=== PATIENT | female | born 1950 | race Caucasian/White ===

== ENCOUNTER → 2019-08-15 09:31 | Outpatient (BNVA) | payer MEDICARE, MEDICAID, SELFPAY | PROVIDERS: Family Provider Nurse Practitioner Family; PCP Nurse Practitioner Family; Visit Provider Nurse Practitioner Family | DX: R07.89 Other chest pain (principal); R93.89 Abnormal findings on diagnostic imaging of other specified body structures; R01.1 Cardiac murmur, unspecified; E11.9 Type 2 diabetes mellitus without complications | CPT/HCPCS: 36415; 83036 ==

== ENCOUNTER 2019-08-16 13:17 | Outpatient (CLI) | payer MEDICARE, MEDICAID, SELFPAY ==
--- NOTE | 2019-08-16 13:45 | CT_ITS ---
WS: [id number] CT CHEST TECHNIQUE: Noncontrast CT of the chest with coronal and sagittal reformatted images. CLINICAL INFORMATION: dyspnea COMPARISON: None. DLP: 1055.[address] scans at [facility] use at least one of these dose optimization techniques: automat ed exposure control; mA and/or kV adjustment per patient size (includes targeted exams where dose is matched to clinical indication); or iterative reconstruction. FINDINGS: Right mastectomy. No acute pulmonary infiltrates. Mild chronic emphysematous changes. No consolidatio n or pleural fluid. Pleural thickening left lower lobe with subsegmental atelectasis left lower lobe. 6 mm noncalcified fibrotic appearing nodule right middle lobe may represent fibrosis but Recommend 6- 12 month follow-up chest CT. No mediastinal or hilar lymphadenopathy. Mild aortic calcification. Enlarged lymph node in the right axilla measuring 11x11 mm with slightly increased attenuation. Additional adjacent slightly enlarged axillary lymph nodes. Recommend further evaluation with ultrasound. No left axillary lymphadenopathy. Unremarkable thyroid. Tiny pericardial effusion or pericardial thickening. Adrenal glands are normal. Normal GE junction. Fatty atrophy of the pancreas. Mild thoracic kyphosis. Thoracic curve convex rig ht. CT/CT chest wo con [id number] IMPRESSION: 1. Enlarged right axillary lymph node measuring 11 x 11 mm. Recommend further evaluation with ultrasound. Prior right mastectomy. 2. 6 mm noncalcified fibrotic appearing nodule right middle lobe may represent fibrosis but Recommend 6-12 month follow-up chest CT. 3. Subsegmental atelectasis left lung base with fibrosis and pleural thickenin g. 4. No mediastinal or hilar lymphadenopathy. 5. Small pericardial effusion or pericardial thickening.
== END 2019-08-16 13:18 | disposition home or self-care (01) ==
LOC: RADWPI 13:23
PROVIDERS: Family Provider Nurse Practitioner Family; PCP Nurse Practitioner Family; Visit Provider Nurse Practitioner Family
DX: R06.00 Dyspnea, unspecified (principal); R59.9 Enlarged lymph nodes, unspecified; R91.1 Solitary pulmonary nodule; J98.11 Atelectasis; J84.10 Pulmonary fibrosis, unspecified; I31.3 Pericardial effusion (noninflammatory)
CPT/HCPCS: 71250

== ENCOUNTER 2019-09-13 13:28 | Outpatient (CLI) | payer MEDICARE, MEDICAID, SELFPAY ==
--- NOTE | 2019-09-14 07:19 | ONC CON_ITS ---
Dr. Lemon New Patient Note Patient: Roxana Hamilton Unit #: [id number]: 1950 Dicatated By: Dangelo Lemon M.D.Date of Visit: September 13, 2019 Onc MED New Patient/Consult Referring Physician: Celsa Rasheed MD Chief Complaint: Breast cancer. 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 She now has biopsy-proven involvement with grade 1 invasive ductal carcinoma in the right lateral chest wall, again ER/AR positive and HER-2/aylin negative. She had presented in February 2009 with a lump in the retroareolar area of her right breast. Mammogram and ultrasound were suspicious. The initial biopsy showed an intermediate grade invasive ductal carcinoma measuring 2.2 cm in greatest dimension. There was an extensive component of ductal carcinoma in situ. The tumor was ER positive at 98% and AR positive at 98%. It was negative for overexpression of HER-2/aylin by IHC and by FISH (amplification ratio 1.13). She underwent right total mastectomy with axillary lymph node sampling in March 2009. There was no residual tumor in the mastectomy specimen. There was involvement in 4 of 5 axillary lymph nodes, the largest measuring 2 cm. She was given adjuvant chemotherapy with 3 cycles of FEC followed by 3 cycles of Taxotere, which she completed in August 2009. She opted not to take prophylactic chest wall radiation. She was given adjuvant hormonal therapy with Femara following completion of chemotherapy. She stopped it in August 2013 due to side effects, primarily musculoskeletal pain. Thus far during followup there has been no evidence of recurrence of the breast cancer. As of her follow-up visit on 10/07/2016 there has been no evidence of recurrence of the breast cancer. In July 2019 she was seen for a follow-up visit by Heather Salas. At that time she has been having pain in the mid to upper back on the right side. The pain had started back in the fall and had continued to gradually worsen. She was evaluated with noncontrast chest CT on 08/16/2019. The most significant finding was an enlarged lymph node in the right axilla measuring 11 x 11 mm with additional adjacent slightly enlarged axillary lymph nodes. Other findings included some pleural thickening in the left lower lobe with subsegmental atelectasis. A 6 mm noncalcified fibrotic appearing nodule in the right middle lobe was felt to most likely represent fibrosis, but follow-up chest CT was recommended. There was no mediastinal or hilar lymphadenopathy noted and there was no left axillary lymphadenopathy. There was evidence for tiny pericardial effusion or pericardial thickening. She was seen by Dr. Rasheed and ultrasound directed biopsy of the right axillary lymph node on 09/01/2019 showed grade 1/3 invasive ductal carcinoma. There was focal ductal carcinoma in situ, intermediate nuclear grade. Numerous microcalcifications were present. There was no definitive lymph node tissue identified in that specimen. The breast prognostic profile showed ER positive at 99% and AR positive at 30%. It was negative for overexpression of HER-2/aylin, 1+ by IHC and amplification ratio by FISH of 1.1 with 2.1 HER-2 copies/cell. Her other medical illnesses include hypertension and type 2 dabetes. She has a history of cardiac tachyarrhythmia. She is a nonsmoker, but she had significant second hand smoke exposure. She has been feeling pretty good generally, though she complains that she is tired by the end of the day. Her ECOG score is 1. She has good appetite and her weight is been stable. She has not had fever. She has been having really bad night sweating. She indicates that her blood sugars have been running high with her fasting sugars pretty consistently at 200 or more. She continues to have significant pain in the mid to upper back on the right side. She has constant soreness with it, but at times the pain gets more severe. She has been getting no benefit with Tylenol. She was getting some with ibuprofen, but she stopped taking it because it apparently was affecting her oxygen saturation. She has some shortness of breath. She has just occasional cough. She sometimes has pain in the left side of her chest, and her heart rate sometimes is high. She currently is being evaluated with a cardiac exercise specialist. She has been having diarrhea since she restarted metformin. She has no other GI complaints. She says she has a little bladder control problem. She also has been having pain in her right hip area. She does not complain of headache. She has some difficulty with balance. She has no focal neurologic symptoms. Past Medical History: Her medical history includes breast cancer, type II diabetes, and hypertension. She has a history of cardiac tachyarrhythmia. Past Surgical History: Her surgical/procedural history includes appendectomy, tonsillectomy, colonoscopy in 2010, right mastectomy with axillary lymph node sampling in 2008, and Caesarean section in 1992. 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 She is a non-smoker. She does not drink alcohol. Family History: Father of lymphoma at age 72. Mother age 64 with complications of diabetes. One brother had diabetes and another brother had heart disease. Two paternal uncles and 2 aunts also had cancer, 2 of which were lung cancers. She was not sure about the others. Review Of Symptoms: Constitutional - She says she feels tired by the end of the day. She is doing light work. Her appetite is good and her weight is stable. She has not had fever. She does report having night sweating really bad. Her ECOG score is 1, ENMT - She has some allergy related sinus symptoms. No mouth sores. No sore throat or difficulty swallowing, Hematologic/Lymphatic - No abnormal bruising or bleeding, Respiratory - She has shortness of breath with activity. She has just occasional cough. No pleuritic pain or hemoptysis, Cardiovascular - She has had some pain on the left side of the chest. Her heart rate is sometimes high, Gastrointestinal - No nausea or vomiting. No heartburn or acid reflux. She has had some diarrhea since restarting metformin. No blood in the stool or black stools, Genitourinary (F) - No dysuria or hematuria. She has a little bladder control problem, Musculoskeletal - She has been having pain in her mid to upper back on the right side. She has pain in her right hip, Integumentary - She has no skin rash or other skin problems, Neurologic - No headache or dizziness. She does tend to lose her balance. No numbness/paresthesias or other focal neurologic symptoms, Psychiatric - She sometimes gets nervous. She otherwise has no anxiety and no depression. She does not sleep very well. She is up at least 3 or 4 times at night. Vital Signs: Performed on September 13, 2019 14:33: 5, 41.84 (HIGH), 2.15 sq.m, 64.50 in, 95 % (LOW), 89 /min, 24 /min, 135/69 mm(hg), 97.3 F (LOW), and 247.6 lbs (LOW). Physical Examination: Constitutional - She looks pretty good generally, Eyes - Sclerae nonicteric. Conjunctivae clear, ENMT - No lesions noted in the oral cavity, Neck - No mass or thyromegaly, Hematologic/Lymphatic - No cervical or clavicular adenopathy, Respiratory - Lungs sound clear with slightly diminished air movement on the right, Cardiovascular - Heart is regular. There is a III/ systolic murmur, gallop, or rub noted, Breasts - There are no lesions noted in the right chest wall. There is some redundant fatty tissue in the lateral chest wall/axilla. There is some tenderness in the axillary area. I am not able to palpate any adenopathy or mass. The left breast shows no mass and there is adenopathy noted in the left axilla, Abdomen - Moderately distended. Liver and spleen are not enlarged. There is no abdominal mass or ascites noted and there is no inguinal adenopathy, Back/Spine - There is focal tenderness in the area overlying the inferolateral right scapula, Extremities - Mild edema. Posterior tibial pulses are palpable bilaterally, Integumentary - No rashes. No suspicious skin lesions noted, Neurologic - No focal neurologic deficits noted. Impression: 1. Patient with invasive ductal cancer of the right breast, stage IIIA, ER/AR positive and Her-2neu negative, treated with total mastectomy/axillary lymph node sampling in March 2009 followed by adjuvant chemotherapy with FEC/Taxotere. She declined chest wall radiation. 2. She was then given adjuvant hormonal therapy with Femara, stopped after approximately 4 years of treatment due to musculoskeletal pain. She has since then been followed on observation/expectant management. 3. She now has biopsy-proven grade 1 invasive ductal carcinoma involving a right lateral chest wall nodule. Tumor is ER/AR positive and HER-2/aylin negative. It appeared to be consistent with a lymph node by CT scan, but there was no pathologic evidence for lymph node tissue in the biopsy specimen. As such, it is uncertain whether this is a chest wall recurrence or new primary malignancy arising in the residual right breast pedicle. Her other medical illnesses include: 4. Hypertension. 5. Type II diabetes. 6. She has a history of cardiac tachyarrhythmia. Plan: The pathology results and clinic complications were reviewed with the patient. She needs to have staging with PET/CT. If the tumor is localized to the chest wall, I think it would be reasonable to perform a more complete resection and follow that up with radiation and adjuvant hormonal therapy. If there is evidence of other metastatic disease, she can then proceed directly to systemic therapy. The main issue right now is that her diabetes is going to have to be controlled better for the PET/CT to be feasible. As such, I will not have her start Lantus at 20 units daily. She will monitor blood sugars twice daily and report them to us. The Lantus dose was will be adjusted accordingly, and the PET/CT will be scheduled as soon as her fasting sugars are 160 or less. Signed By: Dangelo Lemon M.D. <<Signature on File>>
== END 2019-09-13 13:29 | disposition home or self-care (01) ==
LOC: ONCMED 13:33
PROVIDERS: PCP Nurse Practitioner Family; Visit Provider Internal Medicine Medical Oncology
DX: C79.89 Secondary malignant neoplasm of other specified sites (principal); C77.3 Secondary and unspecified malignant neoplasm of axilla and upper limb lymph nodes; Z85.3 Personal history of malignant neoplasm of breast; Z17.0 Estrogen receptor positive status [ER+]; Z90.11 Acquired absence of right breast and nipple; E11.65 Type 2 diabetes mellitus with hyperglycemia; I10 Essential (primary) hypertension; Z79.4 Long term (current) use of insulin; Z86.79 Personal history of other diseases of the circulatory system; Z77.22 Contact with and (suspected) exposure to environmental tobacco smoke (acute) (chronic)
CPT/HCPCS: 99215

== ENCOUNTER 2019-09-27 09:19 | Outpatient (CLI) | payer MEDICARE, MEDICAID, SELFPAY ==
--- NOTE | 2019-09-27 09:30 | USCV_ITS ---
AlfonsoRoxana Age: 68 Gender: F : 1950 Exam Date: 09/27/2019 09:35 Ordering Phys: Angelo Boss MD ([email or web address]) Technologist: Tiffanie Wang Exam Location: [facility] [place] Indication: SOB CHF BP: 130 / 70 HR: 75 Rhythm: Sinus Technical Quality: Adequate MEASUREMENTS (Male / Female) Normal Values 2D ECHO LV Diastolic Diameter PLAX 5.1 cm 4.2 - 5.9 / 3.9 - 5.3 cm LV Systolic Diameter PLAX 3.7 cm LV Chamber Size 4.6 cm IVS Diastolic Thickness 1.3 cm 0.6 - 1.0 / 0.6 - 0.9 cm IVS Systolic Thickness 2.6 cm LVPW Diastolic Thickness 1.0 cm 0.6 - 1.0 / 0.6 - 0.9 cm LVPW Systolic Thickness 1.7 cm RV Chamber Size 3.0 cm LVOT Diameter 2.0 cm LV Ejection Fraction 2D Teich 54.7 % LV Ejection Fraction MOD 2C 59.5 % LV Ejection Fraction 2C AL 61.9 % LA Diameter 4.9 cm LA Width 4.5 cm LA Height 4.3 cm RA Width 3.4 cm RA Height 3.3 cm Aorta at Sinotubular Diameter 2.9 cm M-MODE LV Diastolic Diameter MM 4.3 cm 4.2 - 5.9 / 3.9 - 5.3 cm LV Systolic Diameter MM 3.4 cm LV Ejection Fraction MM Teich 43.9 % IVS Diastolic Thickness MM 1.2 cm 0.6 - 1.0 / 0.6 - 0.9 cm IVS Systolic Thickness MM 1.5 cm LVPW Diastolic Thickness MM 1.1 cm 0.6 - 1.0 / 0.6 - 0.9 cm LVPW Systolic Thickness MM 1.4 cm RV Diastolic Diameter MM 1.2 cm Aortic Annulus Diameter 3.1 cm LA Ao Ratio MM 1.6 MV E Point Septal Separation 0.6 cm DOPPLER AV Peak Velocity 302.0 cm/s LVOT Peak Velocity 113.0 cm/s AV Area Cont Eq vti 1.3 cm squared AV Area Cont Eq pk 1.2 cm squared MV Area PHT 3.6 cm squared Mitral E to A Ratio 1.2 MV E' Velocity 11.0 cm/s Mitral E to MV E' Ratio 13.7 Mitral E to LV E' Lateral Ratio 13.2 Mitral E to LV E' Septal Ratio 14.4 TR Peak Velocity 287.2 cm/s TR Peak Gradient 33.0 mmHg TR Mean Velocity 224.9 cm/s TR Mean Gradient 21.6 mmHg TR Velocity Time Integral 100.3 cm TV Peak E Velocity 69.0 cm/s Right Atrial Pressure 3.0 mmHg Pulmonary Artery Systolic Pressu 36.0 mmHg PV Peak Velocity 96.0 cm/s RV Acceleration Time 0.1 s RV Ejection Time 0.4 s RV AcT/ET 0.3 FINDINGS Left Ventricle Normal left ventricular cavity size. Normal left ventricular systolic function. Normal left ventricular cavity size. No regional wall motion abnormalities. Left ventricular ejection fraction is estimated at 55 %.Grade II/IV diastolic dysfunction, moderately elevated filling pressures. Right Ventricle The right ventricle is normal in size and function. Normal right ventricular systolic function. Right Atrium The right atrium is normal in size. Left Atrium The left atrium is normal in size. Mitral Valve Severely thickened mitral valve. Severe mitral annular calcification. No mitral valve stenosis. Aortic Valve Severe aortic valve calcification. Moderate aortic valve stenosis, mean gradient 18.3 mmHg, MARLENI 1.3 cm squared. Trace aortic valve regurgitation. Tricuspid Valve Mild tricuspid valve regurgitation. Pulmonic Valve Structurally normal pulmonic valve without significant stenosis. There is no pulmonic regurgitation. Pericardium Normal pericardium without effusion. Aorta Normal ascending aorta dimension. CONCLUSIONS 1-Normal left ventricular cavity size. Normal left ventricular systolic function. Normal left ventricular cavity size. No regional wall motion abnormalities. Left ventricular ejection fraction is estimated at 55 %.Grade II/IV diastolic dysfunction, moderately elevated filling pressures. 2-The right ventricle is normal in size and function. Normal right ventricular systolic function. 3-Severely thickened mitral valve. Severe mitral annular calcification. No mitral valve stenosis. 4-Severe aortic valve calcification. Moderate aortic valve stenosis, mean gradient 18.3 mmHg, MARLENI 1.3 cm squared. Trace aortic valve regurgitation. 5-Mild tricuspid valve regurgitation. 6-There is no pericardial effusion. 7-Right atrial pressure is around 5 mm of mercury. 8-when compared to the prior echocardiogram dated 10/22/2012 there appeared to be moderate stenosis with aortic valve area of 1.3 cm2, now. Angelo Boss MD (Electronically Signed) Final Date: 28 September 2019 17:56 S
== END 2019-09-27 09:20 | disposition home or self-care (01) ==
LOC: RAD 09:25
PROVIDERS: PCP Nurse Practitioner Family; Visit Provider Internal Medicine Cardiovascular Disease
DX: R06.02 Shortness of breath (principal); I50.9 Heart failure, unspecified; I08.3 Combined rheumatic disorders of mitral, aortic and tricuspid valves
CPT/HCPCS: 93306

== ENCOUNTER 2019-11-28 10:53 | Outpatient (CLI) | payer MEDICARE, MEDICAID, SELFPAY ==
--- NOTE | 2019-11-29 06:56 | ONC FU_ITS ---
Dr. Lemon Patient Follow-Up Note Patient: Roxana Hamilton Unit #: [id number]: 1950 Dicatated By: Dangelo Lemon M.D.Date of Visit:Nov 28, 2019 Onc Med Follow-up/Prog Note Chief Complaint: Breast cancer. 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 She now has biopsy-proven involvement with grade 1 invasive ductal carcinoma in the right lateral chest wall, again ER/AL positive and HER-2/aylin negative. She had presented in February 2009 with a lump in the retroareolar area of her right breast. Mammogram and ultrasound were suspicious. The initial biopsy showed an intermediate grade invasive ductal carcinoma measuring 2.2 cm in greatest dimension. There was an extensive component of ductal carcinoma in situ. The tumor was ER positive at 98% and AL positive at 98%. It was negative for overexpression of HER-2/aylin by IHC and by FISH (amplification ratio 1.13). She underwent right total mastectomy with axillary lymph node sampling in March 2009. There was no residual tumor in the mastectomy specimen. There was involvement in 4 of 5 axillary lymph nodes, the largest measuring 2 cm. She was given adjuvant chemotherapy with 3 cycles of FEC followed by 3 cycles of Taxotere, which she completed in August 2009. She opted not to take prophylactic chest wall radiation. She was given adjuvant hormonal therapy with Femara following completion of chemotherapy. She stopped it in August 2013 due to side effects, primarily musculoskeletal pain. Thus far during followup there has been no evidence of recurrence of the breast cancer. As of her follow-up visit on 10/07/2016 there has been no evidence of recurrence of the breast cancer. In July 2019 she was seen for a follow-up visit by Heather Salas. At that time she has been having pain in the mid to upper back on the right side. The pain had started back in the fall and had continued to gradually worsen. She was evaluated with noncontrast chest CT on 08/16/2019. The most significant finding was an enlarged lymph node in the right axilla measuring 11 x 11 mm with additional adjacent slightly enlarged axillary lymph nodes. Other findings included some pleural thickening in the left lower lobe with subsegmental atelectasis. A 6 mm noncalcified fibrotic appearing nodule in the right middle lobe was felt to most likely represent fibrosis, but follow-up chest CT was recommended. There was no mediastinal or hilar lymphadenopathy noted and there was no left axillary lymphadenopathy. There was evidence for tiny pericardial effusion or pericardial thickening. She was seen by Dr. Rasheed and ultrasound directed biopsy of the right axillary lymph node on 09/01/2019 showed grade 1/3 invasive ductal carcinoma. There was focal ductal carcinoma in situ, intermediate nuclear grade. Numerous microcalcifications were present. There was no definitive lymph node tissue identified in that specimen. The breast prognostic profile showed ER positive at 99% and AL positive at 30%. It was negative for overexpression of HER-2/aylin, 1+ by IHC and amplification ratio by FISH of 1.1 with 2.1 HER-2 copies/cell. I had seen her for a follow-up visit on 09/13/2019. Further evaluation with staging PET/CT on 09/24/2019 showed a 1.5 cm inferior right axillary lymph node without significant FDG activity. There was no evidence of any other metastatic disease. A left supraclavicular lymph node appeared prominent, but not pathologic. With those findings, I had recommended that she proceed with further surgical resection, and on 10/13/2019 she underwent ultrasound-guided right axillary lymph node dissection. 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 Her other medical illnesses include hypertension and type 2 dabetes. She has a history of cardiac tachyarrhythmia. She is a nonsmoker, but she had significant second hand smoke exposure. She is seen for a follow-up visit. She says she has been feeling good generally, though she does tire easily. She is doing light work. ECOG score is 1. She has good appetite. She has not had fever. She occasionally has sweating at night. She says her breathing is pretty good, though she does have some shortness of breath. She also has some cough, attributable to allergies. She recently was treated with adenosine for another episode of SVT. She has not had chest pain. She has no GI complaints. She has bladder control issues, which has been an ongoing problem for her. Recently she has had pain across her shoulders. She also has a bad right hip, and she sometimes has pain in her left hip. She does not complain of headache. She tends to lose balance pretty easily. She has no focal neurologic symptoms. Medications: Calcium 500 mg - Take 3 Tablet Oral daily, Cardizem 1 (360 mg) Tablet Oral daily, GlipiZIDE 1 Tablet (of 10 mg) Oral b.i.d., Lantus 20 Units Subcutaneous, Lisinopril 5 mg - Take 1 Tablet Oral daily, Magnesium 1 Tablet Oral daily, metFORMIN HCl 1 Tablet (of 1000 mg) Oral b.i.d., MetFORMIN HCl 1 (500 mg) Tablet Oral b.i.d., Metoprolol Succinate ER 1 Tablet (of 25 mg) Tablet SR 24 HR Oral daily, Potassium 1 Tablet (of 99 mg) Oral daily, Tylenol Extra Strength 500 mg - Take 2 Tablet Oral daily PRN Allergies: Avelox and Levaquin. Review of Systems: Constitutional - She is feeling okay. Her energy is fair. She does tire easily. Her appetite is good and weight is stable. No fevers. She has occasional hot flashes with swesating. ECOG score is 1, ENMT - No sinus congestion/drainage. No mouth sores. No sore throat or difficulty swallowing, Hematologic/Lymphatic - No abnormal bruising or bleeding, Respiratory - She gets short of breath with activity. No cough. No pleuritic pain or hemoptysis, Cardiovascular - No angina pain. She recently had an episode of SVT, and required Adenosine, Gastrointestinal - No nausea or vomiting. No heartburn or acid reflux. No diarrhea or constipation. No blood in the stool or black stools, Genitourinary (F) - No dysuria or hematuria. She has urinary frequency both day and night. She has urgency with occasional incontinence, Musculoskeletal - She has right hip pain, this is chronic. She occasional has pain into her left hip. She recently started having pain across her upper back and shoulders, Integumentary - No skin rash, Neurologic - No headache. She tends to lose her balance. No numbness or tingling. No other focal neurologic symptoms, Psychiatric - No anxiety or depression. No insomnia. Vital Signs: Performed on Nov 28, 2019 11:21 Height - 64.50 in Weight - 246.2 lbs (LOW) BSA - 2.15 sq.m BMI - 41.61 (HIGH) Temperature - 98.7 F Pulse - 70 /min Respiration - 22 /min BP - 102/59 mm(hg) O2 Sat - 95 % (LOW) Pain - 0 Physical Examination: Constitutional - She looks pretty good generally, Eyes - Sclerae nonicteric. Conjunctivae clear, ENMT - No lesions noted in the oral cavity, Hematologic/Lymphatic - No cervical or clavicular adenopathy, Respiratory - Lungs sound clear, Cardiovascular - Heart is regular. There is a III/ systolic murmur. There is no gallop or rub noted, Breasts - There are no lesions noted in the right chest wall. The right axillary incision appears well-healed. There is no axillary adenopathy noted, Abdomen - Moderately distended. Liver and spleen are not enlarged. There is no abdominal mass or ascites noted and there is no inguinal adenopathy, Extremities - No edema, Neurologic - No focal neurologic deficits noted. Impression: 1. Patient with invasive ductal cancer of the right breast, stage IIIA, ER/AL positive and Her-2neu negative, treated with total mastectomy/axillary lymph node sampling in March 2009 followed by adjuvant chemotherapy with FEC/Taxotere. She declined chest wall radiation. 2. She was then given adjuvant hormonal therapy with Femara, stopped after approximately 4 years of treatment due to musculoskeletal pain. She was then followed on observation/expectant management. 3. In August 2019 she had biopsy-proven grade 1 invasive ductal carcinoma involving a right lateral chest wall nodule. The tuumor was ER/AL positive and HER-2/aylin negative. It appeared to be consistent with a lymph node by CT scan, but there was no pathologic evidence for lymph node tissue in the biopsy specimen. 4. She had negative staging PET/CT on 09/24/2019, and on 10/13/2019 she underwent ultrasound-guided right axillary lymph node dissection. Pathology showed involvement in 2/3 superior right axillary lymph nodes and in 1/1 inferior right axillary lymph node. Her other medical illnesses include: 5. Hypertension. 6. Type II diabetes. 7. She has a history of cardiac tachyarrhythmia. Plan: She has had complete surgical resection of known disease, though she will be at significant risk for further recurrence of the breast cancer. As such, I will recommend that she restart adjuvant hormonal therapy, preferably with exemestane, though it will be subject to verification of insurance coverage. Ideally she also should undergo postop radiation to the chest wall/axilla. As before, she is very reluctant to take radiation, so at least for now her adjuvant therapy will be limited to the hormonal treatment. She will need to have a repeat DEXA scan to assess her bone health, not will be scheduled at [facility]. I will tentatively plan a follow-up visit in 3 months. Signed By: Dangelo Leomn M.D. <<Signature on File>>
== END 2019-11-28 10:54 | disposition home or self-care (01) ==
LOC: ONCMED 10:53
PROVIDERS: PCP Nurse Practitioner Family; Visit Provider Internal Medicine Medical Oncology
DX: C50.111 Malignant neoplasm of central portion of right female breast (principal); Z17.0 Estrogen receptor positive status [ER+]; C77.3 Secondary and unspecified malignant neoplasm of axilla and upper limb lymph nodes; I10 Essential (primary) hypertension; E11.9 Type 2 diabetes mellitus without complications; R00.0 Tachycardia, unspecified; Z92.21 Personal history of antineoplastic chemotherapy; Z79.818 Long term (current) use of other agents affecting estrogen receptors and estrogen levels
CPT/HCPCS: 99214

== ENCOUNTER → 2019-12-19 14:00 | Outpatient (BNVA) | payer MEDICARE, MEDICAID, SELFPAY | PROVIDERS: PCP Nurse Practitioner Family; Visit Provider Nurse Practitioner Family | DX: E11.3319 Type 2 diabetes mellitus with moderate nonproliferative diabetic retinopathy with macular edema, unspecified eye; E11.65 Type 2 diabetes mellitus with hyperglycemia; L03.90 Cellulitis, unspecified; Z79.899 Other long term (current) drug therapy | CPT/HCPCS: 80053; 82043; 83036; 87070; 87077; 87186 ==

== ENCOUNTER 2020-03-06 11:07 | Outpatient (CLI) | payer MEDICARE, MEDICAID, SELFPAY ==
--- NOTE | 2020-03-09 07:07 | ONC FU_ITS ---
Dr. Lemon Patient Follow-Up Note Patient: Roxana Hamilton Unit #: [id number]: 1950 Dicatated By: Dangelo Lemon M.D.Date of Visit:Mar 06, 2020 Onc Med Follow-up/Prog Note Chief Complaint: Breast cancer. 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 She now has biopsy-proven involvement with grade 1 invasive ductal carcinoma in the right lateral chest wall, again ER/FL positive and HER-2/aylin negative. She had presented in February 2009 with a lump in the retroareolar area of her right breast. Mammogram and ultrasound were suspicious. The initial biopsy showed an intermediate grade invasive ductal carcinoma measuring 2.2 cm in greatest dimension. There was an extensive component of ductal carcinoma in situ. The tumor was ER positive at 98% and FL positive at 98%. It was negative for overexpression of HER-2/aylin by IHC and by FISH (amplification ratio 1.13). She underwent right total mastectomy with axillary lymph node sampling in March 2009. There was no residual tumor in the mastectomy specimen. There was involvement in 4 of 5 axillary lymph nodes, the largest measuring 2 cm. She was given adjuvant chemotherapy with 3 cycles of FEC followed by 3 cycles of Taxotere, which she completed in August 2009. She opted not to take prophylactic chest wall radiation. She was given adjuvant hormonal therapy with Femara following completion of chemotherapy. She stopped it in August 2013 due to side effects, primarily musculoskeletal pain. Thus far during followup there has been no evidence of recurrence of the breast cancer. As of her follow-up visit on 10/07/2016 there has been no evidence of recurrence of the breast cancer. In July 2019 she was seen for a follow-up visit by Heather Salas. At that time she has been having pain in the mid to upper back on the right side. The pain had started back in the fall and had continued to gradually worsen. She was evaluated with noncontrast chest CT on 08/16/2019. The most significant finding was an enlarged lymph node in the right axilla measuring 11 x 11 mm with additional adjacent slightly enlarged axillary lymph nodes. Other findings included some pleural thickening in the left lower lobe with subsegmental atelectasis. A 6 mm noncalcified fibrotic appearing nodule in the right middle lobe was felt to most likely represent fibrosis, but follow-up chest CT was recommended. There was no mediastinal or hilar lymphadenopathy noted and there was no left axillary lymphadenopathy. There was evidence for tiny pericardial effusion or pericardial thickening. She was seen by Dr. Rasheed and ultrasound directed biopsy of the right axillary lymph node on 09/01/2019 showed grade 1/3 invasive ductal carcinoma. There was focal ductal carcinoma in situ, intermediate nuclear grade. Numerous microcalcifications were present. There was no definitive lymph node tissue identified in that specimen. The breast prognostic profile showed ER positive at 99% and FL positive at 30%. It was negative for overexpression of HER-2/aylin, 1+ by IHC and amplification ratio by FISH of 1.1 with 2.1 HER-2 copies/cell. I had seen her for a follow-up visit on 09/13/2019. Further evaluation with staging PET/CT on 09/24/2019 showed a 1.5 cm inferior right axillary lymph node without significant FDG activity. There was no evidence of any other metastatic disease. A left supraclavicular lymph node appeared prominent, but not pathologic. With those findings, I had recommended that she proceed with further surgical resection, and on 10/13/2019 she underwent ultrasound-guided right axillary lymph node dissection. 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 Following her visit on 11/28/2019 she began adjuvant hormonal therapy with exemestane 25 mg daily. Her baseline DEXA scan showed normal bone density with T score 1.4 in the lumbar spine, 1.2 in the left femoral neck, and 1.5 in the left total hip. Her other medical illnesses include hypertension and type 2 dabetes. She has a history of cardiac tachyarrhythmia. She is a nonsmoker, but she had significant second hand smoke exposure. She is seen for a follow-up visit. She has been feeling pretty good generally, though she says her energy is generally low. She is usually pretty tired by 1 PM. Her ECOG score is 1. She has good appetite. She has not had fever, but she does complain that she sweats at night really bad. She gets short of breath with activity. She has just occasional cough. She does not complain of chest pain. She has no GI complaints other than occasional diarrhea, attributable to her medication. She says her bladder is very weak. She has urinary frequency with urgency and incontinence. She complains that her hips hurt a lot and she also has pain across her shoulders, but that does not seem to be getting any worse. She does not complain of headache or dizziness. She has some numbness in her fingers, and she sometimes has difficulty holding onto objects. Medications: Calcium 500 mg - Take 3 Tablet Oral daily, Cardizem 1 (360 mg) Tablet Oral daily, GlipiZIDE 1 Tablet (of 10 mg) Oral b.i.d., Lantus 20 Units Subcutaneous, Lisinopril 5 mg - Take 1 Tablet Oral daily, Magnesium 1 Tablet Oral daily, metFORMIN HCl 1 Tablet (of 1000 mg) Oral b.i.d., MetFORMIN HCl 1 (500 mg) Tablet Oral b.i.d., Metoprolol Succinate ER 1 Tablet (of 25 mg) Tablet SR 24 HR Oral daily, Potassium 1 Tablet (of 99 mg) Oral daily, Tylenol Extra Strength 500 mg - Take 2 Tablet Oral daily PRN Allergies: Avelox and Levaquin. Review of Systems: Constitutional - She has been feeling good generally. Her energy is pretty good, but she does get tired easily. Her appetite is good and her weight is down a few lbs. No fevers. She has chronic persistent night sweats. ECOG score is 1, ENMT - She has some sinus congestion/drainage. No mouth sores. No sore throat or difficulty swallowing, Hematologic/Lymphatic - No abnormal bruising or bleeding, Respiratory - She get short of breath with exertion. She has an occasional cough. No pleuritic pain or hemoptysis, Cardiovascular - No angina pain. No palpitations, Gastrointestinal - No nausea or vomiting. No heartburn or acid reflux. She has loose stools from her Metformin. No constipation. No blood in the stool or black stools, Genitourinary (F) - No dysuria or hematuria. She has urinary frequency with urgency. She has occasional incontinence, Musculoskeletal - She has pain in both hips, worse on the right, Integumentary - No skin complications,, Neurologic - No headache or dizziness. She has numbness in her fingers if she is holding something too long. No other focal neurologic symptoms, Psychiatric - No anxiety or depression. No insomnia. Vital Signs: Performed on Mar 06, 2020 11:05 Height - 64.50 in Weight - 242 lbs (LOW) BSA - 2.13 sq.m BMI - 40.90 (HIGH) Temperature - 97.5 F (LOW) Pulse - 81 /min Respiration - 18 /min BP - 122/62 mm(hg) O2 Sat - 95 % (LOW) Pain - 5 Physical Examination: Constitutional - She looks pretty good generally, Eyes - Sclerae nonicteric. Conjunctivae clear, ENMT - No lesions noted in the oral cavity, Hematologic/Lymphatic - No cervical, clavicular, or axillary adenopathy, Respiratory - Lungs sound clear, Cardiovascular - Heart is regular. There is a III/ systolic murmur. There is no gallop or rub noted, Abdomen - Moderately distended. Liver and spleen are not enlarged. There is no abdominal mass or ascites noted and there is no inguinal adenopathy, Extremities - No edema, Neurologic - No focal neurologic deficits noted. Impression: 1. Patient with invasive ductal cancer of the right breast, stage IIIA, ER/FL positive and Her-2neu negative, treated with total mastectomy/axillary lymph node sampling in March 2009 followed by adjuvant chemotherapy with FEC/Taxotere. She declined chest wall radiation. 2. She was then given adjuvant hormonal therapy with Femara, stopped after approximately 4 years of treatment due to musculoskeletal pain. She was then followed on observation/expectant management. 3. In August 2019 she had biopsy-proven grade 1 invasive ductal carcinoma involving a right lateral chest wall nodule. The tuumor was ER/FL positive and HER-2/aylin negative. It appeared to be consistent with a lymph node by CT scan, but there was no pathologic evidence for lymph node tissue in the biopsy specimen. 4. She had negative staging PET/CT on 09/24/2019, and on 10/13/2019 she underwent ultrasound-guided right axillary lymph node dissection. Pathology showed involvement in 2/3 superior right axillary lymph nodes and in 1/1 inferior right axillary lymph node. Her other medical illnesses include: 5. Hypertension. 6. Type II diabetes. 7. She has a history of cardiac tachyarrhythmia. With her disease having been completely resected, she was recommended to have adjuvant hormonal therapy. Postoperative radiation to the chest wall/axilla also was recommended, but she declined. She began adjuvant hormonal therapy with exemestane 25 mg daily in November 2019. Thus far she has tolerated it with no significant adverse effects. Plan: She will continue adjuvant hormonal therapy with exemestane 25 mg daily. She will be scheduled for follow-up visit in 3 months. Signed By: Dangelo Lemon M.D. <<Signature on File>>
== END 2020-03-06 11:08 | disposition home or self-care (01) ==
LOC: ONCMED 11:08
PROVIDERS: PCP Nurse Practitioner Family; Visit Provider Internal Medicine Medical Oncology
DX: C50.111 Malignant neoplasm of central portion of right female breast (principal); C77.3 Secondary and unspecified malignant neoplasm of axilla and upper limb lymph nodes; Z17.0 Estrogen receptor positive status [ER+]; I10 Essential (primary) hypertension; E11.9 Type 2 diabetes mellitus without complications; I49.8 Other specified cardiac arrhythmias; Z79.811 Long term (current) use of aromatase inhibitors
CPT/HCPCS: 99214

== ENCOUNTER 2020-06-06 12:29 | Emergency (ER) | payer MEDICARE, MEDICAID, SELFPAY ==
--- NOTE | 2020-06-06 12:37 | ECG_ITS ---
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 Measurements Intervals [place] Rate: 91 P: 32 [place]: 178 QRS: -19 QRSD: 100 T: 43 QT: 367 QTc: 453 Interpretive Statements SINUS RHYTHM No previous ECG available for comparison Electronically Signed On 06-07-2020 16:54:58 [employer] by Quinn Goncalves M.D. [id number]
[2020-06-06 12:44] VITALS: BP 151/86; PULSE 93; RESP 18; TEMP 37; O2SAT 94; BMI 41.1
--- NOTE | 2020-06-06 12:49 | XR_ITS ---
WS: [id number] PORTABLE CHEST HISTORY: SVT COMPARISON: 01/17/2013 Lungs are clear and well expanded. No pleural effusion or pneumothorax. Cardiac size: Mild enlargement of the cardiac silhouette is partially obscuring the LEFT lower lung f ield. No interval change since the prior study. Mediastinum/Aorta: Normal mediastinum. No osseous abnormality seen. Prior RIGHT axillary node biopsy. XR/XR chest 1V portable [id number] IMPRESSION: Mild cardiomegaly. Stable chest since 01/17/2013.
--- NOTE | 2020-06-06 12:49 | W.ED.ARRPALP ---
Documented by User: Delmi DreaPHYLLIS William 06/06/20 15:50 HPI - Arrhythmia/Palpitations General: Chief Complaint: Arrhythmia/Palpitations Stated Complaint: HEART RACING Time Seen by Provider: 06/06/20 12:36 Source: patient and EMS Mode of arrival: EMS Limitations: no limitations History of Present Illness: HPI narrative: Pleasant 69-year-old female patient presents to the emergency department via EMS. She experienced an episode of fast heart rate this morning after cleaning house. She reports when she went to rest, sit down to watch TV after cleaning, she experienced heart palpitations, heart racing and chest pressure, like I wanted to belch . EMS was called, they noted heart rate of 145 on initial exam. EMS reports during transport, she converted to sinus rhythm, states ECG appeared as tachycardia and not atrial fibrillation. Upon exam, she reports chest pain has resolved. She no longer experiences chest pressure, states palpitations have resolved, and feels normal. Feels like you gave me that feel good juice and now I am ready to go home . She reports out of her metoprolol for 3 to 4 days and forgot to put medication in her medical box when refilled. States took metoprolol this morning. She is currently in sinus rhythm with heart rate 91. She denies fever, shortness of breath or difficulty breathing upon exam. MD complaint: rapid heart beat, heart racing and palpitations Onset (ago): hour(s) (1) Duration: now resolved Severity: similar to previous episodes Context: occurred during exertion Arrhythmia history: SVT Associated symptoms: Reports no associated symptoms; Deny anxiety, diaphoresis, muscle cramps, nausea or vomiting Treatments prior to arrival: beta-brian and calcium channel brian Review of Systems General: Reports: 10 or more systems reviewed and unremarkable except in HPI and below Const: Denies: fever(s), chills or diaphoresis Eyes: Denies: blurry vision or eye redness ENMT: Denies: throat pain, dental pain or disequilibrium Card: Reports: chest pain and palpitations; Denies: irregular heart rhythm, edema, swelling of feet/ankles, lightheadedness, dyspnea on exertion or leg pain with exertion Resp: Denies: dyspnea, productive cough, non-productive cough or wheezing GI: Denies: abdominal pain, nausea or vomiting : Denies: difficulty voiding or dysuria Musc: Denies: back pain, joint pain, joint swelling, muscle cramps or muscle weakness Skin/Breast: Denies: rash or pruritus Neuro: Denies: headache(s), weakness in extremities or behavioral changes Psych: Denies: anxiety, depression or change in appetite Jed/Lymph: Denies: easy bruising PFSH ED PFSH: Medical History (Updated 06/06/20 @ 15:40 by PHYLLIS Patel) Breast cancer, right breast Pneumonia SVT (supraventricular tachycardia) Type 2 diabetes mellitus without complication Type 2 DM mod nonproliferative retinopathy, macular edema, uncontrol Surgical History History of appendectomy History of mastectomy Hx of section Hx of tonsillectomy Social History Smoking and tobacco status: never smoked Second hand smoke exposure: Yes Alcohol intake: never Female Reproductive History: Para: 6 Date of menopause: 05/01/93 Physical Exam Const: COMMON NORMALS: no acute distress, patient oriented x3, healthy appearing and alert GENERAL APPEARANCE: cooperative, comfortable and well hydrated HENMT: COMMON NORMALS: normocephalic, Normal external nose present and moist oral mucous membranes HEAD & SCALP: normocephalic NOSE: Normal external nose present Eye: COMMON NORMALS: Equal, round and reactive pupils present and EOMs intact bilaterally GENERAL EYE: appearance normal, both eyes and all related structures PUPIL: Yes Equal, round and reactive pupils present Neck/C-Spine: COMMON NORMALS: full ROM, no lymphadenopathy and no meningeal signs GENERAL: Yes normal visual inspection and Yes trachea midline CERVICAL SPINE: Yes cervical ROM normal Lymph: LYMPHATIC: no lymphadenopathy noted Chest: COMMONS NORMALS: normal inspection of the chest and normal palpation of entire chest wall Resp: COMMON NORMALS: normal respiratory effort, No retractions, No use of accessory muscles and clear to auscultation bilaterally EFFORT & INSPECTION: Yes able to speak in complete sentences, No abnormal respiratory pattern, No pursed lip breathing, No labored and No audible wheezes AUSCULTATION: clear to auscultation bilaterally Cardio: COMMON NORMALS: regular rate, regular rhythm, S1 normal heart sound present, S2 normal heart sound present and Peripheral pulses 2+ throughout RATE: regular rate RHYTHM: regular rhythm HEART SOUNDS: S1 normal heart sound present and S2 normal heart sound present PERIPHERAL PULSES: Peripheral pulses 2+ throughout GI: COMMON NORMALS: Normal to inspection, nondistended, normoactive bowel sounds present, Soft to palpation and non-tender INSPECTION: Yes normal to inspection, No abdominal wall ecchymosis, No abdominal distension, Yes central obesity and No visible herniation PALPATION: Yes Soft to palpation and No Firmness to palpation present (GI) : COMMON NORMALS: Yes no CVA tenderness BLADDER/KIDNEY EXAM: Yes no CVA tenderness Back/Pelvis: COMMON NORMALS: no CVA tenderness and thoracic and lumbar spine normal to inspection Extremity: COMMON NORMALS: normal to inspection and capillary refill normal Neuro: COMMON NORMALS: patient oriented x3 and no focal motor deficits SENSORIUM/ORIENTATION: Yes alert MENINGEAL SIGNS: Yes no meningeal signs SPEECH: speech normal GAIT: Yes Normal gait present MOTOR EXAM: 5/5 motor strength present throughout Psych: COMMON NORMALS: mental status grossly normal, Normal thought process present and cooperative ACTIVITY/MOTOR BEHAVIOR: Yes appropriate eye contact THOUGHT PROCESS: Normal thought process present Skin: COMMON NORMALS: no rashes or lesions noted, no wounds, turgor normal, no petechiae and no mottling GENERAL SKIN EXAM: no rashes or lesions noted, elasticity normal and turgor normal Course Vital Signs: Vital signs: Vital Signs Temperature 97.9 F 06/06/20 15:51 Pulse Rate 84 06/06/20 15:51 Respiratory Rate 18 06/06/20 15:51 Blood Pressure 152/68 06/06/20 15:51 Pulse Oximetry 95 06/06/20 15:51 MDM - Arrhythmia/Palpitations MDM Narrative: Medical decision making narrative: Pleasant 69-year-old female patient presents to the emergency department with onset of SVT. She has experienced similar symptoms in the past with addition of 100 mg of metoprolol twice daily prescribed by Dr. Boss, her previous episode of SVT was in September 2019 prior to the addition of metoprolol. She states since addition to the medication, she has not exhibited heart palpitations or episodes of SVT. She did miss 3 to 4 days of metoprolol prior to onset of today's SVT episode. During her stay here in the ED, she remained sinus rhythm to the monitor, heart rate 70s to 80s, sinus rhythm. No SVT identified. She did not complain of chest pain or have shortness of breath. Magnesium was measured to be low, 1.6, magnesium replacement prescribed. White count slightly elevated 13.1 thousand, urinalysis with bacteria and white blood cells, Macrodantin prescribed with recommended follow-up in 7 to 10 days for repeat urinalysis with her primary care. Serial troponin completed with delta difference of 4. She is requesting to go home, does not wish to stay. She is recommending assistance with follow-up with Dr. Boss since she missed her follow-up appointment due to lymph node resection on the right secondary to breast cancer. technology services manager will assist with scheduling appointment as referral has been placed. Lab Data: Labs: Lab Results 06/06/20 06/06/20 06/06/20 Range/Units 12:36 12:55 12:55 WBC 13.1 H (4.0-10.0) 10^3/ uL RBC 4.79 (4.1-5.3) 10^6/u L Hgb 13.6 (11.5-15.3) g/dL Hct 40.4 (37.0-47.0) % MCV 84.3 (81-99) fL MCH 28.4 (28.0-34.0) pg MCHC 33.7 (30.0-36.0) g/dL RDW 12.9 (12.1-15.1) % Plt Count 311 (130-400) 10^3/c mm MPV 9.4 (7.4-10.4) fL Neut % (Auto) 75.5 % Lymph % (Auto) 16.5 % [place] % (Auto) 5.4 % Eos % (Auto) 1.5 % Baso % (Auto) 0.5 % Neut # (Auto) 9.86 H (1.8-7.7) 10^3/u L Lymph # (Auto) 2.2 (0.8-4.8) 10^3/u L [place] # (Auto) 0.7 (0.2-0.9) 10^3/u L Eos # (Auto) 0.2 (0.0-0.8) 10^3/u L Baso # (Auto) 0.1 (0.0-0.1) 10^3/u L Nucleated RBC % (a uto) 0 % Nucleated RBCs # 0.0 /100WBC Sodium 138 (136-145) mmol/L Potassium 3.9 (3.5-5.1) mmol/L Chloride 100 (98-107) mmol/L Carbon Dioxide 27 (22-29) mmol/L Anion Gap 14.9 (5-19) BUN 12 (8-23) mg/dL Creatinine 0.5 (0.5-0.9) mg/dL GFR Calculation 123.1 (90-130) mL/min Glucose 197 H (65-115) mg/dL Calculated Osmolal ity 291 (285-295) mOsm/k g Calcium 9.2 (8.5-10.5) mg/dL Magnesium 1.6 L (1.7-2.3) mg/dL Total Bilirubin 0.2 (0.15-1.2) mg/dL AST 25 (0-32) U/L ALT 34 H (0-33) U/L Alkaline Phosphata se 89 (35-105) IU/L Troponin T Baselin e (0-10) ng/L Troponin T 120 Min [place] (0-10) ng/L Delta Troponin T (0-10) ABS# Total Protein 7.3 (6.6-8.7) g/dL Albumin 4.1 (3.5-5.2) g/dL Globulin 3.2 (1.3-4.6) g/dL Urine Color Yellow (Yellow) Urine Appearance Clear (CLEAR) Urine pH 7 (5-7) Ur Specific Gravit y 1.005 (1.005-1.030) Urine Protein 1+ H (Negative) Urine Glucose (UA) 1+ (Normal) Urine Ketones Negative (Negative) Urine Blood Neg (Negative) Urine Nitrate Negative (Negative) Urine Bilirubin Neg (Negative) Urine Urobilinogen Norm (Negative) mg/dL Ur Leukocyte Carey ase Negative (Negative) Urine RBC None (0-2) /hpf Urine WBC 0-4 H (0-5) /hpf Ur Squamous Epith Cells 0-4 H (0-5) /hpf Amorphous Sediment Not Reportable Urine Bacteria Trace (NONE) /hpf 06/06/20 06/06/20 Range/Units 12:55 14:30 WBC (4.0-10.0) 10^3/ uL RBC (4.1-5.3) 10^6/u L Hgb (11.5-15.3) g/dL Hct (37.0-47.0) % MCV (81-99) fL MCH (28.0-34.0) pg MCHC (30.0-36.0) g/dL RDW (12.1-15.1) % Plt Count (130-400) 10^3/c mm MPV (7.4-10.4) fL Neut % (Auto) % Lymph % (Auto) % [place] % (Auto) % Eos % (Auto) % Baso % (Auto) % Neut # (Auto) (1.8-7.7) 10^3/u L Lymph # (Auto) (0.8-4.8) 10^3/u L [place] # (Auto) (0.2-0.9) 10^3/u L Eos # (Auto) (0.0-0.8) 10^3/u L Baso # (Auto) (0.0-0.1) 10^3/u L Nucleated RBC % (a uto) % Nucleated RBCs # /100WBC Sodium (136-145) mmol/L Potassium (3.5-5.1) mmol/L Chloride (98-107) mmol/L Carbon Dioxide (22-29) mmol/L Anion Gap (5-19) BUN (8-23) mg/dL Creatinine (0.5-0.9) mg/dL GFR Calculation (90-130) mL/min Glucose (65-115) mg/dL Calculated Osmolal ity (285-295) mOsm/k g Calcium (8.5-10.5) mg/dL Magnesium (1.7-2.3) mg/dL Total Bilirubin (0.15-1.2) mg/dL AST (0-32) U/L ALT (0-33) U/L Alkaline Phosphata se (35-105) IU/L Troponin T Baselin e 26 H (0-10) ng/L Troponin T 120 Min [place] 30.32 H (0-10) ng/L Delta Troponin T 4.32 (0-10) ABS# Total Protein (6.6-8.7) g/dL Albumin (3.5-5.2) g/dL Globulin (1.3-4.6) g/dL Urine Color (Yellow) Urine Appearance (CLEAR) Urine pH (5-7) Ur Specific Gravit y (1.005-1.030) Urine Protein (Negative) Urine Glucose (UA) (Normal) Urine Ketones (Negative) Urine Blood (Negative) Urine Nitrate (Negative) Urine Bilirubin (Negative) Urine Urobilinogen (Negative) mg/dL Ur Leukocyte Carey ase (Negative) Urine RBC (0-2) /hpf Urine WBC (0-5) /hpf Ur Squamous Epith Cells (0-5) /hpf Amorphous Sediment Urine Bacteria (NONE) /hpf Imaging Data^: CXR: Radiologist's impression: [address] [address] XRay Report Signed Patient: Roxana Hamilton #: [id number] : 3Acct#:[id number] Age/Sex: 69 / FADM Date: 06/06/20 [facility] Attending Dr: Ordering Provider/Ordering MD: Delmi Andrews Date of Service: 06/06/20 Procedure(s): XR chest 1V portable [id number] Accession Number(s): [id number] Report Number: [id number] WS: [id number] PORTABLE CHEST HISTORY: SVT COMPARISON: 01/17/2013 Lungs are clear and well expanded. No pleural effusion or pneumothorax. Cardiac size: Mild enlargement of the cardiac silhouette is partially obscuring the LEFT lower lung field. No interval change since the prior study. Mediastinum/Aorta: Normal mediastinum. No osseous abnormality seen. Prior RIGHT axillary node biopsy. XR/XR chest 1V portable [id number] IMPRESSION: Mild cardiomegaly. Stable chest since 01/17/2013. Dictated By:Lucero Taylor DO Signed By:Lucero Taylor DOSigned Date/Time:06/06/20 1319 DD/ 1318 EKG Data^: EKG 1: EKG interpretation date: 06/06/20 EKG interpretation time: 12:40 Prior EKG tracings: available for review Other EKG comments: Chest X-Ray 06/06/20 12:49 IMPRESSION: Mild cardiomegaly. Stable chest since 01/17/2013. Ventricular rate 91; sinus rhythm, normal ECG Discharge Plan Discharge Patient Disposition: Home Clinical Impression: SVT (supraventricular tachycardia), Low magnesium level, Acute UTI Condition: Stable Prescriptions: New Macrobid 100 mg capsule 100 mg PO BID 5 Days Qty: 10 RF: 0 magnesium oxide 400 mg magnesium tablet 400 mg PO BID Qty: 60 RF: 0 No Action diltiazem HCl 360 mg capsule,extended release 24hr 360 mg PO DAILY@07 RF: 0 lisinopril 5 mg tablet 5 mg PO DAILY@07 RF: 0 glipizide 10 mg tablet 10 mg PO BID RF: 0 exemestane 25 mg tablet 25 mg PO DAILY@07 RF: 0 metformin 500 mg tablet See Rx Instructions .ROUTE .COMPLEX Qty: 30 RF: 0 insulin glargine [Lantus U-100 Insulin] 100 unit/mL solution See Rx Instructions .ROUTE .COMPLEX Qty: 10 RF: 0 metformin 1,000 mg tablet See Rx Instructions .ROUTE .COMPLEX Qty: 60 RF: 0 aspirin 325 mg Tablet 650 mg PO BEDTIME@2099 RF: 0 potassium 99 mg Tablet 99 mg PO DAILY@2099 RF: 0 [id number] 333-133-5 mg Tablet 1 tab PO DAILY@2099 RF: 0 Tylenol 325 mg Capsule 650 mg PO BEDTIME@2099 RF: 0 metoprolol succinate 50 mg tablet extended release 24 hr 50 mg PO DAILY@ RF: 0 Discharge Orders: Discharge ED (Routine); Ordered 06/06/20 Ordered By: Delmi Andrews Referrals: Heather Salas FNP [Primary Care Provider] - Discharge Diet: Cardiac Discharge Activity: Limit activity as instructed Patient Instructions: Supraventricular Tachycardia (ED), Urinary Tract Infection in Women (ED), Hypomagnesemia (ED), Opioid Safety Activity Restrictions/Additional Instructions: Return to the emergency department if you develop worsening symptoms such as sustained heart palpitations or other concerning symptoms Continue current medications, take medications as prescribed and avoid missed doses Take antibiotic, Macrobid until all gone as prescribed Follow-up with your primary care for repeat urinalysis in 7 to 10 days technology services manager will be contacting you with a follow-up appointment with your showroom consultant, Dr. Boss Coding Level of Care Code ED Pipe Bender for Chg Fwd Exam Comprehensive Documented by User: Bita Valdez MD 06/06/20 18:40 HPI - Arrhythmia/Palpitations General: Chief Complaint: Arrhythmia/Palpitations Stated Complaint: HEART RACING Time Seen by Provider: 06/06/20 12:36 PFSH ED PFSH: Medical History (Updated 06/06/20 @ 15:40 by PHYLLIS Patel) Breast cancer, right breast Pneumonia SVT (supraventricular tachycardia) Type 2 diabetes mellitus without complication Type 2 DM mod nonproliferative retinopathy, macular edema, uncontrol Surgical History History of appendectomy History of mastectomy Hx of section Hx of tonsillectomy Social History Smoking and tobacco status: never smoked Second hand smoke exposure: Yes Alcohol intake: never Course Reevaluation(s): Reevaluation #1: I saw this patient with LEATHA Awad. The patient reports a racing heart and has a history of SVT. She is on diltiazem and metoprolol and has been out of her metoprolol for 3 or 4 days. She took one this morning and her HR is now back to normal. She denies chest pain or SOB. She felt better at the time of initial evaluation and feels like she is ok to go home. Work up was unremarkable other than a low magnesium. Most likely her rapid heart rate was a result of not having her metoprolol and now that she has it refilled and will be taking it regularly she should be ok. Also will give magnesium supplement. Outpatient follow up. Vital Signs: Vital signs: Vital Signs Temperature 97.9 F 06/06/20 15:51 Pulse Rate 84 06/06/20 15:51 Respiratory Rate 18 06/06/20 15:51 Blood Pressure 152/68 06/06/20 15:51 Pulse Oximetry 95 06/06/20 15:51 MDM - Arrhythmia/Palpitations Lab Data: Labs: Lab Results 06/06/20 06/06/20 06/06/20 Range/Units 12:36 12:55 12:55 WBC 13.1 H (4.0-10.0) 10^3/ uL RBC 4.79 (4.1-5.3) 10^6/u L Hgb 13.6 (11.5-15.3) g/dL Hct 40.4 (37.0-47.0) % MCV 84.3 (81-99) fL MCH 28.4 (28.0-34.0) pg MCHC 33.7 (30.0-36.0) g/dL RDW 12.9 (12.1-15.1) % Plt Count 311 (130-400) 10^3/c mm MPV 9.4 (7.4-10.4) fL Neut % (Auto) 75.5 % Lymph % (Auto) 16.5 % [place] % (Auto) 5.4 % Eos % (Auto) 1.5 % Baso % (Auto) 0.5 % Neut # (Auto) 9.86 H (1.8-7.7) 10^3/u L Lymph # (Auto) 2.2 (0.8-4.8) 10^3/u L [place] # (Auto) 0.7 (0.2-0.9) 10^3/u L Eos # (Auto) 0.2 (0.0-0.8) 10^3/u L Baso # (Auto) 0.1 (0.0-0.1) 10^3/u L Nucleated RBC % (a uto) 0 % Nucleated RBCs # 0.0 /100WBC Sodium 138 (136-145) mmol/L Potassium 3.9 (3.5-5.1) mmol/L Chloride 100 (98-107) mmol/L Carbon Dioxide 27 (22-29) mmol/L Anion Gap 14.9 (5-19) BUN 12 (8-23) mg/dL Creatinine 0.5 (0.5-0.9) mg/dL GFR Calculation 123.1 (90-130) mL/min Glucose 197 H (65-115) mg/dL Calculated Osmolal ity 291 (285-295) mOsm/k g Calcium 9.2 (8.5-10.5) mg/dL Magnesium 1.6 L (1.7-2.3) mg/dL Total Bilirubin 0.2 (0.15-1.2) mg/dL AST 25 (0-32) U/L ALT 34 H (0-33) U/L Alkaline Phosphata se 89 (35-105) IU/L Troponin T Baselin e (0-10) ng/L Troponin T 120 Min [place] (0-10) ng/L Delta Troponin T (0-10) ABS# Total Protein 7.3 (6.6-8.7) g/dL Albumin 4.1 (3.5-5.2) g/dL Globulin 3.2 (1.3-4.6) g/dL Urine Color Yellow (Yellow) Urine Appearance Clear (CLEAR) Urine pH 7 (5-7) Ur Specific Gravit y 1.005 (1.005-1.030) Urine Protein 1+ H (Negative) Urine Glucose (UA) 1+ (Normal) Urine Ketones Negative (Negative) Urine Blood Neg (Negative) Urine Nitrate Negative (Negative) Urine Bilirubin Neg (Negative) Urine Urobilinogen Norm (Negative) mg/dL Ur Leukocyte Carey ase Negative (Negative) Urine RBC None (0-2) /hpf Urine WBC 0-4 H (0-5) /hpf Ur Squamous Epith Cells 0-4 H (0-5) /hpf Amorphous Sediment Not Reportable Urine Bacteria Trace (NONE) /hpf 06/06/20 06/06/20 Range/Units 12:55 14:30 WBC (4.0-10.0) 10^3/ uL RBC (4.1-5.3) 10^6/u L Hgb (11.5-15.3) g/dL Hct (37.0-47.0) % MCV (81-99) fL MCH (28.0-34.0) pg MCHC (30.0-36.0) g/dL RDW (12.1-15.1) % Plt Count (130-400) 10^3/c mm MPV (7.4-10.4) fL Neut % (Auto) % Lymph % (Auto) % [place] % (Auto) % Eos % (Auto) % Baso % (Auto) % Neut # (Auto) (1.8-7.7) 10^3/u L Lymph # (Auto) (0.8-4.8) 10^3/u L [place] # (Auto) (0.2-0.9) 10^3/u L Eos # (Auto) (0.0-0.8) 10^3/u L Baso # (Auto) (0.0-0.1) 10^3/u L Nucleated RBC % (a uto) % Nucleated RBCs # /100WBC Sodium (136-145) mmol/L Potassium (3.5-5.1) mmol/L Chloride (98-107) mmol/L Carbon Dioxide (22-29) mmol/L Anion Gap (5-19) BUN (8-23) mg/dL Creatinine (0.5-0.9) mg/dL GFR Calculation (90-130) mL/min Glucose (65-115) mg/dL Calculated Osmolal ity (285-295) mOsm/k g Calcium (8.5-10.5) mg/dL Magnesium (1.7-2.3) mg/dL Total Bilirubin (0.15-1.2) mg/dL AST (0-32) U/L ALT (0-33) U/L Alkaline Phosphata se (35-105) IU/L Troponin T Baselin e 26 H (0-10) ng/L Troponin T 120 Min [place] 30.32 H (0-10) ng/L Delta Troponin T 4.32 (0-10) ABS# Total Protein (6.6-8.7) g/dL Albumin (3.5-5.2) g/dL Globulin (1.3-4.6) g/dL Urine Color (Yellow) Urine Appearance (CLEAR) Urine pH (5-7) Ur Specific Gravit y (1.005-1.030) Urine Protein (Negative) Urine Glucose (UA) (Normal) Urine Ketones (Negative) Urine Blood (Negative) Urine Nitrate (Negative) Urine Bilirubin (Negative) Urine Urobilinogen (Negative) mg/dL Ur Leukocyte Carey ase (Negative) Urine RBC (0-2) /hpf Urine WBC (0-5) /hpf Ur Squamous Epith Cells (0-5) /hpf Amorphous Sediment Urine Bacteria (NONE) /hpf EKG Data^: EKG 1: Other EKG comments: Chest X-Ray 06/06/20 12:49 IMPRESSION: Mild cardiomegaly. Stable chest since 01/17/2013. Discharge Plan Discharge Patient Disposition: Home Clinical Impression: SVT (supraventricular tachycardia), Low magnesium level, Acute UTI Condition: Stable Prescriptions: New Macrobid 100 mg capsule 100 mg PO BID 5 Days Qty: 10 RF: 0 magnesium oxide 400 mg magnesium tablet 400 mg PO BID Qty: 60 RF: 0 No Action diltiazem HCl 360 mg capsule,extended release 24hr 360 mg PO DAILY@07 RF: 0 lisinopril 5 mg tablet 5 mg PO DAILY@07 RF: 0 glipizide 10 mg tablet 10 mg PO BID RF: 0 exemestane 25 mg tablet 25 mg PO DAILY@07 RF: 0 metformin 500 mg tablet See Rx Instructions .ROUTE .COMPLEX Qty: 30 RF: 0 insulin glargine [Lantus U-100 Insulin] 100 unit/mL solution See Rx Instructions .ROUTE .COMPLEX Qty: 10 RF: 0 metformin 1,000 mg tablet See Rx Instructions .ROUTE .COMPLEX Qty: 60 RF: 0 aspirin 325 mg Tablet 650 mg PO BEDTIME@2099 RF: 0 potassium 99 mg Tablet 99 mg PO DAILY@2099 RF: 0 fxcpxve-qerqpgerv-qzqw 333-133-5 mg Tablet 1 tab PO DAILY@2099 RF: 0 Tylenol 325 mg Capsule 650 mg PO BEDTIME@2099 RF: 0 metoprolol succinate 50 mg tablet extended release 24 hr 50 mg PO DAILY@ RF: 0 Discharge Orders: Discharge ED (Routine); Ordered 06/06/20 Ordered By: Delmi Andrews Referrals: Heather Salas FNP [Primary Care Provider] - Discharge Diet: Cardiac Discharge Activity: Limit activity as instructed Patient Instructions: Supraventricular Tachycardia (ED), Urinary Tract Infection in Women (ED), Hypomagnesemia (ED), Opioid Safety Activity Restrictions/Additional Instructions: Return to the emergency department if you develop worsening symptoms such as sustained heart palpitations or other concerning symptoms Continue current medications, take medications as prescribed and avoid missed doses Take antibiotic, Macrobid until all gone as prescribed Follow-up with your primary care for repeat urinalysis in 7 to 10 days technology services manager will be contacting you with a follow-up appointment with your showroom consultant, Dr. Boss Coding Level of Care Code ED Pipe Bender for g Fwd Exam Comprehensive
[2020-06-06 12:51] VITALS: BP 131/83; PULSE 87; RESP 18; O2SAT 94
[2020-06-06 13:03] LABS: Basophils # 0.1 10^3/uL (0.0-0.1); Basophils % 0.5 %; Eosinophils # 0.2 10^3/uL (0.0-0.8); Eosinophils % 1.5 %; Hematocrit 40.4 % (37.0-47.0); Hemoglobin 13.6 g/dL (11.5-15.3); Lymphocytes # 2.2 10^3/uL (0.8-4.8); Lymphocytes % 16.5 %; Mean Corpuscular HGB Conc 33.7 g/dL (30.0-36.0); Mean Corpuscular Hemoglobin 28.4 pg (28.0-34.0); Mean Corpuscular Volume 84.3 fL (81-99); Mean Platelet Volume 9.4 fL (7.4-10.4); Monocytes # 0.7 10^3/uL (0.2-0.9); Monocytes % 5.4 %; Neutrophils # 9.86 10^3/uL (1.8-7.7); Neutrophils % 75.5 %; Nucleated Red Blood Cells % 0 %; Platelet Count 311 10^3/cmm (130-400); Red Blood Count 4.79 10^6/uL (4.1-5.3); Red Cell Distribution Width 12.9 % (12.1-15.1); White Blood Count 13.1 10^3/uL (4.0-10.0)
[2020-06-06 13:28] LABS: Alanine Aminotransferase 34 U/L (0-33); Albumin Level 4.1 g/dL (3.5-5.2); Alkaline Phosphatase 89 IU/L (35-105); Anion Gap 14.9 (5-19); Aspartate Amino Transferase 25 U/L (0-32); Blood Urea Nitrogen 12 mg/dL (8-23); Calcium 9.2 mg/dL (8.5-10.5); Carbon Dioxide 27 mmol/L (22-29); Chloride 100 mmol/L (98-107); Globulin 3.2 g/dL (1.3-4.6); Glomerular Filtration Rate 123.1 mL/min (90-130); Glucose 197 mg/dL (65-115); Magnesium 1.6 mg/dL (1.7-2.3); Osmolality Calculated 291 mOsm/kg (285-295); Potassium 3.9 mmol/L (3.5-5.1); Sodium 138 mmol/L (136-145); Total Bilirubin 0.2 mg/dL (0.15-1.2); Total Protein 7.3 g/dL (6.6-8.7); Troponin(5th) Baseline 26 ng/L (0-10)
[2020-06-06] MEDS: magnesium oxide 400 mg tablet PO (13:41)
[2020-06-06 14:09] LABS: Add Urine Microscopic? YES; Bilirubin Urine Neg (Negative); Blood Urine Neg (Negative); Glucose Urine UA 1+ (Normal); Ketones Urine Negative (Negative); Leukocyte Esterase Urine Negative (Negative); Nitrate Urine Negative (Negative); Protein Urine 1+ (Negative); Specific Gravity, Urine 1.005 (1.005-1.030); Urine Appearance Clear (CLEAR); Urine Color Yellow (Yellow); Urobilinogen Urine Norm (Negative); pH Urine 7 (5-7)
[2020-06-06 14:12] LABS: Add Urine Culture? No; Bacteria Urine TRACE /hpf; Squamous Epithelial Cell Urine 0-4 /hpf (0-5); WBC Urine 0-4 /hpf (0-5)
--- NOTE | 2020-06-06 14:37 | ECG_ITS ---
[facility] Test Date: 2020-06-06 Pat Name: Roxana Hamilton Department: Room: Gender: Female Manager Contract: : [id number] Requested By: Bita Anne Order Number: [id number] Tod MD: Quinn Goncalves M.D. Measurements Intervals [place] Rate: 75 P: 39 MA: 161 QRS: -21 QRSD: 105 T: 40 QT: 404 QTc: 454 Interpretive Statements SINUS RHYTHM BORDERLINE LEFT AXIS DEVIATION [QRS AXIS < -20] Compared to ECG 06/06/2020 12:38:04 No significant changes Electronically Signed On 06-07-2020 16:46:13 PERFUSIONIST by Quinn Goncalves M.D. [id number]
[2020-06-06 15:00] VITALS: BP 152/68; PULSE 76; RESP 17; O2SAT 96
[2020-06-06 15:06] LABS: Troponin 5 2HR 30.32 ng/L (0-10); Troponin 5 2HR Delta 4.32 ABS# (0-10)
[2020-06-06] MEDS: nitrofurantoin SR (BID) 100 mg Capsule PO (15:49)
[2020-06-06 15:51] VITALS: BP 152/68; PULSE 84; RESP 18; TEMP 36.6; O2SAT 95
--- NOTE | 2020-06-11 10:55 | DCPLANNER ---
assistant production manager had message to schedule a follow up appointment for patient with heart care. assistant production manager called heart care, spoke with Tamy, gave clinic patients information. A follow up appointment was scheduled for patient for Thursday, June 18, 2020 at 1:45 with SENIOR C WEB DEVELOPER, Mimi Daly. assistant production manager called and spoke with patient, gave patient the appointment information.
--- NOTE | 2020-07-05 15:12 | DCPLANNER ---
Patient had a follow up appointment scheduled with heart care - appointment was cancelled.
== END 2020-06-06 15:54 | disposition home or self-care (01) ==
PROVIDERS: Emergency Medicine; Emergency Provider Nurse Practitioner Family; PCP Nurse Practitioner Family
DX: I47.1 Supraventricular tachycardia (principal); E61.2 Magnesium deficiency; N39.0 Urinary tract infection, site not specified; Z79.82 Long term (current) use of aspirin; Z79.84 Long term (current) use of oral hypoglycemic drugs; Z85.3 Personal history of malignant neoplasm of breast; E11.9 Type 2 diabetes mellitus without complications; Z77.22 Contact with and (suspected) exposure to environmental tobacco smoke (acute) (chronic)
CPT/HCPCS: 36415; 71045; 80053; 81001; 83735; 84484; 85025; 93005; 99284

== ENCOUNTER → 2020-07-26 09:15 | Outpatient (BNVA) | payer MEDICARE, MEDICAID, SELFPAY | PROVIDERS: PCP Nurse Practitioner Family; Visit Provider Nurse Practitioner Family | DX: E11.9 Type 2 diabetes mellitus without complications (principal); E78.5 Hyperlipidemia, unspecified; I10 Essential (primary) hypertension; M25.562 Pain in left knee; M79.605 Pain in left leg | CPT/HCPCS: 80053; 80061; 82043; 83036; 84443 ==

== ENCOUNTER 2020-07-31 13:05 | Outpatient (CLI) | payer MEDICARE, MEDICAID, SELFPAY ==
--- NOTE | 2020-07-31 17:00 | ONC FU_ITS ---
Dr. Lemon Patient Follow-Up Note Patient: Roxana Hamilton Unit #: [id number]: 1950 Dicatated By: Dangelo Lemon M.D.Date of Visit:Jul 31, 2020 Onc Med Follow-up/Prog Note Chief Complaint: Breast cancer. 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 She now has biopsy-proven involvement with grade 1 invasive ductal carcinoma in the right lateral chest wall, again ER/HI positive and HER-2/aylin negative. She had presented in February 2009 with a lump in the retroareolar area of her right breast. Mammogram and ultrasound were suspicious. The initial biopsy showed an intermediate grade invasive ductal carcinoma measuring 2.2 cm in greatest dimension. There was an extensive component of ductal carcinoma in situ. The tumor was ER positive at 98% and HI positive at 98%. It was negative for overexpression of HER-2/aylin by IHC and by FISH (amplification ratio 1.13). She underwent right total mastectomy with axillary lymph node sampling in March 2009. There was no residual tumor in the mastectomy specimen. There was involvement in 4 of 5 axillary lymph nodes, the largest measuring 2 cm. She was given adjuvant chemotherapy with 3 cycles of FEC followed by 3 cycles of Taxotere, which she completed in August 2009. She opted not to take prophylactic chest wall radiation. She was given adjuvant hormonal therapy with Femara following completion of chemotherapy. She stopped it in August 2013 due to side effects, primarily musculoskeletal pain. Thus far during followup there has been no evidence of recurrence of the breast cancer. As of her follow-up visit on 10/07/2016 there has been no evidence of recurrence of the breast cancer. In July 2019 she was seen for a follow-up visit by Heather Salas. At that time she has been having pain in the mid to upper back on the right side. The pain had started back in the fall and had continued to gradually worsen. She was evaluated with noncontrast chest CT on 08/16/2019. The most significant finding was an enlarged lymph node in the right axilla measuring 11 x 11 mm with additional adjacent slightly enlarged axillary lymph nodes. Other findings included some pleural thickening in the left lower lobe with subsegmental atelectasis. A 6 mm noncalcified fibrotic appearing nodule in the right middle lobe was felt to most likely represent fibrosis, but follow-up chest CT was recommended. There was no mediastinal or hilar lymphadenopathy noted and there was no left axillary lymphadenopathy. There was evidence for tiny pericardial effusion or pericardial thickening. She was seen by Dr. Rasheed and ultrasound directed biopsy of the right axillary lymph node on 09/01/2019 showed grade 1/3 invasive ductal carcinoma. There was focal ductal carcinoma in situ, intermediate nuclear grade. Numerous microcalcifications were present. There was no definitive lymph node tissue identified in that specimen. The breast prognostic profile showed ER positive at 99% and HI positive at 30%. It was negative for overexpression of HER-2/aylin, 1+ by IHC and amplification ratio by FISH of 1.1 with 2.1 HER-2 copies/cell. I had seen her for a follow-up visit on 09/13/2019. Further evaluation with staging PET/CT on 09/24/2019 showed a 1.5 cm inferior right axillary lymph node without significant FDG activity. There was no evidence of any other metastatic disease. A left supraclavicular lymph node appeared prominent, but not pathologic. With those findings, I had recommended that she proceed with further surgical resection, and on 10/13/2019 she underwent ultrasound-guided right axillary lymph node dissection. 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 Following her visit on 11/28/2019 she began adjuvant hormonal therapy with exemestane 25 mg daily. Her baseline DEXA scan showed normal bone density with T score 1.4 in the lumbar spine, 1.2 in the left femoral neck, and 1.5 in the left total hip. Her other medical illnesses include hypertension and type 2 dabetes. She has a history of cardiac tachyarrhythmia. She is a nonsmoker, but she had significant second hand smoke exposure. She is seen for a follow-up visit. She has been feeling pretty good generally. She does complain that she feels cold and tired, but she is still doing light work at home. ECOG score is 1. Her appetite is good. She has not had fever. She does show her to having night sweating really bad, but that is chronic. She has some shortness of breath, but she says her breathing is not too bad. She does not complain of cough and she has not been having chest pain. She has no GI complaints. She does have urinary frequency and urgency and she has some associated incontinence. She has joint pain, especially in her hips. It has been going on for years, but it is getting a little worse. She has occasional sinus headaches. She occasionally loses balance. She has some numbness/tingling in her hands. She has no other focal neurologic symptoms. Medications: Calcium 500 mg - Take 3 Tablet Oral daily, Cardizem 1 (360 mg) Tablet Oral daily, GlipiZIDE 1 Tablet (of 10 mg) Oral b.i.d., Lantus 20 Units Subcutaneous, Lisinopril 5 mg - Take 1 Tablet Oral daily, Magnesium 1 Tablet Oral daily, metFORMIN HCl 1 Tablet (of 1000 mg) Oral b.i.d., MetFORMIN HCl 1 (500 mg) Tablet Oral daily, Metoprolol Succinate ER 1 Tablet (of 25 mg) Tablet SR 24 HR Oral daily, Potassium 1 Tablet (of 99 mg) Oral daily, Tylenol Extra Strength 500 mg - Take 2 Tablet Oral daily PRN Allergies: Avelox and Levaquin. Vital Signs: Performed on Jul 31, 2020 12:27 Height - 64.50 in Weight - 252 lbs (HIGH) BSA - 2.17 sq.m BMI - 42.59 (HIGH) Temperature - 97.5 F (LOW) Pulse - 75 /min Respiration - 18 /min BP - 120/60 mm(hg) O2 Sat - 96 % Pain - 8 Physical Examination: Constitutional - She looks pretty good generally, Eyes - Sclerae nonicteric. Conjunctivae clear, ENMT - No lesions noted in the oral cavity, Hematologic/Lymphatic - No cervical or clavicular adenopathy, Respiratory - Lungs sound clear, Cardiovascular - Heart is regular. There is a III/ systolic murmur. There is no gallop or rub noted, Breasts - There are no lesions noted in the right chest wall. There is no axillary adenopathy noted, Abdomen - Moderately distended. Liver and spleen are not enlarged. There is no abdominal mass or ascites noted and there is no inguinal adenopathy, Extremities - No edema, Neurologic - No focal neurologic deficits noted. Lab/Imaging: Comprehensive metabolic profile from 07/26/2020 showed normal renal function with BUN 18 and creatinine 0.5 mg/dL. Bilirubin and liver enzymes were normal. Her TSH was normal at 0.50 ???IU/mL. Problem List: 1. Recurrent invasive ductal cancer of the right breast, ER/HI positive and Her-2/aylin negative. 2. Hypertension. 3. Type II diabetes. 4. She has a history of cardiac tachyarrhythmia. Problems Addressed with this Encounter and Plan: Patient with recurrent breast cancer, ER/HI positive and HER-2/aylin negative. In February 2009 she was diagnosed with intermediate grade invasive ductal cancer of the right breast, ER/HI positive and Her-2/aylin negative. She underwent total mastectomy/axillary lymph node sampling in March 2009. She had pathologic Stage IIIA disease (pT2, pN2a, M0). She was given adjuvant chemotherapy with 3 cycles of FEC followed by 3 cycles of Taxotere. She declined chest wall radiation. She was then given adjuvant hormonal therapy with Femara, stopped after approximately 4 years of treatment due to musculoskeletal pain. She was then followed on observation/expectant management. In August 2019 she had biopsy-proven grade 1 invasive ductal carcinoma involving a right lateral chest wall nodule. The tumor was ER/HI positive and HER-2/aylin negative. It appeared to be consistent with a lymph node by CT scan, but there was no pathologic evidence for lymph node tissue in the biopsy specimen. Restaging PET/CT on 09/24/2019 was negative. On 10/13/2019 she underwent ultrasound-guided right axillary lymph node dissection. Pathology showed involvement in 2/3 superior right axillary lymph nodes and in 1/1 inferior right axillary lymph node. Postoperative radiation to the chest wall/axilla also was recommended, but she declined. She began adjuvant hormonal therapy with exemestane 25 mg daily in November 2019. During follow-up she has continued to complain of fatigue and she also has had some increase in musculoskeletal pain. At this point she appears to be tolerating the exemestane with acceptable toxicity, and thus far there has been no further recurrence/progression of the breast cancer. She will continue adjuvant hormonal therapy with exemestane 25 mg daily. She will be scheduled for follow-up visit in 3 months. Signed By: Dangelo Lemon M.D. <<Signature on File>>
== END 2020-07-31 13:06 | disposition home or self-care (01) ==
LOC: ONCMED 13:05
PROVIDERS: PCP Nurse Practitioner Family; Visit Provider Internal Medicine Medical Oncology
DX: C50.811 Malignant neoplasm of overlapping sites of right female breast (principal); Z17.0 Estrogen receptor positive status [ER+]; C77.3 Secondary and unspecified malignant neoplasm of axilla and upper limb lymph nodes; I10 Essential (primary) hypertension; E11.9 Type 2 diabetes mellitus without complications; R00.0 Tachycardia, unspecified; Z79.811 Long term (current) use of aromatase inhibitors
CPT/HCPCS: 99214

== ENCOUNTER → 2020-12-07 08:42 | Outpatient (BNVA) | payer MEDICARE, MEDICAID, SELFPAY | PROVIDERS: PCP Nurse Practitioner Family; Visit Provider Nurse Practitioner Family | DX: E11.9 Type 2 diabetes mellitus without complications (principal) | CPT/HCPCS: 80053; 83036 ==

== ENCOUNTER 2021-04-01 09:31 | Outpatient (CLI) | payer MEDICARE, MEDICAID, SELFPAY ==
[2021-04-01 10:03] LABS: Basophils # 0.1 10^3/uL (0.0-0.1); Basophils % 0.7 %; Eosinophils # 0.2 10^3/uL (0.0-0.8); Eosinophils % 1.8 %; Hematocrit 36.8 % (37.0-47.0); Hemoglobin 12.2 g/dL (11.5-15.3); Lymphocytes # 2.3 10^3/uL (0.8-4.8); Lymphocytes % 21.2 %; Mean Corpuscular HGB Conc 33.2 g/dL (30.0-36.0); Mean Corpuscular Hemoglobin 27.9 pg (28.0-34.0); Mean Corpuscular Volume 84.2 fl (81-99); Mean Platelet Volume 9.7 fL (7.4-10.4); Monocytes # 0.6 10^3/uL (0.2-0.9); Neutrophils # 7.49 10^3/uL (1.8-7.7); Neutrophils % 69.9 %; Nucleated Red Blood Cells % 0 %; Platelet Count 314 10^3/cmm (130-400); Red Blood Count 4.37 10^6/uL (4.1-5.3); Red Cell Distribution Width 13.3 % (12.1-15.1); White Blood Count 10.7 10^3/uL (4.0-10.0)
[2021-04-01 10:20] LABS: Alanine Aminotransferase 10 U/L (0-33); Alkaline Phosphatase 77 IU/L (35-105); Anion Gap 18.3 (5-19); Aspartate Amino Transferase 8 U/L (0-32); Blood Urea Nitrogen 13 mg/dL (8-23); Calcium 8.7 mg/dL (8.5-10.5); Carbon Dioxide 23 mmol/L (22-29); Chloride 102 mmol/L (98-107); Globulin 2.7 g/dL (1.3-4.6); Glomerular Filtration Rate 122.7 mL/min (90-130); Glucose 121 mg/dL (65-115); Osmolality Calculated 289 mOsm/kg (285-295); Potassium 4.3 mmol/L (3.5-5.1); Sodium 139 mmol/L (136-145); Total Bilirubin 0.2 mg/dL (0.15-1.2); Total Protein 6.7 g/dL (6.6-8.7)
--- NOTE | 2021-04-05 14:20 | ONC FU_ITS ---
Dr. Lemon Patient Follow-Up Note Patient: Roxana Hamilton Unit #: [id number]: 1950 Dicatated By: Dangelo Lemon M.D.Date of Visit:Apr 01, 2021 Onc Med Follow-up/Prog Note Chief Complaint: Breast cancer. 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 She now has biopsy-proven involvement with grade 1 invasive ductal carcinoma in the right lateral chest wall, again ER/TN positive and HER-2/aylin negative. She had presented in February 2009 with a lump in the retroareolar area of her right breast. Mammogram and ultrasound were suspicious. The initial biopsy showed an intermediate grade invasive ductal carcinoma measuring 2.2 cm in greatest dimension. There was an extensive component of ductal carcinoma in situ. The tumor was ER positive at 98% and TN positive at 98%. It was negative for overexpression of HER-2/aylin by IHC and by FISH (amplification ratio 1.13). She underwent right total mastectomy with axillary lymph node sampling in March 2009. There was no residual tumor in the mastectomy specimen. There was involvement in 4 of 5 axillary lymph nodes, the largest measuring 2 cm. She was given adjuvant chemotherapy with 3 cycles of FEC followed by 3 cycles of Taxotere, which she completed in August 2009. She opted not to take prophylactic chest wall radiation. She was given adjuvant hormonal therapy with Femara following completion of chemotherapy. She stopped it in August 2013 due to side effects, primarily musculoskeletal pain. Thus far during followup there has been no evidence of recurrence of the breast cancer. As of her follow-up visit on 10/07/2016 there has been no evidence of recurrence of the breast cancer. In July 2019 she was seen for a follow-up visit by Heather Salas. At that time she has been having pain in the mid to upper back on the right side. The pain had started back in the fall and had continued to gradually worsen. She was evaluated with noncontrast chest CT on 08/16/2019. The most significant finding was an enlarged lymph node in the right axilla measuring 11 x 11 mm with additional adjacent slightly enlarged axillary lymph nodes. Other findings included some pleural thickening in the left lower lobe with subsegmental atelectasis. A 6 mm noncalcified fibrotic appearing nodule in the right middle lobe was felt to most likely represent fibrosis, but follow-up chest CT was recommended. There was no mediastinal or hilar lymphadenopathy noted and there was no left axillary lymphadenopathy. There was evidence for tiny pericardial effusion or pericardial thickening. She was seen by Dr. Rasheed and ultrasound directed biopsy of the right axillary lymph node on 09/01/2019 showed grade 1/3 invasive ductal carcinoma. There was focal ductal carcinoma in situ, intermediate nuclear grade. Numerous microcalcifications were present. There was no definitive lymph node tissue identified in that specimen. The breast prognostic profile showed ER positive at 99% and TN positive at 30%. It was negative for overexpression of HER-2/aylin, 1+ by IHC and amplification ratio by FISH of 1.1 with 2.1 HER-2 copies/cell. I had seen her for a follow-up visit on 09/13/2019. Further evaluation with staging PET/CT on 09/24/2019 showed a 1.5 cm inferior right axillary lymph node without significant FDG activity. There was no evidence of any other metastatic disease. A left supraclavicular lymph node appeared prominent, but not pathologic. With those findings, I had recommended that she proceed with further surgical resection, and on 10/13/2019 she underwent ultrasound-guided right axillary lymph node dissection. 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 Following her visit on 11/28/2019 she began adjuvant hormonal therapy with exemestane 25 mg daily. Her baseline DEXA scan showed normal bone density with T score 1.4 in the lumbar spine, 1.2 in the left femoral neck, and 1.5 in the left total hip. Her other medical illnesses include hypertension and type 2 dabetes. She has a history of cardiac tachyarrhythmia. She is a nonsmoker, but she had significant second hand smoke exposure. She is seen for a follow-up visit. She has been feeling good generally. She says she does tire a little more easily, she has normal activity. ECOG score is 0. She has good appetite. She has not had fever. She sometimes has a little sweating at night. She reports having horrible sinus symptoms. She has just occasional cough. She says her breathing has been bad and she indicates that her oxygen saturation tends to drop at night. She is being evaluated with a sleep study. She does not complain of chest pain. She has not had any nausea or acid reflux symptoms. She sometimes has diarrhea, that she attributes to her diet. It is managed adequately with Imodium. She has urinary frequency with some urgency/incontinence. She has some joint pain, mainly in the hips and shoulders. It is tolerable. She does not complain of headache or dizziness. She occasionally has some numbness on her right side. Medications: Calcium 500 mg - Take 3 Tablet Oral daily, Cardizem 1 (360 mg) Tablet Oral daily, GlipiZIDE 1 Tablet (of 10 mg) Oral b.i.d., Lantus 20 Units Subcutaneous, Lisinopril 5 mg - Take 1 Tablet Oral daily, Magnesium 1 Tablet Oral daily, metFORMIN HCl 1 Tablet (of 1000 mg) Oral b.i.d., MetFORMIN HCl 1 (500 mg) Tablet Oral daily, Metoprolol Succinate ER 1 Tablet (of 25 mg) Tablet SR 24 HR Oral daily, Potassium 1 Tablet (of 99 mg) Oral daily, Tylenol Extra Strength 500 mg - Take 2 Tablet Oral daily PRN Allergies: Avelox and Levaquin. Vital Signs: Performed on Apr 01, 2021 11:34 Height - 64.50 in Weight - 253.8 lbs (HIGH) BSA - 2.18 sq.m BMI - 42.89 (HIGH) Temperature - 97.5 F (LOW) Pulse - 83 /min Respiration - 16 /min BP - 124/79 mm(hg) O2 Sat - 95 % (LOW) Pain - 0 Fatigue - 6 Physical Examination: Constitutional - She looks pretty good generally, Eyes - Sclerae nonicteric. Conjunctivae clear, ENMT - No lesions noted in the oral cavity, Hematologic/Lymphatic - No cervical or clavicular adenopathy, Respiratory - Lungs sound clear, Cardiovascular - Heart is regular. There is a III/ systolic murmur. There is no gallop or rub noted, Breasts - There are no lesions noted in the right chest wall. There is no axillary adenopathy noted, Abdomen - Moderately distended. Liver and spleen are not enlarged. There is no abdominal mass or ascites noted and there is no inguinal adenopathy, Extremities - No edema, Neurologic - No focal neurologic deficits noted. Lab/Imaging: Test performed on Apr 01, 2021 09:45 Sodium 139 mmol/L Potassium 4.3 mmol/L Chloride 102 mmol/L CO2 23 mmol/L Anion Gap 18.3 BUN 13 mg/dL Creatinine 0.5 mg/dL Cr Clearance (Est) 195.7100 mL/min eGFR 122.7 mL/min Glucose 121 mg/dL Osmolality - Calculated 289 mOsm/kg Calcium 8.7 mg/dL Protein, Total 6.7 g/dL Albumin 4.0 g/dL Globulin 2.7 g/dL Bilirubin, Total 0.2 mg/dL ALT (SGPT) 10 U/L AST (SGOT) 8 U/L Alkaline Phosphatase 77 IU/L WBC 10.7 10 3/uL RBC 4.37 10 6/uL HGB 12.2 g/dL HCT 36.8 % MCV 84.2 fl MCH 27.9 pg MCHC 33.2 g/dL RDW 13.3 % Platelet Count 314 10 3/cmm MPV 9.7 fL Neutrophils 7.49 10 3/uL Lymphocytes 2.3 10 3/uL Monocytes 0.6 10 3/uL Eosinophils 0.2 10 3/uL Basophils 0.1 10 3/uL Neutrophil % 69.9 % Lymphocyte % 21.2 % Monocyte % 6.0 % Eosinophil % 1.8 % Basophils % 0.7 % NRBC % 0 % Problem List: 1. Recurrent invasive ductal cancer of the right breast, ER/TN positive and Her-2/aylin negative. 2. Hypertension. 3. Type II diabetes. 4. She has a history of cardiac tachyarrhythmia. Problems Addressed with this Encounter and Plan: Patient with recurrent breast cancer, ER/TN positive and HER-2/aylin negative. In February 2009 she was diagnosed with intermediate grade invasive ductal cancer of the right breast, ER/TN positive and Her-2/aylin negative. She underwent total mastectomy/axillary lymph node sampling in March 2009. She had pathologic Stage IIIA disease (pT2, pN2a, M0). She was given adjuvant chemotherapy with 3 cycles of FEC followed by 3 cycles of Taxotere. She declined chest wall radiation. She was then given adjuvant hormonal therapy with Femara, stopped after approximately 4 years of treatment due to musculoskeletal pain. She was then followed on observation/expectant management. In August 2019 she had biopsy-proven grade 1 invasive ductal carcinoma involving a right lateral chest wall nodule. The tumor was ER/TN positive and HER-2/aylin negative. It appeared to be consistent with a lymph node by CT scan, but there was no pathologic evidence for lymph node tissue in the biopsy specimen. Restaging PET/CT on 09/24/2019 was negative. On 10/13/2019 she underwent ultrasound-guided right axillary lymph node dissection. Pathology showed involvement in 2/3 superior right axillary lymph nodes and in 1/1 inferior right axillary lymph node. Postoperative radiation to the chest wall/axilla also was recommended, but she declined. She began adjuvant hormonal therapy with exemestane 25 mg daily in November 2019. During follow-up she has had some fatigue and she also has had some musculoskeletal pain. Overall, though, she has been tolerating the exemestane with acceptable toxicity, and thus far there has been no further recurrence of the breast cancer. She will continue adjuvant hormonal therapy with exemestane 25 mg daily. I will see her again in 6 months. Signed By: Dangelo Lemon M.D. <<Signature on File>>
== END 2021-04-01 09:32 | disposition home or self-care (01) ==
LOC: ONCMED 09:35
PROVIDERS: PCP Nurse Practitioner Family; Visit Provider Internal Medicine Medical Oncology
DX: C50.911 Malignant neoplasm of unspecified site of right female breast (principal); Z17.0 Estrogen receptor positive status [ER+]; C79.89 Secondary malignant neoplasm of other specified sites; I10 Essential (primary) hypertension; E11.9 Type 2 diabetes mellitus without complications; Z79.811 Long term (current) use of aromatase inhibitors; Z79.4 Long term (current) use of insulin; Z79.84 Long term (current) use of oral hypoglycemic drugs; Z79.899 Other long term (current) drug therapy
CPT/HCPCS: 36415; 80053; 85025; 99214

== ENCOUNTER → 2021-06-25 08:04 | Outpatient (BNVA) | payer MEDICARE, MEDICAID, SELFPAY | PROVIDERS: PCP Nurse Practitioner Family; Visit Provider Nurse Practitioner Family | DX: E11.9 Type 2 diabetes mellitus without complications (principal); I35.0 Nonrheumatic aortic (valve) stenosis | CPT/HCPCS: 80053; 80061; 83036 ==

== ENCOUNTER 2021-12-05 09:10 | Oncology outpatient (recurring) (ONCR) | payer MEDICARE, MEDICAID, SELFPAY ==
[2021-12-05 09:34] LABS: Basophils # 0.1 10^3/uL (0.0-0.1); Basophils % 0.5 %; Eosinophils # 0.2 10^3/uL (0.0-0.8); Hematocrit 36.7 % (37.0-47.0); Hemoglobin 11.9 g/dL (11.5-15.3); Lymphocytes # 2.6 10^3/uL (0.8-4.8); Lymphocytes % 26.7 %; Mean Corpuscular HGB Conc 32.4 g/dL (30.0-36.0); Mean Corpuscular Hemoglobin 27.7 pg (28.0-34.0); Mean Corpuscular Volume 85.3 fl (81-99); Mean Platelet Volume 9.8 fL (7.4-10.4); Monocytes # 0.5 10^3/uL (0.2-0.9); Monocytes % 5.6 %; Neutrophils # 6.22 10^3/uL (1.8-7.7); Neutrophils % 64.7 %; Nucleated Red Blood Cells % 0 %; Platelet Count 322 10^3/cmm (130-400); Red Cell Distribution Width 13.6 % (12.1-15.1); White Blood Count 9.6 10^3/uL (4.0-10.0)
[2021-12-05 09:56] LABS: Alanine Aminotransferase 19 U/L (0-33); Albumin Level 3.9 g/dL (3.5-5.2); Alkaline Phosphatase 96 U/L (35-105); Anion Gap 12.8 (5-19); Aspartate Amino Transferase 11 U/L (0-32); Blood Urea Nitrogen 14 mg/dL (8-23); Calcium 9.5 mg/dL (8.5-10.5); Carbon Dioxide 29 mmol/L (22-29); Chloride 101 mmol/L (98-107); Globulin 3.2 g/dL (1.3-4.6); Glomerular Filtration Rate 122.3 mL/min (90-130); Glucose 237 mg/dL (65-115); Osmolality Calculated 294 mOsm/kg (285-295); Potassium 4.8 mmol/L (3.5-5.1); Sodium 138 mmol/L (136-145); Total Bilirubin 0.2 mg/dL (0.15-1.2); Total Protein 7.1 g/dL (6.6-8.7)
== END 2021-12-18 23:59 | disposition home or self-care (01) ==
PROVIDERS: Internal Medicine Medical Oncology; PCP Nurse Practitioner Family; Visit Provider Nurse Practitioner Family
DX: Z01.810 Encounter for preprocedural cardiovascular examination (principal); I35.0 Nonrheumatic aortic (valve) stenosis; I47.1 Supraventricular tachycardia; E11.9 Type 2 diabetes mellitus without complications; Z17.1 Estrogen receptor negative status [ER-]; Z79.811 Long term (current) use of aromatase inhibitors; C77.3 Secondary and unspecified malignant neoplasm of axilla and upper limb lymph nodes; Z85.3 Personal history of malignant neoplasm of breast; Z90.13 Acquired absence of bilateral breasts and nipples; R22.30 Localized swelling, mass and lump, unspecified upper limb
CPT/HCPCS: 80053; 85025; 99214

== ENCOUNTER 2021-12-18 11:40 | Outpatient (CLI) | payer MEDICARE, MEDICAID, SELFPAY ==
--- NOTE | 2021-12-18 12:00 | USCV_ITS ---
Roxana Hamilton Age: 71 Gender: F : 1950 Exam Date: 12/18/2021 12:06 Ordering Phys: Quinn Goncalves M.D ([email or web address]) Technologist: KARIS Exam Location: [facility] – [place] Indication: H/O AORTIC STENOSIS BP: 120 / 70 HR: 30 Rhythm: Sinus Technical Quality: Adequate MEASUREMENTS (Male / Female) Normal Values 2D ECHO LVOT Diameter 2.0 cm LV Ejection Fraction MOD 2C 66.8 % LV Ejection Fraction 2C AL 69.0 % LA Diameter 4.8 cm LA Width 4.1 cm LA Height 3.9 cm RA Width 3.9 cm RA Height 3.7 cm Aorta at Sinotubular Diameter 2.3 cm IVC Diameter 2.1 cm M-MODE Aortic Annulus Diameter 2.5 cm LA Ao Ratio MM 1.7 DOPPLER AV Peak Velocity 441.6 cm/s LVOT Peak Velocity 103.0 cm/s AV Area Cont Eq vti 0.8 cm squared AV Area Cont Eq pk 0.7 cm squared MV Peak Velocity 137.0 cm/s MV Area PHT 2.6 cm squared Mitral E to A Ratio 0.9 MV E' Velocity 63.0 cm/s Mitral E to MV E' Ratio 17.9 Mitral E to LV E' Lateral Ratio 14.7 Mitral E to LV E' Septal Ratio 22.6 TR Peak Velocity 302.2 cm/s TR Peak Gradient 36.5 mmHg TR Mean Velocity 245.1 cm/s TR Mean Gradient 27.1 mmHg TR Velocity Time Integral 82.2 cm TV Peak E Velocity 42.0 cm/s Right Atrial Pressure 3.0 mmHg Pulmonary Artery Systolic Pressu 39.5 mmHg PV Peak Velocity 119.0 cm/s RV Acceleration Time 0.1 s RV Ejection Time 0.3 s RV AcT/ET 0.4 FINDINGS Left Ventricle Left ventricle is normal in size. LV systolic function is normal with EF of 55 to 60%. No regional wall motion abnormalities are seen. Grade 1 diastolic dysfunction. Right Ventricle Normal in size and function Right Atrium Normal in size Left Atrium Normal in size Mitral Valve Mild mitral annular calcification is seen. Mild mitral stenosis. Trace mitral regurgitation. Aortic Valve Aortic valve is calcified and thickened. Severe aortic stenosis is seen with aortic valve area of 0.8 cm squared and mean gradient across aortic valve of 45.5 mmHg. Tricuspid Valve Trace tricuspid regurgitation. Insufficient TR jet to calculate RVSP. Pulmonic Valve Not well-visualized Pericardium Grossly normal Aorta Normal in size IVC CONCLUSIONS LV systolic function is normal with EF 55 to 60%. Grade 1 diastolic dysfunction. Mild mitral annular calcification is seen. Mild mitral stenosis. Trace mitral regurgitation. Aortic valve is calcified and thickened. Severe aortic stenosis is seen with aortic valve area of 0.8 cm squared and mean gradient across the valve of 45.5 mmHg. Trace tricuspid regurgitation. Compared to prior echocardiogram from 2019, aortic valve stenosis has significantly worsened and patient has severe aortic stenosis now. Quinn Goncalves MD (Electronically Signed) Final Date: 25 December 2021 21:46 S
== END 2021-12-18 11:41 | disposition home or self-care (01) ==
LOC: RAD 11:40
PROVIDERS: PCP Nurse Practitioner Family; Visit Provider Internal Medicine
DX: I35.0 Nonrheumatic aortic (valve) stenosis (principal); I05.0 Rheumatic mitral stenosis; I07.1 Rheumatic tricuspid insufficiency
CPT/HCPCS: 93306

== ENCOUNTER → 2022-01-06 09:31 | Outpatient (BNVA) | payer MEDICARE, MEDICAID, SELFPAY | PROVIDERS: PCP Nurse Practitioner Family; Visit Provider Internal Medicine | DX: I35.0 Nonrheumatic aortic (valve) stenosis (principal); I47.1 Supraventricular tachycardia; R58 Hemorrhage, not elsewhere classified; E11.9 Type 2 diabetes mellitus without complications; R07.89 Other chest pain; E78.5 Hyperlipidemia, unspecified | CPT/HCPCS: 80048; 85025; 85610 ==

== ENCOUNTER 2022-01-09 07:36 | Outpatient (CLI) | payer MEDICARE, MEDICAID, SELFPAY ==
[2022-01-09] VITALS (61 sets, daily range): BP systolic 117–152; BP diastolic 64–95; PULSE 54–85; RESP 13–25; TEMP 36.4; O2SAT 85–98; BMI 43.0
--- NOTE | 2022-01-09 07:30 | XACV_ITS ---
Exam Room: 2 Ht: 638 cm Wt: 29 kg BSA: 1.92 m2 Gender: Female : 1950 Any Known Allergies: Other Exam Priority: Routine Procedure(s): Procedure Description: Diagnostic procedure Procedure Description: Left Heart Catheterization Procedure Description: Right Heart Catheterization Procedure Description: O2 saturation Procedure Description: Coronary Angiography Diagnostic Cath Status: Elective Diagnostic Findings * INDICATION: 71-year-old woman with past medical history of SVT, diabetes who was recently seen in the office for worsening shortness of breath. Her echocardiogram was performed that showed severe aortic stenosis with aortic valve area of 0.8 cm. And mean gradient across aortic valve of 45 mmHg. Today plan is for performing right and left heart cath and to perform valve study. * Coronary angiogram * findings: * L * eft main artery: * Short * vessel * . No significant stenosis. Left circumflex artery: Large sized vessel. No significant stenosis is seen. LAD: Patent, has minor luminal irregularities RCA: Minor luminal irregularities. No significant stenosis seen.. * Right heart cath findings: RA pressure: 18/16 /14 mmHg RV: 58/6/18 mmHg PA: 61/27/41 mmHg PCW: 27/32/25 mmHg Ao sat: 91% PA sat: 66%. 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 * Aortic valve study: * After crossing aortic valve with * Glidewire, * we used [place] * dual-lumen * pigtail catheter to measure simultaneous aortic and LV pressures and perform aortic valve study. Both transducers were simultaneously zeroed. Aortic valve area: 0.8 cm2 Mean gradient across aortic valve: 64 mmHg Peak to peak gradient: 67 mmHg. * Coronary angiography shows right dominance. Conclusions 1. Coronary angiogram 2. findings: 3. L 4. eft main artery: 5. Short 6. vessel 7. . No significant stenosis. Left circumflex artery: Large sized vessel. No significant stenosis is seen. LAD: Patent, has minor luminal irregularities RCA: Minor luminal irregularities. No significant stenosis seen.. 8. No significant coronary artery disease seen. 9. Significantly elevated right and left-sided cardiac pressures. Severe postcapillary pulmonary hypertension. 10. Severe aortic stenosis. Recommendations * Patient will be referred to tertiary care center for aortic valve replacement. * Gentle diuresis to continue. * Outpatient cardiology follow-up in 2 weeks. Interventional RX Recommendation: other cardiac therapy w/o CABG/PCI Diagnostic RX Recommendation: other cardiac therapy w/o CABG/PCI Pressures Phase:Rest AO : 131 / 67 ( 93 ) @ 10:38:00 AM 115 / 111 ( 113 ) @ 10:39:00 AM 139 / 63 ( 91 ) @ 10:40:00 AM 137 / 65 ( 92 ) @ 10:40:00 AM LV : 205 / -3 / 24 @ 10:38:00 AM 210 / -5 / 22 @ 10:39:00 AM 207 / -4 / 24 @ 10:40:00 AM 206 / -4 / 24 @ 10:40:00 AM RV : 58 / 6 / 18 @ 10:11:00 AM PA : 61 / 27 ( 41 ) @ 10:10:00 AM RA : a wave = 18 v wave = 16 mean = 14 @ 10:12:00 AM PCW : a wave = 27 v wave = 32 mean = 25 @ 10:10:00 AM O2 Content Phase:Rest PA : O2 Content O2: 66.3 @ 10:39:00 AM Saturations Phase:Rest AO : 91 @ 10:38:00 AM RA : 66 @ 10:40:00 AM PA : 66 @ 10:39:00 AM Cardiac Output Phase:Rest Prosper : 8 @ 9:55:23 AM Prosper Cardiac Index: 2 @ 9:55:23 AM Flow Phase:Rest Qp : 8 @ 9:55:23 AM Qs : 7 @ 9:55:23 AM Valves Phase:DefaultPhase AV : 67.0 @ 9:55:23 AM AV Mean Gradient: 64.0 @ 9:55:23 AM AV Flow: 314 @ 9:55:23 AM AV Area: 0.9 @ 9:55:23 AM AV Area Index: 0.27 @ 9:55:23 AM Clinical Evaluation EBL: 5mL-10mL Procedural Details Procedure Consent Obtained. Admit Source: Out Patient. Pre-Procedure Time Out. Identified patient by full name and date of as verbalized by the patient/guarantor. Does the consent match the physician's order: Yes. Accurate & Complete Informed Consent: Yes. Inpatient/Outpatient History & Physical on Chart: Yes. If H&P is completed, is and addenduem needed: No; If yes, is the addendum complete: N/A. Visualize and Verify Site with Patient/Guarantor: N/A. Relevant Radiology Images available: N/A. The risks, benefits, and alternatives of sedation and/or procedure were discussed by physician. The patient agrees to continue. Procedure started. [facility] Clinical Fraility Score: 3: Managing Well. Government Instructor Indications: Valvular Disease. Chest Pain Symptom Assessment: Asymptomatic. Correct patient, site and procedure confirmed by cath team. Current diagnosis: Severe Aortic Valve stenosis, SVT. PERRLA. Strong, equal hand stitcher utility bilaterally. Lungs clear x 5 lobes. IV Site on Arrival: 18 gauge in the left anticubital. IV Fluids: 0.9% NaCl at KVO. 0 mL infused prior to cardiac catheterization technician. Pre Procedural Pulses: bilateral radial was 3+. Pre Procedural Pulses: bilateral posterior tibial was 2+. Pre Procedural Pulses: bilateral dorsalis pedis was 2+. Physician notified. Baseline sample Acquired. HR: 70 BPM. right groin was prepped with chloroprep then draped in the usual sterile fashion. right radial was prepped with chloroprep then draped in the usual sterile fashion. Physician arrived. Physician scrubbed in. Immediate Pre-Procedure Time Out. Correct Patient: Yes; Correct Procedure: Yes; Correct Site: Yes; Correct Patient Position: Yes; Correct Supplies: Yes; Dried Flammable Prep: Yes; Blood Products Available: No;. Lidocaine 1% infiltrated to the right groin. Arterial access obtained with micropuncture set. Lidocaine 1% infiltrated to the right groin. Venous access obtained with a micropuncture set. [place]-Shu MON catheter inserted to femoral venous sheath. Pressure measurements obtained. ABG drawn and sent with respiratory therapy. [place]-Shu out. A 5 pashto JL4 catheter in over exchange wire through 6fr arterial sheath. Multiple views taken of left coronary artery. Oxygen started at 3liters/min via nasal canula. Catheter removed over the exchange wire. A 5 pashto JR4 catheter in over exchange wire. Multiple views taken of right coronary artery. Exchange wire out through catheter. Glidewire advanced through catheter, attempting to cross aortic valve. Glidewire removed. Exchange wire advanced through catheter. Catheter removed over exchange wire. 6FR ángel catheter advanced over the exchange wire into the left ventricle. Wire out. Gradient taken: LV 210/-6,22; AO 115/111(113); Mean: 72mmHg, Peak to Peak: 95mmHg, SEP: 24sec/min; HR: 70 BPM; SpO2: 89%. EDP Sample taken: LV 207/-5,24; HR: 61 BPM; SpO2: 94%. Pullback taken: LV 206/-5,24; AO 139/63(91); Mean: 64mmHg, Peak to Peak: 67mmHg, SEP: 24sec/min; HR: 64 BPM; SpO2: 94%. catheter out. Hand injection through arterial femoral sheath to determine safe placement of closure device. A Suture was successful obtaining hemostatsis at the Right Femoral artery insertion site. Sheath(s) sutured into position with 2-0 silk and sterile 4x4's and Op-site applied over the site. No oozing or signs and symptoms of hematoma noted. A Suture was successful obtaining hemostatsis at the Right Femoral vein insertion site. Post Procedure: Pulses reassessed and unchanged. PERRLA. Strong, equal hand stitcher utility bilaterally. No VTE prophylaxis required. Medication's Wasted: Nitro = 50 mg. Medication's Wasted: Heparin = 4000 unit. Post-op diagnosis: Severe Aortic valve stenosis, Non-obstructive CAD. Complications: None. Estimated blood loss: 5mL-10mL. Responsiveness - Normal response to verbal stimuli; alert and oriented, PERRLA. Airway - Unaffected, no intervention required; spontaneous ventilation. Circulation: W/N/L, pulses unchanged. Nausea/Vomiting: N/A. Procedure completed. Patient transferred by bed to CPRU. Vital chart was stopped. Access Site Site: Right Femoral artery Sheath Size: 6 Fr Hemostasis Method: Suture Hemostasis Success: Successful Site: Right Femoral vein Sheath Size: 6 Fr Hemostasis Method: Suture Hemostasis Success: Successful Procedure Medications Start: 8:56 AM Stop: 8:56 AM Medication: Versed 1 mg and Fentanyl 25 mcg Route: I.V. Start: 9:18 AM Stop: 9:18 AM Medication: Versed Amount: 1 mg Route: I.V. Start: 9:18 AM Stop: 9:18 AM Medication: Fentanyl Amount: 25 mcg Route: I.V. Start: 9:24 AM Stop: 9:24 AM Medication: Fentanyl Amount: 50 mcg Route: I.V. I, the attending physician, have reviewed and verified all procedure medications. Yes, all medications given per verbal order History/Risk Factors Hypertension: No Dyslipidemia: No Peripheral Arterial Disease (PAD): No Myocardial Infarction (SD): No Obesity: No Renal Disease: No Tobacco Use: Never Prior Interventions PCI: No CABG: No Valve Surgery: No Report Signatures Finalized by Quinn Goncalves MD on 01/19/2022 10:43 PM
--- NOTE | 2022-01-09 08:51 | W.PM.OPSFHP ---
Same Day Surgery H&P Indication for Procedure/HPI DATE OF PROCEDURE: January 09, 2022 CHIEF COMPLAINT/INDICATIONFOR SURGICAL PROCEDURE: Severe aortic stenosis/dyspnea on exertion PREOP DIAGNOSIS: Severe aortic stenosis PLANNED PROCEDURE: Operation Date: 01/09/22 08:30 Proposed Procedures p [facility] [id number],I35.0(Right) - Quinn Goncalves M.D 71-year-old woman with past medical history of SVT, diabetes who was recently seen in the office for no worsening shortness of breath. Her echocardiogram was performed that showed severe aortic stenosis with aortic valve area of 0.8 cm. And mean gradient across aortic valve of 45 mmHg. Today plan is for performing right and left heart cath and to perform valve study. Medications/Allergies* Home Medications Medication Instructions Recorded Confirmed Type glipizide 10 mg tablet 10 mg PO BID 08/01/19 01/09/22 History potassium 99 mg tablet 99 mg PO DAILY@2100 06/06/20 01/09/22 History Allergies/Adverse Reactions Allergy/AdvReac Type Severity Reaction Status Date / Time levaquin Allergy Intermediate rash Uncoded 01/08/22 08:34 Pertinent History/Comorbid Conditions* Medical History (Updated 12/17/21 @ 10:19 by SUE Broderick) Axillary lump Breast cancer, right breast Malignant neoplasm of central portion of right female breast Pneumonia Secondary and unspecified malignant neoplasm of axilla and upper limb lymph nodes SVT (supraventricular tachycardia) Type 2 diabetes mellitus without complication Type 2 DM mod nonproliferative retinopathy, macular edema, uncontrol Pt. will increase lantus to 24 units at hs Pt. to follow ADA diet closely Pt. agrees with plan of care. Surgical History (Updated 08/01/19 @ 12:04 by SUE Broderick) History of appendectomy History of mastectomy Hx of section Hx of tonsillectomy Social History Smoking and tobacco status: never smoked Second hand smoke exposure: Yes Alcohol intake: never Lives independently: Yes Household members: spouse and family Housing: House Marital status: Pertinent Exam Findings alert, oriented x 3, clear to auscultation bilaterally and regular rate & rhythm Grade 3/6 systolic murmur Conscious Sedation Assessment PATIENT ASSESSED PRIOR TO SEDATION, WITH NO CHANGE NOTED: Yes AIRWAY EVAL/ANESTHESIA PLAN: normal airway, see other exam findings, ASA IV, Risks, benefits & alternatives of sedation and/or procedure discussed and Patient agrees to continue as planned ADDITIONAL INFORMATION: Moderate sedation Recommendations Surgery/Procedure today (Left heart cath with possible percutaneous coronary intervention) Coding Level of Care Code Acute Healthcare Economics Consultant for Chandana Saavedra
[2022-01-09 09:21] LABS: Blood Gas Operator Identificat CAK; Blood Gas Sample Type Not specified; Carboxyhemoglobin 1.2 %THgb (0.4-20.1); HGB O2 Sat 89.3 % (95-100); Methemoglobin 0.4 % (0.4-1.5); Total Hemoglobin 12.1 g/dL (12-16)
[2022-01-09 09:22] LABS: Arterial Blood Gas Hematocrit 34.7 % (37-47); Blood Gas Operator Identificat CAK; Blood Gas Sample Type Not specified; Carboxyhemoglobin 1.3 %THgb (0.4-20.1); HGB O2 Sat 65.2 % (95-100); Methemoglobin 0.4 % (0.4-1.5); Total Hemoglobin 11.3 g/dL (12-16)
[2022-01-09 09:24] LABS: Arterial Blood Gas Hematocrit 35.1 % (37-47); Blood Gas Operator Identificat CAK; Blood Gas Sample Type Not specified; Carboxyhemoglobin 1.3 %THgb (0.4-20.1); HGB O2 Sat 64.9 % (95-100); Methemoglobin 0.4 % (0.4-1.5); Total Hemoglobin 11.4 g/dL (12-16)
--- NOTE | 2022-01-09 12:42 | PC.NURSE ---
Around 1000: Arterial sheath removed from right groin. Held pressure 20 minutes. No hematoma or drainage noted. Vitals stable. Around 1030: Venous sheath removed from right groin. Held pressure 20 minutes. No drainage or hematoma noted. Vitals stable. Both sites cleansed with soap and water. Dressed sites with 4x4 guaze and transparent dressing.
== END 2022-01-09 17:53 | disposition home or self-care (01) ==
LOC: CCL 07:41 → ICU 13:39
PROVIDERS: PCP Nurse Practitioner Family; Visit Provider Internal Medicine
DX: I35.0 Nonrheumatic aortic (valve) stenosis (principal); Z85.3 Personal history of malignant neoplasm of breast; Z79.84 Long term (current) use of oral hypoglycemic drugs; I47.1 Supraventricular tachycardia
CPT/HCPCS: 36415; 82810; 93460; 96360; 96361; 99152; 99153; C1751; C1760; C1769; C1887; C1894; G0378; J1644; J2250; J3010; J3490; J7030; Q0163; Q9967

== ENCOUNTER 2022-01-16 10:22 | Outpatient (CLI) | payer MEDICARE, MEDICAID, SELFPAY ==
--- NOTE | 2022-01-16 10:37 | US_ITS ---
WS: [id number] ULTRASOUND SOFT TISSUES RIGHT chest. HISTORY: History of mastectomy and breast cancer. Palpable nodule along the scar site. Additional pal pable nodules in the axilla. COMPARISON: None available. TECHNIQUE: 2-D and color Doppler imaging is submitted. Ultrasound along the mastectomy scar site demonstrates no abnormality. There is no soft tissue mass o r increased vascularity. In the RIGHT axilla there some very small but unremarkable appearing lymph n odes. No enlarged lymph nodes or hypervascular lymph nodes. US/US soft tissue/extremity [id number] IMPRESSION: By ultrasound there is no abnormality noted along the RIGHT mastectomy scar sit e or in the RIGHT axilla.
--- NOTE | 2022-01-16 10:37 | MM_ITS ---
WS: [id number] DIAGNOSTIC LEFT DIGITAL TOMOSYNTHESIS MAMMOGRAPHY WITH CAD. HISTORY: N63.20 - Unspecified lump in the left breast, unspecified... Prior RIGHT mastectomy. COMPARISON: None available. Technique: CC, MLO and ML views. Spot compression LEFT CC and MLO. Breast composition: There are scattered areas of fibroglandular density. Palpable marker at 12:00 of the LEFT breast. There is no underlying mass identified. Vascular calcifications and benign calcific ations are present. LEFT breast ultrasound, limited. Ultrasound is directed to the LEFT breast as directed by the patient to the abnormality at 12:00. No mass noted by ultrasound. There is no distortion or increased vascularity. MM/[place] [id number] IMPRESSION: BI-RADS: 2-Benign FOLLOW UP: 1 Year Follow-up
--- NOTE | 2022-01-16 11:30 | US_ITS ---
WS: [id number] DIAGNOSTIC LEFT DIGITAL TOMOSYNTHESIS MAMMOGRAPHY WITH CAD. HISTORY: N63.20 - Unspecified lump in the left breast, unspecified... Prior RIGHT mastectomy. COMPARISON: None available. Technique: CC, MLO and ML views. Spot compression LEFT CC and MLO. Breast composition: There are scattered areas of fibroglandular density. Palpable marker at 12:00 of the LEFT breast. There is no underlying mass identified. Vascular calcifications and benign calcific ations are present. LEFT breast ultrasound, limited. Ultrasound is directed to the LEFT breast as directed by the patient to the abnormality at 12:00. No mass noted by ultrasound. There is no distortion or increased vascularity. US/US breast LT limited* [id number] IMPRESSION: BI-RADS: 2-Benign FOLLOW UP: 1 Year Follow-up
== END 2022-01-16 10:23 | disposition home or self-care (01) ==
LOC: RAD 10:24
PROVIDERS: PCP Nurse Practitioner Family; Visit Provider Nurse Practitioner Family
DX: N63.20 Unspecified lump in the left breast, unspecified quadrant (principal); C50.111 Malignant neoplasm of central portion of right female breast; C77.3 Secondary and unspecified malignant neoplasm of axilla and upper limb lymph nodes; R22.32 Localized swelling, mass and lump, left upper limb; Z90.11 Acquired absence of right breast and nipple
CPT/HCPCS: 76642; 76882; 77061

== ENCOUNTER → 2022-01-17 10:18 | Outpatient (BNVA) | payer MEDICARE, MEDICAID, SELFPAY | PROVIDERS: PCP Nurse Practitioner Family; Visit Provider Nurse Practitioner Family | DX: I35.0 Nonrheumatic aortic (valve) stenosis (principal) | CPT/HCPCS: 36415; 80048; 99213; 99214 ==

== ENCOUNTER → 2022-06-06 10:52 | Outpatient (BNVA) | payer MEDICARE, MEDICAID, SELFPAY | PROVIDERS: PCP Nurse Practitioner Family; Visit Provider Emergency Medicine | DX: R05.9 Cough, unspecified (principal); R09.02 Hypoxemia; R06.02 Shortness of breath; J18.9 Pneumonia, unspecified organism | CPT/HCPCS: 87426 ==

== ENCOUNTER → 2022-06-18 09:01 | Outpatient (BNVA) | payer MEDICARE, MEDICAID, SELFPAY | PROVIDERS: PCP Nurse Practitioner Family; Visit Provider Nurse Practitioner Family | DX: I47.1 Supraventricular tachycardia (principal); Z95.2 Presence of prosthetic heart valve | CPT/HCPCS: 99214 ==

== ENCOUNTER → 2022-07-01 10:19 | Outpatient (BNVA) | payer MEDICARE, MEDICAID, SELFPAY | PROVIDERS: PCP Nurse Practitioner Family; Visit Provider Nurse Practitioner Family | DX: E78.2 Mixed hyperlipidemia (principal); E11.9 Type 2 diabetes mellitus without complications; I10 Essential (primary) hypertension; R53.83 Other fatigue; R31.9 Hematuria, unspecified; E11.3319 Type 2 diabetes mellitus with moderate nonproliferative diabetic retinopathy with macular edema, unspecified eye; E11.65 Type 2 diabetes mellitus with hyperglycemia; I47.1 Supraventricular tachycardia; D64.9 Anemia, unspecified | CPT/HCPCS: 80053; 80061; 81000; 83036; 85025; 87086 ==

== ENCOUNTER → 2022-07-09 10:15 | Outpatient (BNVA) | payer MEDICARE, MEDICAID, SELFPAY | PROVIDERS: PCP Nurse Practitioner Family; Visit Provider Nurse Practitioner Family | DX: E87.5 Hyperkalemia (principal); M62.830 Muscle spasm of back | CPT/HCPCS: 80048 ==

== ENCOUNTER 2022-07-15 22:41 | Inpatient (IN) | payer MEDICARE, MEDICAID, SELFPAY ==
[2022-07-15 22:41] VITALS: BP 135/81; PULSE 149; RESP 29; O2SAT 94; BMI 42.2
--- NOTE | 2022-07-15 22:53 | W.ED.GENADLT ---
HPI - General Adult General: Chief complaint: Arrhythmia/Palpitations Stated complaint: TACHY Time Seen by Provider: 07/15/22 22:43 Source: patient and EMS Mode of arrival: EMS Limitations: no limitations History of Present Illness: 71-year-old female who has a history of SVT states started having palpitations just prior to arrival states she was admitted at [facility] 3 days ago for SVT was converted with adenosine heart rate is in the 140s currently she denies any chest pain states she does feel the fluttering in her heart she denies any orders of breath currently. She denies any worsening improving factors. Associated symptoms: Reports palpitations; Deny dyspnea, headache(s), nausea, rash or vomiting Review of Systems Const: Denies: fever(s), chills, body aches or change in appetite Eyes: Denies: blurry vision or eye discomfort ENMT: Denies: throat pain or dental pain Card: Reports: palpitations Resp: Denies: dyspnea GI: Denies: abdominal pain, nausea, vomiting or diarrhea : Denies: dysuria Musc: Denies: neck pain or back pain Skin/Breast: Denies: rash Neuro: Denies: headache(s) Psych: Denies: depression Jed/Lymph: Denies: easy bruising All/Imm: Denies: urticaria PFSH ED PFSH: Medical History Asymptomatic menopausal state Axillary lump Breast cancer, right breast Malignant neoplasm of central portion of right female breast Personal history of malignant neoplasm of breast Pneumonia Secondary and unspecified malignant neoplasm of axilla and upper limb lymph nodes SVT (supraventricular tachycardia) Type 2 diabetes mellitus without complication Type 2 DM mod nonproliferative retinopathy, macular edema, uncontrol Pt. will increase lantus to 24 units at hs Pt. to follow ADA diet closely Pt. agrees with plan of care. Surgical History History of appendectomy History of mastectomy Hx of section Hx of tonsillectomy S/P TAVR (transcatheter aortic valve replacement) Family History Family/Other CAD (coronary artery disease) Cancer Diabetes Hypertension Son Cancer Brother Cancer Father Cancer Mother Diabetes Grandfather Diabetes Denies family history of Dementia Hyperlipidemia Chronic kidney disease (CKD) Lung disease Stroke Social History Smoking and tobacco status: never smoked Second hand smoke exposure: Yes Alcohol intake: never Adopted: No Lives independently: Yes Household members: spouse and family Housing: House Marital status: Female Reproductive History: Para: 6 Date of menopause: 05/01/93 Physical Exam Const: COMMON NORMALS: no acute distress, patient oriented x3 and healthy appearing HENMT: COMMON NORMALS: normocephalic and atraumatic HEAD & SCALP: normocephalic and atraumatic Eye: COMMON NORMALS: Equal, round and reactive pupils present and EOMs intact bilaterally PUPIL: Yes Equal, round and reactive pupils present Neck/C-Spine: COMMON NORMALS: full ROM and supple Chest: COMMONS NORMALS: normal inspection of the chest and normal palpation of entire chest wall Resp: COMMON NORMALS: normal respiratory effort, No retractions, No use of accessory muscles and clear to auscultation bilaterally AUSCULTATION: clear to auscultation bilaterally Cardio: COMMON NORMALS: regular rhythm and No murmurs present (Cardio) RATE: tachycardic RHYTHM: regular rhythm GI: COMMON NORMALS: Normal to inspection, nondistended, normoactive bowel sounds present, Soft to palpation, non-tender and no masses PALPATION: Yes Soft to palpation Extremity: COMMON NORMALS: normal to inspection and full ROM Neuro: COMMON NORMALS: patient oriented x3, moves all extremities and no focal motor deficits Psych: COMMON NORMALS: mental status grossly normal, Normal thought process present and cooperative THOUGHT PROCESS: Normal thought process present Skin: COMMON NORMALS: no rashes or lesions noted and no wounds GENERAL SKIN EXAM: no rashes or lesions noted Course Vital Signs: Vital signs: Vital Signs Pulse Rate 95 07/15/22 23:44 Respiratory Rate 23 H 07/15/22 23:44 Blood Pressure 142/76 07/15/22 23:44 Pulse Oximetry 95 07/15/22 23:44 Oxygen Delivery Me thod 07/15/22 23:44 Oxygen Flow Rate 4 07/15/22 23:44 MDM - General Adult Medical Decision Making Patient presents with SVT she is converted here with adenosine she has had multiple episodes of SVT over the last 3 weeks states she has had roughly 8 episodes I did speak to concrete placement equipment operator, hospitalist will admit at this time as she likely needs med adjustment to better control her SVT she has been stable here after she was converted. Lab Data 07/15/22 23:35 07/15/22 23:35 Laboratory Results WBC 12.7 10^3/uL (4.0-10.0) H 07/15/22 23:35 RBC 3.14 10^6/uL (4.1-5.3) L 07/15/22 23:35 Hgb 8.0 g/dL (11.5-15.3) L 07/15/22 23:35 Hct 26.1 % (37.0-47.0) L 07/15/22 23:35 MCV 83.1 fl (81-99) 07/15/22 23: MCH 25.5 pg (28.0-34.0) L 07/15/22 23:35 MCHC 30.7 g/dL (30.0-36.0) 07/15/22 23:35 RDW 14.6 % (12.1-15.1) 07/15/22 23:35 Plt Count 316 10^3/cmm (130-400) 07/15/22 23:35 MPV 8.4 fL (7.4-10.4) 07/15/22 23:35 Neut % (Auto) 77.9 % 07/15/22 23:35 Lymph % (Auto) 12.5 % 07/15/22 23:35 [place] % (Auto) 7.6 % 07/15/22 23:35 Eos % (Auto) 0.4 % 07/15/22 23:35 Baso % (Auto) 0.4 % 07/15/22 23:35 Neut # (Auto) 9.87 10^3/uL (1.8-7.7) H 07/15/22 23:35 Lymph # (Auto) 1.6 10^3/uL (0.8-4.8) 07/15/22 23:35 [place] # (Auto) 1.0 10^3/uL (0.2-0.9) H 07/15/22 23:35 Eos # (Auto) 0.1 10^3/uL (0.0-0.8) 07/15/22 23:35 Baso # (Auto) 0.1 10^3/uL (0.0-0.1) 07/15/22 23:35 Nucleated RBC % (auto) 0 % 07/15/22 23:35 Nucleated RBCs # 0.0 /100WBC 07/15/22 23:35 Sodium 132 mmol/L (136-145) L 07/15/22 23:35 Potassium 4.4 mmol/L (3.5-5.1) 07/15/22 23:35 Chloride 99 mmol/L (98-107) 07/15/22 23:35 Carbon Dioxide 23 mmol/L (22-29) 07/15/22 23:35 Anion Gap 14.4 (5-19) 07/15/22 23:35 BUN 10 mg/dL (8-23) 07/15/22 23:35 Creatinine 0.6 mg/dL (0.5-0.9) 07/15/22 23:35 GFR Calculation 99.1 mL/min (90-130) 07/15/22 23:35 Glucose 261 mg/dL (65-115) H 07/15/22 23:35 Calculated Osmolality 282 mOsm/kg (285-295) L 07/15/22 23:35 Calcium 8.0 mg/dL (8.5-10.5) L 07/15/22 23:35 Total Bilirubin 0.3 mg/dL (0.15-1.2) 07/15/22 23:35 AST 16 U/L (0-32) 07/15/22 23:35 ALT 18 U/L (0-33) 07/15/22 23:35 Alkaline Phosphatase 85 U/L (35-105) 07/15/22 23:35 Troponin T Baseline 24 ng/L (0-10) H 07/15/22 23:35 Total Protein 6.2 g/dL (6.6-8.7) L 07/15/22 23:35 Albumin 3.2 g/dL (3.5-5.2) L 07/15/22 23:35 Globulin 3.0 g/dL (1.3-4.6) 07/15/22 23:35 EKG Data EKG 1: I personally reviewed and interpreted this EKG as follows: EKG interpretation date: 07/15/22 EKG interpretation time: 22:49 Interpretation: svt hr [address] or t wave abnormalities qrs 114 qtc 362 EKG 2: I personally reviewed and interpreted this EKG as follows: EKG interpretation date: 07/15/22 EKG interpretation time: 23:25 Interpretation: sinus tach hr [address] or t wave abnormalities qrs 100 qtc 395 Critical Care Time Critical Care Time: Critical Care Time: Yes Total Critical Care Time: 40 Attestation: The high probability of a clinically significant, sudden or life threatening deterioration of the patient's cv system(s) required my full and direct attention, intervention and personal management. The critical care time is as shown. This time is in addition to time spent performing any reported procedures but includes the following: [x] Data and vital sign review and interpretation [x] Patient assessment, examination and intervention [x] Documentation [x] Medication orders and management Discharge Plan Discharge Patient Disposition: Admitted As Inpatient Clinical Impression: SVT (supraventricular tachycardia) Condition: Stable Coding Level of Care Code ED Survey Chief for Chandana Saavedra
[2022-07-15 22:55] VITALS: BP 150/85; PULSE 146; RESP 22; O2SAT 93
--- NOTE | 2022-07-15 22:59 | PC.NURSE ---
Pt prepared for adenosine, pt placed on zoll monitor. Md at bedside for adenosine administration. Attempted valsalva maneuvers unsuccessfully.
[2022-07-15] MEDS: adenosine 3 mg/mL SDV 2mL 6 MG IVP (23:00)
[2022-07-15] MEDS: adenosine 3 mg/mL SDV 2mL 12 MG IVP ×3 (23:02→23:19)
[2022-07-15 23:10] VITALS: BP 134/82; PULSE 145; RESP 23; O2SAT 93
[2022-07-15] MEDS: dilTIAZem 5 mg/mL SDV 5 mL 10 MG IVP (23:15)
[2022-07-15 23:25] VITALS: BP 132/83; PULSE 108; RESP 22; O2SAT 94
--- NOTE | 2022-07-15 23:25 | ECG_ITS ---
[facility] Test Date: 2022-07-15 Pat Name: Roxana Hamilton Department: Room: Gender: Female [employer] Teacher: : 1950 Requested By: Esteban Ochoa Order Number: [id number] Tod MD: Jean Whyte M.D. Measurements Intervals [place] Rate: 100 P: 63 WI: 190 QRS: 54 QRSD: 100 T: 66 QT: 338 QTc: 436 Interpretive Statements SINUS TACHYCARDIA WITH OCCASIONAL ECTOPIC PREMATURE COMPLEXES ABNORMAL RHYTHM ECG Compared to ECG 06/06/2020 14:37:01 Sinus rhythm no longer present Electronically Signed On 07-16-2022 0:35:35 CDT by Jean Whyte M.D. [id number]
--- NOTE | 2022-07-15 23:30 | PC.NURSE ---
Pt given first dose of 6 mg adenosine and 3 additional doses of 12 mg of Adenosine via IVP.
[2022-07-15 23:42] LABS: Basophils # 0.1 10^3/uL (0.0-0.1); Basophils % 0.4 %; Eosinophils # 0.1 10^3/uL (0.0-0.8); Eosinophils % 0.4 %; Hematocrit 26.1 % (37.0-47.0); Lymphocytes # 1.6 10^3/uL (0.8-4.8); Lymphocytes % 12.5 %; Mean Corpuscular HGB Conc 30.7 g/dL (30.0-36.0); Mean Corpuscular Hemoglobin 25.5 pg (28.0-34.0); Mean Corpuscular Volume 83.1 fl (81-99); Mean Platelet Volume 8.4 fL (7.4-10.4); Monocytes % 7.6 %; Neutrophils # 9.87 10^3/uL (1.8-7.7); Neutrophils % 77.9 %; Nucleated Red Blood Cells % 0 %; Platelet Count 316 10^3/cmm (130-400); Red Blood Count 3.14 10^6/uL (4.1-5.3); Red Cell Distribution Width 14.6 % (12.1-15.1); White Blood Count 12.7 10^3/uL (4.0-10.0)
[2022-07-15 23:44] VITALS: BP 142/76; PULSE 95; RESP 23; O2SAT 95
[2022-07-16] VITALS (14 sets, daily range): BP systolic 114–150; BP diastolic 58–90; PULSE 63–79; RESP 12–27; TEMP 36.7–37.3; O2SAT 90–97
[2022-07-16] LABS: Troponin(5th) Baseline 24 ng/L (0-10)
[2022-07-16 00:13] LABS: Alanine Aminotransferase 18 U/L (0-33); Albumin Level 3.2 g/dL (3.5-5.2); Alkaline Phosphatase 85 U/L (35-105); Anion Gap 14.4 (5-19); Aspartate Amino Transferase 16 U/L (0-32); Blood Urea Nitrogen 10 mg/dL (8-23); Carbon Dioxide 23 mmol/L (22-29); Chloride 99 mmol/L (98-107); Glomerular Filtration Rate 99.1 mL/min (90-130); Glucose 261 mg/dL (65-115); Osmolality Calculated 282 mOsm/kg (285-295); Potassium 4.4 mmol/L (3.5-5.1); Sodium 132 mmol/L (136-145); Total Bilirubin 0.3 mg/dL (0.15-1.2); Total Protein 6.2 g/dL (6.6-8.7)
--- NOTE | 2022-07-16 00:47 | P.HP_ITS ---
Providers/Chief Complaint Primary Care Provider: SUE Celaya Chief Complaint: TACHY History of Present Illness Roxana Hamilton is a 71 year old female with past medical history of SVT, breast cancer, history of pneumonia, type 2 diabetes mellitus presented to the hospital today with palpitations. She says she does have a history of known SVT and started having palpitations before coming to the hospital. She was recently admitted to [place] 3 days ago for the same thing and converted with adenosine. Heart rate was in 140s on arrival. She received 3 doses of adenosine and then finally converted to sinus rhythm. ER doctor spoke with cardiology over the phone who recommended to start her on sotalol. She was given sotalol 80 mg x 1 and will be admitted at this time for observation. We will admit her on telemetry. At the time she was seen by hospitalist patient is asymptomatic. Medications/Allergies Home Medications Medication Instructions Recorded Confirmed Last Taken Type potassium 99 mg tablet 99 mg PO DAILY@2100 06/06/20 07/09/22 01/08/22 20:00 History magnesium oxide 400 mg PO BID #60 tabs 07/03/20 07/09/22 01/08/22 18:00 Rx exemestane 25 mg tablet See Rx Instructions .Route 12/06/21 07/09/22 01/09/22 05:30 Rx .COMPLEX #90 tabs diltiazem HCl 360 mg See Rx Instructions .Route 06/09/22 07/09/22 Unknown Rx capsule,extended release 24 hr .COMPLEX #90 caps glipizide 10 mg tablet 10 mg PO BID #180 tabs 06/10/22 07/09/22 Unknown Rx insulin syringe-needle U-100 1 mL #100 ea 06/10/22 07/09/22 Unknown Rx 31 gauge x 5/16 (BD Insulin Syringe Ultra-Fine) clopidogrel 75 mg tablet 75 mg PO DAILY 06/18/22 07/09/22 Unknown History furosemide 20 mg tablet 20 mg PO DAILY #90 tabs 06/18/22 07/09/22 Unknown Rx metoprolol succinate 50 mg 50 mg PO DAILY 06/18/22 07/09/22 Unknown History tablet,extended release 24 hr insulin glargine 100 unit/mL See Rx Instructions .Route .COMPLEX 07/01/22 07/09/22 Unknown History subcutaneous solution (Lantus U-100 Insulin) metformin 1,000 mg tablet See Rx Instructions .Route .COMPLEX 07/01/22 07/09/22 Unknown History lisinopril 5 mg tablet See Rx Instructions .Route 07/03/22 07/09/22 Unknown Rx .COMPLEX #90 tabs Allergies Allergy/AdvReac Type Severity Reaction Status Date / Time levaquin Allergy Intermediate rash Uncoded 07/09/22 09:27 PFSH Acute PFSH: Medical History Asymptomatic menopausal state Axillary lump Breast cancer, right breast Malignant neoplasm of central portion of right female breast Personal history of malignant neoplasm of breast Pneumonia Secondary and unspecified malignant neoplasm of axilla and upper limb lymph nodes SVT (supraventricular tachycardia) Type 2 diabetes mellitus without complication Type 2 DM mod nonproliferative retinopathy, macular edema, uncontrol Pt. will increase lantus to 24 units at hs Pt. to follow ADA diet closely Pt. agrees with plan of care. Surgical History History of appendectomy History of mastectomy Hx of section Hx of tonsillectomy S/P TAVR (transcatheter aortic valve replacement) Family History Family/Other CAD (coronary artery disease) Cancer Diabetes Hypertension Son Cancer Brother Cancer Father Cancer Mother Diabetes Grandfather Diabetes Denies family history of Dementia Hyperlipidemia Chronic kidney disease (CKD) Lung disease Stroke Social History Smoking and tobacco status: never smoked Second hand smoke exposure: Yes Alcohol intake: never Adopted: No Lives independently: Yes Household members: spouse and family Housing: House Marital status: Female Reproductive History: Para: 6 Date of menopause: 05/01/93 Vitals/I&O/Wt Last Vital Signs Pulse 95 07/15/22 23:44 Resp 23 H 07/15/22 23:44 BP 142/76 07/15/22 23:44 Pulse Ox 95 07/15/22 23:44 O2 Del Method 07/15/22 23:44 O2 Flow Rate 4 07/15/22 23:44 Weight last 48 hrs Weight 111.584 kg Physical Exam Narrative: General: Alert oriented x3, patient seen sitting up in bed appearing anxious at this time. HEENT: Normocephalic, atraumatic, EOMI, breathing comfortably no acute respiratory distress. Cardio: Regular rate rhythm, normal S1-S2 Respiratory: Clear to auscultation bilaterally no wheezes no rhonchi. GI: Abdomen soft, nontender, bowel sounds + Extremities: left leg 1+ edema upto knee, right leg no edema noted Data 07/15/22 23:35 07/15/22 23:35 A&P Assessment and plan (1) Hyperlipidemia: Qualifiers: Hyperlipidemia type: mixed hyperlipidemia Qualified Code(s): E78.2 - Mixed hyperlipidemia (2) SVT (supraventricular tachycardia): (3) Type 2 diabetes mellitus without complication: Qualifiers: Diabetes mellitus direct marketing representative insulin use: without senior living use Qualified Code(s): E11.9 - Type 2 diabetes mellitus without complications Plan #SVT, converted with adenosine #Hypertension #Type 2 diabetes mellitus - Continue on sotalol 80 twice daily ? Cardiology consulted. Await further recommendations ? Hold glipizide at this time - Hold metformin - insulin sliding scale mod intensity -Continue plavix - hold cardizem, toprol. pt already took meds today - hold lantus. pt states she is no longer taking. check hb1ac - cardiac diet - monitor QTC - Check echo full code scds, lovenox 40 daily Attestations Medical Necessity Statement*: observation for SVT and medication monitoring Other Coding Information Focused coding review requested Diagnoses Hyperlipidemia E78.2 Hyperlipidemia type: mixed hyperlipidemia SVT (supraventricular tachycardia) I47.1 Type 2 diabetes mellitus without complication E11.9 Diabetes mellitus senior living insulin use: without senior living use
--- NOTE | 2022-07-16 01:00 | USCV_ITS ---
Roxana Hamilton Age: 71 Gender: F : 1950 Exam Date: 07/16/2022 02:01 Ordering Phys: Jagruti Currie MD Technologist: [facility] Exam Location: [facility] [place] Indication: SVT BP: 125 / 75 HR: 62 Rhythm: Sinus Technical Quality: Adequate MEASUREMENTS (Male / Female) Normal Values 2D ECHO LV Diastolic Diameter PLAX 5.1 cm 4.2 - 5.9 / 3.9 - 5.3 cm LV Systolic Diameter PLAX 3.6 cm IVS Diastolic Thickness 1.7 cm 0.6 - 1.0 / 0.6 - 0.9 cm IVS Systolic Thickness 2.6 cm LVPW Diastolic Thickness 1.8 cm 0.6 - 1.0 / 0.6 - 0.9 cm LVPW Systolic Thickness 2.0 cm LVOT Diameter 1.9 cm LV Ejection Fraction 2D Teich 56.9 % LV Ejection Fraction MOD 2C 65.7 % LV Ejection Fraction 2C AL 65.7 % LA Diameter 4.8 cm LA Width 6.8 cm LA Height 5.5 cm RA Width 4.9 cm RA Height 5.5 cm Aorta at Sinotubular Diameter 2.5 cm IVC Diameter 2.8 cm M-MODE Aortic Annulus Diameter 2.5 cm LA Ao Ratio MM 1.9 MV E Point Septal Separation 0.7 cm DOPPLER AV Peak Velocity 303.0 cm/s LVOT Peak Velocity 116.0 cm/s AV Area Cont Eq vti 1.0 cm squared AV Area Cont Eq pk 1.1 cm squared MV Peak Velocity 149.0 cm/s MV Area PHT 3.0 cm squared Mitral E to A Ratio 1.5 MV E' Velocity 83.5 cm/s Mitral E to MV E' Ratio 20.3 Mitral E to LV E' Lateral Ratio 20.3 Mitral E to LV E' Septal Ratio 20.3 TR Peak Velocity 286.3 cm/s TR Peak Gradient 32.8 mmHg TV Peak E Velocity 57.0 cm/s Right Atrial Pressure 15.0 mmHg Pulmonary Artery Systolic Pressu 47.8 mmHg PV Peak Velocity 92.0 cm/s RV Acceleration Time 0.1 s RV Ejection Time 0.4 s RV AcT/ET 0.3 FINDINGS Left Ventricle Normal left ventricular size and systolic function, EF 66 %. No regional wall motion abnormalities. Moderate left ventricular hypertrophy. Grade III/IV diastolic dysfunction (restrictive filling pattern), severely elevated filling pressures. Right Ventricle The right ventricle is normal in size and function. Right Atrium Mildly increased right atrial size. Left Atrium Mildly increased left atrial size. Mitral Valve Moderate mitral annular calcification. Mild mitral valve regurgitation. Aortic Valve Moderate aortic valve stenosis, mean gradient 18.9 mmHg, MARLENI 1 cm squared. Peak velocity of 3.08 m/s with a peak gradient of 38 and a mean gradient of 20 mmHg. . Moderate valvular and mild to moderate perivalvular regurgitation was noted. The pressure half-time was 288 ms Tricuspid Valve Trace to mild tricuspid valve regurgitation. Estimated pulmonary artery peak systolic pressure 48 mmHg Pulmonic Valve No gross abnormalities noted Pericardium No pericardial effusion. Aorta Normal aortic annulus size. IVC Dilated IVC with decreased respiratory variation. Estimated right atrial pressure of 15 mmHg CONCLUSIONS Normal left ventricular size and systolic function, EF 66 %. No regional wall motion abnormalities. Moderate left ventricular hypertrophy. Grade III/IV diastolic dysfunction (restrictive filling pattern), severely elevated filling pressures. Bioprosthetic valve at the aortic position was noted. There appeared to be moderate valvular and mild to moderate perivalvular regurgitation in the short axis view. The peak velocity across aortic valve was 3.08 m/s with a peak gradient of 38 and a mean gradient of 20 mmHg. The aortic valve area was calculated to be 1.0 m/s. Moderate mitral annular calcification. Mild mitral valve regurgitation. Mild biatrial enlargementTrace to mild tricuspid valve regurgitation. Estimated pulmonary artery peak systolic pressure 48 mmHg. Moderate mitral annular calcification. Mild mitral valve regurgitation. Estimated right atrial pressure of 15 mmHg Compared to the study from 12/18/2021, the bioprosthetic valve in the aortic position is new. Dr Jean Whyte MD [facility] (Electronically Signed) Final Date: 16 July 2022 08:35 S
[2022-07-16] MEDS: sotalol 80 mg Tablet PO ×3 (01:01→17:58)
--- NOTE | 2022-07-16 01:14 | PC.NURSE ---
Called report to JASPREET Sharma in [facility]
[2022-07-16 01:30] LABS: Procalcitonin 0.44 ng/mL (0-0.5)
[2022-07-16 01:32] LABS: Thyroid Stimulating Hormone 0.35 uIU/mL (0.27-4.20)
[2022-07-16 01:43] LABS: Troponin 5 2HR 27.51 ng/L (0-10)
[2022-07-16 01:44] LABS: Troponin 5 2HR Delta 3.51 ABS# (0-10)
[2022-07-16 02:57] LABS: Estmated Average Glucose 146; Hemoglobin A1C 6.7 % (4.0-6.0)
[2022-07-16] MEDS: enoxaparin 40 mg/0.4 mL Syringe SUBCUT (03:17)
--- NOTE | 2022-07-16 05:32 | ECG_ITS ---
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 Measurements Intervals [place] Rate: 72 P: 64 IN: 201 QRS: 54 QRSD: 106 T: 68 QT: 423 QTc: 466 Interpretive Statements SINUS RHYTHM LOW QRS VOLTAGE IN PRECORDIAL LEADS [QRS DEFLECTION < 1.0 mV IN CHEST LEADS] POSSIBLE ANTERIOR MYOCARDIAL INFARCTION , PROBABLY OLD [30 ms Q WAVE IN V3/V4, OR R < 0.2 mV IN V4] Compared to ECG 07/16/2022 05:32:00 Indeterminate axis no longer present Myocardial infarct finding still present Electronically Signed On 07-16-2022 23:57:52 CDT by Jean Whyte M.D. [id number]
--- NOTE | 2022-07-16 05:32 | ECG_ITS ---
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 Measurements Intervals [place] Rate: 72 P: 67 SC: 204 QRS: 57 QRSD: 101 T: 69 QT: 417 QTc: 458 Interpretive Statements SINUS RHYTHM INDETERMINATE AXIS LOW QRS VOLTAGE IN PRECORDIAL LEADS [QRS DEFLECTION < 1.0 mV IN CHEST LEADS] POSSIBLE ANTERIOR MYOCARDIAL INFARCTION , PROBABLY OLD [30 ms Q WAVE IN V3/V4, OR R < 0.2 mV IN V4] Compared to ECG 07/15/2022 23:25:14 Indeterminate axis now present Low QRS voltage now present Myocardial infarct finding now present Sinus tachycardia no longer present Electronically Signed On 07-16-2022 23:57:43 CDT by Jean Whyte M.D. [id number]
[2022-07-16 06:38] LABS: Glucose Point of Care 159 mg/dL (70-110)
--- NOTE | 2022-07-16 08:10 | PC.PHAR ---
pt states she takes care of her own medications-pt states she is only taking metformin 1000mg bid0-pt states she stop taking potassium gluconate 2 weeks ago-pt states she is using lantus 20 units daily written on 07/01/22 ext med history shows last filled 24 units daily filled 07/03/22-notes are made in the pharmacy comments
[2022-07-16] MEDS: clopidogrel 75 mg Tablet PO (09:20)
[2022-07-16] MEDS: insulin lispro 100 unit/1 mL SUBCUT (09:20)
--- NOTE | 2022-07-16 09:27 | PM.CONSULT ---
Providers/Reason For Consult Consulting Physician/Specialty*: DELORIS Whyte MD/cardiology Reason for Consult*: Patient with recurrent SVT Requesting Physician: Dr. Skaggs/ Attending Physician: Julius Skaggs MD Primary Care Provider: SUE Celaya History of Present Illness History of Present Illness Roxana Hamilton is a 71 year old female with a history of hypertension, type 2 diabetes, aortic valve stenosis, status post TAVR, presents with complaints of recurrent episodes of tachycardia associated shortness of breath and dizziness. Patient has a history of SVT. Her episodes were infrequent. But for the last 2 weeks, she been having several episodes of SVT. Usually happens as she tried to get up and move around. She has been short of breath and dizzy with the spells. Her functional status has been slowly deteriorating. Last night was the third ER visit with a similar complaints within the last 2 weeks. She was found to be in SVT with a heart rate in the 160s. She was given 3 doses of adenosine which eventually converted the rhythm to sinus. She is admitted to the hospital for further evaluation management. This patient has a history of severe aortic valve stenosis and underwent TAVR in December of last year at the [facility] in [place]. According to the patient, she felt better after that for a while. In the beginning of May, she had a COVID-19 infection. Since then, she been getting shortness of breath and weakness. For the last 2 weeks, she might have had 8 or 9 episodes of SVT. Usually these spells may last for few minutes and then goes away with some vagal maneuvers or spontaneously. She was seen in the [facility] 2 times with these complaints. First time she had 2 doses of adenosine which converted the rhythm to sinus. The second time, she had only 1 dose of adenosine. She has some chest discomfort and shortness of breath with these episodes. Also has dizziness and ocassional near syncopal episodes. Never had any total loss of consciousness. She had a cardiac catheterization before the aortic valve intervention and was found to have no significant coronary artery disease. She had moderately severe pulmonary hypertension, postcapillary. Currently she has no fever or chills. No cough. Has shortness of breath and generalized weakness is persisting, after the COVID-19. She has no documented history for congestive heart failure. Ever since the COVID-19, she also been noticing, swelling of both lower extremities more so on the left side. She never had any venous Doppler examination to look for any DVT. Review of Systems Narrative: CONSTITUTIONAL: No fever or chills. Has a feeling of weakness/fatigue/shortness of breath. EYES: No blurring of vision or other visual disturbances lately. ENT: No hoarseness of voice, auditory disturbances or sore throat. CARDIOVASCULAR: As mentioned above. RESPIRATORY: Shortness of breath as mentioned above. GASTROINTESTINAL: No hematemesis or melena. GENITOURINARY: No dysuria or hematuria. INTEGUMENTARY: No skin rashes or history of skin cancer. NEURO: No transient ischemic attacks or amaurosis. PSYCHIATRIC: No history of psychosis or major depression. HEMATOLOGIC: Found to be anemic. Etiology is unclear. ENDOCRINE: No history of polyuria or polydipsia. MUSCULOSKELETAL: No recent joint pain or swelling. ALLERGY/IMMUNOLOGY: As mentioned above. Medications/Allergies Home Medications Medication Instructions Recorded Confirmed Last Taken Type magnesium oxide 400 mg PO BID #60 tabs 07/03/20 07/16/22 01/08/22 18:00 Rx glipizide 10 mg tablet 10 mg PO BID #180 tabs 06/10/22 07/16/22 Unknown Rx insulin syringe-needle U-100 1 mL #100 ea 06/10/22 07/16/22 Unknown Rx 31 gauge x 5/16 (BD Insulin Syringe Ultra-Fine) clopidogrel 75 mg tablet 75 mg PO DAILY@06/18/22 07/16/22 Unknown History metoprolol succinate 50 mg 50 mg PO DAILY@06/18/22 07/16/22 Unknown History tablet,extended release 24 hr insulin glargine 100 unit/mL 20 unit SUBCUT DAILY@07/01/22 07/16/22 Unknown History subcutaneous solution (Lantus U-100 Insulin) metformin 1,000 mg tablet 1,000 mg PO BID@,07/01/22 07/16/22 Unknown History acetaminophen 500 mg tablet 1,000 mg PO Q6H PRN Pain 07/16/22 07/16/22 Unknown History aspirin 325 mg tablet 325 mg PO Q6H PRN Headache 07/16/22 07/16/22 Unknown History diltiazem HCl 360 mg 360 mg PO DAILY@07/16/22 07/16/22 Unknown History capsule,extended release 24 hr exemestane 25 mg tablet 25 mg PO DAILY@07/16/22 07/16/22 Unknown History furosemide 20 mg tablet 20 mg PO DAILY@07 07/16/22 07/16/22 Unknown History lisinopril 5 mg tablet 5 mg PO DAILY@07/16/22 07/16/22 Unknown History multivitamin 1 tab PO DAILY 07/16/22 07/16/22 Unknown History Allergies Allergy/AdvReac Type Severity Reaction Status Date / Time levofloxacin [From Levaquin] Allergy EMERITAY-Swell Verified 07/16/22 07:57 Lip/Tongue/Throat Current Medications Generic Name Dose Route Start Last Admin Trade Name Freq PRN Reason Stop Dose Admin Clopidogrel Bisulfate 75 mg 07/16/22 09:00 07/16/22 09:20 Clopidogrel 75 Mg Tablet PO 75 mg DAILY DEMARIO Administration Enoxaparin Sodium 40 mg 07/16/22 01:00 07/16/22 03:17 Enoxaparin 40 Mg/0.4 Ml Syringe SUBCUT 40 mg Q24H DEMARIO Administration Insulin Human Lispro 0 unit 07/16/22 08:00 07/16/22 09:20 Insulin Lispro 100 Unit/1 Ml SUBCUT 4 unit WM&BEDTIME DEMARIO Administration Protocol Sotalol HCl 80 mg 07/16/22 09:00 07/16/22 09:20 Sotalol 80 Mg Tablet PO 80 mg BID DEMARIO Administration PFSH Acute PFSH: Medical History (Updated 07/16/22 @ 13:11 by Jean Whyte MD) Asymptomatic menopausal state Axillary lump Breast cancer, right breast Malignant neoplasm of central portion of right female breast Personal history of malignant neoplasm of breast Pneumonia Secondary and unspecified malignant neoplasm of axilla and upper limb lymph nodes SVT (supraventricular tachycardia) Type 2 diabetes mellitus without complication Type 2 DM mod nonproliferative retinopathy, macular edema, uncontrol Pt. will increase lantus to 24 units at hs Pt. to follow ADA diet closely Pt. agrees with plan of care. Surgical History (Updated 07/16/22 @ 12:59 by Jean Whyte MD) History of appendectomy History of mastectomy Hx of section Hx of tonsillectomy S/P TAVR (transcatheter aortic valve replacement) Family History Family/Other CAD (coronary artery disease) Cancer Diabetes Hypertension Son Cancer Brother Cancer Father Cancer Mother Diabetes Grandfather Diabetes Denies family history of Dementia Hyperlipidemia Chronic kidney disease (CKD) Lung disease Stroke Social History Smoking and tobacco status: never smoked Second hand smoke exposure: Yes Alcohol intake: never Adopted: No Lives independently: Yes Household members: spouse and family Housing: House Marital status: Female Reproductive History: Para: 6 Date of menopause: 05/01/93 Vitals/I&O/Wt Last Vital Signs Temp 98.3 F 07/16/22 07:15 Pulse 71 07/16/22 07:15 Resp 22 H 07/16/22 07:15 BP 135/66 07/16/22 07:15 Pulse Ox 97 07/16/22 07:15 O2 Del Method 07/16/22 07:15 O2 Flow Rate 1 07/16/22 07:15 07/15/22 07/16/22 07/16/22 22:59 06:59 14:59 Intake Total 240 / 240 Balance 240 / 240 Weight last 48 hrs Weight 246 lb Physical Exam Narrative: GENERAL: The patient is alert and oriented times three. Not in any acute distress. Morbidly obese HEENT: No significant pallor, icterus or lymphadenopathy.Oral cavity: There are no mucous membrane lesions. NECK: Trachea appears to be central. No masses noted. No JVD or thyromegaly appreciated. RESPIRATORY: Chest is symmetrical. No intercostals muscle retraction or any accessory muscle activation. There is no chest wall tenderness. Breath sounds are heard bilaterally. No rales or rhonchi heard. No evidence of any consolidation. BREASTS: Deferred. HEART: The heart sounds are normal. No S3 or S4. Ejection systolic murmur grade 3 or 6 in the aortic area. No pericardial rub. ABDOMEN: No vessel pulsations or distention. No tenderness. No organomegaly appreciated. Bowel sounds are normally heard. : Deferred. RECTAL: Deferred. LYMPHATIC: No lymphadenopathy noted in the neck. EXTREMITIES: 1+ edema of the right lower extremity and 2+ edema of the left lower extremity. MUSCULOSKELETAL: No acute joint deformities or swelling SKIN: There are no significant rashes or ecchymosis NEUROPSYCHIATRIC: The patient is alert and oriented x3. Appears to be in a good mood. No tremors or rigidity noted. Data 07/15/22 23:35 07/15/22 23:35 Other Labs: Laboratory Last Values WBC 12.7 10^3/uL (4.0-10.0) H 07/15/22 23:35 RBC 3.14 10^6/uL (4.1-5.3) L 07/15/22 23:35 Hgb 8.0 g/dL (11.5-15.3) L 07/15/22 23:35 Hct 26.1 % (37.0-47.0) L 07/15/22 23:35 MCV 83.1 fl (81-99) 07/15/22 23: MCH 25.5 pg (28.0-34.0) L 07/15/22 23: MCHC 30.7 g/dL (30.0-36.0) 07/15/22 23: RDW 14.6 % (12.1-15.1) 07/15/22 23:35 Plt Count 316 10^3/cmm (130-400) 07/15/22 23:35 MPV 8.4 fL (7.4-10.4) 07/15/22 23:35 Neut % (Auto) 77.9 % 07/15/22 23:35 Lymph % (Auto) 12.5 % 07/15/22 23:35 [place] % (Auto) 7.6 % 07/15/22 23:35 Eos % (Auto) 0.4 % 07/15/22 23:35 Baso % (Auto) 0.4 % 07/15/22 23:35 Neut # (Auto) 9.87 10^3/uL (1.8-7.7) H 07/15/22 23:35 Lymph # (Auto) 1.6 10^3/uL (0.8-4.8) 07/15/22 23:35 [place] # (Auto) 1.0 10^3/uL (0.2-0.9) H 07/15/22 23:35 Eos # (Auto) 0.1 10^3/uL (0.0-0.8) 07/15/22 23:35 Baso # (Auto) 0.1 10^3/uL (0.0-0.1) 07/15/22 23:35 Nucleated RBC % (auto) 0 % 07/15/22 23:35 Nucleated RBCs # 0.0 /100WBC 07/15/22 23:35 Sodium 132 mmol/L (136-145) L 07/15/22 23:35 Potassium 4.4 mmol/L (3.5-5.1) 07/15/22 23:35 Chloride 99 mmol/L (98-107) 07/15/22 23:35 Carbon Dioxide 23 mmol/L (22-29) 07/15/22 23:35 Anion Gap 14.4 (5-19) 07/15/22 23:35 BUN 10 mg/dL (8-23) 07/15/22 23:35 Creatinine 0.6 mg/dL (0.5-0.9) 07/15/22 23:35 GFR Calculation 99.1 mL/min (90-130) 07/15/22 23:35 Glucose 261 mg/dL (65-115) H 07/15/22 23:35 POC Glucose 159 mg/dL (70-110) H 07/16/22 06:35 Estimat Average Glucose 146 07/15/22 23:35 Hemoglobin A1c 6.7 % (4.0-6.0) H 07/15/22 23:35 Calculated Osmolality 282 mOsm/kg (285-295) L 07/15/22 23:35 Calcium 8.0 mg/dL (8.5-10.5) L 07/15/22 23:35 Total Bilirubin 0.3 mg/dL (0.15-1.2) 07/15/22 23:35 AST 16 U/L (0-32) 07/15/22 23:35 ALT 18 U/L (0-33) 07/15/22 23:35 Alkaline Phosphatase 85 U/L (35-105) 07/15/22 23:35 Troponin T Baseline 24 ng/L (0-10) H 07/15/22 23:35 Troponin T 120 Minute 27.51 ng/L (0-10) H 07/16/22 01:20 Delta Troponin T 3.51 ABS# (0-10) 07/16/22 01:20 Troponin T Hi Sens 6Hr 30.50 ng/L (0-10) H 07/16/22 05:28 Troponin T Hi Sens 6Hr Delta 6.50 ng/L (0-12) 07/16/22 05:28 Total Protein 6.2 g/dL (6.6-8.7) L 07/15/22 23:35 Albumin 3.2 g/dL (3.5-5.2) L 07/15/22 23:35 Globulin 3.0 g/dL (1.3-4.6) 07/15/22 23:35 Procalcitonin 0.44 ng/mL (0-0.5) 07/15/22 23:35 TSH 0.35 uIU/mL (0.27-4.20) 07/15/22 23:35 EKG 1: My Interpretation: The EKG showed a SVT at a rate of 148 bpm. Nonspecific IVCD. No acute ST-T changes. A&P Assessment and plan (1) SVT (supraventricular tachycardia): In view of the patient's highly symptomatic recurrent SVT, she would be appropriate to start her on Betapace 80 mg p.o. twice daily. She need to be closely monitored on telemetry for the next 48 to 72 hours to watch for any proarrhythmia/QT prolongation. It will be appropriate to take her off the metoprolol and the Cardizem. Her blood pressure needs to be closely monitored. (2) Type 2 diabetes mellitus without complication: Aggressive management of the diabetes would be appropriate. Qualifiers: Diabetes mellitus intermediate accountant insulin use: without nursing home use Qualified Code(s): E11.9 - Type 2 diabetes mellitus without complications (3) Aortic regurgitation: Seems to have moderate valvular aortic regurgitation and mild to moderate perivalvular regurgitation. This may need to be better evaluated by a ABDIRIZAK. I also will be discussing this with the TAVR team at the [facility] in [facility]. (4) Benign essential HTN: Currently normotensive. We will be closely monitoring the blood pressure. (5) S/P TAVR (transcatheter aortic valve replacement): Patient seems to have a significant gradient in the bioprosthetic valve, possible related to undersizing. Also has mild to moderate perivalvular leak based on the short axis view. This may need to be better evaluated by a transesophageal echocardiogram. (6) Leg swelling: I will go ahead do a venous duplex of the left lower extremity to evaluate for any DVT. Plan Other problems are Shortness of breath, etiology? Anemia Obesity Recurrence of breast cancer I will go do a BNP to evaluate for any evidence of congestive heart failure causing the shortness of breath. A venous duplex examination of the left lower extremity would be appropriate to evaluate for any DVT. After reviewing these results, further recommendations will be made. Coding Level of Care Code 09272 Diagnoses SVT (supraventricular tachycardia) I47.1 Type 2 diabetes mellitus without complication E11.9 Diabetes mellitus intermediate accountant insulin use: without intermediate accountant use Aortic regurgitation I35.1 Benign essential HTN I10 S/P TAVR (transcatheter aortic valve replacement) Z95.2 Leg swelling M79.89
--- NOTE | 2022-07-16 10:19 | ECG_ITS ---
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 Measurements Intervals [place] Rate: 66 P: 32 AR: 205 QRS: 7 QRSD: 120 T: 46 QT: 423 QTc: 445 Interpretive Statements SINUS RHYTHM POSSIBLE ANTERIOR MYOCARDIAL INFARCTION , PROBABLY OLD [30 ms Q WAVE IN V3/V4, OR R < 0.2 mV IN V4] Compared to ECG 07/16/2022 05:32:52 No significant changes Electronically Signed On 07-16-2022 23:58:21 CDT by Jean Whyte M.D. [id number]
[2022-07-16 11:40] LABS: Glucose Point of Care 106 mg/dL (70-110)
--- NOTE | 2022-07-16 13:00 | ECG_ITS ---
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 Measurements Intervals [place] Rate: 148 P: 0 SD: 0 QRS: 59 QRSD: 114 T: 30 QT: 277 QTc: 435 Interpretive Statements SUPRAVENTRICULAR TACHYCARDIA MODERATE INTRAVENTRICULAR CONDUCTION DELAY [110+ ms QRS DURATION] ABNORMAL RHYTHM ECG Compared to ECG 06/06/2020 14:37:01 Intraventricular conduction delay now present Sinus rhythm no longer present Electronically Signed On 07-16-2022 23:57:32 CDT by Jean Whyte M.D. [id number] f
[2022-07-16 13:53] LABS: NT Pro B Type Natriuretic Pept 3266 pg/mL (0-125)
--- NOTE | 2022-07-16 14:01 | P.PN_ITS ---
Subjective Subjective: Patient was seen and examined this morning she was in sinus rhythm.Denied any chest pain shortness of breath. Has been started on sotalol by cardiology EKG is being monitored as per protocol for QTc interval. Medications: Medication Review Details: Generic Name Dose Route Start Last Admin Trade Name Christiano PRN Reason Stop Dose Admin Clopidogrel Bisulf ate 75 mg 07/16/22 09:00 07/16/22 09:20 Clopidogrel 75 M g Tablet PO 75 mg DAILY DEMARIO Administration Enoxaparin Sodium 40 mg 07/16/22 01:00 07/16/22 03:17 Enoxaparin 40 Mg /0.4 Ml Syringe SUBCUT 40 mg Q24H DEMARIO Administration Insulin Human Lisp ro 0 unit 07/16/22 08:00 07/16/22 12:37 Insulin Lispro 1 00 Unit/1 Ml SUBCUT Not Given WM&BEDTIME [facility] Protocol Sotalol HCl 80 mg 07/16/22 09:00 07/16/22 09:20 Sotalol 80 Mg Ta blet PO 80 mg BID DEMARIO Administration Vitals/I&O/Wt Last Vital Signs Temp 98.2 F 07/16/22 11:14 Pulse 63 07/16/22 11:14 Resp 20 H 07/16/22 11:14 BP 114/58 07/16/22 11:14 Pulse Ox 92 07/16/22 11:14 O2 Del Method 07/16/22 11:14 O2 Flow Rate 1 07/16/22 07:15 07/15/22 07/16/22 07/16/22 22:59 06:59 14:59 Intake Total 240 / 240 Balance 240 / 240 Weight last 48 hrs Weight 111.584 kg Physical Exam Const: COMMON NORMALS: patient oriented x3 HENMT: COMMON NORMALS: normocephalic and atraumatic HEAD & SCALP: normocephalic and atraumatic Resp: COMMON NORMALS: clear to auscultation bilaterally EFFORT & INSPECTION: Yes symmetric chest movement AUSCULTATION: clear to auscultation bilaterally Cardio: COMMON NORMALS: regular rate, regular rhythm, S1 normal heart sound present, S2 normal heart sound present, No gallops present (Cardio), No murmurs present (Cardio), No rub (Cardio) and Peripheral pulses 2+ throughout RATE: regular rate RHYTHM: regular rhythm HEART SOUNDS: S1 normal heart sound present and S2 normal heart sound present PERIPHERAL PULSES: Peripheral pulses 2+ throughout GI: COMMON NORMALS: Normal to inspection, nondistended, normoactive bowel sounds present, Soft to palpation, non-tender, No hepatosplenomegaly present and no masses AUSCULTATION: Yes normoactive bowel sounds PALPATION: Yes Soft to palpation and Yes No hepatosplenomegaly present RECTAL EXAM: deferred Extremity: COMMON NORMALS: no clubbing, cyanosis or edema and no pedal edema Neuro: COMMON NORMALS: patient oriented x3 Data 07/15/22 23:35 07/15/22 23:35 A&P Assessment and plan (1) SVT (supraventricular tachycardia): Severe symptomatic SVT, which has transiently responded to adenosine in the past, with recurrence. Currently she has been started on sotalol 80 mg p.o. twice daily. Initially patient has been on Cardizem and metoprolol. 2D echo: Results have been appreciated: Has shown normal LV size and systolic function with EF of 66%. No RWMA, moderate LVH, grade 3 diastolic dysfunction. (2) Type 2 diabetes mellitus without complication: Continue sliding scale insulin Monitor fingerstick glucose Diabetic diet Qualifiers: Diabetes mellitus longterm insulin use: without termite control service representative use Qualified Code(s): E11.9 - Type 2 diabetes mellitus without complications (3) Aortic regurgitation: 2D echo has shown bioprosthetic valve at the aortic position was noted.? There ?appeared to be moderate valvular and mild to moderate ?perivalvular regurgitation in the short axis view.The peak velocity across aortic valve was 3.08 m/s with a peak gradient ?of 38 and a mean gradient of 20 mmHg.? The aortic valve area was ?calculated to be 1.0 m/s. (4) S/P TAVR (transcatheter aortic valve replacement): For severe aortic stenosis. (5) Benign essential HTN: Plan full code scds, lovenox 40 daily Attestations Medical Necessity Statement*: Patient is in hospital for management of symptomatic SVT. Coding Level of Care Code 51752 Diagnoses SVT (supraventricular tachycardia) I47.1 Type 2 diabetes mellitus without complication E11.9 Diabetes mellitus longterm insulin use: without longterm use Aortic regurgitation I35.1 S/P TAVR (transcatheter aortic valve replacement) Z95.2 Benign essential HTN I10
[2022-07-16 16:29] LABS: Glucose Point of Care 138 mg/dL (70-110)
[2022-07-16] MEDS: potassium chloride ER 20 mEq Tablet PO (17:56)
[2022-07-16] MEDS: FUROsemide 10 mg/mL SDV 4mL 40 MG IVP (17:59)
--- NOTE | 2022-07-16 19:00 | ECG_ITS ---
[facility] Test Date: 2022-07-16 Pat Name: Roxana Hamilton Department: Room: 104 Gender: Female Senior Stack Engineer: : 1950 Requested By: Jagruti Currie Order Number: [id number] Tod MD: Quinn Goncalves M.D. Measurements Intervals [place] Rate: 73 P: 39 IA: 186 QRS: 13 QRSD: 106 T: 51 QT: 411 QTc: 455 Interpretive Statements SINUS RHYTHM POSSIBLE LEFT ATRIAL ENLARGEMENT [-0.1mV P-WAVE IN V1/V2] LOW QRS VOLTAGE IN PRECORDIAL LEADS [QRS DEFLECTION < 1.0 mV IN CHEST LEADS] POSSIBLE ANTERIOR MYOCARDIAL INFARCTION , PROBABLY OLD [30 ms Q WAVE IN V3/V4, OR R < 0.2 mV IN V4] Compared to ECG 07/16/2022 10:23:36 Low QRS voltage now present Myocardial infarct finding still present Electronically Signed On 07-17-2022 18:47:54 CDT by Quinn Goncalves M.D. [id number]
[2022-07-16 20:36] LABS: Glucose Point of Care 138 mg/dL (70-110)
[2022-07-17] VITALS (28 sets, daily range): BP systolic 128–163; BP diastolic 58–90; PULSE 71–92; RESP 13–41; TEMP 36.9–37.8; O2SAT 90–97
[2022-07-17] MEDS: enoxaparin 40 mg/0.4 mL Syringe SUBCUT (00:05)
[2022-07-17 04:47] LABS: Basophils % 0.3 %; Eosinophils # 0.1 10^3/uL (0.0-0.8); Eosinophils % 0.7 %; Hematocrit 24.9 % (37.0-47.0); Hemoglobin 7.8 g/dL (11.5-15.3); Lymphocytes # 1.4 10^3/uL (0.8-4.8); Lymphocytes % 13.6 %; Mean Corpuscular HGB Conc 31.3 g/dL (30.0-36.0); Mean Corpuscular Hemoglobin 25.4 pg (28.0-34.0); Mean Corpuscular Volume 81.1 fl (81-99); Mean Platelet Volume 8.8 fL (7.4-10.4); Monocytes # 0.6 10^3/uL (0.2-0.9); Monocytes % 6.4 %; Neutrophils # 7.83 10^3/uL (1.8-7.7); Neutrophils % 77.7 %; Nucleated Red Blood Cells % 0 %; Platelet Count 323 10^3/cmm (130-400); Red Blood Count 3.07 10^6/uL (4.1-5.3); Red Cell Distribution Width 14.6 % (12.1-15.1); White Blood Count 10.1 10^3/uL (4.0-10.0)
[2022-07-17 05:13] LABS: Alanine Aminotransferase 14 U/L (0-33); Albumin Level 3.2 g/dL (3.5-5.2); Alkaline Phosphatase 72 U/L (35-105); Anion Gap 13.5 (5-19); Aspartate Amino Transferase 11 U/L (0-32); Blood Urea Nitrogen 12 mg/dL (8-23); Calcium 8.7 mg/dL (8.5-10.5); Carbon Dioxide 24 mmol/L (22-29); Chloride 95 mmol/L (98-107); Globulin 3.4 g/dL (1.3-4.6); Glucose 99 mg/dL (65-115); Magnesium 1.8 mg/dL (1.7-2.3); Osmolality Calculated 266 mOsm/kg (285-295); Potassium 4.5 mmol/L (3.5-5.1); Sodium 128 mmol/L (136-145); Total Bilirubin 0.3 mg/dL (0.15-1.2); Total Protein 6.6 g/dL (6.6-8.7)
[2022-07-17] MEDS: FUROsemide 10 mg/mL SDV 4mL 40 MG IVP ×2 (05:28→17:20)
[2022-07-17] MEDS: potassium chloride ER 20 mEq Tablet PO ×2 (05:29→17:20)
[2022-07-17 06:30] LABS: Glucose Point of Care 129 mg/dL (70-110)
--- NOTE | 2022-07-17 08:33 | PM.PN ---
Subjective Subjective: Patient is feeling better. The shortness of breath has improved from yesterday. Her hemoglobin continues to drop. No chest pain. No fever or chills. No cough. She seems to have a low-grade fever. Unknown etiology. Medications: Medication Review Details: Current Medications Acetaminophen (Acetaminophen 325 Mg Tablet) 650 mg PO Q6H PRN PRN Reason: Mild/Mod Pain Or Temp >/= 101 Clopidogrel Bisulfate (Clopidogrel 75 Mg Tablet) 75 mg PO DAILY [facility] Last Admin: 07/16/22 09:20 Dose: 75 mg Dextrose (Dextrose 50% Syringe 50 Ml) 25 ml IVP ONCE PRN; Protocol PRN Reason: hypoglycemia protocol Dextrose (Dextrose 50% Syringe 50 Ml) 50 ml IVP PRN PRN; Protocol PRN Reason: hypoglycemia protocol Enoxaparin Sodium (Enoxaparin 40 Mg/0.4 Ml Syringe) 40 mg SUBCUT Q24H DEMARIO Last Admin: 07/17/22 00:05 Dose: 40 mg Furosemide (Furosemide 10 Mg/Ml Sdv 4ml) 40 mg IVP Q12H DEMARIO Last Admin: 07/17/22 05:28 Dose: 40 mg Glucagon (Glucagon 1 Mg/Ml Inj 1 Ml) 1 mg IM ONCE PRN; Protocol PRN Reason: Adult Acute Hypoglycemia Prot. Dextrose (D5w) 500 mls @ 100 mls/hr IV ONCE PRN; Protocol PRN Reason: Adult Acute Hypoglycemia Prot Insulin Human Lispro (Insulin Lispro 100 Unit/1 Ml) 0 unit SUBCUT WM&BEDTIME [facility]; Protocol Last Admin: 07/17/22 07:12 Dose: Not Given Ondansetron HCl (Ondansetron 2 Mg/Ml Sdv 2 Ml) 4 mg IVP Q8H PRN PRN Reason: vomiting, or N/V if npo Potassium Chloride (Potassium Chloride Er 20 Meq Tablet) 20 meq PO Q12H DEMARIO Last Admin: 07/17/22 05:29 Dose: 20 meq Sotalol HCl (Sotalol 80 Mg Tablet) 80 mg PO BID DEMARIO Last Admin: 07/16/22 17:58 Dose: 80 mg Vitals/I&O/Wt Last Vital Signs Temp 100.1 F H 07/17/22 05:01 Pulse 90 07/17/22 06:00 Resp 22 H 07/17/22 05:01 BP 147/79 07/17/22 05:01 Pulse Ox 94 03/30/23 05:01 O2 Del Method 07/17/22 05:01 O2 Flow Rate 2 07/16/22 19:36 07/16/22 07/17/22 07/17/22 22:59 06:59 14:59 Intake Total 100 / 340 440 / 780 Balance 100 / 340 440 / 780 Weight last 48 hrs Weight 246 lb Physical Exam Narrative: GENERAL: The patient is alert and oriented times three. Not in any acute distress. Morbidly obese HEENT: No significant pallor, icterus or lymphadenopathy.Oral cavity: There are no mucous membrane lesions. NECK: Trachea appears to be central. No masses noted. No JVD or thyromegaly appreciated. RESPIRATORY: Chest is symmetrical. No intercostals muscle retraction or any accessory muscle activation. There is no chest wall tenderness. Breath sounds are heard bilaterally. No rales or rhonchi heard. No evidence of any consolidation. BREASTS: Deferred. HEART: The heart sounds are normal. No S3 or S4. Ejection systolic murmur grade 3 or 6 in the aortic area. No pericardial rub. ABDOMEN: No vessel pulsations or distention. No tenderness. No organomegaly appreciated. Bowel sounds are normally heard. : Deferred. RECTAL: Deferred. LYMPHATIC: No lymphadenopathy noted in the neck. EXTREMITIES: Trace edema of the right lower extremity and 1+ edema of the left lower extremity. MUSCULOSKELETAL: No acute joint deformities or swelling SKIN: There are no significant rashes or ecchymosis NEUROPSYCHIATRIC: The patient is alert and oriented x3. Appears to be in a good mood. No tremors or rigidity noted. Data 07/17/22 04:15 07/17/22 04:15 Other Labs: Laboratory Last Values WBC 10.1 10^3/uL (4.0-10.0) H 07/17/22 04:15 RBC 3.07 10^6/uL (4.1-5.3) L 07/17/22 04:15 Hgb 7.8 g/dL (11.5-15.3) L 07/17/22 04:15 Hct 24.9 % (37.0-47.0) L 07/17/22 04:15 MCV 81.1 fl (81-99) 07/17/22 04:15 MCH 25.4 pg (28.0-34.0) L 07/17/22 04:15 MCHC 31.3 g/dL (30.0-36.0) 07/17/22 04:15 RDW 14.6 % (12.1-15.1) 07/17/22 04:15 Plt Count 323 10^3/cmm (130-400) 07/17/22 04:15 MPV 8.8 fL (7.4-10.4) 07/17/22 04:15 Neut % (Auto) 77.7 % 07/17/22 04:15 Lymph % (Auto) 13.6 % 07/17/22 04:15 Grimes % (Auto) 6.4 % 07/17/22 04:15 Eos % (Auto) 0.7 % 07/17/22 04:15 Baso % (Auto) 0.3 % 07/17/22 04:15 Neut # (Auto) 7.83 10^3/uL (1.8-7.7) H 07/17/22 04:15 Lymph # (Auto) 1.4 10^3/uL (0.8-4.8) 07/17/22 04:15 Grimes # (Auto) 0.6 10^3/uL (0.2-0.9) 07/17/22 04:15 Eos # (Auto) 0.1 10^3/uL (0.0-0.8) 07/17/22 04:15 Baso # (Auto) 0.0 10^3/uL (0.0-0.1) 07/17/22 04:15 Nucleated RBC % (auto) 0 % 07/17/22 04:15 Nucleated RBCs # 0.0 /100WBC 07/17/22 04:15 Sodium 128 mmol/L (136-145) L 07/17/22 04:15 Potassium 4.5 mmol/L (3.5-5.1) 07/17/22 04:15 Chloride 95 mmol/L (98-107) L 07/17/22 04:15 Carbon Dioxide 24 mmol/L (22-29) 07/17/22 04:15 Anion Gap 13.5 (5-19) 07/17/22 04:15 BUN 12 mg/dL (8-23) 07/17/22 04:15 Creatinine 0.7 mg/dL (0.5-0.9) 07/17/22 04:15 GFR Calculation 83.0 mL/min (90-130) L 07/17/22 04:15 Glucose 99 mg/dL (65-115) 07/17/22 04:15 POC Glucose 129 mg/dL (70-110) H 07/17/22 06:23 Estimat Average Glucose 146 07/15/22 23:35 Hemoglobin A1c 6.7 % (4.0-6.0) H 07/15/22 23:35 Calculated Osmolality 266 mOsm/kg (285-295) L 07/17/22 04:15 Calcium 8.7 mg/dL (8.5-10.5) 07/17/22 04:15 Magnesium 1.8 mg/dL (1.7-2.3) 07/17/22 04:15 Total Bilirubin 0.3 mg/dL (0.15-1.2) 07/17/22 04:15 AST 11 U/L (0-32) 07/17/22 04:15 ALT 14 U/L (0-33) 07/17/22 04:15 Alkaline Phosphatase 72 U/L (35-105) 07/17/22 04:15 Troponin T Baseline 24 ng/L (0-10) H 07/15/22 23:35 Troponin T 120 Minute 27.51 ng/L (0-10) H 07/16/22 01:20 Delta Troponin T 3.51 ABS# (0-10) 07/16/22 01:20 Troponin T Hi Sens 6Hr 30.50 ng/L (0-10) H 07/16/22 05:28 Troponin T Hi Sens 6Hr Delta 6.50 ng/L (0-12) 07/16/22 05:28 NT-Pro-B Natriuret Pep 3266 pg/mL (0-125) H 07/16/22 05:28 Total Protein 6.6 g/dL (6.6-8.7) 07/17/22 04:15 Albumin 3.2 g/dL (3.5-5.2) L 07/17/22 04:15 Globulin 3.4 g/dL (1.3-4.6) 07/17/22 04:15 Procalcitonin 0.44 ng/mL (0-0.5) 07/15/22 23:35 TSH 0.35 uIU/mL (0.27-4.20) 07/15/22 23:35 A&P Assessment and plan (1) Acute diastolic heart failure due to valvular disease: The patient is a BNP was significantly elevated. She was started on IV Lasix. She been diuresing well. She has significant improvement of the shortness of breath as well. However the anemia need to be addressed (2) Low grade fever: Etiology? Blood culture and urine culture might be appropriate (3) SVT (supraventricular tachycardia): So far she has no evidence of any proarrhythmia. She stays in sinus rhythm with no recurrence of SVT. EKG from today is pending. We will continue to monitor on telemetry. (4) Anemia: Blood pressureThis need to be further evaluated. Blood transfusion might be appropriate to maintain the hemoglobin around 9. (5) S/P TAVR (transcatheter aortic valve replacement): Patient seems to have a significant gradient in the bioprosthetic valve, possibly related to undersizing. Also has mild to moderate perivalvular leak based on the short axis view. This may need to be better evaluated by a transesophageal echocardiogram. We also will send the transthoracic echocardiogram report to the T[facility]R team at [facility] (6) Aortic regurgitation: As mentioned above (7) Benign essential HTN: Currently normotensive. May continue on the current medications. (8) Type 2 diabetes mellitus without complication: Aggressive management of the diabetes would be appropriate. Qualifiers: Diabetes mellitus terminal operator insulin use: without custodial use Qualified Code(s): E11.9 - Type 2 diabetes mellitus without complications (9) Leg swelling: I will go ahead do a venous duplex of the left lower extremity to evaluate for any DVT. Plan Other problems are Shortness of breath, etiology? Related to CHF/anemia Obesity Recurrence of breast cancer We will continue to monitor the rhythm today. Attestations Medical Necessity Statement*: Patient requires continued hospital stay for close monitoring and further management Coding Level of Care Code 11742 Diagnoses Acute diastolic heart failure due to valvular disease I50.31; I38 Low grade fever R50.9 SVT (supraventricular tachycardia) I47.1 Anemia D64.9 S/P TAVR (transcatheter aortic valve replacement) Z95.2 Aortic regurgitation I35.1 Benign essential HTN I10 Type 2 diabetes mellitus without complication E11.9 Diabetes mellitus custodial insulin use: without terminal operator use Leg swelling M79.89
--- NOTE | 2022-07-17 08:50 | USCV_ITS ---
Roxana Hamilton Age: 71 Gender: F : 1950 Exam Date: 07/17/2022 10:03 Ordering Phys: Jean Whyte MD ([email or web address]) Technologist: KARIS [place] [facility] [place]: LLE PAIN AND SWELLING HISTORY: Lower extremity swelling. Lower extremity pain. PROCEDURES: Venous duplex imaging was performed in only the left lower extremity. The following venous structures were evaluated: common femoral vein, profunda vein, proximal portion of the greater saphenous vein, superficial femoral vein, and the popliteal vein. In addition, the posterior tibial and peroneal trunk were evaluated. Serial compression, augmentation maneuvers, and spectral Doppler flow evaluation were performed. FINDINGS: No evidence of DVT seen in any vessel visualized at this time. Examination was technically limited due to body habitus. CONCLUSIONS No evidence of left lower extremity DVT. Yogesh Mackay MD (Electronically Signed) Final Date: 17 July 2022 10:48 S
--- NOTE | 2022-07-17 09:14 | ECG_ITS ---
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 Measurements Intervals [place] Rate: 83 P: 57 SD: 192 QRS: 32 QRSD: 105 T: 30 QT: 384 QTc: 452 Interpretive Statements SINUS RHYTHM WITH OCCASIONAL VENTRICULAR PREMATURE COMPLEXES LOW QRS VOLTAGE IN PRECORDIAL LEADS [QRS DEFLECTION < 1.0 mV IN CHEST LEADS] INFERIOR MYOCARDIAL INFARCTION , PROBABLY OLD [40+ ms Q WAVE AND/OR ST/T ABNORMALITY IN II/aVF] Compared to ECG 07/16/2022 18:57:31 Ventricular premature complex(es) now present Myocardial infarct finding still present Electronically Signed On 07-17-2022 18:43:01 CDT by Quinn Goncalves M.D. [id number]
[2022-07-17] MEDS: clopidogrel 75 mg Tablet PO (09:22)
[2022-07-17] MEDS: sotalol 80 mg Tablet PO ×2 (09:22→17:20)
--- NOTE | 2022-07-17 10:07 | PC.CHAP ---
Pastoral Care Encounter/Spiritual Assessment Type of Contact [] Declined medical staffing coordinator visit [] Patient/Family/Request visit [] Outpatient visit [] Follow-up visit [] Physician referral [] Code/Alert [x] Routine visit [] Staff referral [] Actively dying [] Patient sleeping [] Family support [] [] Out of room [] Palliative care [] [x] Receiving care in room [] Pre-surgical visit [] Trauma [] Long length of stay [] ICU visit [] Other: Relational/Emotional Strength [x] Patient feels connected with others/family/visitors/staff [] Distress [] Loneliness/isolation [] Abandonment Spirituality of Patient [x] Person of Jaqueline [] Attends Oriental Orthodox of their Jaqueline [x] Believes in Prayer [] Reads Bible or Baptist materials [] There are Spiritual issues to be addressed Steward/Stewardess Third Interventions [x] Prayer [x] Active listening [x] Non-anxious presence [x] Spiritual/emotional support [] Crisis/trauma care [x] Spiritual counseling [] Bereavement support [] Provided bereavement packet [] Provided Bible/devotional materials [] Provided toy/stuffed animal, coloring book to patient or family member [] Provided Communion [] Anointing/Tracy [] Salvation [x] Completed spiritual assessment [] Other: Impact on Illness or Injury [] Angry [] Fearful [] Anxious [] Often cries [] Exhaustion [] Unable to work [] Unable to attend orthodox [] Unable to walk/stand [] Unable to read [] Unable to drive [] Unable to eat/drink [] Unable to sleep [] Unable to be with family [] Patient intubated [] Other: Summary heart rate fast bring heart down [facility] doctors report to go home has a good attirude Time spent with patient 10 mins
--- NOTE | 2022-07-17 10:57 | XR_ITS ---
WS: [id number] Exam: XR chest 1V portable [id number] Date/Time of Exam: 07/17/2022 10:57 AM Reason For Exam: sob Comparison 06/06/2020. There is infiltrate in the right lung base suspicious for pneumonia. Left basal pleural effusion and atelectasis noted. The heart is enlarged. Remaining lung garcia are clear. Signs of previous cardiac valve replacement. The mediastinum is normal in contour. Surgical excision of the distal left clavicl e. XR/XR chest 1V portable [id number] IMPRESSION: 1. Right basal infiltrate suspicious for pneumonia. 2. Left lower lobe atelectasis and left basal pleural effusion. 3. Cardiac enlargement.
--- NOTE | 2022-07-17 11:13 | P.PN_ITS ---
Subjective Subjective: Patient was seen and examined this morning, hemoglobin dropped to 7.8 today, continue to be on sotalol. Had another episode of SVT today evening around 4:30 PM, . patient was asked to do vagal maneuvers, facilitating the conversion to sinus rhythm. Medications: Medication Review Details: Generic Name Dose Route Start Last Admin Trade Name Christiano PRN Reason Stop Dose Admin Clopidogrel Bisulf ate 75 mg 07/16/22 09:00 07/17/22 09:22 Clopidogrel 75 M g Tablet PO 75 mg DAILY DEMARIO Administration Enoxaparin Sodium 40 mg 07/16/22 01:00 07/17/22 00:05 Enoxaparin 40 Mg /0.4 Ml Syringe SUBCUT 40 mg Q24H DEMARIO Administration Furosemide 40 mg 07/16/22 18:00 07/17/22 05:28 Furosemide 10 Mg /Ml Sdv 4ml IVP 40 mg Q12H DEMARIO Administration Insulin Human Lisp ro 0 unit 07/16/22 08:00 07/17/22 07:12 Insulin Lispro 1 00 Unit/1 Ml SUBCUT Not Given WM&BEDTIME DEMARIO Protocol Potassium Chloride 20 meq 07/16/22 18:00 07/17/22 05:29 Potassium Chlori de Er 20 Meq Table t PO 20 meq Q12H DEMARIO Administration Sotalol HCl 80 mg 07/16/22 09:00 07/17/22 09:22 Sotalol 80 Mg Ta blet PO 80 mg BID DEMARIO Administration Vitals/I&O/Wt Last Vital Signs Temp 100.1 F H 07/17/22 05:01 Pulse 85 07/17/22 10:00 Resp 13 07/17/22 10:00 BP 131/90 07/17/22 10:00 Pulse Ox 93 07/17/22 10:00 O2 Del Method 07/17/22 05:01 O2 Flow Rate 2 07/16/22 19:36 07/16/22 07/17/22 07/17/22 22:59 06:59 14:59 Intake Total 100 / 340 440 / 780 240 / 240 Balance 100 / 340 440 / 780 240 / 240 Weight last 48 hrs Weight 111.584 kg Physical Exam Const: COMMON NORMALS: patient oriented x3 HENMT: COMMON NORMALS: normocephalic and atraumatic HEAD & SCALP: normocephalic and atraumatic Resp: COMMON NORMALS: clear to auscultation bilaterally EFFORT & INSPECTION: Yes symmetric chest movement AUSCULTATION: clear to auscultation bilaterally Cardio: COMMON NORMALS: regular rate, regular rhythm, S1 normal heart sound present, S2 normal heart sound present, No gallops present (Cardio), No murmurs present (Cardio), No rub (Cardio) and Peripheral pulses 2+ throughout RATE: regular rate RHYTHM: regular rhythm HEART SOUNDS: S1 normal heart sound present and S2 normal heart sound present PERIPHERAL PULSES: Peripheral pulses 2+ throughout GI: COMMON NORMALS: Normal to inspection, nondistended, normoactive bowel sounds present, Soft to palpation, non-tender, No hepatosplenomegaly present and no masses AUSCULTATION: Yes normoactive bowel sounds PALPATION: Yes Soft to palpation and Yes No hepatosplenomegaly present RECTAL EXAM: deferred Extremity: COMMON NORMALS: no clubbing, cyanosis or edema and no pedal edema Neuro: COMMON NORMALS: patient oriented x3 Data 07/17/22 04:15 07/17/22 04:15 A&P Assessment and plan (1) SVT (supraventricular tachycardia): Severe symptomatic SVT, which has transiently responded to adenosine in the past, with recurrence. Currently she has been started on sotalol 80 mg p.o. twice daily. Initially patient has been on Cardizem and metoprolol. 2D echo: Results have been appreciated: Has shown normal LV size and systolic fu nction with EF of 66%. No RWMA, moderate LVH, grade 3 diastolic dysfunction. (2) Type 2 diabetes mellitus without complication: Continue sliding scale insulin Monitor fingerstick glucose Diabetic diet Qualifiers: Diabetes mellitus buttermilk drier operator insulin use: without buttermilk drier operator use Qualified Code(s): E11.9 - Type 2 diabetes mellitus without complications (3) Aortic regurgitation: 2D echo has shown bioprosthetic valve at the aortic position was noted.? There ?appeared to be moderate valvular and mild to moderate ?perivalvular regurgitation in the short axis view.The peak velocity across aortic valve was 3.08 m/s with a peak gradient ?of 38 and a mean gradient of 20 mmHg.? The aortic valve area was ?calculated to be 1.0 m/s. (4) S/P TAVR (transcatheter aortic valve replacement): For severe aortic stenosis. (5) Benign essential HTN: (6) Anemia: Most Recent Hb was around 10.4 Admission Hb: 8 Serum Iron: Serum Ferritin : TIBC : Transferrin Saturation : Will transfuse 1 U PRBC given her tenuous cardiac status. He is on I.V Lasix (7) Fever: Patient had 1 Episode of low grade temp ,noted Tmax: 100.1 Follow Blood Culture,urine culture Xray chest Urine analysis (8) Hyponatremia: Possibly hypervolemic Hyponatemia in the setting of decompensated H/F Admission Serum sodium was : 132 appears to have chronic hyponatremia Monitor BMP for now. (9) (HFpEF) heart failure with preserved ejection fraction: Ac on Chronic Decompensated HFpEF Currently on lasix 40 mg i.v bid monitor intake output charting Daily weight monitor electrolytes. (10) Left leg swelling: lower extremity doppler vein :negative for DVT Plan full code scds, lovenox 40 daily Attestations Medical Necessity Statement*: PATIENT NEEDS TO BE IN HOSPITAL FOR THE MANAGEMENT OF SVT. Coding Level of Care Code 40564 Diagnoses SVT (supraventricular tachycardia) I47.1 Type 2 diabetes mellitus without complication E11.9 Diabetes mellitus buttermilk drier operator insulin use: without fci use Aortic regurgitation I35.1 S/P TAVR (transcatheter aortic valve replacement) Z95.2 Benign essential HTN I10 Anemia D64.9 Fever R50.9 Hyponatremia E87.1 (HFpEF) heart failure with preserved ejection fraction I50.30 Left leg swelling M79.89
[2022-07-17 11:24] LABS: Ferritin 165 ng/mL (15-150); Iron 20 ug/dL (37-145); Percent Saturation 10.2 % (20-50); Total Iron Binding Capacity 196 mcg/dl; Transferrin 172 mg/dL (200-360); Unsaturated Iron Binding 176 ug/dL (112-347)
[2022-07-17 11:48] LABS: Glucose Point of Care 136 mg/dL (70-110)
[2022-07-17 15:21] LABS: Add Urine Microscopic? YES; Bilirubin Urine Neg (Negative); Blood Urine 3+ (Negative); Glucose Urine UA Norm (Normal); Ketones Urine Negative (Negative); Leukocyte Esterase Urine Negative (Negative); Nitrate Urine Negative (Negative); Protein Urine Neg (Negative); Urine Appearance Clear (CLEAR); Urine Color Light yellow (Yellow); Urobilinogen Urine Neg (Negative); pH Urine 5 (5-7)
[2022-07-17 15:31] LABS: Add Urine Culture? No; Bacteria Urine TRACE /hpf; RBC Urine 0-4 /hpf (0-2); Squamous Epithelial Cell Urine 0-4 /hpf (0-5)
[2022-07-17 17:42] LABS: Glucose Point of Care 180 mg/dL (70-110)
[2022-07-17] MEDS: insulin lispro 100 unit/1 mL SUBCUT ×2 (18:23→22:30)
[2022-07-17] MEDS: iron sucrose 200 MG in sodium chloride 0.9% (100 ml) 100 ML 220 MG IV (18:24)
[2022-07-17 21:55] LABS: Glucose Point of Care 159 mg/dL (70-110)
[2022-07-17] MEDS: acetaminophen 325 mg Tablet 650 MG PO (22:45)
[2022-07-18] VITALS (11 sets, daily range): BP systolic 116–143; BP diastolic 57–75; PULSE 64–75; RESP 16–28; TEMP 36.3–37.7; O2SAT 95–100
[2022-07-18] MEDS: enoxaparin 40 mg/0.4 mL Syringe SUBCUT (01:37)
[2022-07-18] MEDS: vancomycin 1,500 MG/300 ML PIGGYBACK 200 MG IV (04:20)
[2022-07-18 04:38] LABS: Basophils % 0.3 %; Eosinophils # 0.1 10^3/uL (0.0-0.8); Eosinophils % 0.9 %; Hematocrit 27.5 % (37.0-47.0); Hemoglobin 8.6 g/dL (11.5-15.3); Lymphocytes # 1.7 10^3/uL (0.8-4.8); Lymphocytes % 17.7 %; Mean Corpuscular HGB Conc 31.3 g/dL (30.0-36.0); Mean Corpuscular Hemoglobin 25.7 pg (28.0-34.0); Mean Corpuscular Volume 82.3 fl (81-99); Mean Platelet Volume 9.1 fL (7.4-10.4); Monocytes # 0.9 10^3/uL (0.2-0.9); Monocytes % 9.2 %; Neutrophils # 6.62 10^3/uL (1.8-7.7); Neutrophils % 70.4 %; Nucleated Red Blood Cells % 0 %; Platelet Count 310 10^3/cmm (130-400); Red Blood Count 3.34 10^6/uL (4.1-5.3); Red Cell Distribution Width 14.6 % (12.1-15.1); White Blood Count 9.4 10^3/uL (4.0-10.0)
[2022-07-18 04:53] LABS: Anion Gap 13.5 (5-19); Blood Urea Nitrogen 18 mg/dL (8-23); Calcium 8.8 mg/dL (8.5-10.5); Carbon Dioxide 26 mmol/L (22-29); Chloride 100 mmol/L (98-107); Glomerular Filtration Rate 99.1 mL/min (90-130); Glucose 96 mg/dL (65-115); Osmolality Calculated 282 mOsm/kg (285-295); Potassium 4.5 mmol/L (3.5-5.1); Sodium 135 mmol/L (136-145)
[2022-07-18] MEDS: piperacillin-tazobactam 3.375 GM in sodium chloride 0.9% (plus) 50 ML IV ×3 (05:43→21:09)
[2022-07-18 06:33] LABS: Glucose Point of Care 124 mg/dL (70-110)
--- NOTE | 2022-07-18 08:45 | P.PN_ITS ---
Subjective Subjective: Patient is feeling better. on antibiotics. Had 1 episode of SVT yesterday that terminated without treatment. Vitals/I&O/Wt Last Vital Signs Temp 97.9 F 07/18/22 08:00 Pulse 70 07/18/22 08:00 Resp 18 07/18/22 08:00 BP 141/75 07/18/22 08:00 Pulse Ox 97 07/18/22 08:00 O2 Del Method 07/18/22 08:00 O2 Flow Rate 2 07/16/22 19:36 07/17/22 07/18/22 07/18/22 22:59 06:59 14:59 Intake Total 1180 / 1900 480 / 2380 Balance 1180 / 1900 480 / 2380 Physical Exam Narrative: GENERAL: Patient is alert, awake and oriented x3. [] NECK: No jugular vein distension. [] HEENT: No cyanosis. No icterus. No pallor. [] HEART: Regular S1 and S2. No murmur, rub or gallop. [] LUNGS: Clear to auscultate bilaterally. [] CENTRAL NERVOUS SYSTEM: Grossly nonfocal. [] EXTREMITIES: Lower extremities with 1+ edema bilaterally. Pulses palpable in the lower extremities, both dorsalis pedis and posterior tibial. [] Data 07/18/22 03:48 07/18/22 03:48 Micro: Microbiology 07/18/22 05:41 Blood Culture - Preliminary Blood SPECIMEN COLLECTED 07/18/22 05:39 Blood Culture - Preliminary Blood SPECIMEN COLLECTED 07/17/22 11:48 Blood Culture - Preliminary Blood 07/17/22 11:45 Blood Culture - Preliminary Blood A&P Assessment and plan (1) Acute diastolic heart failure due to valvular disease: Improving. Continue diuretics. Patient will be referred back to structural team as has current echo showing moderate paravalvular leak and has elevated gradients. (2) Low grade fever: Management per primary team. On antibiotics (3) SVT (supraventricular tachycardia): Had SVT episode yesterday. Was started on sotalol. Continue. We will refer to EP as outpatient, patient has multiple ER visits with SVT and will benefit from SVT ablation if candidate. (4) Anemia: Monitor (5) S/P TAVR (transcatheter aortic valve replacement): Will discuss with structural team at [facility] as outpatient (6) Aortic regurgitation: As mentioned above (7) Benign essential HTN: Currently normotensive. May continue on the current medications. (8) Type 2 diabetes mellitus without complication: Aggressive management of the diabetes would be appropriate. Qualifiers: Diabetes mellitus chcf insulin use: without computer terminal operator use Qualified Code(s): E11.9 - Type 2 diabetes mellitus without complications (9) Leg swelling: no evidence of DVT on venous duplex Plan Other problems are Shortness of breath, etiology? Related to CHF/anemia Obesity Recurrence of breast cancer From cardiology standpoint, patient can be discharged in 1-2 days Attestations Medical Necessity Statement*: Care expected to cross 2 midnights. Coding Level of Care Code Acute Code for [facility] Fwd Diagnoses Acute diastolic heart failure due to valvular disease I50.31; I38 Low grade fever R50.9 SVT (supraventricular tachycardia) I47.1 Anemia D64.9 S/P TAVR (transcatheter aortic valve replacement) Z95.2 Aortic regurgitation I35.1 Benign essential HTN I10 Type 2 diabetes mellitus without complication E11.9 Diabetes mellitus chcf insulin use: without chcf use Leg swelling M79.89
--- NOTE | 2022-07-18 10:00 | ECG_ITS ---
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 Measurements Intervals [place] Rate: 72 P: 34 NH: 175 QRS: -2 QRSD: 110 T: 41 QT: 399 QTc: 439 Interpretive Statements SINUS RHYTHM LOW QRS VOLTAGE IN PRECORDIAL LEADS [QRS DEFLECTION < 1.0 mV IN CHEST LEADS] POSSIBLE ANTERIOR MYOCARDIAL INFARCTION , PROBABLY OLD [30 ms Q WAVE IN V3/V4, OR R < 0.2 mV IN V4] Compared to ECG 07/17/2022 09:14:07 Ventricular premature complex(es) no longer present Myocardial infarct finding still present Electronically Signed On 07-18-2022 15:54:41 CDT by Quinn Goncalves M.D. [id number]
[2022-07-18] MEDS: FUROsemide 10 mg/mL SDV 4mL 40 MG IVP ×2 (10:23→20:37)
[2022-07-18] MEDS: potassium chloride ER 20 mEq Tablet PO ×2 (10:24→20:37)
[2022-07-18] MEDS: sotalol 80 mg Tablet PO ×2 (10:24→17:32)
[2022-07-18] MEDS: clopidogrel 75 mg Tablet PO (10:24)
--- NOTE | 2022-07-18 11:14 | P.PN_ITS ---
Subjective Subjective: Patient was seen and examined this morning,has been afebrile,sob is improved. Medications: Medication Review Details: Generic Name Dose Route Start Last Admin Trade Name Freq PRN Reason Stop Dose Admin Acetaminophen 650 mg 07/16/22 01:00 07/17/22 22:45 Acetaminophen 32 5 Mg Tablet PO 650 mg Q6H PRN Administration Mild/Mod Pain Or Temp >/= 101 Clopidogrel Bisulf ate 75 mg 07/16/22 09:00 07/18/22 10:24 Clopidogrel 75 M g Tablet PO 75 mg DAILY DEMARIO Administration Enoxaparin Sodium 40 mg 07/16/22 01:00 07/18/22 01:37 Enoxaparin 40 Mg /0.4 Ml Syringe SUBCUT 40 mg Q24H DEMARIO Administration Furosemide 40 mg 07/16/22 18:00 07/18/22 10:23 Furosemide 10 Mg /Ml Sdv 4ml IVP 40 mg Q12H DEMARIO Administration Piperacillin Sod/T azobactam 50 mls @ 12.5 mls /hr 07/18/22 04:15 07/18/22 10:28 Sod 3.375 gm/ So dium Chloride IV Infused Q8H DEMARIO Infusion Vancomycin/PEG/NAD A/Lysine/Water 1,500 mg in 300 m ls @ 200 mls/hr 07/18/22 04:30 07/18/22 10:26 Vancocin IV Infused Q18H DEMARIO Infusion Insulin Human Lisp ro 0 unit 07/16/22 08:00 07/18/22 08:34 Insulin Lispro 1 00 Unit/1 Ml SUBCUT Not Given WM&BEDTIME DEMARIO Protocol Potassium Chloride 20 meq 07/16/22 18:00 07/18/22 10:24 Potassium Chlori de Er 20 Meq Table t PO 20 meq Q12H DEMARIO Administration Sotalol HCl 80 mg 07/16/22 09:00 07/18/22 10:24 Sotalol 80 Mg Ta blet PO 80 mg BID DEMARIO Administration Vitals/I&O/Wt Last Vital Signs Temp 97.9 F 07/18/22 08:00 Pulse 75 07/18/22 10:03 Resp 16 07/18/22 10:03 BP 141/75 07/18/22 08:00 Pulse Ox 96 07/18/22 10:03 O2 Del Method 07/18/22 10:03 O2 Flow Rate 2 07/18/22 10:03 07/17/22 07/18/22 07/18/22 22:59 06:59 14:59 Intake Total 1180 / 1900 480 / 2380 710 / 710 Balance 1180 / 1900 480 / 2380 710 / 710 Physical Exam Const: COMMON NORMALS: patient oriented x3 HENMT: COMMON NORMALS: normocephalic and atraumatic HEAD & SCALP: normocephalic and atraumatic Resp: COMMON NORMALS: clear to auscultation bilaterally EFFORT & INSPECTION: Yes symmetric chest movement AUSCULTATION: clear to auscultation bilaterally Cardio: COMMON NORMALS: regular rate, regular rhythm, S1 normal heart sound present, S2 normal heart sound present, No gallops present (Cardio), No murmurs present (Cardio), No rub (Cardio) and Peripheral pulses 2+ throughout RATE: regular rate RHYTHM: regular rhythm HEART SOUNDS: S1 normal heart sound present and S2 normal heart sound present PERIPHERAL PULSES: Peripheral pulses 2+ throughout GI: COMMON NORMALS: Normal to inspection, nondistended, normoactive bowel sounds present, Soft to palpation, non-tender, No hepatosplenomegaly present and no masses AUSCULTATION: Yes normoactive bowel sounds PALPATION: Yes Soft to palpation and Yes No hepatosplenomegaly present RECTAL EXAM: deferred Extremity: COMMON NORMALS: no clubbing, cyanosis or edema and no pedal edema Neuro: COMMON NORMALS: patient oriented x3 Data 07/18/22 03:48 07/18/22 03:48 Micro: Microbiology 07/18/22 05:41 Blood Culture - Preliminary Blood SPECIMEN COLLECTED 07/18/22 05:39 Blood Culture - Preliminary Blood SPECIMEN COLLECTED 07/17/22 11:48 Blood Culture - Preliminary Blood 07/17/22 11:45 Blood Culture - Preliminary Blood A&P Assessment and plan (1) SVT (supraventricular tachycardia): Severe symptomatic SVT, which has transiently responded to adenosine in the past, with recurrence. Currently she has been started on sotalol 80 mg p.o. twice daily. Initially patient has been on Cardizem and metoprolol. 2D echo: Results have been appreciated: Has shown normal LV size and systolic function with EF of 66%. No RWMA, moderate LVH, grade 3 diastolic dysfunction. (2) Type 2 diabetes mellitus without complication: Continue sliding scale insulin Monitor fingerstick glucose Diabetic diet Qualifiers: Diabetes mellitus predatory animal exterminator insulin use: without predatory animal exterminator use Qualified Code(s): E11.9 - Type 2 diabetes mellitus without complications (3) Aortic regurgitation: 2D echo has shown bioprosthetic valve at the aortic position was noted.? There ?appeared to be moderate valvular and mild to moderate ?perivalvular regurgitation in the short axis view.The peak velocity across aortic valve was 3.08 m/s with a peak gradient ?of 38 and a mean gradient of 20 mmHg.? The aortic valve area was ?calculated to be 1.0 m/s. (4) S/P TAVR (transcatheter aortic valve replacement): For severe aortic stenosis. (5) Benign essential HTN: (6) Anemia: Most Recent Hb was around 10.4 Admission Hb: 8 Serum Iron: 20 Serum Ferritin :165 TIBC :196 % Saturation : 10 Transferrin : 172 FOBT : Negative S/P 1 U PRBC given her tenuous cardiac status. She is also on I.V Iron Monitor H&H (7) Fever: Patient had 1 Episode of low grade temp ,noted Tmax: 100.1 Blood Culture: 4/4 GPC in pairs and chain Repeat Blood Culture pending urine culture Xray chest : Right basal infiltrate suspicious for pneumonia. Urine analysis Has been empirically started on broad spectrum abxs. (8) Hyponatremia: Possibly hypervolemic Hyponatemia in the setting of decompensated H/F Admission Serum sodium was : 132 appears to have chronic hyponatremia Monitor BMP for now. (9) (HFpEF) heart failure with preserved ejection fraction: Ac on Chronic Decompensated HFpEF Currently on lasix 40 mg i.v bid monitor intake output charting Daily weight monitor electrolytes. (10) Left leg swelling: lower extremity doppler vein :negative for DVT Plan full code scds, lovenox 40 daily Attestations Medical Necessity Statement*: in hospital for I.V Abxs Coding Level of Care Code 32941 Diagnoses SVT (supraventricular tachycardia) I47.1 Type 2 diabetes mellitus without complication E11.9 Diabetes mellitus predatory animal exterminator insulin use: without predatory animal exterminator use Aortic regurgitation I35.1 S/P TAVR (transcatheter aortic valve replacement) Z95.2 Benign essential HTN I10 Anemia D64.9 Fever R50.9 Hyponatremia E87.1 (HFpEF) heart failure with preserved ejection fraction I50.30 Left leg swelling M79.89
[2022-07-18 12:09] LABS: Glucose Point of Care 203 mg/dL (70-110)
[2022-07-18] MEDS: insulin lispro 100 unit/1 mL SUBCUT ×3 (12:23→21:11)
[2022-07-18] MEDS: iron sucrose 200 MG in sodium chloride 0.9% (100 ml) 100 ML 220 MG IV (12:23)
[2022-07-18 16:58] LABS: Glucose Point of Care 183 mg/dL (70-110)
[2022-07-18 20:32] LABS: Glucose Point of Care 239 mg/dL (70-110)
[2022-07-18] MEDS: vancomycin 1,500 MG/300 ML PIGGYBACK 150 MG IV (22:43)
[2022-07-19] VITALS (11 sets, daily range): BP systolic 117–152; BP diastolic 50–75; PULSE 61–81; RESP 16–18; TEMP 36.3–37.1; O2SAT 95–98
[2022-07-19] MEDS: enoxaparin 40 mg/0.4 mL Syringe SUBCUT (01:26)
[2022-07-19] MEDS: piperacillin-tazobactam 3.375 GM in sodium chloride 0.9% (plus) 50 ML IV ×3 (04:10→20:27)
[2022-07-19 05:25] LABS: Basophils # 0.1 10^3/uL (0.0-0.1); Basophils % 0.5 %; Eosinophils # 0.2 10^3/uL (0.0-0.8); Eosinophils % 1.6 %; Hematocrit 28.1 % (37.0-47.0); Hemoglobin 8.8 g/dL (11.5-15.3); Lymphocytes # 2.3 10^3/uL (0.8-4.8); Lymphocytes % 21.3 %; Mean Corpuscular HGB Conc 31.3 g/dL (30.0-36.0); Mean Corpuscular Hemoglobin 26.3 pg (28.0-34.0); Mean Corpuscular Volume 83.9 fl (81-99); Monocytes # 1.1 10^3/uL (0.2-0.9); Monocytes % 9.9 %; Neutrophils # 6.93 10^3/uL (1.8-7.7); Neutrophils % 64.8 %; Nucleated Red Blood Cells % 0 %; Platelet Count 311 10^3/cmm (130-400); Red Blood Count 3.35 10^6/uL (4.1-5.3); Red Cell Distribution Width 14.8 % (12.1-15.1); White Blood Count 10.7 10^3/uL (4.0-10.0)
[2022-07-19 05:45] LABS: Anion Gap 14.9 (5-19); Blood Urea Nitrogen 21 mg/dL (8-23); Calcium 8.8 mg/dL (8.5-10.5); Carbon Dioxide 25 mmol/L (22-29); Chloride 99 mmol/L (98-107); Glucose 123 mg/dL (65-115); Osmolality Calculated 282 mOsm/kg (285-295); Potassium 4.9 mmol/L (3.5-5.1); Sodium 134 mmol/L (136-145)
[2022-07-19 06:20] LABS: Glucose Point of Care 150 mg/dL (70-110)
[2022-07-19] MEDS: insulin lispro 100 unit/1 mL SUBCUT ×4 (08:14→20:24)
[2022-07-19] MEDS: FUROsemide 10 mg/mL SDV 4mL 40 MG IVP ×2 (08:14→20:27)
[2022-07-19] MEDS: sotalol 80 mg Tablet PO ×2 (08:15→17:45)
[2022-07-19] MEDS: clopidogrel 75 mg Tablet PO (08:15)
[2022-07-19] MEDS: potassium chloride ER 20 mEq Tablet PO ×2 (08:15→20:24)
--- NOTE | 2022-07-19 09:30 | PC.SOCIAL ---
Pg 2 IMM Explained to pt Pg 2 IMM. No questions voiced. Provided pt a copy. Initialed, dated, & timed a copy & placed in chart.
--- NOTE | 2022-07-19 09:51 | ECG_ITS ---
[facility] Test Date: 2022-07-19 Pat Name: Roxana Hamilton Department: Room: 104 Gender: Female Literacy Specialist: : [id number] Requested By: Jean Whyte Order Number: [id number] Tod MD: Jose Brooks Measurements Intervals [place] Rate: 72 P: 33 NJ: 175 QRS: -6 QRSD: 102 T: 45 QT: 418 QTc: 460 Interpretive Statements SINUS RHYTHM Compared to ECG 07/18/2022 09:53:32 Myocardial infarct finding no longer present Electronically Signed On 07-20-2022 19:05:46 CDT by Jose Brooks [email or web address]
[2022-07-19 11:27] LABS: Glucose Point of Care 328 mg/dL (70-110)
--- NOTE | 2022-07-19 12:59 | PM.PN ---
Subjective Subjective: Patient was seen and examined this morning,no acute events overnight, repeat blood culture is also showing 4/4 GPC in pairs and chain. Medications: Medication Review Details: Generic Name Dose Route Start Last Admin Trade Name Freq PRN Reason Stop Dose Admin Acetaminophen 650 mg 07/16/22 01:00 07/17/22 22:45 Acetaminophen 32 5 Mg Tablet PO 650 mg Q6H PRN Administration Mild/Mod Pain Or Temp >/= 101 Clopidogrel Bisulf ate 75 mg 07/16/22 09:00 07/19/22 08:15 Clopidogrel 75 M g Tablet PO 75 mg DAILY DEMARIO Administration Enoxaparin Sodium 40 mg 07/16/22 01:00 07/19/22 01:26 Enoxaparin 40 Mg /0.4 Ml Syringe SUBCUT 40 mg Q24H DEMARIO Administration Furosemide 40 mg 07/16/22 18:00 07/19/22 08:14 Furosemide 10 Mg /Ml Sdv 4ml IVP 40 mg Q12H DEMARIO Administration Piperacillin Sod/T azobactam 50 mls @ 12.5 mls /hr 07/18/22 04:15 07/19/22 12:35 Sod 3.375 gm/ So dium Chloride IV 12.5 mls/hr Q8H DEMARIO Administration Vancomycin/PEG/NAD A/Lysine/Water 1,500 mg in 300 m ls @ 200 mls/hr 07/18/22 04:30 07/19/22 01:27 Vancocin IV Infused Q18H DEMARIO Infusion Insulin Human Lisp ro 0 unit 07/16/22 08:00 07/19/22 12:34 Insulin Lispro 1 00 Unit/1 Ml SUBCUT 12 unit WM&BEDTIME DEMARIO Administration Protocol Potassium Chloride 20 meq 07/16/22 18:00 07/19/22 08:15 Potassium Chlori de Er 20 Meq Table t PO 20 meq Q12H DEMARIO Administration Sotalol HCl 80 mg 07/16/22 09:00 07/19/22 08:15 Sotalol 80 Mg Ta blet PO 80 mg BID DEMARIO Administration Vitals/I&O/Wt Last Vital Signs Temp 97.3 F L 07/19/22 12:48 Pulse 66 07/19/22 12:48 Resp 18 07/19/22 11:19 BP 124/57 07/19/22 12:48 Pulse Ox 96 07/19/22 11:19 O2 Del Method 07/19/22 11:19 O2 Flow Rate 2 07/18/22 23:45 07/18/22 07/19/22 07/19/22 22:59 06:59 14:59 Intake Total 1330 / 2630 350 / 2980 408 / 408 Balance 1330 / 2630 350 / 2980 408 / 408 Physical Exam Const: COMMON NORMALS: patient oriented x3 HENMT: COMMON NORMALS: normocephalic and atraumatic HEAD & SCALP: normocephalic and atraumatic Resp: COMMON NORMALS: clear to auscultation bilaterally EFFORT & INSPECTION: Yes symmetric chest movement AUSCULTATION: clear to auscultation bilaterally Cardio: COMMON NORMALS: regular rate, regular rhythm, S1 normal heart sound present, S2 normal heart sound present, No gallops present (Cardio), No murmurs present (Cardio), No rub (Cardio) and Peripheral pulses 2+ throughout RATE: regular rate RHYTHM: regular rhythm HEART SOUNDS: S1 normal heart sound present and S2 normal heart sound present PERIPHERAL PULSES: Peripheral pulses 2+ throughout GI: COMMON NORMALS: Normal to inspection, nondistended, normoactive bowel sounds present, Soft to palpation, non-tender, No hepatosplenomegaly present and no masses AUSCULTATION: Yes normoactive bowel sounds PALPATION: Yes Soft to palpation and Yes No hepatosplenomegaly present RECTAL EXAM: deferred Extremity: COMMON NORMALS: no clubbing, cyanosis or edema and no pedal edema Neuro: COMMON NORMALS: patient oriented x3 Data 07/19/22 04:46 07/19/22 04:46 Micro: Microbiology 07/17/22 12:03 Urine Culture - Preliminary Urine,Voided 07/18/22 05:41 Blood Culture - Preliminary Blood 07/18/22 05:39 Blood Culture - Preliminary Blood 07/18/22 10:43 Occult Blood (FIT) - Final Stool Routine Collection A&P Assessment and plan (1) SVT (supraventricular tachycardia): Severe symptomatic SVT, which has transiently responded to adenosine in the past, with recurrence. Currently she has been started on sotalol 80 mg p.o. twice daily. Initially patient has been on Cardizem and metoprolol. 2D echo: Results have been appreciated: Has shown normal LV size and systolic function with EF of 66%. No RWMA, moderate LVH, grade 3 diastolic dysfunction. (2) Type 2 diabetes mellitus without complication: Continue sliding scale insulin Monitor fingerstick glucose Diabetic diet Qualifiers: Diabetes mellitus usp insulin use: without usp use Qualified Code(s): E11.9 - Type 2 diabetes mellitus without complications (3) Aortic regurgitation: 2D echo has shown bioprosthetic valve at the aortic position was noted.? There ?appeared to be moderate valvular and mild to moderate ?perivalvular regurgitation in the short axis view.The peak velocity across aortic valve was 3.08 m/s with a peak gradient ?of 38 and a mean gradient of 20 mmHg.? The aortic valve area was ?calculated to be 1.0 m/s. (4) S/P TAVR (transcatheter aortic valve replacement): For severe aortic stenosis. (5) Benign essential HTN: (6) Anemia: Most Recent Hb was around 10.4 Admission Hb: 8 Serum Iron: 20 Serum Ferritin :165 TIBC :196 % Saturation : 10 Transferrin : 172 FOBT : Negative S/P 1 U PRBC given her tenuous cardiac status. She is also on I.V Iron Monitor H&H (7) Fever: Patient had 1 Episode of low grade temp ,noted Tmax: 100.1 Blood Culture: 4/4 GPC in pairs and chain Repeat Blood Culture pending urine culture Xray chest : Right basal infiltrate suspicious for pneumonia. Urine analysis Has been empirically started on broad spectrum abxs. (8) Hyponatremia: Possibly hypervolemic Hyponatemia in the setting of decompensated H/F Admission Serum sodium was : 132 appears to have chronic hyponatremia Monitor BMP for now. (9) (HFpEF) heart failure with preserved ejection fraction: Ac on Chronic Decompensated HFpEF Currently on lasix 40 mg i.v bid monitor intake output charting Daily weight monitor electrolytes. (10) Left leg swelling: lower extremity doppler vein :negative for DVT Plan full code scds, lovenox 40 daily Attestations Medical Necessity Statement*: NEEDS TO BE IN HOSPITAL FOR i.v abXS, in view of positive blood cultures. Coding Level of Care Code 79189 Diagnoses SVT (supraventricular tachycardia) I47.1 Type 2 diabetes mellitus without complication E11.9 Diabetes mellitus usp insulin use: without middle or intermediate school principal use Aortic regurgitation I35.1 S/P TAVR (transcatheter aortic valve replacement) Z95.2 Benign essential HTN I10 Anemia D64.9 Fever R50.9 Hyponatremia E87.1 (HFpEF) heart failure with preserved ejection fraction I50.30 Left leg swelling M79.89
[2022-07-19 16:55] LABS: Glucose Point of Care 222 mg/dL (70-110)
[2022-07-19] MEDS: vancomycin 1,500 MG/300 ML PIGGYBACK 200 MG IV (17:30)
[2022-07-19 20:11] LABS: Glucose Point of Care 265 mg/dL (70-110)
[2022-07-20] VITALS (13 sets, daily range): BP systolic 110–135; BP diastolic 49–67; PULSE 62–67; RESP 11–24; TEMP 36.5–37; O2SAT 92–98
[2022-07-20] MEDS: enoxaparin 40 mg/0.4 mL Syringe SUBCUT (00:08)
[2022-07-20] MEDS: acetaminophen 325 mg Tablet 650 MG PO ×2 (02:03→17:34)
[2022-07-20] MEDS: piperacillin-tazobactam 3.375 GM in sodium chloride 0.9% (plus) 50 ML IV ×3 (03:40→21:20)
[2022-07-20 04:14] LABS: Basophils # 0.1 10^3/uL (0.0-0.1); Basophils % 0.6 %; Eosinophils # 0.2 10^3/uL (0.0-0.8); Eosinophils % 1.5 %; Hemoglobin 9.2 g/dL (11.5-15.3); Lymphocytes # 2.7 10^3/uL (0.8-4.8); Lymphocytes % 22.6 %; Mean Corpuscular HGB Conc 30.7 g/dL (30.0-36.0); Mean Corpuscular Hemoglobin 25.7 pg (28.0-34.0); Mean Corpuscular Volume 83.8 fl (81-99); Mean Platelet Volume 8.9 fL (7.4-10.4); Monocytes # 0.9 10^3/uL (0.2-0.9); Neutrophils # 7.73 10^3/uL (1.8-7.7); Neutrophils % 65.9 %; Nucleated Red Blood Cells % 0 %; Platelet Count 332 10^3/cmm (130-400); Red Blood Count 3.58 10^6/uL (4.1-5.3); White Blood Count 11.7 10^3/uL (4.0-10.0)
[2022-07-20 04:30] LABS: Anion Gap 11.3 (5-19); Blood Urea Nitrogen 23 mg/dL (8-23); Calcium 8.8 mg/dL (8.5-10.5); Carbon Dioxide 27 mmol/L (22-29); Chloride 91 mmol/L (98-107); Glomerular Filtration Rate 71.1 mL/min (90-130); Glucose 147 mg/dL (65-115); Osmolality Calculated 266 mOsm/kg (285-295); Potassium 4.3 mmol/L (3.5-5.1); Sodium 125 mmol/L (136-145)
[2022-07-20 06:15] LABS: Glucose Point of Care 175 mg/dL (70-110)
[2022-07-20] MEDS: insulin lispro 100 unit/1 mL SUBCUT ×4 (07:59→21:22)
[2022-07-20] MEDS: sotalol 80 mg Tablet PO ×2 (08:00→17:34)
[2022-07-20] MEDS: clopidogrel 75 mg Tablet PO (08:00)
[2022-07-20] MEDS: potassium chloride ER 20 mEq Tablet PO ×2 (08:00→21:20)
[2022-07-20 10:14] LABS: Anion Gap 12.4 (5-19); Blood Urea Nitrogen 24 mg/dL (8-23); Calcium 8.4 mg/dL (8.5-10.5); Carbon Dioxide 25 mmol/L (22-29); Chloride 98 mmol/L (98-107); Glucose 350 mg/dL (65-115); Osmolality Calculated 290 mOsm/kg (285-295); Potassium 4.4 mmol/L (3.5-5.1); Sodium 131 mmol/L (136-145)
[2022-07-20] MEDS: vancomycin 1,500 MG/300 ML PIGGYBACK 200 MG IV (11:24)
[2022-07-20 11:30] LABS: Glucose Point of Care 399 mg/dL (70-110)
--- NOTE | 2022-07-20 13:17 | P.PN_ITS ---
Subjective Subjective: Patient was seen and examined this morning, afebrile, shortness of breath is improved significantly, blood culture final result is still pending, will do repeat blood culture tomorrow in the morning. Medications: Medication Review Details: Generic Name Dose Route Start Last Admin Trade Name Freq PRN Reason Stop Dose Admin Acetaminophen 650 mg 07/16/22 01:00 07/17/22 22:45 Acetaminophen 32 5 Mg Tablet PO 650 mg Q6H PRN Administration Mild/Mod Pain Or Temp >/= 101 Clopidogrel Bisulf ate 75 mg 07/16/22 09:00 07/19/22 08:15 Clopidogrel 75 M g Tablet PO 75 mg DAILY DEMARIO Administration Enoxaparin Sodium 40 mg 07/16/22 01:00 07/19/22 01:26 Enoxaparin 40 Mg /0.4 Ml Syringe SUBCUT 40 mg Q24H DEMARIO Administration Furosemide 40 mg 07/16/22 18:00 07/19/22 08:14 Furosemide 10 Mg /Ml Sdv 4ml IVP 40 mg Q12H DEMARIO Administration Piperacillin Sod/T azobactam 50 mls @ 12.5 mls /hr 07/18/22 04:15 07/19/22 12:35 Sod 3.375 gm/ So dium Chloride IV 12.5 mls/hr Q8H DEMARIO Administration Vancomycin/PEG/NAD A/Lysine/Water 1,500 mg in 300 m ls @ 200 mls/hr 07/18/22 04:30 07/19/22 01:27 Vancocin IV Infused Q18H DEMARIO Infusion Insulin Human Lisp ro 0 unit 07/16/22 08:00 07/19/22 12:34 Insulin Lispro 1 00 Unit/1 Ml SUBCUT 12 unit WM&BEDTIME DEMARIO Administration Protocol Potassium Chloride 20 meq 07/16/22 18:00 07/19/22 08:15 Potassium Chlori de Er 20 Meq Table t PO 20 meq Q12H DEMARIO Administration Sotalol HCl 80 mg 07/16/22 09:00 07/19/22 08:15 Sotalol 80 Mg Ta blet PO 80 mg BID DEMARIO Administration Vitals/I&O/Wt Last Vital Signs Temp 98.0 F 07/20/22 08:58 Pulse 66 07/20/22 08:58 Resp 18 07/20/22 03:37 BP 130/62 07/20/22 08:58 Pulse Ox 94 04/02/23 08:58 O2 Del Method 07/20/22 08:58 O2 Flow Rate 2 07/20/22 03:37 07/19/22 07/20/22 07/20/22 22:59 06:59 14:59 Intake Total 822 / 1230 50 / 1280 1050 / 1050 Balance 822 / 1230 50 / 1280 1050 / 1050 Physical Exam Const: COMMON NORMALS: patient oriented x3 HENMT: COMMON NORMALS: normocephalic and atraumatic HEAD & SCALP: normocephalic and atraumatic Resp: COMMON NORMALS: clear to auscultation bilaterally EFFORT & INSPECTION: Yes symmetric chest movement AUSCULTATION: clear to auscultation bilaterally Cardio: COMMON NORMALS: regular rate, regular rhythm, S1 normal heart sound present, S2 normal heart sound present, No gallops present (Cardio), No murmurs present (Cardio), No rub (Cardio) and Peripheral pulses 2+ throughout RATE: regular rate RHYTHM: regular rhythm HEART SOUNDS: S1 normal heart sound present and S2 normal heart sound present PERIPHERAL PULSES: Peripheral p ulses 2+ throughout GI: COMMON NORMALS: Normal to inspection, nondistended, normoactive bowel sounds present, Soft to palpation, non-tender, No hepatosplenomegaly present and no masses AUSCULTATION: Yes normoactive bowel sounds PALPATION: Yes Soft to palpation and Yes No hepatosplenomegaly present RECTAL EXAM: deferred Extremity: COMMON NORMALS: no clubbing, cyanosis or edema and no pedal edema Neuro: COMMON NORMALS: patient oriented x3 Data 07/20/22 03:55 07/20/22 09:38 Micro: Microbiology 07/17/22 12:03 Urine Culture - Final Urine,Voided A&P Assessment and plan (1) SVT (supraventricular tachycardia): Severe symptomatic SVT, which has transiently responded to adenosine in the past, with recurrence. Currently she has been started on sotalol 80 mg p.o. twice daily. Initially patient has been on Cardizem and metoprolol. 2D echo: Results have been appreciated: Has shown normal LV size and systolic function with EF of 66%. No RWMA, moderate LVH, grade 3 diastolic dysfunction. (2) Type 2 diabetes mellitus without complication: Continue sliding scale insulin Monitor fingerstick glucose Diabetic diet Qualifiers: Diabetes mellitus [facility] insulin use: without [facility] use Qualified Code(s): E11.9 - Type 2 diabetes mellitus without complications (3) Aortic regurgitation: 2D echo has shown bioprosthetic valve at the aortic position was noted.? There ?appeared to be moderate valvular and mild to moderate ?perivalvular regurgitation in the short axis view.The peak velocity across aortic valve was 3.08 m/s with a peak gradient ?of 38 and a mean gradient of 20 mmHg.? The aortic valve area was ?calculated to be 1.0 m/s. (4) S/P TAVR (transcatheter aortic valve replacement): For severe aortic stenosis. (5) Benign essential HTN: (6) Anemia: Most Recent Hb was around 10.4 Admission Hb: 8 Serum Iron: 20 Serum Ferritin :165 TIBC :196 % Saturation : 10 Transferrin : 172 FOBT : Negative S/P 1 U PRBC given her tenuous cardiac status. She is also on I.V Iron Monitor H&H (7) Fever: Patient had 1 Episode of low grade temp ,noted Tmax: 100.1 Blood Culture: 07/17: 4/4 GPC in pairs and chain Repeat Blood Culture: 07/18: 4/4 GPC in pairs and chain Repeat blood culture: 07/21 : urine culture Xray chest : Right basal infiltrate suspicious for pneumonia. Urine analysis Has been empirically started on broad spectrum abxs. (8) Hyponatremia: Possibly hypervolemic Hyponatemia in the setting of decompensated H/F Admission Serum sodium was : 132 appears to have chronic hyponatremia Monitor BMP for now. (9) (HFpEF) heart failure with preserved ejection fraction: Ac on Chronic Decompensated HFpEF Currently on lasix 40 mg i.v bid monitor intake output charting Daily weight monitor electrolytes. (10) Left leg swelling: lower extremity doppler vein :negative for DVT Plan full code scds, lovenox 40 daily Attestations Medical Necessity Statement*: Needs to be in hospital for IV antibiotics. Coding Level of Care Code 13645 Diagnoses SVT (supraventricular tachycardia) I47.1 Type 2 diabetes mellitus without complication E11.9 Diabetes mellitus [facility] insulin use: without terminal operations manager use Aortic regurgitation I35.1 S/P TAVR (transcatheter aortic valve replacement) Z95.2 Benign essential HTN I10 Anemia D64.9 Fever R50.9 Hyponatremia E87.1 (HFpEF) heart failure with preserved ejection fraction I50.30 Left leg swelling M79.89
[2022-07-20 17:03] LABS: Glucose Point of Care 185 mg/dL (70-110)
[2022-07-20 20:26] LABS: Glucose Point of Care 315 mg/dL (70-110)
[2022-07-21] VITALS (10 sets, daily range): BP systolic 125–150; BP diastolic 45–83; PULSE 58–75; RESP 18–22; TEMP 36.6–36.8; O2SAT 92–97
[2022-07-21] MEDS: enoxaparin 40 mg/0.4 mL Syringe SUBCUT (00:57)
[2022-07-21] MEDS: vancomycin 1,500 MG/300 ML PIGGYBACK 150 MG IV (04:21)
[2022-07-21 04:39] LABS: Basophils # 0.1 10^3/uL (0.0-0.1); Basophils % 0.6 %; Eosinophils # 0.2 10^3/uL (0.0-0.8); Eosinophils % 1.9 %; Hematocrit 28.9 % (37.0-47.0); Hemoglobin 9.1 g/dL (11.5-15.3); Lymphocytes # 2.6 10^3/uL (0.8-4.8); Lymphocytes % 23.6 %; Mean Corpuscular HGB Conc 31.5 g/dL (30.0-36.0); Mean Corpuscular Hemoglobin 25.9 pg (28.0-34.0); Mean Corpuscular Volume 82.1 fl (81-99); Mean Platelet Volume 9.1 fL (7.4-10.4); Monocytes # 0.9 10^3/uL (0.2-0.9); Neutrophils # 6.99 10^3/uL (1.8-7.7); Neutrophils % 64.6 %; Nucleated Red Blood Cells % 0 %; Platelet Count 349 10^3/cmm (130-400); Red Blood Count 3.52 10^6/uL (4.1-5.3); Red Cell Distribution Width 15.2 % (12.1-15.1); White Blood Count 10.8 10^3/uL (4.0-10.0)
[2022-07-21 04:59] LABS: Anion Gap 13.1 (5-19); Blood Urea Nitrogen 19 mg/dL (8-23); Calcium 9.1 mg/dL (8.5-10.5); Carbon Dioxide 24 mmol/L (22-29); Chloride 100 mmol/L (98-107); Glomerular Filtration Rate 99.1 mL/min (90-130); Glucose 184 mg/dL (65-115); Osmolality Calculated 281 mOsm/kg (285-295); Potassium 5.1 mmol/L (3.5-5.1); Sodium 132 mmol/L (136-145)
[2022-07-21 05:09] LABS: Vancomycin Trough 12.8 ug/mL (10-15)
[2022-07-21] MEDS: FUROsemide 10 mg/mL SDV 4mL 40 MG IVP (06:05)
[2022-07-21] MEDS: piperacillin-tazobactam 3.375 GM in sodium chloride 0.9% (plus) 50 ML IV ×3 (06:06→20:55)
[2022-07-21 06:39] LABS: Glucose Point of Care 205 mg/dL (70-110)
[2022-07-21] MEDS: insulin lispro 100 unit/1 mL SUBCUT ×4 (07:45→20:55)
[2022-07-21] MEDS: potassium chloride ER 20 mEq Tablet PO ×2 (07:47→20:55)
[2022-07-21] MEDS: clopidogrel 75 mg Tablet PO (08:00)
[2022-07-21] MEDS: sotalol 80 mg Tablet PO ×2 (08:00→17:47)
--- NOTE | 2022-07-21 08:51 | PC.SOCIAL ---
IMM update IMM Updated with patient. Copy Pg 2 provided. Verbalized an understanding. Initialled, dated, timed, and placed in chart.
--- NOTE | 2022-07-21 08:57 | P.PN_ITS ---
Subjective Subjective: Patient is feeling better since starting on the antibiotics. No more SVT episodes. Blood cultures showing GPC Vitals/I&O/Wt Last Vital Signs Temp 98.2 F 07/21/22 07:39 Pulse 66 07/21/22 07:39 Resp 19 H 07/21/22 07:39 BP 144/63 07/21/22 07:39 Pulse Ox 94 07/21/22 07:39 O2 Del Method 07/21/22 07:39 O2 Flow Rate 2 07/20/22 23:05 07/20/22 07/21/22 07/21/22 22:59 06:59 14:59 Intake Total 752 / 1802 830 / 2632 480 / 480 Balance 752 / 1802 830 / 2632 480 / 480 Physical Exam Narrative: GENERAL: Patient is alert, awake and oriented x3. [] NECK: No jugular vein distension. [] HEENT: No cyanosis. No icterus. No pallor. [] HEART: Regular S1 and S2. Grade 2/6 systolic murmur [] LUNGS: Clear to auscultate bilaterally. [] CENTRAL NERVOUS SYSTEM: Grossly nonfocal. [] EXTREMITIES: Lower extremities with 1+ edema bilaterally. Pulses palpable in the lower extremities, both dorsalis pedis and posterior tibial. [] Data 07/21/22 04:24 07/21/22 04:24 Micro: Microbiology 07/21/22 04:27 Blood Culture - Preliminary Blood SPECIMEN COLLECTED 07/21/22 04:24 Blood Culture - Preliminary Blood SPECIMEN COLLECTED 07/18/22 05:41 Blood Culture - Final Blood Enterococcus faecalis 07/17/22 11:48 Blood Culture - Final Blood Enterococcus faecalis 07/18/22 05:39 Blood Culture - Final Blood Enterococcus faecalis 07/17/22 11:45 Blood Culture - Final Blood Enterococcus faecalis 07/17/22 12:03 Urine Culture - Final Urine,Voided A&P Assessment and plan (1) Acute diastolic heart failure due to valvular disease: Improving. Continue diuretics. Patient will be referred back to structural team as has current echo showing moderate paravalvular leak and has elevated gradients. (2) Low grade fever: On antibiotics. Has GPC on blood cultures. Will do ABDIRIZAK to rule out endocarditis as had TAVR valve with elevated gradient and aortic regurgitation (3) SVT (supraventricular tachycardia): Continue sotalol. Outpatient EP referral. (4) Anemia: Monitor (5) S/P TAVR (transcatheter aortic valve replacement): Will discuss with structural team at [facility] as outpatient (6) Aortic regurgitation: As mentioned above (7) Benign essential HTN: Currently normotensive. May continue on the current medications. (8) Type 2 diabetes mellitus without complication: Aggressive management of the diabetes would be appropriate. Qualifiers: Diabetes mellitus group home insulin use: without group home use Qualified Code(s): E11.9 - Type 2 diabetes mellitus without complications (9) Leg swelling: no evidence of DVT on venous duplex Plan Other problems are Shortness of breath, etiology? Related to CHF/anemia Obesity Recurrence of breast cancer Plan for ABDIRIZAK tomorrow. NPO after midnight Attestations Medical Necessity Statement*: Care expected to cross 2 midnights. Coding Level of Care Code Acute Code for [facility] Fwd Diagnoses Acute diastolic heart failure due to valvular disease I50.31; I38 Low grade fever R50.9 SVT (supraventricular tachycardia) I47.1 Anemia D64.9 S/P TAVR (transcatheter aortic valve replacement) Z95.2 Aortic regurgitation I35.1 Benign essential HTN I10 Type 2 diabetes mellitus without complication E11.9 Diabetes mellitus termite technician insulin use: without termite technician use Leg swelling M79.89
[2022-07-21 11:46] LABS: Glucose Point of Care 299 mg/dL (70-110)
[2022-07-21 17:06] LABS: Glucose Point of Care 250 mg/dL (70-110)
[2022-07-21 20:25] LABS: Glucose Point of Care 249 mg/dL (70-110)
--- NOTE | 2022-07-21 21:20 | PM.PN ---
Subjective Subjective: Denies new complains today, has occassional palpitations. GPC from blood identofoed as enterococcus fecalis Medications: Reviewed: Yes Vitals/I&O/Wt Last Vital Signs Temp 97.9 F 07/21/22 15:50 Pulse 71 07/21/22 19:16 Resp 22 H 07/21/22 19:16 BP 145/83 07/21/22 19:16 Pulse Ox 94 07/21/22 19:16 O2 Del Method 07/21/22 15:50 O2 Flow Rate 2 07/20/22 23:05 07/21/22 07/21/22 07/21/22 06:59 14:59 22:59 Intake Total 830 / 2632 1010 / 1010 50 / 1060 Balance 830 / 2632 1010 / 1010 50 / 1060 Physical Exam Narrative: General: No acute distress, AO x3 HEENT: PERRLA, pupils bilaterally equal and reactive, pallors not present Chest: Normal vesicular breath sounds, no added sounds, equal good air entry bilaterally CVS: S1-S2 regular, no murmurs, no tachycardia, no gallops, no rubs Abdomen: Soft, nontender, no organomegaly, bowel sounds present Neuro: No focal deficits, no facial deformity, AO x3, power 5/5 in all limbs Extremities: no peripheral stigmata of endocarditis Data 07/21/22 04:24 07/21/22 04:24 Micro: Microbiology 07/21/22 04:27 Blood Culture - Preliminary Blood SPECIMEN COLLECTED 07/21/22 04:24 Blood Culture - Preliminary Blood SPECIMEN COLLECTED 07/18/22 05:41 Blood Culture - Final Blood Enterococcus faecalis 07/17/22 11:48 Blood Culture - Final Blood Enterococcus faecalis 07/18/22 05:39 Blood Culture - Final Blood Enterococcus faecalis 07/17/22 11:45 Blood Culture - Final Blood Enterococcus faecalis amp- S, PCN- S A&P Assessment and plan (1) Infective endocarditis: Currently a suspected diagnosis Patient's PBCX positive for Enterococcus fecalis on 07/17 and 07/18 Awaiting repeat blood cx from today ascertain clearance Together with finidngs of incrased aortic gradient and paravalvular leak noted on TT echocardiogram, suspicion for infective endocarditis no other gross source of bacteremia evident UA negative, pt had diarrheal illness, generalized malaise, fatigue, low grade fever in May which she presumed was COVID, she was never tested positive. Plan for ABDIRIZAK tomorrow Continue Zosyn for now, D/c vancomycin Follow ABDIRIZAK tomorrow (2) SVT (supraventricular tachycardia): Severe symptomatic SVT, which has transiently responded to adenosine in the past, with recurrence. Currently she has been started on sotalol 80 mg p.o. twice daily. Initially patient has been on Cardizem and metoprolol. 2D echo: Results have been appreciated: Has shown normal LV size and systolic function with EF of 66%. No RWMA, moderate LVH, grade 3 diastolic dysfunction. 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 There ?appeared to be moderate valvular and mild to moderate ?perivalvular regurgitation in the short axis view.The peak velocity across aortic valve was 3.08 m/s with a peak gradient ?of 38 and a mean gradient of 20 mmHg.? The aortic valve area was ?calculated to be 1.0 m/s. ABDIRIZAK planned for tomorrow (5) S/P TAVR (transcatheter aortic valve replacement): For severe aortic stenosis. (6) Benign essential HTN: (7) Anemia: Most Recent Hb was around 10.4 Admission Hb: 8 Serum Iron: 20 Serum Ferritin :165 TIBC :196 % Saturation : 10 Transferrin : 172 FOBT : Negative S/P 1 U PRBC given her tenuous cardiac status. She is also on I.V Iron Monitor H&H (8) Fever: evaluation ongoing for endocarditis (9) Hyponatremia: Possibly hypervolemic Hyponatemia in the setting of decompensated H/F Admission Serum sodium was : 132 appears to have chronic hyponatremia Monitor [facility] for now. (10) (HFpEF) heart failure with preserved ejection fraction: Ac on Chronic Decompensated HFpEF Currently on lasix 40 mg iv daily Hold supplemental K given 5.1 today monitor intake output charting Daily weight monitor electrolytes. (11) Left leg swelling: lower extremity doppler vein :negative for DVT Plan full code scds, lovenox 40 daily Attestations Medical Necessity Statement*: ongoing evaluation for endocarditis, iv diuresis, TE Ein am Coding Level of Care Code Acute Code for Chg Fwd Diagnoses Infective endocarditis I33.0 SVT (supraventricular tachycardia) I47.1 Type 2 diabetes mellitus without complication E11.9 Diabetes mellitus halfway insulin use: without intermodal owner operator truck driver use Aortic regurgitation I35.1 S/P TAVR (transcatheter aortic valve replacement) Z95.2 Benign essential HTN I10 Anemia D64.9 Fever R50.9 Hyponatremia E87.1 (HFpEF) heart failure with preserved ejection fraction I50.30 Left leg swelling M79.89
[2022-07-21] MEDS: acetaminophen 325 mg Tablet 650 MG PO (22:14)
[2022-07-22] VITALS (65 sets, daily range): BP systolic 123–188; BP diastolic 48–86; PULSE 63–90; RESP 10–33; TEMP 36.5–36.7; O2SAT 93–100
[2022-07-22] MEDS: enoxaparin 40 mg/0.4 mL Syringe SUBCUT (01:06)
[2022-07-22] MEDS: piperacillin-tazobactam 3.375 GM in sodium chloride 0.9% (plus) 50 ML IV ×2 (04:11→12:15)
[2022-07-22 04:14] LABS: Basophils # 0.1 10^3/uL (0.0-0.1); Basophils % 0.6 %; Eosinophils # 0.2 10^3/uL (0.0-0.8); Eosinophils % 1.6 %; Hematocrit 28.2 % (37.0-47.0); Hemoglobin 8.6 g/dL (11.5-15.3); Lymphocytes # 2.9 10^3/uL (0.8-4.8); Lymphocytes % 27.6 %; Mean Corpuscular HGB Conc 30.5 g/dL (30.0-36.0); Mean Corpuscular Hemoglobin 25.6 pg (28.0-34.0); Mean Corpuscular Volume 83.9 fl (81-99); Mean Platelet Volume 9.2 fL (7.4-10.4); Monocytes # 0.9 10^3/uL (0.2-0.9); Monocytes % 8.5 %; Neutrophils # 6.31 10^3/uL (1.8-7.7); Neutrophils % 60.5 %; Nucleated Red Blood Cells % 0 %; Platelet Count 296 10^3/cmm (130-400); Red Blood Count 3.36 10^6/uL (4.1-5.3); Red Cell Distribution Width 15.2 % (12.1-15.1); White Blood Count 10.4 10^3/uL (4.0-10.0)
[2022-07-22 04:31] LABS: Alanine Aminotransferase 15 U/L (0-33); Alkaline Phosphatase 62 U/L (35-105); Anion Gap 14.8 (5-19); Aspartate Amino Transferase 11 U/L (0-32); Blood Urea Nitrogen 18 mg/dL (8-23); Calcium 8.7 mg/dL (8.5-10.5); Carbon Dioxide 24 mmol/L (22-29); Chloride 101 mmol/L (98-107); Globulin 3.7 g/dL (1.3-4.6); Glomerular Filtration Rate 99.1 mL/min (90-130); Glucose 149 mg/dL (65-115); Osmolality Calculated 285 mOsm/kg (285-295); Potassium 4.8 mmol/L (3.5-5.1); Sodium 135 mmol/L (136-145); Total Bilirubin 0.3 mg/dL (0.15-1.2); Total Protein 6.7 g/dL (6.6-8.7)
[2022-07-22 05:51] LABS: Glucose Point of Care 187 mg/dL (70-110)
[2022-07-22] MEDS: insulin glargine 100 units/1 mL 10 UNIT SUBCUT (06:04)
[2022-07-22] MEDS: FUROsemide 10 mg/mL SDV 4mL 40 MG IVP (06:04)
--- NOTE | 2022-07-22 06:48 | P.ANESASSM_ITS ---
Pre-Anesthetic Assessment Height/Weight: Height 1.63 m Weight 111.584 kg Temp Pulse Resp BP Pulse Ox O2 Del Method O2 Flow Rate 98 F 76 22 H 188/66 93 2 07/22/22 03:35 07/22/22 05:26 07/22/22 03:35 07/22/22 03:35 07/22/22 03:35 07/21/22 15:50 07/20/22 23:05 Preop Diagnosis: Severe aortic stenosis ABDIRIZAK Familial anesthetic complications: None Last intake: > 8hrs Social No alcohol and No tobacco LIves with a smoker Exam alert, oriented x 3, clear to auscultation bilaterally and regular rate & rhythm Airway Mallampati: Class II Dentition: other (no teeth) CV/HEM Anemia, Arrythmia (SVT) and Hypertension Concern for IE s/p TAVAR in 2021 cath Conclusions ? 1. Coronary angiogram ? 2. findings: ? 3. L ? 4. eft main artery: ? 5. Short ? 6. vessel ? 7. . No significant stenosis. Left circumflex artery: Large sized vessel. No significant stenosis is seen. LAD: Patent, has minor luminal irregularities RCA: Minor luminal irregularities.? No significant stenosis seen.. ? 8. No significant coronary artery disease seen. ? 9. Significantly elevated right and left-sided cardiac pressures.? Severe postcapillary pulmonary hypertension. ? 10. Severe aortic stenosis. Recommendations ? * Patient will be referred to tertiary care center for aortic valve replacement. ? * Gentle diuresis to continue. ? * Outpatient cardiology follow-up in 2 weeks. 2021 Echo CONCLUSIONS ?LV systolic function is normal with EF 55 to 60%. ?Grade 1 diastolic dysfunction. ?Mild mitral annular calcification is seen.? Mild mitral ?stenosis.? Trace mitral regurgitation. ?Aortic valve is calcified and thickened.? Severe aortic stenosis ?is seen with aortic valve area of 0.8 cm squared and mean gradient ?across the valve of 45.5 mmHg. ?Trace tricuspid regurgitation. ?Compared to prior echocardiogram from 2019, aortic valve ?stenosis has significantly worsened and patient has severe ?aortic stenosis now Metabolic Diabetes Mellitus, Hyperlipidemia and Morbid Obesity Anesthetic Plan ASA status: 3 Anesthesia: MAC Risk of > 500 ml blood loss (7ml/kg in children): No Medications/Allergies Home Medications Medication Instructions Recorded Confirmed Last Taken Type magnesium oxide 400 mg PO BID #60 tabs 07/03/20 07/16/22 01/08/22 18:00 Rx glipizide 10 mg tablet 10 mg PO BID #180 tabs 06/10/22 07/16/22 Unknown Rx insulin syringe-needle U-100 1 mL #100 ea 06/10/22 07/16/22 Unknown Rx 31 gauge x 5/16 (BD Insulin Syringe Ultra-Fine) clopidogrel 75 mg tablet 75 mg PO DAILY@06/18/22 07/16/22 Unknown History metoprolol succinate 50 mg 50 mg PO DAILY@06/18/22 07/16/22 Unknown History tablet,extended release 24 hr insulin glargine 100 unit/mL 20 unit SUBCUT DAILY@07/01/22 07/16/22 Unknown History subcutaneous solution (Lantus U-100 Insulin) metformin 1,000 mg tablet 1,000 mg PO BID@,07/01/22 07/16/22 Unknown History acetaminophen 500 mg tablet 1,000 mg PO Q6H PRN Pain 07/16/22 07/16/22 Unknown History aspirin 325 mg tablet 325 mg PO Q6H PRN Headache 07/16/22 07/16/22 Unknown History diltiazem HCl 360 mg 360 mg PO DAILY@07/16/22 07/16/22 Unknown History capsule,extended release 24 hr exemestane 25 mg tablet 25 mg PO DAILY@07/16/22 07/16/22 Unknown History furosemide 20 mg tablet 20 mg PO DAILY@07/16/22 07/16/22 Unknown History lisinopril 5 mg tablet 5 mg PO DAILY@07/16/22 07/16/22 Unknown History multivitamin 1 tab PO DAILY 07/16/22 07/16/22 Unknown History Allergies Allergy/AdvReac Type Severity Reaction Status Date / Time levofloxacin [From Levaquin] Allergy ALGY-Swell Verified 07/16/22 07:57 Lip/Tongue/Throat Current Medications Generic Name Dose Route Start Last Admin Trade Name Freq PRN Reason Stop Dose Admin Acetaminophen 650 mg 07/16/22 01:00 07/21/22 22:14 Acetaminophen 325 Mg Tablet PO 650 mg Q6H PRN Administration Mild/Mod Pain Or Temp >/= 101 Clopidogrel Bisulfate 75 mg 07/16/22 09:00 07/21/22 08:00 Clopidogrel 75 Mg Tablet PO 75 mg DAILY DEMARIO Administration Enoxaparin Sodium 40 mg 07/16/22 01:00 07/22/22 01:06 Enoxaparin 40 Mg/0.4 Ml Syringe SUBCUT 40 mg Q24H DEMARIO Administration Furosemide 40 mg 07/21/22 07:00 07/22/22 06:04 Furosemide 10 Mg/Ml Sdv 4ml IVP 40 mg Q24H DEMARIO Administration Piperacillin Sod/Tazobactam 50 mls @ 12.5 mls/hr 07/18/22 04:15 07/22/22 04:11 Sod 3.375 gm/ Sodium Chloride IV 12.5 mls/hr Q8H DEMARIO Administration Insulin Glargine 10 unit 07/22/22 06:00 07/22/22 06:04 Insulin Glargine 100 Units/1 Ml SUBCUT 10 unit QAM DEMARIO Administration Insulin Human Lispro 0 unit 07/16/22 08:00 07/21/22 20:55 Insulin Lispro 100 Unit/1 Ml SUBCUT 8 unit WM&BEDTIME DEMARIO Administration Protocol Potassium Chloride 20 meq 07/16/22 18:00 07/21/22 20:55 Potassium Chloride Er 20 Meq Tablet PO 20 meq Q12H DEMARIO Administration Sotalol HCl 80 mg 07/16/22 09:00 07/21/22 17:47 Sotalol 80 Mg Tablet PO 80 mg BID DEMARIO Administration Additional Medication Information Generic Name Dose Route Start Last Admin Trade Name Freq PRN Reason Stop Dose Admin Acetaminophen 650 mg 07/16/22 01:00 07/17/22 22:45 Acetaminophen 325 Mg Tablet PO 650 mg Q6H PRN Administration Mild/Mod Pain Or Temp >/= 101 Clopidogrel Bisulfate 75 mg 07/16/22 09:00 07/19/22 08:15 Clopidogrel 75 Mg Tablet PO 75 mg DAILY DEMARIO Administration Enoxaparin Sodium 40 mg 07/16/22 01:00 07/19/22 01:26 Enoxaparin 40 Mg/0.4 Ml Syringe SUBCUT 40 mg Q24H DEMARIO Administration Furosemide 40 mg 07/16/22 18:00 07/19/22 08:14 Furosemide 10 Mg/Ml Sdv 4ml IVP 40 mg Q12H DEMARIO Administration Piperacillin Sod/Tazobactam 50 mls @ 12.5 mls/hr 07/18/22 04:15 07/19/22 12:35 Sod 3.375 gm/ Sodium Chloride IV 12.5 mls/hr Q8H DEMARIO Administration Vancomycin/PEG/NADA/Lysine/Water 1,500 mg in 300 mls @ 200 mls/hr 07/18/22 04:30 07/19/22 01:27 Vancocin IV Infused Q18H DEMARIO Infusion Insulin Human Lispro 0 unit 07/16/22 08:00 07/19/22 12:34 Insulin Lispro 100 Unit/1 Ml SUBCUT 12 unit WM&BEDTIME DEMARIO Administration Protocol Potassium Chloride 20 meq 07/16/22 18:00 07/19/22 08:15 Potassium Chloride Er 20 Meq Tablet PO 20 meq Q12H DEMARIO Administration Sotalol HCl 80 mg 07/16/22 09:00 07/19/22 08:15 Sotalol 80 Mg Tablet PO 80 mg BID DEMARIO Administration PFSH Anesthesia Medical History (Updated 07/21/22 @ 21:22 by Carlee Sanchez MD) Asymptomatic menopausal state Axillary lump Breast cancer, right breast Malignant neoplasm of central portion of right female breast Personal history of malignant neoplasm of breast Pneumonia 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 will increase lantus to 24 units at hs Pt. to follow ADA diet closely Pt. agrees with plan of care. Surgical History (Updated 07/16/22 @ 12:59 by Jean Whyte MD) History of appendectomy History of mastectomy Hx of section Hx of tonsillectomy S/P TAVR (transcatheter aortic valve replacement) Family History Family/Other CAD (coronary artery disease) Cancer Diabetes Hypertension Son Cancer Brother Cancer Father Cancer Mother Diabetes Grandfather Diabetes Denies family history of Dementia Hyperlipidemia Chronic kidney disease (CKD) Lung disease Stroke Social History Smoking and tobacco status: never smoked Second hand smoke exposure: Yes Alcohol intake: never Adopted: No Lives independently: Yes Household members: spouse and family Housing: House Marital status: Female Reproductive History Para: 6 Date of menopause: 05/01/93 Data Anesthesia 07/22/22 03:34 07/22/22 03:34 Short CBC 07/21/22 07/22/22 Range/Units 04:24 03:34 WBC 10.8 H 10.4 H (4.0-10.0) 10^3/uL Hgb 9.1 L 8.6 L (11.5-15.3) g/dL Hct 28.9 L 28.2 L (37.0-47.0) % MCV 82.1 83.9 (81-99) fl Plt Count 349 296 (130-400) 10^3/cmm Neut % (Auto) 64.6 60.5 % Neut # (Auto) 6.99 6.31 (1.8-7.7) 10^3/uL BMP 07/20/22 07/21/22 07/22/22 09:38 04:24 03:34 Sodium 131 L 132 L 135 L Potassium 4.4 5.1 4.8 Chloride 98 100 101 Carbon Dioxide 25 24 24 BUN 24 H 19 18 Creatinine 0.7 0.6 0.6 Glucose 350 H 184 H 149 H Calcium 8.4 L 9.1 8.7 Liver Function 07/22/22 Range/Units 03:34 Total Bilirubin 0.3 (0.15-1.2) mg/dL AST 11 (0-32) U/L ALT 15 (0-33) U/L Alkaline Phosphatase 62 (35-105) U/L Albumin 3.0 L (3.5-5.2) g/dL Coags 07/22/22 03:34 PT 13.50 INR 1.00 Microbiology 07/21/22 04:27 Blood Culture - Preliminary Blood NEGATIVE TO DATE 07/21/22 04:24 Blood Culture - Preliminary Blood NEGATIVE TO DATE Cardiac Studies: Echocardiogram 07/16/22 Echocardiogram Ultrasound 09/27/19 Holter Monitor 09/29/19
--- NOTE | 2022-07-22 09:35 | PM.PN ---
Subjective Subjective: Patient doing well. No chest pain. Had ABDIRIAZK today that did not reveal vegetation. Vitals/I&O/Wt Last Vital Signs Temp 98.0 F 07/22/22 07:43 Pulse 68 07/22/22 09:25 Resp 27 H 07/22/22 09:25 BP 153/64 07/22/22 09:25 Pulse Ox 97 07/22/22 09:25 O2 Del Method 07/22/22 09:01 O2 Flow Rate 5 07/22/22 09:01 07/21/22 07/22/22 07/22/22 22:59 06:59 14:59 Intake Total 50 / 1060 50 / 1110 50 / 50 Balance 50 / 1060 50 / 1110 50 / 50 Physical Exam Narrative: GENERAL: Patient is alert, awake and oriented x3. [] NECK: No jugular vein distension. [] HEENT: No cyanosis. No icterus. No pallor. [] HEART: Regular S1 and S2. Grade 2/6 systolic murmur [] LUNGS: Clear to auscultate bilaterally. [] CENTRAL NERVOUS SYSTEM: Grossly nonfocal. [] EXTREMITIES: Lower extremities with 1+ edema bilaterally. Pulses palpable in the lower extremities, both dorsalis pedis and posterior tibial. [] Data 07/22/22 03:34 07/22/22 03:34 Micro: Microbiology 07/21/22 04:27 Blood Culture - Preliminary Blood NEGATIVE TO DATE 07/21/22 04:24 Blood Culture - Preliminary Blood NEGATIVE TO DATE A&P Assessment and plan (1) Acute diastolic heart failure due to valvular disease: Improving. Continue diuretics. Patient will be referred back to structural team as has current echo showing moderate paravalvular leak and has elevated gradients. No evidence of vegetations on the ADBIRIZAK. (2) Low grade fever: Possibility of endocarditis can not be ruled out although no vegetation seen on ABDIRIZAK. Patient has no source of GPC positive blood cultures. ID on board. Appropriate to treat as endocarditis. (3) SVT (supraventricular tachycardia): Can uptitrate sotalol to 120mg BID. Outpatient EP referral for possible SVT ablation (4) Anemia: Monitor (5) S/P TAVR (transcatheter aortic valve replacement): Will discuss with structural team at [facility] as outpatient (6) Aortic regurgitation: As mentioned above (7) Benign essential HTN: Currently normotensive. May continue on the current medications. (8) Type 2 diabetes mellitus without complication: Aggressive management of the diabetes would be appropriate. Qualifiers: Diabetes mellitus rat exterminator insulin use: without fdc use Qualified Code(s): E11.9 - Type 2 diabetes mellitus without complications (9) Leg swelling: no evidence of DVT on venous duplex Plan Other problems are Shortness of breath, etiology? Related to CHF/anemia Obesity Recurrence of breast cancer Attestations Medical Necessity Statement*: Care expected to cross 2 midnights. Coding Level of Care Code Acute Code for [facility] Fwd Diagnoses Acute diastolic heart failure due to valvular disease I50.31; I38 Low grade fever R50.9 SVT (supraventricular tachycardia) I47.1 Anemia D64.9 S/P TAVR (transcatheter aortic valve replacement) Z95.2 Aortic regurgitation I35.1 Benign essential HTN I10 Type 2 diabetes mellitus without complication E11.9 Diabetes mellitus rat exterminator insulin use: without rat exterminator use Leg swelling M79.89
--- NOTE | 2022-07-22 09:35 | W.PM.OPSUD ---
Surgery/Procedure H&P Update DATE OF PROCEDURE: July 22, 2022 DATE H&P PERFORMED: 07/16/22 H&P UPDATE INFORMATION: I have reviewed H&P completed within last 30 days, I have examined patient prior to procedure and Changes to prior documentation as noted here CHANGES TO PREVIOUS DOCUMENTATION: Patient has blood cultures showing GPCs. Also has elevated gradients across the aortic valve. PREOP DIAGNOSIS: Rule out endocarditis PRIMARY INDICATION FOR PROCEDURE: Rule out endocarditis PLANNED PROCEDURE: Transesophageal echocardiogram Anesthesia team performing sedation
[2022-07-22] MEDS: clopidogrel 75 mg Tablet PO (10:23)
[2022-07-22] MEDS: sotalol 80 mg Tablet PO ×2 (10:23→17:15)
[2022-07-22 11:39] LABS: Glucose Point of Care 334 mg/dL (70-110)
[2022-07-22] MEDS: insulin lispro 100 unit/1 mL SUBCUT ×3 (12:13→21:02)
--- NOTE | 2022-07-22 14:20 | P.CONIM_ITS ---
Providers/Reason For Consult Consulting Physician/Specialty*: Carlee Sanchez MD/ Infectious Disease Reason for Consult*: Prosthetic valve endocarditis Requesting Physician: Tyson Welsh MD Attending Physician: Tyson Welsh MD Primary Care Provider: SUE Celaya History of Present Illness History of Present Illness Roxana Hamilton is a 71 year old female with a past medical history of hypertension, diabetes mellitus, aortic valve stenosis, status post TAVR in December 2021 at [facility] in [place]. She has a history of recurrent SVTs which was quite bothersome however states that this had been improving since getting her TAVR. Patient started to feel unwell in May of this year. She describes her symptoms as being fatigue, generalized weakness, low- grade fever, subjective chills, increased frequency of episodes of SVT, palpitations and dyspnea. Has had some dizziness with episodes of SVT without loss of consciousness. Patient assumed that her symptoms were related to her COVID-19 infection, though it does not appear that she had been formally tested. She was admitted to the hospital on July 16, 2022 for management of SVT for which she is being followed by cardiology and started on sotalol recently. Echocardiogram was performed which showed moderate valvular aortic regurgitation with mild to moderate perivalvular regurgitation. Significant gradient was noted in the bioprosthetic aortic valve. In the interim patient was noted to have fever during the course of her admission here. Tmax ranging from 99.8 to 100.1 Fahrenheit, similar to what patient had been experiencing at home. Infectious source evaluation revealed blood cultures positive for Enterococcus faecalis on July 17 and July 18, 2022. Chest x-ray showed possible right lower lobe infiltrate and left lower lobe atelectasis. Per my review it appears to be atelectasis . Chest x-ray overall appears to be unchanged when compared to June 06, 2020. No localizing abdominal symptoms such as abdominal pain nausea vomiting or diarrhea. Patient does report in May at the onset of symptoms she had a bout a week of diarrheal illness however since then has had regular bowel movements. She had a port in the past when she received chemotherapy for breast cancer, however this has since been removed. Currently she does not have any endovascular devices apart from the bioprosthetic valve. Urine analysis showed negative nitrate, negative leukocyte Estrace, no urine WBC. She was noted to be anemic, hemoglobin down to 7.8 on July 17, upon admission this was 10.4. Appears to be new as previous known baseline is 11-12 in 2021. Review of Systems General: Reports: 10 or more systems reviewed and unremarkable except in HPI and below Const: Denies: fever(s), chills or body aches Eyes: Denies: change in vision, blurry vision or photophobia ENMT: Reports: hoarseness; Denies: throat pain, enlarged tonsils, odynophagia or nasal congestion Card: Denies: chest pain, palpitations, irregular heart rhythm, edema, swelling of feet/ankles, lightheadedness, pre-syncope, dyspnea on exertion or orthopnea Resp: Denies: dyspnea, productive cough, non-productive cough, wheezing, stridor, pain on inspiration, change in phlegm color, hemoptysis or chest congestion GI: Denies: abdominal pain, nausea, vomiting, hematemesis, coffee ground emesi s, dysphagia, heartburn, diarrhea, constipation, GI cramping, change in stool character, hematochezia or melena : Denies: flank pain, difficulty voiding, dysuria, urinary frequency, urinary urgency, urinary hesitancy or hematuria Musc: Denies: neck pain, back pain, extremity pain, joint swelling, joint warmth or deformity Neuro: Denies: headache(s), numbness in extremities, weakness in extremities, sensory changes, difficulty walking, frequent falls, dizziness, vertigo, behavioral changes, Slurred speech present or seizure-like activity Psych: Denies: anxiety, depression, suicidal ideation or homicidal ideation Endo: Denies: polyuria, polydipsia, tired all the time, cold intolerance or hot flashes Jed/Lymph: Denies: easy bruising or easy bleeding Medications/Allergies Home Medications Medication Instructions Recorded Confirmed Last Taken Type magnesium oxide 400 mg PO BID #60 tabs 07/03/20 07/16/22 01/08/22 18:00 Rx glipizide 10 mg tablet 10 mg PO BID #180 tabs 06/10/22 07/16/22 Unknown Rx insulin syringe-needle U-100 1 mL #100 ea 06/10/22 07/16/22 Unknown Rx 31 gauge x 5/16 (BD Insulin Syringe Ultra-Fine) clopidogrel 75 mg tablet 75 mg PO DAILY@06/18/22 07/16/22 Unknown History metoprolol succinate 50 mg 50 mg PO DAILY@06/18/22 07/16/22 Unknown History tablet,extended release 24 hr insulin glargine 100 unit/mL 20 unit SUBCUT DAILY@15 07/01/22 07/16/22 Unknown History subcutaneous solution (Lantus U-100 Insulin) metformin 1,000 mg tablet 1,000 mg PO BID@,07/01/22 07/16/22 Unknown History acetaminophen 500 mg tablet 1,000 mg PO Q6H PRN Pain 07/16/22 07/16/22 Unknown H istory aspirin 325 mg tablet 325 mg PO Q6H PRN Headache 07/16/22 07/16/22 Unknown History diltiazem HCl 360 mg 360 mg PO DAILY@07/16/22 07/16/22 Unknown History capsule,extended release 24 hr exemestane 25 mg tablet 25 mg PO DAILY@07/16/22 07/16/22 Unknown History furosemide 20 mg tablet 20 mg PO DAILY@07/16/22 07/16/22 Unknown History lisinopril 5 mg tablet 5 mg PO DAILY@07/16/22 07/16/22 Unknown History multivitamin 1 tab PO DAILY 07/16/22 07/16/22 Unknown History Allergies Allergy/AdvReac Type Severity Reaction Status Date / Time levofloxacin [[facility]] Allergy SHAVONNE-Swell Verified 07/16/22 07:57 Lip/Tongue/Throat Current Medications Generic Name Dose Route Start Last Admin Trade Name Freq PRN Reason Stop Dose Admin Acetaminophen 650 mg 07/16/22 01:00 07/21/22 22:14 Acetaminophen 325 Mg Tablet PO 650 mg Q6H PRN Administration Mild/Mod Pain Or Temp >/= 101 Clopidogrel Bisulfate 75 mg 07/16/22 09:00 07/22/22 10:23 Clopidogrel 75 Mg Tablet PO 75 mg DAILY DEMARIO Administration Enoxaparin Sodium 40 mg 07/16/22 01:00 07/22/22 01:06 Enoxaparin 40 Mg/0.4 Ml Syringe SUBCUT 40 mg Q24H DEMARIO Administration Furosemide 40 mg 07/21/22 07:00 07/22/22 06:04 Furosemide 10 Mg/Ml Sdv 4ml IVP 40 mg Q24H DEMARIO Administration Insulin Glargine 10 unit 07/22/22 06:00 07/22/22 06:04 Insulin Glargine 100 Units/1 Ml SUBCUT 10 unit QAM DEMARIO Administration Insulin Human Lispro 0 unit 07/16/22 08:00 07/22/22 12:13 Insulin Lispro 100 Unit/1 Ml SUBCUT 1 unit WM&BEDTIME DEMARIO Administration Protocol Potassium Chloride 20 meq 07/16/22 18:00 07/21/22 20:55 Potassium Chloride Er 20 Meq Tablet PO 20 meq Q12H DEMARIO Administration Sotalol HCl 80 mg 07/16/22 09:00 07/22/22 10:23 Sotalol 80 Mg Tablet PO 80 mg BID DEMARIO Administration Additional Medication Information Medication history: Piperacillin tazobactam (July 18 - ) IV vancomycin (July 18 to July 21, 2022) PFSH Acute PFSH: Medical History Asymptomatic menopausal state Axillary lump Breast cancer, right breast Malignant neoplasm of central portion of right female breast Personal history of malignant neoplasm of breast Pneumonia Secondary and unspecified malignant neoplasm of axilla and upper limb lymph nodes SVT (supraventricular tachycardia) Type 2 diabetes mellitus without complication Type 2 DM mod nonproliferative retinopathy, macular edema, uncontrol Pt. will increase lantus to 24 units at hs Pt. to follow ADA diet closely Pt. agrees with plan of care. Surgical History History of appendectomy History of mastectomy Hx of section Hx of tonsillectomy S/P TAVR (transcatheter aortic valve replacement) Family History Family/Other CAD (coronary artery disease) Cancer Diabetes Hypertension Son Cancer Brother Cancer Father Cancer Mother Diabetes Grandfather Diabetes Denies family history of Dementia Hyperlipidemia Chronic kidney disease (CKD) Lung disease Stroke Social History Smoking and tobacco status: never smoked Second hand smoke exposure: Yes Alcohol intake: never Adopted: No Lives independently: Yes Household members: spouse and family Housing: House Marital status: Female Reproductive History: Para: 6 Date of menopause: 05/01/93 Vitals/I&O/Wt Last Vital Signs Temp 98.0 F 07/22/22 11:32 Pulse 65 07/22/22 11:32 Resp 18 07/22/22 11:32 BP 123/60 07/22/22 11:32 Pulse Ox 95 07/22/22 11:32 O2 Del Method 07/22/22 11:32 O2 Flow Rate 5 07/22/22 09:01 07/21/22 07/22/22 07/22/22 22:59 06:59 14:59 Intake Total 50 / 1060 50 / 1110 530 / 530 Balance 50 / 1060 50 / 1110 530 / 530 Physical Exam Narrative: General: No acute distress, AO x3 HEENT: PERRLA, pupils bilaterally equal and reactive, pallors not present Chest: Normal vesicular breath sounds, no added sounds, equal good air entry bilaterally CVS: S1-S2 regular, no murmurs, no tachycardia, no gallops, no rubs Abdomen: Soft, nontender, no organomegaly, bowel sounds present Neuro: No focal deficits, no facial deformity, AO x3, power 5/5 in all limbs Data 07/22/22 03:34 07/22/22 03:34 Micro: Microbiology 07/21/22 04:27 Blood Culture - Preliminary Blood NEGATIVE TO DATE 07/21/22 04:24 Blood Culture - Preliminary Blood NEGATIVE TO DATE peripheral blood culture July 18, 2022, taken at 539 and 5:41 AM: 4 out of 4 bottles positive for Enterococcus faecalis Peripheral blood culture July 17, 2022 taken at 11:45 AM: 4 out of 4 bottles positive for Enterococcus faecalis E faecalis M.I.C. RX --------- ------ * Ampicillin <=2 S * Linezolid 2 S * Penicillin 2 S Vancomycin 2 S Gentamicin Synergy Screen <=500 S Daptomycin 2 S Enterococcus faecalis: Gram Pos Combo 33-MScan Gentamicin Synergy Screen S July 17, 2022: UA unremarkable Urine culture 20,000 CFU mixed superficial roxana Other data: [address] [address] XRay Report Signed Patient: Roxana Hamilton Unit #: [id number] : 1950 Age/Sex: 71 / F ADM Date: 07/16/22 Loc: [facility] Room/Bed: [facility] Attending Dr: Julius Skaggs MD Ordering Provider/Ordering MD: Julius Skaggs MD Date of Service: 07/17/22 Procedure(s): XR chest 1V portable [id number] Accession Number(s): [id number] Report Number: [id number] WS: [id number] Exam: XR chest 1V portable [id number] Date/Time of Exam: 07/17/2022 10:57 AM Reason For Exam: sob Comparison 06/06/2020. There is infiltrate in the right lung base suspicious for pneumonia. Left basal pleural effusion and atelectasis noted. The heart is enlarged. Remaining lung garcia are clear. Signs of previous cardiac valve replacement. The mediastinum is normal in contour. Surgical excision of the distal left clavicle. XR/XR chest 1V portable [id number] IMPRESSION: 1. Right basal infiltrate suspicious for pneumonia. 2. Left lower lobe atelectasis and left basal pleural effusion. 3. Cardiac enlargement. ? July 16, 2022: TTE CONCLUSIONS ?Normal left ventricular size and systolic function, EF 66 %. No ?regional wall motion abnormalities. Moderate left ventricular ?hypertrophy. Grade III/IV diastolic dysfunction (restrictive ?filling pattern), severely elevated filling pressures. ?Bioprosthetic valve at the aortic position was noted.? There ?appeared to be moderate valvular and mild to moderate ?perivalvular regurgitation in the short axis view.? The peak ?velocity across aortic valve was 3.08 m/s with a peak gradient ?of 38 and a mean gradient of 20 mmHg.? The aortic valve area was ?calculated to be 1.0 m/s. ?Moderate mitral annular calcification. Mild mitral valve ?regurgitation. ?Mild biatrial enlargementTrace to mild tricuspid valve ?regurgitation. ?Estimated pulmonary artery peak systolic pressure 48 mmHg. ?Moderate mitral annular calcification. Mild mitral valve ?regurgitation. ?Estimated right atrial pressure of 15 mmHg ?Compared to the study from 12/18/2021, the bioprosthetic valve in ?the aortic position is new. ?Dr Jean Whyte MD FACC ?(Electronically Signed) ?Final Date:? ? ? 16 July 2022 A&P Assessment and plan (1) Infective endocarditis: (2) S/P TAVR (transcatheter aortic valve replacement): Plan 71-year-old lady is with multiple medical history as outlined above, status post TAVR in December 2021, currently presenting with 2 months of generalized weakness, fatigue, recurrent episodes of SVT, found to have low-grade fevers, blood cultures positive for Enterococcus faecalis on July 17 and July 18, TTE with mild to moderate perivalvular regurgitation and increased AV gradient which may be related to downsizing of the valve however given recovery of her typical organism associated with endocarditis, with subacute symptoms clinical concern for infective endocarditis. ABDIRIZAK was performed today to evaluate for any vegetations and is negative for the same per verbal report from cardiology. Patient meets at least 1 major (community-acquired Enterococcus in the absence of a primary focus positive from 2 separate blood cultures ) and 2 minor clinical criteria (predisposing heart condition by way of a prosthetic valve and fever). Based on modified [place] criteria , clinical picture is compatible with possible infective endocarditis of a prosthetic valve. Plan: Discontinue piperacillin/tazobactam Enterococcus faecalis strain is penicillin susceptible. Start treatment with beta-lactam combination ceftriaxone 2 g IV every 12 hours and ampicillin 2 g IV every 4 hours. We will avoid beta-lactam/gentamicin combination due to multiple other comorbidities, lack of ability to monitor gentamicin levels as outpatient, higher risk of nephrotoxicity in a patient who also needs to be on KIARA inhibitors and diuresis. We will plan on treatment for 6 weeks PICC line to be placed to facilitate above. Currently blood cultures are negative from July 21, 2022. PICC line may be placed if cultures remain negative at 48 hours. Discussed all risks and benefits, diagnosis of possible endocarditis, side effects of dual beta-lactam therapy including but not limited to cholecystitis, acute renal failure,neutropenia Patient plans to return home to complete therapy. We will check weekly CBC, creatinine, LFTs while on the above regimen to evaluate for any drug-related toxicity. will follow Coding Level of Care Code Acute Code for Chg Fwd High MDM includes number and complexity of problems actively addressed during encounter, amount and/or complexity of data reviewed/ordered and described risk of complication, morbidity or mortality of management as documented Diagnoses Infective endocarditis I33.0 S/P TAVR (transcatheter aortic valve replacement) Z95.2
--- NOTE | 2022-07-22 14:51 | PM.PN ---
Subjective Subjective: Hospital course, labs appreciated. Today morning seen after ABDIRIZAK. Patient denies any nausea, vomiting, headache. Sitting comfortably in chair. States feeling a lot better. Has been on room air for the last 3 days. Has remained hemodynamically stable and afebrile. Denies any chest pains. Telemetry stable. No urine output documented. Blood sugar still elevated. Medications: Reviewed: Yes Medication Review Details: Medication history: Piperacillin tazobactam (July 18 - ) IV vancomycin (July 18 to July 21, 2022) Vitals/I&O/Wt Last Vital Signs Temp 98.0 F 07/22/22 11:32 Pulse 65 07/22/22 11:32 Resp 18 07/22/22 11:32 BP 123/60 07/22/22 11:32 Pulse Ox 95 07/22/22 11:32 O2 Del Method 07/22/22 11:32 O2 Flow Rate 5 07/22/22 09:01 07/21/22 07/22/22 07/22/22 22:59 06:59 14:59 Intake Total 50 / 1060 50 / 1110 530 / 530 Balance 50 / 1060 50 / 1110 530 / 530 Physical Exam Narrative: General: No acute distress, AO x3, on room air HEENT: PERRLA, pupils bilaterally equal and reactive Chest: Normal vesicular breath sounds all over lung garcia with occasional rhonchi and fine crackles bilaterally lower zone CVS: S1-S2 regular, early diastolic murmur at aortic area radiating to apex with a valvular click, S3 gallop Abdomen: Soft, nontender, no organomegaly, bowel sounds present, morbidly obese Neuro: No focal deficits, no facial deformity, AO x3, power 5/5 in all limbs Data 07/22/22 03:34 07/22/22 03:34 Micro: Microbiology 07/21/22 04:27 Blood Culture - Preliminary Blood NEGATIVE TO DATE 07/21/22 04:24 Blood Culture - Preliminary Blood NEGATIVE TO DATE A&P Assessment and plan (1) Infective endocarditis: High clinical suspicion. ABDIRIZAK results awaited. Persistent enterococcal bacteremia. Last blood cultures from 07/21 pending. Appreciate cardiology and ID recommendations. Switch to ampicillin and ceftriaxone. Dose as per creatinine clearance. (2) Bacteremia due to Enterococcus: Plan for CT abdomen to rule out abdominal malignancy given Enterococcus bacteremia (3) Acute diastolic heart failure due to valvular disease: Compensated for now. Last echocardiogram during this hospitalization shows EF of 66%, moderate LVH, grade 3 diastolic dysfunction, moderate valvular and mild to moderate perivalvular leak, aortic valve gradient of 38 mmHg, mild MR, mild biatrial enlargement, mild TR with PASP of 48 mmHg. Switch to oral Lasix 40 mg twice daily. Check proBNP in a.m. (4) Paravalvular leak (prosthetic valve): (5) S/P TAVR (transcatheter aortic valve replacement): (6) Benign essential HTN: Goal blood pressure less than 140/90 mmHg. Takes Cardizem 360 mg oral daily, lisinopril 5 mg, metoprolol succinate 50 mg daily at home. For now continue with sotalol 80 mg twice daily. Uptitrate as per goal blood pressures. (7) SVT (supraventricular tachycardia): Controlled. Continue with sotalol. Appreciate cardiology recommendations. Telemetry. (8) Type 2 diabetes mellitus without complication: Blood sugars uncontrolled. Increase Lantus to 15 units every morning, SSI to scale to high-dose protocol. Qualifiers: Diabetes mellitus nursing home insulin use: without termite treater helper use Qualified Code(s): E11.9 - Type 2 diabetes mellitus without complications Plan Anemia: Worsening hemoglobin. Iron deficiency anemia. Given perivalvular leak cannot rule out mild hemolysis though bilirubin and LFTs within normal limits. Continue with oral iron supplementation. Check LDH, GGT, haptoglobin vitamin B12, folate level. Target hemoglobin around 8. Full code. Carb consistent diet. Lovenox for DVT prophylaxis. Famotidine for PUD prophylaxis. Attestations Medical Necessity Statement*: Requires further hospitalization for management of enterococcal bacteremia, infective endocarditis in a patient with post TAVR with concerns for valvular and perivalvular leak, diastolic heart failure, recurrent SVT Diagnoses Infective endocarditis I33.0 Bacteremia due to Enterococcus R78.81; B95.2 Acute diastolic heart failure due to valvular disease I50.31; I38 Paravalvular leak (prosthetic valve) T82.03XA S/P TAVR (transcatheter aortic valve replacement) Z95.2 Benign essential HTN I10 SVT (supraventricular tachycardia) I47.1 Type 2 diabetes mellitus without complication E11.9 Diabetes mellitus termite treater helper insulin use: without nursing home use
--- NOTE | 2022-07-22 15:12 | XR_ITS ---
WS: [id number] XR chest 1V portable [id number] REASON FOR EXAM: Post PICC insertion FINDINGS: Left arm PICC line placement. The tip is in the upper superior vena cava and could be advanced anothe r 3 to 3.5 cm. This information was discussed with the technologist at bedside relayed the informatio n to the PICC line team. Aortic stent bowel and cardiomegaly. Improvement in the interstitial lung opacities compared to 07/17/2022. XR/XR chest 1V portable [id number] IMPRESSION: PICC line pacemaker as above. Presumed improvement in pulmonary edema.
[2022-07-22] MEDS: ampicillin 2,000 MG in sodium chloride 0.9% (plus) 50 ML 100 MG IV ×2 (16:19→21:01)
[2022-07-22] MEDS: cefTRIAXone 2,000 MG in sodium chloride 0.9% (plus) 50 ML 100 MG IV (16:21)
--- NOTE | 2022-07-22 16:36 | PC.NURSE ---
Single lumen PICC placed in left basilic vein without difficulty. Mid arm circumference 34 cm measured 12 cm from left AC. Trimmed length 45 cm with 0 cm external length noted. Radiologist recommended advancement of line 3 cm upon xray. Only 1.5 cm available to advance due to pre-measured cut. Line advanced 1.5 cm and noted mid SVC. Dressing due to be changed tomorrow, 07/23/22. Report given to bedside nurseAlexus.
--- NOTE | 2022-07-22 16:51 | USCV_ITS ---
Roxana Hamilton Age: 71 Gender: F : 1950 Exam Date: 07/22/2022 08:50 Ordering Phys: Carlee Sanchez MD Technologist: KARIS [place] [facility] [place]ication: ENDOCARDITIS BP: 154 / 58 HR: 75 Rhythm: Sinus Technical Quality: Adequate MEASUREMENTS (Male / Female) Normal Values Medications Complications None Proc. Components After anesthesia administeration, we proceeded with advancing ABDIRIZAK probe FINDINGS Left Ventricle Normal in size and function Right Ventricle Normal in size and function Right Atrium Normal in size Left Atrium Grossly normal LA Appendage No left atrial appendage thrombus IA Septum Normal Mitral Valve Mitral valve is thickened. Echogenic structure seen on posterior mitral valve leaflet that is more consistent with calcification. Mild to moderate mitral regurgitation. Aortic Valve Bioprosthetic aortic valve. It is thickened. Mild to moderate aortic regurgitation. Tricuspid Valve Normal Pulmonic Valve Not well visualized Pericardium Normal Aorta Mild aortic atherosclerotic plaque. CONCLUSIONS LV systolic function is normal Mitral valve is thickened. Echogenic structure seen on posterior mitral valve leaflet that is more consistent with calcification. Mild to moderate mitral regurgitation. Bioprosthetic aortic valve. It is thickened. Mild to moderate aortic regurgitation. Mild aortic atherosclerotic plaque. Quinn Goncalves MD (Electronically Signed) Final Date: 27 July 2022 14:03 S
[2022-07-22 17:16] LABS: Glucose Point of Care 248 mg/dL (70-110)
[2022-07-22] MEDS: sotalol 80 mg Tablet 40 MG PO (17:26)
[2022-07-22 17:28] LABS: Gamma Glutamyl Transferase 57 U/L (5-36); Lactate Dehydrogenase 206 U/L (135-214); Vitamin B12 262 pg/mL (232-1245)
[2022-07-22 17:31] LABS: Folate Level 9.4 ng/mL (4.8-37.3)
[2022-07-22 21:14] LABS: Glucose Point of Care 352 mg/dL (70-110)
[2022-07-22] MEDS: acetaminophen 325 mg Tablet 650 MG PO (21:47)
[2022-07-23] VITALS: BP 138/61; PULSE 67; RESP 19; TEMP 36.9; O2SAT 93
[2022-07-23] MEDS: cefTRIAXone 2,000 MG in sodium chloride 0.9% (plus) 50 ML 100 MG IV ×2 (00:21→12:33)
[2022-07-23] MEDS: enoxaparin 40 mg/0.4 mL Syringe SUBCUT (00:21)
[2022-07-23] MEDS: ampicillin 2,000 MG in sodium chloride 0.9% (plus) 50 ML 100 MG IV ×4 (00:21→11:01)
[2022-07-23 04:00] VITALS: BP 144/53; PULSE 65; RESP 21; TEMP 36.9; O2SAT 93
[2022-07-23 04:17] LABS: Basophils # 0.1 10^3/uL (0.0-0.1); Basophils % 0.6 %; Eosinophils # 0.3 10^3/uL (0.0-0.8); Eosinophils % 2.1 %; Hematocrit 28.8 % (37.0-47.0); Hemoglobin 8.9 g/dL (11.5-15.3); Lymphocytes # 2.7 10^3/uL (0.8-4.8); Lymphocytes % 22.9 %; Mean Corpuscular HGB Conc 30.9 g/dL (30.0-36.0); Mean Corpuscular Hemoglobin 25.7 pg (28.0-34.0); Mean Corpuscular Volume 83.2 fl (81-99); Mean Platelet Volume 9.4 fL (7.4-10.4); Monocytes # 0.9 10^3/uL (0.2-0.9); Monocytes % 7.6 %; Neutrophils # 7.86 10^3/uL (1.8-7.7); Neutrophils % 65.5 %; Nucleated Red Blood Cells % 0 %; Platelet Count 323 10^3/cmm (130-400); Red Blood Count 3.46 10^6/uL (4.1-5.3); Red Cell Distribution Width 15.4 % (12.1-15.1)
[2022-07-23 04:50] LABS: Alanine Aminotransferase 17 U/L (0-33); Albumin Level 3.3 g/dL (3.5-5.2); Alkaline Phosphatase 81 U/L (35-105); Anion Gap 13.3 (5-19); Aspartate Amino Transferase 14 U/L (0-32); Blood Urea Nitrogen 19 mg/dL (8-23); Calcium 8.7 mg/dL (8.5-10.5); Carbon Dioxide 26 mmol/L (22-29); Chloride 100 mmol/L (98-107); Globulin 3.7 g/dL (1.3-4.6); Glomerular Filtration Rate 99.1 mL/min (90-130); Glucose 132 mg/dL (65-115); Osmolality Calculated 284 mOsm/kg (285-295); Potassium 4.3 mmol/L (3.5-5.1); Sodium 135 mmol/L (136-145); Total Bilirubin 0.2 mg/dL (0.15-1.2)
[2022-07-23] MEDS: insulin glargine 100 units/1 mL 15 UNIT SUBCUT (05:33)
[2022-07-23 05:38] LABS: Glucose Point of Care 194 mg/dL (70-110)
--- NOTE | 2022-07-23 05:41 | ECG_ITS ---
[facility] Test Date: 2022-07-23 Pat Name: Roxana Hamilton Department: Room: 104 Gender: Female Clinical Partner: : 1950 Requested By: Tyson Welsh Order Number: [id number] Tod MD: Jean Whyte M.D. Measurements Intervals [place] Rate: 72 P: 33 CA: 174 QRS: -17 QRSD: 93 T: 49 QT: 414 QTc: 455 Interpretive Statements SINUS RHYTHM Compared to ECG 07/19/2022 09:51:23 No significant changes Electronically Signed On 07-24-2022 0:19:19 CDT by Jean Whyte M.D. [id number]
[2022-07-23 06:00] VITALS: PULSE 69
[2022-07-23 07:35] VITALS: BP 141/53; PULSE 69; RESP 18; O2SAT 94
[2022-07-23] MEDS: FUROsemide 40 mg Tablet PO (08:04)
[2022-07-23] MEDS: insulin lispro 100 unit/1 mL SUBCUT ×2 (08:22→12:49)
[2022-07-23] MEDS: sotalol 80 mg Tablet PO (08:25)
[2022-07-23] MEDS: clopidogrel 75 mg Tablet PO (08:25)
--- NOTE | 2022-07-23 08:42 | P.PN_ITS ---
Subjective Subjective: Patient is feeling better. No chest pain. Vitals/I&O/Wt Last Vital Signs Temp 98.5 F 07/23/22 04:00 Pulse 69 07/23/22 07:35 Resp 18 07/23/22 07:35 BP 141/53 07/23/22 07:35 Pulse Ox 94 07/23/22 07:35 O2 Del Method 07/23/22 07:35 O2 Flow Rate 5 07/22/22 09:01 07/22/22 07/23/22 07/23/22 22:59 06:59 14:59 Intake Total 400 / 930 150 / 1080 Balance 400 / 930 150 / 1080 Physical Exam Narrative: GENERAL: Patient is alert, awake and oriented x3. [] NECK: No jugular vein distension. [] HEENT: No cyanosis. No icterus. No pallor. [] HEART: Regular S1 and S2. Grade 2/6 systolic murmur [] LUNGS: Clear to auscultate bilaterally. [] CENTRAL NERVOUS SYSTEM: Grossly nonfocal. [] EXTREMITIES: Lower extremities with 1+ edema bilaterally. Pulses palpable in the lower extremities, both dorsalis pedis and posterior tibial. [] Data 07/23/22 03:03 07/23/22 03:03 Micro: Microbiology 07/21/22 04:27 Blood Culture - Preliminary Blood NEGATIVE TO DATE 07/21/22 04:24 Blood Culture - Preliminary Blood NEGATIVE TO DATE A&P Assessment and plan (1) SVT (supraventricular tachycardia): Sotalol uptitrated to 120mg BID (2) Acute diastolic heart failure due to valvular disease: Improving. Continue diuretics. Patient will be referred back to structural team as has current echo showing moderate paravalvular leak and has elevated gradients. No evidence of vegetations on the ABDIRIZAK. However, appropriate to treat as endocarditis as no other focus of infection noted. (3) Low grade fever: Possibility of endocarditis can not be ruled out although no vegetation seen on ABDIRIZAK. Patient has no source of GPC positive blood cultures. ID on board. Appropriate to treat as endocarditis. (4) Anemia: Monitor (5) S/P TAVR (transcatheter aortic valve replacement): Will discuss with structural team at [facility] as outpatient (6) Aortic regurgitation: As mentioned above (7) Benign essential HTN: Currently normotensive. May continue on the current medications. (8) Type 2 diabetes mellitus without complication: Aggressive management of the diabetes would be appropriate. Qualifiers: Diabetes mellitus terminal operations supervisor insulin use: without [facility] use Qualif ied Code(s): E11.9 - Type 2 diabetes mellitus without complications (9) Leg swelling: no evidence of DVT on venous duplex Plan Other problems are Shortness of breath, etiology? Related to CHF/anemia Obesity Patient is stable to be discharged from cardiology standpoint. Attestations Medical Necessity Statement*: Care expected to cross 2 midnights. Coding Level of Care Code Acute Code for Chg Fwd Diagnoses SVT (supraventricular tachycardia) I47.1 Acute diastolic heart failure due to valvular disease I50.31; I38 Low grade fever R50.9 Anemia D64.9 S/P TAVR (transcatheter aortic valve replacement) Z95.2 Aortic regurgitation I35.1 Benign essential HTN I10 Type 2 diabetes mellitus without complication E11.9 Diabetes mellitus terminal operations supervisor insulin use: without terminal operations supervisor use Leg swelling M79.89
[2022-07-23 08:52] LABS: Glucose Point of Care 178 mg/dL (70-110)
--- NOTE | 2022-07-23 09:09 | CT_ITS ---
WS: [id number] CT ABDOMEN AND PELVIS NONCONTRAST HISTORY: enterococcus bacteremia, evaluate for intraabdominal source TECHNIQUE: Imaging performed through the abdomen and pelvis. Coronal and sagittal reformats are submi tted. All CT scans at [facility] use at least one of these dose optimization techniques: auto mated exposure control; mA and/or kV adjustment per patient size (includes targeted exams where dose is matched to clinical indication); or iterative reconstruction. DLP: 1084.84 mGy.cm COMPARISON: Chest CT 08/16/2019. Lower thorax: Lung bases are clear. Mild cardiomegaly. Small hiatal hernia. Liver: Normal size liver. No mass or bile duct dilatation. Gallbladder: Normal gallbladder. Pancreas: Normal size with mild diffuse fatty replacement. Spleen: Normal. Adrenal glands: Normal RIGHT adrenal gland. There is mild thickening of the LEFT adrenal gland measur ing up to 12 mm. Similar to the prior study of 08/16/2019. Right kidney: Normal size kidney with no mass or hydronephrosis. Left kidney: Normal size. Very minimal perinephric stranding. 3.6 cm LEFT renal cyst. Nonobstructing calcification in the mid kidney. Aorta: Mild atherosclerosis abdominal aorta with no aneurysm. No free fluid, intraperitoneal air or significant lymphadenopathy. GI tract: Normal noncontrast imaging of the stomach, small bowel and colon. No obstruction or wall th ickening. Prior appendectomy. Abdominal wall: No ventral abdominal wall hernia. There is an area of mild soft tissue stranding invo lving the lower abdominal pannus at the level of the pelvis. There is inflammation in the soft tissue and a small defect within the abdominal musculature. Suspect area of subcutaneous cellulitis and ome ntal infarction. Infarct measures 2.7 cm in diameter. No abscess. Pelvis: Nondistended bladder. Normal size uterus for age. RIGHT ovarian follicle 2.5 cm. Osseous structures: Thoracolumbar scoliosis. CT/CT abdomen pelvis wo con [id number] IMPRESSION: 1. No acute abdominal or pelvic abnormalities. 2. No renal obstruction or significant perinephric stranding. 3. No inflammation adjacent to the gallbladder. 4. Prior cholecystectomy. 5. No evidence for diverticulitis. 6. Cellulitis and focal area of omental infarction involving the lower abdomin al pannus.
--- NOTE | 2022-07-23 09:18 | PM.DCS ---
Discharge Providers Date of Admission: 07/16/22 14:27 Date of Discharge: July 23, 2022 Attending Provider at Admission: Jagruti Currie MD Attending Provider at Discharge: Tyson Welsh MD Consults: Cardiology: Dr. Goncalves ID: Dr. Sanchez Primary Care Provider: SUE Celaya Diagnoses at Discharge Discharge Diagnosis (1) Acute diastolic heart failure due to valvular disease: Status: Acute (2) Low grade fever: Status: Acute (3) SVT (supraventricular tachycardia): Status: Acute (4) Anemia: Status: Inactive (5) S/P TAVR (transcatheter aortic valve replacement): Status: Acute (6) Aortic regurgitation: Status: Acute (7) Benign essential HTN: Status: Inactive (8) Type 2 diabetes mellitus without complication: Status: Acute Qualifiers: Diabetes mellitus nursing home insulin use: without manager intermediate use Qualified Code(s): E11.9 - Type 2 diabetes mellitus without complications (9) Leg swelling: Status: Acute Reason for Visit Reason for Visit: [facility] Hospital Course Hospital Course Roxana Hamilton is a 71 year old female with a past medical history of hypertension, diabetes mellitus, aortic valve stenosis, status post TAVR in December 2021 at [facility] in [place].? She has a history of recurrent SVTs which was quite bothersome however states that this had been improving since getting her TAVR.? Patient started to feel unwell in May of this year.? She describes her symptoms as being fatigue, generalized weakness, low-grade fever, subjective chills, increased frequency of episodes of SVT, palpitations and dyspnea.? Has had some dizziness with episodes of SVT without loss of consciousness.? Patient assumed that her symptoms were related to her COVID-19 infection, though it does not appear that she had been formally tested. She was admitted to the hospital on July 16, 2022 for management of SVT for which she is being followed by cardiology and started on sotalol recently.? Echocardiogram was performed which showed moderate valvular aortic regurgitation with mild to moderate perivalvular regurgitation.? Significant gradient was noted in the bioprosthetic aortic valve.? In the interim patient was noted to have fever during the course of her admission here.? Tmax ranging from 99.8 to 100.1 Fahrenheit, similar to what patient had been experiencing at home.? Infectious source evaluation revealed blood cultures positive for Enterococcus faecalis on July 17 and July 18, 2022.? Chest x-ray showed possible right lower lobe infiltrate and left lower lobe atelectasis.? Per my review it appears to be atelectasis .? Chest x-ray overall appears to be unchanged when compared to June 06, 2020. No localizing abdominal symptoms such as abdominal pain nausea vomiting or diarrhea.? Patient does report in May at the onset of symptoms she had about a week of diarrheal illness however since then has had regular bowel movements.? She had a port in the past when she received chemotherapy for breast cancer, however this has since been removed.? Currently she does not have any endovascular devices apart from the bioprosthetic valve.? Urine analysis showed negative nitrate, negative leukocyte Estrace, no urine WBC.? During hospitalization patient was seen by both cardiology and infectious disease. She underwent ABDIRIZAK which was negative for vegetation. Given high suspicion of infective endocarditis decision was made to treat her for infective endocarditis. She is to continue with ampicillin 12 g daily at home with continuous infusion along with ceftriaxone 2 g twice daily. She is to continue taking these antibiotics for 6 weeks with weekly CBC, LFT and creatinine which will be followed through the ID clinic. Discharge plan were discussed in detail with patient and patient's family at bedside. And they were both agreeable. She has been discharged home with home health in hemodynamically stable condition. She is to follow-up with ID in 4 weeks. Physical Exam Narrative: General: No acute distress, AO x3, on room air HEENT: PERRLA, pupils bilaterally equal and reactive Chest: Normal vesicular breath sounds all over lung garcia with occasional rhonchi and fine crackles bilaterally lower zone CVS: S1-S2 regular, early diastolic murmur at aortic area radiating to apex with a valvular click, S3 gallop Abdomen: Soft, nontender, no organomegaly, bowel sounds present, morbidly obese Neuro: No focal deficits, no facial deformity, AO x3, power 5/5 in all limbs Discharge Data Studies Completed and Pending Completed Studies During Hospitalization Category Date Time Status CXRP [XR chest 1V portable [id number]] Routine Exams 07/22/22 15:12 Completed XR chest 1V portable [id number] Routine Exams 07/17/22 10:57 [place] [id number] Routine Ultrasound 07/17/22 08:50 Completed US echo complete [CV. echo complete* [id number]] Routine Ultrasound 07/16/22 01:00 Completed Pending at discharge Category Date Time Status CT abdomen pelvis wo con [id number] Routine Cat Scan 07/23/22 09:09 Ordered Blood Culture AM LABS Lab 07/21/22 04:27 Results MRSA by PCR Routine Lab 07/22/22 17:23 Received CV. echo transesophageal [id number] Routine Ultrasound 07/22/22 16:51 Taken Radiology Impressions Chest X-Ray 07/22/22 15:12 IMPRESSION: PICC line pacemaker as above. Presumed improvement in pulmonary edema. Echocardiogram: ?CONCLUSIONS ?Normal left ventricular size and systolic function, EF 66 %. No ?regional wall motion abnormalities. Moderate left ventricular ?hypertrophy. Grade III/IV diastolic dysfunction (restrictive ?filling pattern), severely elevated filling pressures. ?Bioprosthetic valve at the aortic position was noted.? There ?appeared to be moderate valvular and mild to moderate ?perivalvular regurgitation in the short axis view.? The peak ?velocity across aortic valve was 3.08 m/s with a peak gradient ?of 38 and a mean gradient of 20 mmHg.? The aortic valve area was ?calculated to be 1.0 m/s. ?Moderate mitral annular calcification. Mild mitral valve ?regurgitation. ?Mild biatrial enlargementTrace to mild tricuspid valve ?regurgitation. ?Estimated pulmonary artery peak systolic pressure 48 mmHg. ?Moderate mitral annular calcification. Mild mitral valve ?regurgitation. ?Estimated right atrial pressure of 15 mmHg ?Compared to the study from 12/18/2021, the bioprosthetic valve in ?the aortic position is new. ?Dr Jean Whyte MD [facility] ?(Electronically Signed) ?Final Date:? ? ? 16 July 2022 ? 08:35 Laboratory Results WBC 12.0 10^3/uL (4.0-10.0) H 07/23/22 03:03 RBC 3.46 10^6/uL (4.1-5.3) L 07/23/22 03:03 Hgb 8.9 g/dL (11.5-15.3) L 07/23/22 03:03 Hct 28.8 % (37.0-47.0) L 07/23/22 03:03 MCV 83.2 fl (81-99) 07/23/22 03:03 MCH 25.7 pg (28.0-34.0) L 07/23/22 03:03 MCHC 30.9 g/dL (30.0-36.0) 07/23/22 03:03 RDW 15.4 % (12.1-15.1) H 07/23/22 03:03 Plt Count 323 10^3/cmm (130-400) 07/23/22 03:03 MPV 9.4 fL (7.4-10.4) 07/23/22 03:03 Neut % (Auto) 65.5 % 07/23/22 03:03 Lymph % (Auto) 22.9 % 07/23/22 03:03 Door % (Auto) 7.6 % 07/23/22 03:03 Eos % (Auto) 2.1 % 07/23/22 03:03 Baso % (Auto) 0.6 % 07/23/22 03:03 Neut # (Auto) 7.86 10^3/uL (1.8-7.7) H 07/23/22 03:03 Lymph # (Auto) 2.7 10^3/uL (0.8-4.8) 07/23/22 03:03 Door # (Auto) 0.9 10^3/uL (0.2-0.9) 07/23/22 03:03 Eos # (Auto) 0.3 10^3/uL (0.0-0.8) 07/23/22 03:03 Baso # (Auto) 0.1 10^3/uL (0.0-0.1) 07/23/22 03:03 Nucleated RBC % (auto) 0 % 07/23/22 03:03 Nucleated RBCs # 0.0 /100WBC 07/23/22 03:03 Haptoglobin 296.0 mg/L (30-200) H 07/22/22 03:34 PT 13.50 SECONDS (12.1-14.9) 07/22/22 03:34 INR 1.00 (0.8-1.2) 07/22/22 03:34 Sodium 135 mmol/L (136-145) L 07/23/22 03:03 Potassium 4.3 mmol/L (3.5-5.1) 07/23/22 03:03 Chloride 100 mmol/L (98-107) 07/23/22 03:03 Carbon Dioxide 26 mmol/L (22-29) 07/23/22 03:03 Anion Gap 13.3 (5-19) 07/23/22 03:03 BUN 19 mg/dL (8-23) 07/23/22 03:03 Creatinine 0.6 mg/dL (0.5-0.9) 07/23/22 03:03 GFR Calculation 99.1 mL/min (90-130) 07/23/22 03:03 Glucose 132 mg/dL (65-115) H 07/23/22 03:03 POC Glucose 178 mg/dL (70-110) H 07/23/22 08:04 Estimat Average Glucose 146 07/15/22 23:35 Hemoglobin A1c 6.7 % (4.0-6.0) H 07/15/22 23:35 Calculated Osmolality 284 mOsm/kg (285-295) L 07/23/22 03:03 Calcium 8.7 mg/dL (8.5-10.5) 07/23/22 03:03 Magnesium 1.8 mg/dL (1.7-2.3) 07/17/22 04:15 Iron 20 ug/dL (37-145) L 07/17/22 04:15 TIBC 196 mcg/dl 07/17/22 04:15 % Saturation 10.2 % (20-50) L 07/17/22 04:15 Unsat Iron Binding 176 ug/dL (112-347) 07/17/22 04:15 Transferrin 172 mg/dL (200-360) L 07/17/22 04:15 Ferritin 165 ng/mL (15-150) H 07/17/22 04:15 Total Bilirubin 0.2 mg/dL (0.15-1.2) 07/23/22 03:03 GGT 57 U/L (5-36) H 07/22/22 03:34 AST 14 U/L (0-32) 07/23/22 03:03 ALT 17 U/L (0-33) 07/23/22 03:03 Alkaline Phosphatase 81 U/L (35-105) 07/23/22 03:03 Lactate Dehydrogenase 206 U/L (135-214) 07/22/22 03:34 Troponin T Baseline 24 ng/L (0-10) H 07/15/22 23:35 Troponin T 120 Minute 27.51 ng/L (0-10) H 07/16/22 01:20 Delta Troponin T 3.51 ABS# (0-10) 07/16/22 01:20 Troponin T Hi Sens 6Hr 30.50 ng/L (0-10) H 07/16/22 05:28 Troponin T Hi Sens 6Hr Delta 6.50 ng/L (0-12) 07/16/22 05:28 NT-Pro-B Natriuret Pep 3266 pg/mL (0-125) H 07/16/22 05:28 Total Protein 7.0 g/dL (6.6-8.7) 07/23/22 03:03 Albumin 3.3 g/dL (3.5-5.2) L 07/23/22 03:03 Globulin 3.7 g/dL (1.3-4.6) 07/23/22 03:03 Vitamin B12 262 pg/mL (232-1245) 07/22/22 03:34 Folate 9.4 ng/mL (4.8-37.3) 07/22/22 03:34 Procalcitonin 0.44 ng/mL (0-0.5) 07/15/22 23:35 TSH 0.35 uIU/mL (0.27-4.20) 07/15/22 23:35 Urine Color Light yellow (Yellow) 07/17/22 12:03 Urine Appearance Clear (CLEAR) 07/17/22 12:03 Urine pH 5 (5-7) 07/17/22 12:03 Ur Specific [place] 1.010 (1.005-1.030) 07/17/22 12:03 Urine Protein Neg (Negative) 07/17/22 12:03 Urine Glucose (UA) Norm (Normal) 07/17/22 12:03 Urine Ketones Negative (Negative) 07/17/22 12:03 Urine Blood 3+ (Negative) H 07/17/22 12:03 Urine Nitrate Negative (Negative) 07/17/22 12:03 Urine Bilirubin Neg (Negative) 07/17/22 12:03 Urine Urobilinogen Neg mg/dL (Negative) 07/17/22 12:03 Ur Leukocyte Esterase Negative (Negative) 07/17/22 12:03 Urine RBC 0-4 /hpf (0-2) H 07/17/22 12:03 Urine WBC None /hpf (0-5) 07/17/22 12:03 Ur Squamous Epith Cells 0-4 /hpf (0-5) H 07/17/22 12:03 Amorphous Sediment Not Reportable 07/17/22 12:03 Urine Bacteria Trace /hpf (NONE) 07/17/22 12:03 Vancomycin Trough 12.8 ug/mL (10-15) 07/21/22 04:24 Blood Type O Positive 07/17/22 11:48 Rho(D) Type Positive 07/17/22 11:48 Antibody Screen Negative 07/17/22 11:48 Crossmatch See Detail 07/17/22 11:48 Vitals Last Vital Signs Temp 98.5 F 07/23/22 04:00 Pulse 69 07/23/22 07:35 Resp 18 07/23/22 07:35 BP 141/53 07/23/22 07:35 Pulse Ox 94 07/23/22 07:35 O2 Del Method 07/23/22 07:35 O2 Flow Rate 5 07/22/22 09:01 Discharge Plan Discharge Patient Disposition: Home Health Service Condition: Stable Prescriptions: New furosemide 40 mg Tablet 40 mg PO DAILY@0800 Qty: 30 0RF ampicillin sodium 2 gram recon soln 2 g IV Q4H 42 Days Qty: 168 0RF ceftriaxone 2 gram recon soln 2 g IV Q12H 42 Days Qty: 84 0RF sotalol 80 mg Tablet 120 mg PO BID 30 Days Qty: 90 0RF Continued clopidogrel 75 mg tablet 75 mg PO DAILY@19 insulin glargine [Lantus U-100 Insulin] 100 unit/mL solution 20 unit SUBCUT DAILY@15 Dose Instruction: INJECT 24 UNITS SUBCUTANEOUSLY ONCE DAILY metformin 1,000 mg tablet 1,000 mg PO BID@ Hold Instructions: Resume on 01/11/22. Dose Instruction: Take 1 tablet by mouth twice daily magnesium oxide 400 mg magnesium tablet 400 mg PO BID Qty: 60 0RF glipizide 10 mg tablet 10 mg PO BID Qty: 180 0RF acetaminophen 500 mg Tablet 1,000 mg PO Q6H PRN (Reason: Pain) exemestane 25 mg tablet 25 mg PO DAILY@19 multivitamin Tablet 1 tab PO DAILY lisinopril 5 mg tablet 5 mg PO DAILY@19 Qty: 30 0RF Discontinued metoprolol succinate 50 mg tablet extended release 24 hr 50 mg PO DAILY@19 aspirin 325 mg Tablet 325 mg PO Q6H PRN (Reason: Headache) diltiazem HCl 360 mg capsule,extended release 24hr 360 mg PO DAILY@19 furosemide 20 mg tablet 20 mg PO DAILY@07 No Action (DME) insulin syringe-needle U-100 [BD Insulin Syringe Ultra-Fine] 1 mL 31 gauge x 5/16 syringe See Rx Instructions .ROUTE .COMPLEX Qty: 100 3RF Dose Instruction: USE DIRECTED Rx Instructions: USE DIRECTED Discharge Orders: Discharge Order (Routine); Ordered 07/23/22 Ordered By: Tyson eWlsh Other Ambulatory Orders: MCT/Event Monitor 21 Days (Routine) Timeframe: 1 Week Facility: [facility] - Location: Radiology Ordered By: Tyson Welsh DME: Walker (Order) Location: None Selected Ordered By: Julius Skaggs Referrals: [facility] [Outside] Heather Salas FNP [Primary Care Provider] - 07/30/22 1:00 pm Quinn Goncalves M.D [Physician] - 1 month (Your follow up appt with Dr. Goncalves will be scheduled while you are at the appt with Mimi Daly. Please call [phone] if you have any questions or concerns. Thank you.) Carlee Sanchez MD [Hospitalist] - 08/28/22 10:30 am (Please call them with any questions or concerns at [phone] Thank you.) Mimi Daly FNP [Nurse Practitioner] - 07/31/22 2:15 pm (Please be at the office at 1:45 pm to be fitted for the 21 day event monitor. Then you will see Mimi Daly. Thank you.) Discharge Diet: Cardiac and Diabetic Discharge Activity: Resume usual activity and Increase activity as tolerated Patient Instructions: Furosemide (By mouth) (Lasix), Ampicillin (By injection) (PremierPro RX Ampicillin), Ampicillin (By injection), Ceftriaxone (By injection) (Rocephin, Novaplus cefTRIAXone,..., Sotalol (By mouth) (Betapace, Betapace AF, Sorine, Sotylize), Supraventricular Tachycardia (GEN), How to Care for Your PICC (Peripherally Inserted Central Catheter) (DC), How to Care for Your PICC (Peripherally Inserted Central Catheter) (GEN), Opioid Safety Activity Restrictions/Additional Instructions: Follow-up with a primary care provider within next 1 week. Follow-up with Mimi Daly who is a nurse practitioner on heart care services in [address] Goncalves within next 1 month. Follow-up with Dr. Sanchez from ID clinic within next 1 month. Multiple medication changes have been done. Do not take Cardizem, metoprolol anymore. You will be on sotalol 120 mg twice daily. The dose of Lasix has been increased to 40 mg daily. Do not take aspirin 325 mg for your headache anymore. Because it increases your high risk of bleeding while you are on Plavix daily. You will be on 2 antibiotics namely ampicillin 12 g a day and ceftriaxone 2 g twice daily for next 6 weeks. While on the antibiotics he will be getting CBC, LFT and creatinine weekly which will be followed with ID clinic. Discharge Attestations Time Spent in Discharge Care*: greater than 30 min Quality Metrics Clinical Quality Measures [ No reported AMI, CVA or VTE this stay] Coding Level of Care Code 83486 Total time (in minutes) for Discharge: 60 Diagnoses Acute diastolic heart failure due to valvular disease I50.31; I38 Low grade fever R50.9 SVT (supraventricular tachycardia) I47.1 Anemia D64.9 S/P TAVR (transcatheter aortic valve replacement) Z95.2 Aortic regurgitation I35.1 Benign essential HTN I10 Type 2 diabetes mellitus without complication E11.9 Diabetes mellitus manager intermediate insulin use: without nursing home use Leg swelling M79.89
--- NOTE | 2022-07-23 10:47 | PC.SOCIAL ---
IMM Updated Updated pt on IMM. No questions voiced. Provided pt a copy. Initialed, dated, & timed copy in chart.
[2022-07-23 11:13] VITALS: BP 136/57; PULSE 69; RESP 19; TEMP 36.7; O2SAT 95
[2022-07-23 11:24] LABS: Glucose Point of Care 221 mg/dL (70-110)
[2022-07-23 12:50] VITALS: BP 168/56; PULSE 70; RESP 18; O2SAT 92
--- NOTE | 2022-07-23 13:11 | PC.NURSE ---
pt PICC line dressing was changed 1255 on 05/01/2022. Pt PIV was removed. patient educated with daughter rg. Education provided, medication sent to pharmacy.
--- NOTE | 2022-07-23 18:05 | PM.PN ---
Subjective Subjective: No new complaints today. CT of the abdomen and pelvis was performed given abdominal distention and to evaluate for any intra-abdominal source of the Enterococcus bacteremia. CT did not show any acute abdominal or pelvic abnormalities. Area of cellulitis was mentioned with focal area of omental infarction involving the lower abdominal pannus, however there is no clinical correlate for the same on exam. This possibly refers to the site of Lovenox injection and resulting hematomas that we see physically on exam. on the right lower abdomen. Medications: Reviewed: Yes Medication Review Details: Medication history: Piperacillin tazobactam (July 18 - 07/22 ) IV vancomycin (July 18 to July 21, 2022) Vitals/I&O/Wt Last Vital Signs Temp 98.0 F 07/23/22 11:13 Pulse 70 07/23/22 12:50 Resp 18 07/23/22 12:50 BP 168/56 07/23/22 12:50 Pulse Ox 92 07/23/22 12:50 O2 Del Method 07/23/22 11:13 O2 Flow Rate 5 07/22/22 09:01 07/23/22 07/23/22 07/23/22 06:59 14:59 22:59 Intake Total 150 / 1080 510 / 510 Balance 150 / 1080 510 / 510 Physical Exam Narrative: General: No acute distress, AO x3 HEENT: PERRLA, pupils bilaterally equal and reactive, pallors not present Chest: Normal vesicular breath sounds, no added sounds, equal good air entry bilaterally CVS: S1-S2 regular, no murmurs, no tachycardia, no gallops, no rubs Abdomen: Soft, nontender, no organomegaly, bowel sounds present Neuro: No focal deficits, no facial deformity, AO x3, power 5/5 in all limbs Data 07/23/22 03:03 07/23/22 03:03 A&P Assessment and plan (1) Infective endocarditis: (2) S/P TAVR (transcatheter aortic valve replacement): Plan 71-year-old lady is with multiple medical history as outlined above, status post TAVR in December 2021, currently presenting with 2 months of generalized weakness, fatigue, recurrent episodes of SVT, found to have low-grade fevers, blood cultures positive for Enterococcus faecalis on July 17 and July 18, TTE with mild to moderate perivalvular regurgitation and increased AV gradient which may be related to downsizing of the valve however given recovery of her typical organism associated with endocarditis, with subacute symptoms clinical concern for infective endocarditis. ABDIRIZAK negative for vegetations. Patient meets at least 1 major (community-acquired Enterococcus in the absence of a primary focus positive from 2 separate blood cultures ) and 2 minor clinical criteria (predisposing heart condition by way of a prosthetic valve and fever). Based on modified [place] criteria , clinical picture is compatible with possible infective endocarditis of a prosthetic valve. Plan: started treatment with beta-lactam combination ceftriaxone 2 g IV every 12 hours and ampicillin 2 g IV every 4 hours. We will avoid beta-lactam/gentamicin combination due to multiple other comorbidities, lack of ability to monitor gentamicin levels as outpatient, higher risk of nephrotoxicity in a patient who also needs to be on KIARA inhibitors and diuresis. We will plan on treatment for 6 weeks PICC line placed today Currently blood cultures are negative from July 21, 2022. Discussed all risks and benefits, diagnosis of possible endocarditis, side effects of dual beta-lactam therapy including but not limited to cholecystitis, acute renal failure,neutropenia Patient plans to return home to complete therapy. We will check weekly CBC, creatinine, LFTs while on the above regimen to evaluate for any drug-related toxicity.\ All labs to be faxed to ID office for review follow in one month Attestations Medical Necessity Statement*: per admitting Coding Level of Care Code Acute Code for [facility] Diagnoses Infective endocarditis I33.0 S/P TAVR (transcatheter aortic valve replacement) Z95.2
== END 2022-07-23 13:17 | disposition home health service (06) | DRG 314 ==
LOC: ER 07-16 00:41 → CSU 07-16 01:25
PROVIDERS: Internal Medicine; Internal Medicine Cardiovascular Disease; Student in an Organized Health Care Education/Training Program; Admitting Provider Internal Medicine; Emergency Provider Emergency Medicine; PCP Nurse Practitioner Family; Visit Provider Student in an Organized Health Care Education/Training Program
DX: T82.6XXA Infection and inflammatory reaction due to cardiac valve prosthesis, initial encounter (principal); I33.0 Acute and subacute infective endocarditis; I50.33 Acute on chronic diastolic (congestive) heart failure; I47.1 Supraventricular tachycardia; Z68.41 Body mass index [BMI] 40.0-44.9, adult; E87.1 Hypo-osmolality and hyponatremia; Y71.8 Miscellaneous cardiovascular devices associated with adverse incidents, not elsewhere classified; B95.2 Enterococcus as the cause of diseases classified elsewhere; I11.0 Hypertensive heart disease with heart failure; I35.1 Nonrheumatic aortic (valve) insufficiency; E11.9 Type 2 diabetes mellitus without complications; Z79.02 Long term (current) use of antithrombotics/antiplatelets; Z79.4 Long term (current) use of insulin; Z79.84 Long term (current) use of oral hypoglycemic drugs; Z85.3 Personal history of malignant neoplasm of breast; Z87.01 Personal history of pneumonia (recurrent); Z92.21 Personal history of antineoplastic chemotherapy; D64.9 Anemia, unspecified; E66.9 Obesity, unspecified; M79.89 Other specified soft tissue disorders; I27.20 Pulmonary hypertension, unspecified; Z86.16 Personal history of COVID-19; E78.2 Mixed hyperlipidemia; Z90.11 Acquired absence of right breast and nipple
CPT/HCPCS: 36415; 36416; 36430; 36569; 71045; 74176; 80048; 80053; 80202; 81001; 82274; 82607; 82728; 82746; 82962; 82977; 83010; 83036; 83540; 83550; 83615; 83735; 83880; 84145; 84443; 84466; 84484; 85025; 85610; 86850; 86900; 86920; 87040; 87077; 87086; 87186; 87205; 87641; 93005; 93306; 93312; 93320; 93325; 93971; 96372; 96374; 96376; 99285; G0378; J0153; J0290; J0696; J1650; J1756; J1815; J1940; J2543; J2704; J3370; J3490; P9016

== ENCOUNTER 2022-07-28 00:18 | Emergency (ER) | payer MEDICARE, MEDICAID, SELFPAY ==
[2022-07-28] VITALS (7 sets, daily range): BP systolic 120–160; BP diastolic 74–88; PULSE 78–150; RESP 16–25; TEMP 36.5; O2SAT 93–96; BMI 38.4
--- NOTE | 2022-07-28 00:33 | ED_ITS ---
HPI - Arrhythmia/Palpitations General: Chief Complaint: Arrhythmia/Palpitations Stated Complaint: tachycardia Time Seen by Provider: 07/28/22 00:24 Source: patient and EMS Mode of arrival: EMS Limitations: no limitations History of Present Illness: 71-year-old female has a history of SVT she states that she started having palpitations tonight tried vagal maneuvers was unable to convert herself. I did see her little over a week ago for her SVT and was admitted she is found to have a possible endocarditis she is currently on antibiotics she has a PICC line she denies any fever she denies any pain this feels like her typical SVT. She does have a heart rate of 150 here. Associated symptoms: Deny nausea or vomiting Review of Systems Const: Denies: fever(s), chills, body aches or change in appetite Eyes: Denies: blurry vision or eye discomfort ENMT: Denies: throat pain or dental pain Card: Reports: palpitations Resp: Denies: dyspnea GI: Denies: abdominal pain, nausea, vomiting or diarrhea : Denies: dysuria Musc: Denies: neck pain or back pain Skin/Breast: Denies: rash Neuro: Denies: headache(s) Psych: Denies: depression Jed/Lymph: Denies: easy bruising All/Imm: Denies: urticaria PFSH ED PFSH: Medical History Anemia Asymptomatic menopausal state Axillary lump Benign essential HTN Breast cancer, right breast Hyperlipidemia Malignant neoplasm of central portion of right female breast Personal history of malignant neoplasm of breast Pneumonia Secondary and unspecified malignant neoplasm of axilla and upper limb lymph nodes SVT (supraventricular tachycardia) Type 2 diabetes mellitus without complication Type 2 DM mod nonproliferative retinopathy, macular edema, uncontrol Pt. will increase lantus to 24 units at hs Pt. to follow ADA diet closely Pt. agrees with plan of care. Surgical History History of appendectomy History of mastectomy Hx of section Hx of tonsillectomy S/P TAVR (transcatheter aortic valve replacement) Family History Family/Other CAD (coronary artery disease) Cancer Diabetes Hypertension Son Cancer Brother Cancer Father Cancer Mother Diabetes Grandfather Diabetes Denies family history of Dementia Hyperlipidemia Chronic kidney disease (CKD) Lung disease Stroke Social History Smoking and tobacco status: never smoked Second hand smoke exposure: Yes Alcohol intake: never Adopted: No Lives independently: Yes Household members: spouse and family Housing: House Marital status: Female Reproductive History: Para: 6 Date of menopause: 05/01/93 Physical Exam Const: COMMON NORMALS: patient oriented x3 HENMT: COMMON NORMALS: normocephalic and atraumatic HEAD & SCALP: normocephalic and atraumatic Eye: COMMON NORMALS: Equal, round and reactive pupils present and EOMs intact bilaterally PUPIL: Yes Equal, round and reactive pupils present Neck/C-Spine: COMMON NORMALS: full ROM and supple Chest: COMMONS NORMALS: normal inspection of the chest and normal palpation of entire chest wall Resp: COMMON NORMALS: normal respiratory effort, No retractions, No use of accessory muscles and clear to auscultation bilaterally AUSCULTATION: clear to auscultation bilaterally Cardio: COMMON NORMALS: regular rhythm and No murmurs present (Cardio) RATE: tachycardic RHYTHM: regular rhythm GI: COMMON NORMALS: Normal to inspection, nondistended, normoactive bowel sounds present, Soft to palpation, non-tender and no masses PALPATION: Yes Soft to palpation Extremity: COMMON NORMALS: normal to inspection and full ROM Neuro: COMMON NORMALS: patient oriented x3, moves all extremities and no focal motor deficits Psych: COMMON NORMALS: mental status grossly normal, Normal thought process present and cooperative THOUGHT PROCESS: Normal thought process present Skin: COMMON NORMALS: no rashes or lesions noted and no wounds GENERAL SKIN EXAM: no rashes or lesions noted Course Vital Signs: Vital signs: Vital Signs Temperature 97.7 F 07/28/22 00:20 Pulse Rate 78 07/28/22 02:22 Respiratory Rate 20 H 07/28/22 02:22 Blood Pressure 147/80 07/28/22 02:22 Pulse Oximetry 94 07/28/22 02:22 Oxygen Delivery Me thod 07/28/22 02:22 Oxygen Flow Rate 2 07/28/22 01:09 MDM - Arrhythmia/Palpitations Medical Decision Making Patient presents here with SVT she was converted here I observed her for roughly an hour her heart rates been stable she has had no pain she had no fever she is on her antibiotics for her endocarditis she asked has follow-up with cardiology this week she is stable for discharge she is to follow-up with cardiology as scheduled return if worsening. Lab Data 07/28/22 00:15 07/28/22 00:15 Laboratory Results WBC 12.5 10^3/uL (4.0-10.0) H 07/28/22 00:15 RBC 3.24 10^6/uL (4.1-5.3) L 07/28/22 00:15 Hgb 8.5 g/dL (11.5-15.3) L 07/28/22 00:15 Hct 27.3 % (37.0-47.0) L 07/28/22 00:15 MCV 84.3 fl (81-99) 07/28/22 00:15 MCH 26.2 pg (28.0-34.0) L 07/28/22 00:15 MCHC 31.1 g/dL (30.0-36.0) 07/28/22 00:15 RDW 15.7 % (12.1-15.1) H 07/28/22 00:15 Plt Count 295 10^3/cmm (130-400) 07/28/22 00:15 MPV 9.7 fL (7.4-10.4) 07/28/22 00:15 Neut % (Auto) 75.2 % 07/28/22 00:15 Lymph % (Auto) 15.9 % 07/28/22 00:15 [place] % (Auto) 6.5 % 07/28/22 00:15 Eos % (Auto) 1.5 % 07/28/22 00:15 Baso % (Auto) 0.4 % 07/28/22 00:15 Neut # (Auto) 9.44 10^3/uL (1.8-7.7) H 07/28/22 00:15 Lymph # (Auto) 2.0 10^3/uL (0.8-4.8) 07/28/22 00:15 [place] # (Auto) 0.8 10^3/uL (0.2-0.9) 07/28/22 00:15 Eos # (Auto) 0.2 10^3/uL (0.0-0.8) 07/28/22 00:15 Baso # (Auto) 0.1 10^3/uL (0.0-0.1) 07/28/22 00:15 Nucleated RBC % (auto) 0 % 07/28/22 00:15 Nucleated RBCs # 0.0 /100WBC 07/28/22 00:15 Sodium 134 mmol/L (136-145) L 07/28/22 00:15 Potassium 3.9 mmol/L (3.5-5.1) 07/28/22 00:15 Chloride 100 mmol/L (98-107) 07/28/22 00:15 Carbon Dioxide 23 mmol/L (22-29) 07/28/22 00:15 Anion Gap 14.9 (5-19) 07/28/22 00:15 BUN 7 mg/dL (8-23) L 07/28/22 00:15 Creatinine 0.5 mg/dL (0.5-0.9) 07/28/22 00:15 GFR Calculation 122.3 mL/min (90-130) 07/28/22 00:15 Glucose 119 mg/dL (65-115) H 07/28/22 00:15 Calculated Osmolality 277 mOsm/kg (285-295) L 07/28/22 00:15 Calcium 8.0 mg/dL (8.5-10.5) L 07/28/22 00:15 Total Bilirubin 0.2 mg/dL (0.15-1.2) 07/28/22 00:15 AST 20 U/L (0-32) 07/28/22 00:15 ALT 17 U/L (0-33) 07/28/22 00:15 Alkaline Phosphatase 72 U/L (35-105) 07/28/22 00:15 Total Protein 6.4 g/dL (6.6-8.7) L 07/28/22 00:15 Albumin 2.9 g/dL (3.5-5.2) L 07/28/22 00:15 Globulin 3.5 g/dL (1.3-4.6) 07/28/22 00:15 EKG Data EKG 1: I personally reviewed and interpreted this EKG as follows: EKG interpretation date: 07/28/22 EKG interpretation time: 00:24 Interpretation: SVT hr [address] or t wave abnormalities qrs 136 qtc 387 EKG 2: I personally reviewed and interpreted this EKG as follows: EKG interpretation date: 07/28/22 EKG interpretation time: 01:09 Interpretation: nsr hr [address] or t wave abnormalities qrs 94 qtc 438 Discharge Plan Discharge Patient Disposition: Home Clinical Impression: SVT (supraventricular tachycardia) Condition: Stable Prescriptions: No Action clopidogrel 75 mg tablet 75 mg PO DAILY@19 insulin glargine [Lantus U-100 Insulin] 100 unit/mL solution 20 unit SUBCUT DAILY@15 Dose Instruction: INJECT 24 UNITS SUBCUTANEOUSLY ONCE DAILY metformin 1,000 mg tablet 1,000 mg PO BID@ Hold Instructions: Resume on 01/11/22. Dose Instruction: Take 1 tablet by mouth twice daily magnesium oxide 400 mg magnesium tablet 400 mg PO BID Qty: 60 0RF (DME) insulin syringe-needle U-100 [BD Insulin Syringe Ultra-Fine] 1 mL 31 gauge x 5/16 syringe See Rx Instructions .ROUTE .COMPLEX Qty: 100 3RF Dose Instruction: USE DIRECTED Rx Instructions: USE DIRECTED glipizide 10 mg tablet 10 mg PO BID Qty: 180 0RF acetaminophen 500 mg Tablet 1,000 mg PO Q6H PRN (Reason: Pain) exemestane 25 mg tablet 25 mg PO DAILY@19 multivitamin Tablet 1 tab PO DAILY furosemide 40 mg Tablet 40 mg PO DAILY@0800 Qty: 30 0RF ampicillin sodium 2 gram recon soln 2 g IV Q4H 42 Days Qty: 168 0RF ceftriaxone 2 gram recon soln 2 g IV Q12H 42 Days Qty: 84 0RF sotalol 80 mg Tablet 120 mg PO BID 30 Days Qty: 90 0RF lisinopril 5 mg tablet 5 mg PO DAILY@19 Qty: 30 0RF Discharge Orders: Discharge ED (Routine); Ordered 07/28/22 Ordered By: Esteban Ochoa Referrals: Heather Salas FNP [Primary Care Provider] - Discharge Diet: Advance as tolerated Discharge Activity: Resume usual activity Patient Instructions: Supraventricular Tachycardia (ED) Coding Level of Care Code ED Bottom Bleacher for Chandana Saavedra
[2022-07-28 00:50] LABS: Basophils # 0.1 10^3/uL (0.0-0.1); Basophils % 0.4 %; Eosinophils # 0.2 10^3/uL (0.0-0.8); Eosinophils % 1.5 %; Hematocrit 27.3 % (37.0-47.0); Hemoglobin 8.5 g/dL (11.5-15.3); Lymphocytes % 15.9 %; Mean Corpuscular HGB Conc 31.1 g/dL (30.0-36.0); Mean Corpuscular Hemoglobin 26.2 pg (28.0-34.0); Mean Corpuscular Volume 84.3 fl (81-99); Mean Platelet Volume 9.7 fL (7.4-10.4); Monocytes # 0.8 10^3/uL (0.2-0.9); Monocytes % 6.5 %; Neutrophils # 9.44 10^3/uL (1.8-7.7); Neutrophils % 75.2 %; Nucleated Red Blood Cells % 0 %; Platelet Count 295 10^3/cmm (130-400); Red Blood Count 3.24 10^6/uL (4.1-5.3); Red Cell Distribution Width 15.7 % (12.1-15.1); White Blood Count 12.5 10^3/uL (4.0-10.0)
[2022-07-28] MEDS: adenosine 3 mg/mL SDV 2mL 12 MG IVP (01:04)
[2022-07-28 01:16] LABS: Alanine Aminotransferase 17 U/L (0-33); Albumin Level 2.9 g/dL (3.5-5.2); Alkaline Phosphatase 72 U/L (35-105); Aspartate Amino Transferase 20 U/L (0-32); Blood Urea Nitrogen 7 mg/dL (8-23); Carbon Dioxide 23 mmol/L (22-29); Chloride 100 mmol/L (98-107); Globulin 3.5 g/dL (1.3-4.6); Glomerular Filtration Rate 122.3 mL/min (90-130); Glucose 119 mg/dL (65-115); Osmolality Calculated 277 mOsm/kg (285-295); Sodium 134 mmol/L (136-145); Total Bilirubin 0.2 mg/dL (0.15-1.2); Total Protein 6.4 g/dL (6.6-8.7)
[2022-07-28 01:37] LABS: Anion Gap 14.9 (5-19); Potassium 3.9 mmol/L (3.5-5.1)
--- NOTE | 2022-07-28 01:57 | PC.NURSE ---
Assisted pt to bedside commode. Tolerated well.
== END 2022-07-28 02:45 | disposition home or self-care (01) ==
PROVIDERS: Emergency Provider Emergency Medicine; PCP Nurse Practitioner Family
DX: I47.1 Supraventricular tachycardia (principal); Z79.02 Long term (current) use of antithrombotics/antiplatelets; Z79.4 Long term (current) use of insulin; Z79.84 Long term (current) use of oral hypoglycemic drugs; Z77.22 Contact with and (suspected) exposure to environmental tobacco smoke (acute) (chronic); I10 Essential (primary) hypertension; Z85.3 Personal history of malignant neoplasm of breast; E78.5 Hyperlipidemia, unspecified; E11.9 Type 2 diabetes mellitus without complications
CPT/HCPCS: 80053; 85025; 96374; 99284; J0153

== ENCOUNTER → 2022-07-31 13:08 | Outpatient (BNVA) | payer MEDICARE, MEDICAID, SELFPAY | PROVIDERS: PCP Nurse Practitioner Family; Visit Provider Nurse Practitioner Family | DX: I47.1 Supraventricular tachycardia (principal); I11.0 Hypertensive heart disease with heart failure; I50.30 Unspecified diastolic (congestive) heart failure | CPT/HCPCS: 93005; 99214 ==

== ENCOUNTER 2022-08-04 07:51 | Inpatient (IN) | payer MEDICARE, MEDICAID, SELFPAY ==
[2022-08-04] VITALS (30 sets, daily range): BP systolic 106–211; BP diastolic 49–127; PULSE 56–85; RESP 14–28; TEMP 36.3–36.7; O2SAT 92–98; BMI 39.6
--- NOTE | 2022-08-04 08:08 | XR_ITS ---
WS: [id number] Portable AP upright chest, 08/04/2022 Clinical Data: dyspnea/cough Comparison: Portable chest, 07/22/2022 Findings: There are bilateral lower lobe opacities with greater opacity on the right than the left. T hese opacities may represent a combination of atelectasis, effusion and pneumonia. The heart remains enlarged. There is an artificial cardiac valve and recording device overlying the heart. The aortic a rch shows mild calcification. The left PICC line remains in the same position. There are monitor lead s on the chest wall. There are surgical clips in the right axilla. The pulmonary vascularity is not i ncreased. No pneumonia or pneumothorax is seen. XR/XR chest 1V portable [id number] Impression: 1. Development of bilateral lower lobe opacities more in the right than the lef t. 2. No change in atherosclerosis and cardiomegaly.
--- NOTE | 2022-08-04 08:09 | ECG_ITS ---
[facility] Test Date: 2022-08-04 Pat Name: Roxana Hamilton Department: Room: Gender: Female Strategic Buyer: : 1950 Requested By: Rashawn Anne Order Number: [id number] Tod MD: Quinn Goncalves M.D. Measurements Intervals [place] Rate: 82 P: 38 IA: 186 QRS: 29 QRSD: 98 T: 38 QT: 410 QTc: 480 Interpretive Statements SINUS RHYTHM WITH SINUS ARRHYTHMIA Compared to ECG 07/23/2022 05:41:24 No significant changes Electronically Signed On 08-04-2022 17:08:23 CDT by Quinn Goncalves M.D. [id number]
[2022-08-04 08:37] LABS: Basophils # 0.1 10^3/uL (0.0-0.1); Basophils % 0.7 %; Eosinophils # 0.2 10^3/uL (0.0-0.8); Eosinophils % 1.7 %; Hematocrit 32.2 % (37.0-47.0); Hemoglobin 9.9 g/dL (11.5-15.3); Lymphocytes # 1.6 10^3/uL (0.8-4.8); Lymphocytes % 12.5 %; Mean Corpuscular HGB Conc 30.7 g/dL (30.0-36.0); Mean Corpuscular Hemoglobin 26.6 pg (28.0-34.0); Mean Corpuscular Volume 86.6 fl (81-99); Mean Platelet Volume 9.3 fL (7.4-10.4); Monocytes # 0.7 10^3/uL (0.2-0.9); Monocytes % 5.7 %; Neutrophils % 78.8 %; Nucleated Red Blood Cells % 0 %; Platelet Count 342 10^3/cmm (130-400); Red Blood Count 3.72 10^6/uL (4.1-5.3); Red Cell Distribution Width 16.7 % (12.1-15.1); White Blood Count 12.6 10^3/uL (4.0-10.0)
--- NOTE | 2022-08-04 08:37 | W.ED.SOB ---
HPI - SOB/Dyspnea General: Chief Complaint: Shortness of Breath/Dyspnea Stated Complaint: SOB Time Seen by Provider: 08/04/22 07:57 Source: patient Mode of arrival: ambulatory History of Present Illness: HPI Narrative: 71-year-old female who presents to the emergency room with shortness of breath orthopnea and sleeping worse overnight. She has a history of SVT but has not had any rapid heart rates she has a monitor on at this time. She has not had any chest pain. She has had increased swelling in her legs. Patient was recently hospitalized out of endocarditis and ABDIRIZAK did not show any vegetations on the artificial valves she was discharged home on antibiotics for 6 weeks she is still taking nausea PICC line. She denies any chest pain at this time MD elicited complaint: shortness of breath Pertinent past history: congestive heart failure Onset (ago): day(s) (1) Timing: constant Severity: severe Exacerbating factors: lying flat and exertion Relieving factors: oxygen, rest and upright position Associated symptoms: Deny abdominal pain, chest congestion, chest pain, cough, diaphoresis, dizziness, extremity pain, fever(s), hemoptysis, lightheadedness, myalgias, nausea, orthopnea, palpitations, paresthesias, polydipsia, polyuria, rash, sense of impending doom, syncope or vomiting Treatment prior to arrival: none Review of Systems Const: Reports: fatigue and malaise; Denies: fever(s), chills or diaphoresis ENMT: Denies: throat pain, ear or mastoid pain, nasal discharge or nasal congestion Card: Reports: edema and swelling of feet/ankles; Denies: chest pain, palpitations, lightheadedness, syncope or orthopnea Resp: Reports: dyspnea; Denies: productive cough, non-productive cough, hemoptysis or chest congestion GI: Denies: abdominal pain, nausea or vomiting : Denies: flank pain, difficulty voiding, dysuria, urinary frequency or urinary urgency Musc: Denies: neck pain, back pain or extremity pain Skin/Breast: Denies: rash or pruritus Neuro: Denies: dizziness Endo: Denies: polyuria or polydipsia PFSH ED PFSH: Medical History Anemia Asymptomatic menopausal state Axillary lump Benign essential HTN Breast cancer, right breast Hyperlipidemia Malignant neoplasm of central portion of right female breast Personal history of malignant neoplasm of breast Pneumonia Secondary and unspecified malignant neoplasm of axilla and upper limb lymph nodes SVT (supraventricular tachycardia) Type 2 diabetes mellitus without complication Type 2 DM mod nonproliferative retinopathy, macular edema, uncontrol Pt. will increase lantus to 24 units at hs Pt. to follow ADA diet closely Pt. agrees with plan of care. Surgical History History of appendectomy History of mastectomy Hx of section Hx of tonsillectomy S/P TAVR (transcatheter aortic valve replacement) Family History Family/Other CAD (coronary artery disease) Cancer Diabetes Hypertension Son Cancer Brother Cancer Father Cancer Mother Diabetes Grandfather Diabetes Denies family history of Dementia Hyperlipidemia Chronic kidney disease (CKD) Lung disease Stroke Social History Smoking and tobacco status: never smoked Second hand smoke exposure: Yes Alcohol intake: never Adopted: No Lives independently: Yes Household members: spouse and family Housing: House Marital status: Female Reproductive History: Para: 6 Date of menopause: 05/01/93 Physical Exam Const: GENERAL APPEARANCE: cooperative and comfortable ORIENTATION/CONSCIOUSNESS: Yes awake, Yes oriented to person, Yes oriented to place and Yes oriented to time HENMT: COMMON NORMALS: normocephalic, atraumatic and hearing grossly normal bilaterally HEAD & SCALP: normocephalic and atraumatic Resp: COMMON NORMALS: normal respiratory effort, No retractions and No use of accessory muscles AUSCULTATION: crackles Laterality: bilateral Cardio: COMMON NORMALS: regular rate, regular rhythm and No murmurs present (Cardio) RATE: regular rate RHYTHM: regular rhythm GI: COMMON NORMALS: Soft to palpation and No hepatosplenomegaly present AUSCULTATION: Yes normoactive bowel sounds PALPATION: Yes Soft to palpation, No Tenderness to palpation present (GI), No Guarding due to palpation present (GI) and Yes No hepatosplenomegaly present Extremity: COMMON NORMALS: normal to inspection, capillary refill normal and no calf tenderness GENERAL: Yes edema Neuro: SENSORIUM/ORIENTATION: Yes oriented to person, Yes oriented to place and Yes oriented to time Skin: COMMON NORMALS: no rashes or lesions noted GENERAL SKIN EXAM: no rashes or lesions noted Course Vital Signs: Vital signs: Vital Signs Temperature 98.1 F 08/04/22 07:56 Pulse Rate 78 08/04/22 09:35 Respiratory Rate 23 H 08/04/22 09:35 Blood Pressure 182/68 08/04/22 09:35 Pulse Oximetry 95 08/04/22 09:35 Oxygen Delivery Me thod Nasal Cannula 08/04/22 09:35 Oxygen Flow Rate 3 08/04/22 09:35 MDM - SOB/Dyspnea Medical Decision Making Discussed Dr. Cadet patient is improved using less oxygen with diuresis. I think her troponin elevation is from stress for the heart failure. Initially when I seen her troponin started heparin also after reviewing her chest x-ray started on ceftriaxone and Zithromax Dr. Izquierdo will adjust antibiotics as appropriate. Discussed with the patient will be admitting her to the hospital. She does states she is feeling better even after an a mild initial diuresis. Medical Records I reviewed the patient's medical records. Lab Data I reviewed the patient's lab results. 08/04/22 08:15 08/04/22 08:15 Labs/Radiology: Radiology Impressions Chest X-Ray 08/04/22 08:08 Impression: 1. Development of bilateral lower lobe opacities more in the right than the left. 2. No change in atherosclerosis and cardiomegaly. Laboratory Results WBC 12.6 10^3/uL (4.0-10.0) H 08/04/22 08:15 RBC 3.72 10^6/uL (4.1-5.3) L 08/04/22 08:15 Hgb 9.9 g/dL (11.5-15.3) L 08/04/22 08:15 Hct 32.2 % (37.0-47.0) L 08/04/22 08:15 MCV 86.6 fl (81-99) 08/04/22 08:15 MCH 26.6 pg (28.0-34.0) L 08/04/22 08:15 MCHC 30.7 g/dL (30.0-36.0) 08/04/22 08:15 RDW 16.7 % (12.1-15.1) H 08/04/22 08:15 Plt Count 342 10^3/cmm (130-400) 08/04/22 08:15 MPV 9.3 fL (7.4-10.4) 08/04/22 08:15 Neut % (Auto) 78.8 % 08/04/22 08:15 Lymph % (Auto) 12.5 % 08/04/22 08:15 [place] % (Auto) 5.7 % 08/04/22 08:15 Eos % (Auto) 1.7 % 08/04/22 08:15 Baso % (Auto) 0.7 % 08/04/22 08:15 Neut # (Auto) 9.90 10^3/uL (1.8-7.7) H 08/04/22 08:15 Lymph # (Auto) 1.6 10^3/uL (0.8-4.8) 08/04/22 08:15 [place] # (Auto) 0.7 10^3/uL (0.2-0.9) 08/04/22 08:15 Eos # (Auto) 0.2 10^3/uL (0.0-0.8) 08/04/22 08:15 Baso # (Auto) 0.1 10^3/uL (0.0-0.1) 08/04/22 08:15 Nucleated RBC % (auto) 0 % 08/04/22 08:15 Nucleated RBCs # 0.0 /100WBC 08/04/22 08:15 Sodium 134 mmol/L (136-145) L 08/04/22 08:15 Potassium 5.0 mmol/L (3.5-5.1) 08/04/22 08:15 Chloride 94 mmol/L (98-107) L 08/04/22 08:15 Carbon Dioxide 31 mmol/L (22-29) H 08/04/22 08:15 Anion Gap 14.0 (5-19) 08/04/22 08:15 BUN 6 mg/dL (8-23) L 08/04/22 08:15 Creatinine 0.4 mg/dL (0.5-0.9) L 08/04/22 08:15 GFR Calculation 158.3 mL/min (90-130) H 08/04/22 08:15 Glucose 201 mg/dL (65-115) H 08/04/22 08:15 Calculated Osmolality 281 mOsm/kg (285-295) L 08/04/22 08:15 Calcium 8.7 mg/dL (8.5-10.5) 08/04/22 08:15 Total Bilirubin 0.3 mg/dL (0.15-1.2) 08/04/22 08:15 AST 14 U/L (0-32) 08/04/22 08:15 ALT 10 U/L (0-33) 08/04/22 08:15 Alkaline Phosphatase 73 U/L (35-105) 08/04/22 08:15 Troponin T Baseline 129 ng/L (0-10) H* 08/04/22 08:15 Troponin T 120 Minute 129.5 ng/L (0-10) H 08/04/22 09:23 Delta Troponin T 0.5 ABS# (0-10) 08/04/22 09:23 NT-Pro-B Natriuret Pep 5775 pg/mL (0-125) H 08/04/22 08:15 Total Protein 6.5 g/dL (6.6-8.7) L 08/04/22 08:15 Albumin 3.5 g/dL (3.5-5.2) 08/04/22 08:15 Globulin 3.0 g/dL (1.3-4.6) 08/04/22 08:15 Discharge Plan Discharge Patient Disposition: Admitted As Inpatient Clinical Impression: Congestive heart failure, Elevated troponin, Type 2 diabetes mellitus without complication Condition: Stable Coding Level of Care Code ED Reconciliation Specialist for Chandana Saavedra
[2022-08-04 09:00] LABS: Alanine Aminotransferase 10 U/L (0-33); Albumin Level 3.5 g/dL (3.5-5.2); Alkaline Phosphatase 73 U/L (35-105); Blood Urea Nitrogen 6 mg/dL (8-23); Calcium 8.7 mg/dL (8.5-10.5); Carbon Dioxide 31 mmol/L (22-29); Chloride 94 mmol/L (98-107); Glomerular Filtration Rate 158.3 mL/min (90-130); Glucose 201 mg/dL (65-115); Osmolality Calculated 281 mOsm/kg (285-295); Sodium 134 mmol/L (136-145); Total Bilirubin 0.3 mg/dL (0.15-1.2); Total Protein 6.5 g/dL (6.6-8.7)
[2022-08-04 09:02] LABS: Aspartate Amino Transferase 14 U/L (0-32)
[2022-08-04 09:04] LABS: Troponin(5th) Baseline 129 ng/L (0-10)
[2022-08-04] MEDS: FUROsemide 10 mg/mL SDV 10mL 60 MG IVP (09:37)
--- NOTE | 2022-08-04 10:09 | ECG_ITS ---
[facility] Test Date: 2022-08-04 Pat Name: Roxana Hamilton Department: Room: Gender: Female Relay Checker: : 1950 Requested By: Rashawn Anne Order Number: [id number] Tod MD: Quinn Goncalves M.D. Measurements Intervals [place] Rate: 74 P: 36 ND: 181 QRS: 32 QRSD: 106 T: 26 QT: 425 QTc: 472 Interpretive Statements SINUS RHYTHM Compared to ECG 08/04/2022 07:59:30 Sinus arrhythmia no longer present Electronically Signed On 08-04-2022 17:12:01 CDT by Quinn Goncalves M.D. [id number]
[2022-08-04 10:34] LABS: NT Pro B Type Natriuretic Pept 5775 pg/mL (0-125)
[2022-08-04] MEDS: heparin drip 25,000 UNIT/500 ML PREMIX 31 UNIT IV (10:57)
[2022-08-04] MEDS: heparin 5,000 unit/mL INJ 1 mL IV (10:58)
[2022-08-04 11:00] LABS: Troponin 5 2HR 129.5 ng/L (0-10); Troponin 5 2HR Delta 0.5 ABS# (0-10)
--- NOTE | 2022-08-04 11:12 | P.HP_ITS ---
Providers/Chief Complaint Admitting Physician: Terry Cadet MD, hospitalist Primary Care Provider: Dangelo Lemon MD Chief Complaint: SOB History of Present Illness Roxana Hamilton is a 71 year old female presenting to the hospital with shortness of breath. She reports since her last hospital stay she has had gradually increasing shortness of breath, and swelling. She has been taking her Lasix as prescribed. She reports some chest heaviness, that is come on gradua lly and as well and has been a more constant feature. Occasional cough, not productive. No fevers. She already feels less short of breath since coming to the emergency department. No nausea, vomiting. No diarrhea. Reports she does not believe she has any history of atherosclerotic heart disease, and had an angiogram prior to her TAVR. Shortness of breath and discomfort increases when she lays down. Review of Systems General: Reports: 10 or more systems reviewed and unremarkable except in HPI and below Card: Reports: chest pain, edema and orthopnea Resp: Reports: dyspnea and non-productive cough GI: Denies: abdominal pain, nausea, vomiting, hematochezia or melena Medications/Allergies Home Medications Medication Instructions Recorded Confirmed Last Taken Type magnesium oxide 400 mg PO BID #60 tabs 07/03/20 07/31/22 01/08/22 18:00 Rx insulin syringe-needle U-100 1 mL #100 ea 06/10/22 07/30/22 Unknown Rx 31 gauge x 5/16 (BD Insulin Syringe Ultra-Fine) clopidogrel 75 mg tablet 75 mg PO DAILY@06/18/22 07/31/22 Unknown History insulin glargine 100 unit/mL 20 unit SUBCUT DAILY@15 07/01/22 07/31/22 Unknown History subcutaneous solution (Lantus U-100 Insulin) acetaminophen 500 mg tablet 1,000 mg PO Q6H PRN Pain 07/16/22 07/31/22 Unknown History exemestane 25 mg tablet 25 mg PO DAILY@07/16/22 07/31/22 Unknown History multivitamin 1 tab PO DAILY 07/16/22 07/31/22 Unknown History ampicillin sodium 2 gram 2 g IV Q4H 6 weeks #168 ea 07/23/22 07/31/22 Unknown Rx intravenous solution ceftriaxone 2 gram intravenous 2 g IV Q12H 6 weeks #84 ea 07/23/22 07/31/22 Unknown Rx solution furosemide 40 mg tablet 40 mg PO DAILY@0800 #30 tabs 07/23/22 07/31/22 Unknown Rx lisinopril 5 mg tablet 5 mg PO DAILY@19 #30 tabs 07/23/22 07/31/22 Unknown Rx sotalol 80 mg tablet 120 mg PO BID 30 days #90 tabs 07/23/22 07/31/22 Unknown Rx glipizide 10 mg tablet 10 mg PO BID 07/31/22 07/31/22 Unknown History metformin 1,000 mg tablet 1,000 mg PO BID 07/31/22 07/31/22 Unknown History Allergies Allergy/AdvReac Type Severity Reaction Status Date / Time levofloxacin [From Levaquin] Allergy ALGY-Swell Verified 07/31/22 08:03 Lip/Tongue/Throat PFSH Acute PFSH: Medical History Anemia Asymptomatic menopausal state Axillary lump Benign essential HTN Breast cancer, right breast Hyperlipidemia Malignant neoplasm of central portion of right female breast Personal history of malignant neoplasm of breast Pneumonia 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 will increase lantus to 24 units at hs Pt. to follow ADA diet closely Pt. agrees with plan of care. Surgical History History of appendectomy History of mastectomy Hx of section Hx of tonsillectomy S/P TAVR (transcatheter aortic valve replacement) Family History Family/Other CAD (coronary artery disease) Cancer Diabetes Hypertension Son Cancer Brother Cancer Father Cancer Mother Diabetes Grandfather Diabetes Denies family history of Dementia Hyperlipidemia Chronic kidney disease (CKD) Lung disease Stroke Social History Smoking and tobacco status: never smoked Second hand smoke exposure: Yes Alcohol intake: never Adopted: No Lives independently: Yes Household members: spouse and family Housing: House Marital status: Female Reproductive History: Para: 6 Date of menopause: 05/01/93 Vitals/I&O/Wt Last Vital Signs Temp 98.1 F 08/04/22 07:56 Pulse 78 08/04/22 09:35 Resp 23 H 08/04/22 09:35 BP 182/68 08/04/22 09:35 Pulse Ox 95 08/04/22 09:35 O2 Del Method Nasal Cannula 08/04/22 09:35 O2 Flow Rate 3 08/04/22 09:35 Weight last 48 hrs Weight 107.955 kg Physical Exam Narrative: General exam is a white female, mild tachypnea and respiratory distress on 3 L of oxygen HEENT: Atraumatic and normocephalic. Pupils equally round. Oropharynx clear. Neck is supple no lymphadenopathy thyromegaly Cardiovascular regular rate and rhythm, no murmur Lungs crackles bibasilar Abdomen is soft with positive bowel sounds. Protuberant. Difficult to estimate organomegaly Extremities show 2+ edema bilaterally. No cyanosis or clubbing Skin no rash Neuro no focal deficits Data 08/04/22 08:15 08/04/22 08:15 Other Labs: EKG which I reviewed demonstrates normal sinus rhythm, normal axis, no acute changes Recent ABDIRIZAK on July 22 demonstrated no vegetation, normal LV function, moderate mitral regurgitation, well-seated bioprosthetic aortic valve Blood culture was collected today Chest x-ray by my read demonstrates bilateral pleural effusions, cardiomegaly, artificial cardiac valve, PICC line, possible bilateral pleural effusions. Note the patient has an event monitor on. I have ordered a sedimentation rate Calcium 8.7 LFTs normal Troponin 129 with repeat of 129 BNP elevated 5775 I have ordered a CRP Albumin 3.5 Procalcitonin pending I have ordered a urinalysis Micro: Microbiology 08/04/22 08:15 Blood Culture - Preliminary Blood SPECIMEN COLLECTED 08/04/22 08:30 Blood Culture - Preliminary Blood SPECIMEN COLLECTED A&P Assessment and plan (1) Congestive heart failure: Patient presents with acute heart failure, presumed diastolic from recent studies Diuresis with Lasix, 40 mg IV every 12 hours. She already received 1 dose of 60 mg in the emergency department BMP daily to monitor for renal toxicity, magnesium level daily to monitor for hypomagnesemia Limited echocardiogram I do not think her presentation is consistent with pneumonia. (2) Bacteremia due to Enterococcus: Continue Rocephin, cefazolin. Check ESR and CRP Blood cultures were drawn on admission (3) Elevated troponin: Likely secondary to heart failure. Consistent with type II elevation myocardial infarction/demand ischemia. Obtain records from [facility] regarding pre-TAVR angiogram which patient believes was normal. If this is normal full anticoagulation can be discontinued (4) Anemia: Monitor closely. 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 Continue Plavix History of SVT. Continue sotalol. Telemetry. Full code Heparin currently for anticoagulation Attestations Medical Necessity Statement*: Will need greater than 2 midnight stay for evaluation and treatment of acute diastolic congestive heart failure with IV diuresis Diagnoses Congestive heart failure I50.9 Bacteremia due to Enterococcus R78.81; B95.2 Elevated troponin R77.8 Anemia D64.9 Type 2 diabetes mellitus without complication E11.9 Diabetes mellitus longterm insulin use: without terminal press operator use Time Spent (min) 47
--- NOTE | 2022-08-04 11:17 | USCV_ITS ---
Roxana Hamilton Age: 71 Gender: F : 1950 Exam Date: 08/04/2022 18:25 Ordering Phys: Terry Cadet MD Technologist: [facility] [place] [facility] [place]: LIMITED STUDY -- check EF, wall motion, aortic and mitral valves. BP: 178 / 58 HR: 71 Rhythm: Sinus Technical Quality: Adequate MEASUREMENTS (Male / Female) Normal Values 2D ECHO LV Diastolic Diameter PLAX 5.6 cm 4.2 - 5.9 / 3.9 - 5.3 cm LV Systolic Diameter PLAX 3.2 cm IVS Diastolic Thickness 1.6 cm 0.6 - 1.0 / 0.6 - 0.9 cm IVS Systolic Thickness 1.9 cm LVPW Diastolic Thickness 1.8 cm 0.6 - 1.0 / 0.6 - 0.9 cm LVPW Systolic Thickness 1.5 cm LVOT Diameter 2.3 cm LV Ejection Fraction 2D Teich 72.7 % LV Ejection Fraction MOD 2C 66.2 % LV Ejection Fraction 2C AL 68.5 % LA Diameter 5.6 cm Aorta at Sinotubular Diameter 2.9 cm IVC Diameter 2.8 cm M-MODE Aortic Annulus Diameter 2.2 cm LA Ao Ratio MM 2.7 MV E Point Septal Separation 1.8 cm DOPPLER AV Peak Velocity 236.0 cm/s LVOT Peak Velocity 105.0 cm/s AV Area Cont Eq vti 1.6 cm squared AV Area Cont Eq pk 1.8 cm squared MV Area PHT 3.7 cm squared Mitral E to A Ratio 1.4 MV E' Velocity 162.0 cm/s TR Peak Velocity 357.0 cm/s TR Peak Gradient 51.0 mmHg Right Atrial Pressure 15.0 mmHg Pulmonary Artery Systolic Pressu 66.0 mmHg FINDINGS Left Ventricle Right Ventricle Right Atrium Left Atrium Mitral Valve Aortic Valve Tricuspid Valve Pulmonic Valve Pericardium Aorta IVC CONCLUSIONS This is a limited echocardiogram performed to assess LV function and valves. LV systolic function is normal with EF of 60-65% Calcified mitral valve. Mild mitral regurgitation Grossly normal bioprosthetic aortic valve. Moderate aortic regurgitation. Mild aortic stenosis with mean gradient of 11mmHg but DVI is normal IVC is dilated. Elevated RA pressure Mild tricuspid regurgitation Compared to prior echocardiogram from 07/16/2022, no significant changes are seen Quinn Goncalves MD (Electronically Signed) Final Date: 05 August 2022 11:49 S
[2022-08-04 11:22] LABS: C Reactive Protein 32.7 mg/L (0.0-4.9)
[2022-08-04 11:28] LABS: Erythrocyte Sedimentation Rate 34 mm/hr (0-15)
[2022-08-04 11:29] LABS: Procalcitonin 0.09 ng/mL (0-0.5)
[2022-08-04] MEDS: cefTRIAXone 1,000 MG in sodium chloride 0.9% (plus) 50 ML 100 MG IV (11:32)
[2022-08-04] MEDS: azithromycin 500 MG in sodium chloride 0.9% 250 ML 250 MG IV (12:18)
[2022-08-04 12:44] LABS: Glucose Point of Care 183 mg/dL (70-110)
--- NOTE | 2022-08-04 13:29 | ECG_ITS ---
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 Measurements Intervals [place] Rate: 64 P: 33 AK: 168 QRS: 26 QRSD: 114 T: 38 QT: 455 QTc: 471 Interpretive Statements SINUS RHYTHM MODERATE INTRAVENTRICULAR CONDUCTION DELAY [110+ ms QRS DURATION] Compared to ECG 08/04/2022 10:10:16 Intraventricular conduction delay now present Electronically Signed On 08-04-2022 17:09:35 CDT by Quinn Goncalves M.D. [id number]
[2022-08-04] MEDS: insulin lispro 100 unit/1 mL SUBCUT (14:01)
[2022-08-04 15:14] LABS: Troponin 5 6HR Delta 10.3 ng/L (0-12)
[2022-08-04 15:16] LABS: Troponin 5 6HR 139.3 ng/L (0-10)
[2022-08-04] MEDS: ampicillin 2,000 MG in sodium chloride 0.9% (plus) 50 ML 100 MG IV ×2 (15:59→19:57)
[2022-08-04] MEDS: insulin glargine 100 units/1 mL 20 UNIT SUBCUT (15:59)
[2022-08-04 17:49] LABS: Glucose Point of Care 75 mg/dL (70-110)
[2022-08-04] MEDS: magnesium oxide 400 mg tablet PO (17:55)
[2022-08-04] MEDS: clopidogrel 75 mg Tablet PO (17:55)
[2022-08-04] MEDS: sotalol 80 mg Tablet 120 MG PO (17:55)
[2022-08-04] MEDS: lisinopril 5 mg Tablet PO (17:55)
[2022-08-04 18:52] LABS: Urine Appearance Hazy (CLEAR); Urine Color Yellow (Yellow); pH Urine 5 (5-7)
[2022-08-04 18:53] LABS: Bilirubin Urine Neg (Negative); Blood Urine 3+ (Negative); Glucose Urine UA Norm (Normal); Ketones Urine Negative (Negative); Leukocyte Esterase Urine Negative (Negative); Nitrate Urine Negative (Negative); Protein Urine 3+ (Negative); Urobilinogen Urine Norm (Negative); WBC Urine 0-4 /hpf (0-5)
[2022-08-04 18:54] LABS: Add Urine Culture? No; Bacteria Urine 1+ /hpf; Coarse Granular Casts Urine 0-4 /lpf; Hyaline Casts Urine 0-4 /lpf; Mucus Urine TRACE /hpf; Transitional Epi Cells Urine 0-4 /hpf
[2022-08-04] MEDS: FUROsemide 10 mg/mL SDV 4mL 40 MG IVP (19:57)
[2022-08-04] MEDS: cefTRIAXone 2,000 MG in sodium chloride 0.9% (plus) 50 ML 100 MG IV (19:58)
[2022-08-04 20:38] LABS: Glucose Point of Care 107 mg/dL (70-110)
[2022-08-04] MEDS: enoxaparin 100 mg/mL Syringe SUBCUT (22:01)
[2022-08-05] VITALS (58 sets, daily range): BP systolic 107–171; BP diastolic 47–102; PULSE 57–145; RESP 14–31; TEMP 36.4; O2SAT 88–100
[2022-08-05] MEDS: ampicillin 2,000 MG in sodium chloride 0.9% (plus) 50 ML 100 MG IV ×7 (00:11→23:27)
--- NOTE | 2022-08-05 03:40 | ECG_ITS ---
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 Measurements Intervals [place] Rate: 143 P: 200 [place]: 154 QRS: -14 QRSD: 108 T: 10 QT: 237 QTc: 366 Interpretive Statements ECTOPIC ATRIAL TACHYCARDIA, POSSIBLE ATRIAL FLUTTER NONSPECIFIC ST & T-WAVE ABNORMALITY Compared to ECG 08/04/2022 13:29:22 T-wave abnormality now present Sinus rhythm no longer present Intraventricular conduction delay no longer present Electronically Signed On 08-05-2022 14:49:30 CDT by Quinn Goncalves M.D. [id number] f
[2022-08-05] MEDS: metoprolol tartrate 1 mg/1 mL SDV 5 mL 5 MG IVP ×3 (03:49→14:32)
[2022-08-05 04:06] LABS: Basophils % 0.4 %; Eosinophils # 0.2 10^3/uL (0.0-0.8); Eosinophils % 2.3 %; Hematocrit 28.7 % (37.0-47.0); Hemoglobin 8.8 g/dL (11.5-15.3); Lymphocytes # 1.9 10^3/uL (0.8-4.8); Lymphocytes % 20.6 %; Mean Corpuscular HGB Conc 30.7 g/dL (30.0-36.0); Mean Corpuscular Hemoglobin 26.8 pg (28.0-34.0); Mean Corpuscular Volume 87.5 fl (81-99); Mean Platelet Volume 9.5 fL (7.4-10.4); Monocytes # 0.7 10^3/uL (0.2-0.9); Neutrophils # 6.23 10^3/uL (1.8-7.7); Neutrophils % 68.2 %; Nucleated Red Blood Cells % 0 %; Platelet Count 279 10^3/cmm (130-400); Red Blood Count 3.28 10^6/uL (4.1-5.3); Red Cell Distribution Width 16.8 % (12.1-15.1); White Blood Count 9.1 10^3/uL (4.0-10.0)
[2022-08-05 04:37] LABS: Alanine Aminotransferase 10 U/L (0-33); Albumin Level 3.1 g/dL (3.5-5.2); Alkaline Phosphatase 68 U/L (35-105); Anion Gap 11.9 (5-19); Aspartate Amino Transferase 10 U/L (0-32); Blood Urea Nitrogen 10 mg/dL (8-23); Calcium 8.6 mg/dL (8.5-10.5); Carbon Dioxide 34 mmol/L (22-29); Chloride 96 mmol/L (98-107); Globulin 3.1 g/dL (1.3-4.6); Glomerular Filtration Rate 122.3 mL/min (90-130); Glucose 145 mg/dL (65-115); Magnesium 1.8 mg/dL (1.7-2.3); Osmolality Calculated 288 mOsm/kg (285-295); Potassium 3.9 mmol/L (3.5-5.1); Sodium 138 mmol/L (136-145); Total Bilirubin 0.3 mg/dL (0.15-1.2); Total Protein 6.2 g/dL (6.6-8.7)
--- NOTE | 2022-08-05 05:10 | PC.NURSE ---
Taylor Throughout the night, patient needed to transfer to bedside commode multiple times to have bowel movements and urinate, preventing patient from being able to rest. Accurate I&Os important for patient care. Dr. Mcmanus contacted and order received to insert taylor catheter. Taylor placed.
--- NOTE | 2022-08-05 06:16 | PC.NURSE ---
Patient Rang call button. Started complaining of shortness of breath and chest pressure. Patients heart rate was in the 150's during this time. Valsalva maneuvers attempted to no success. Dr. Mcmanus contacted and an order of metoprolol 5 mg IVP received. Med unsuccessful, dr. mcmanus contacted again and then instructed to administer adenosine 6 mg and to call back with results. Patient was sitting in chair during this time then assisted back to bed. Once patient laid flat on back, her body converted naturally to normal sinus rhythm. Adenosine not administered, wasted by joe with this nurse.
[2022-08-05 07:11] LABS: Glucose Point of Care 170 mg/dL (70-110)
[2022-08-05] MEDS: insulin lispro 100 unit/1 mL SUBCUT ×3 (07:33→21:40)
[2022-08-05] MEDS: cefTRIAXone 2,000 MG in sodium chloride 0.9% (plus) 50 ML 100 MG IV ×2 (07:33→20:05)
[2022-08-05] MEDS: FUROsemide 10 mg/mL SDV 10mL 60 MG IVP ×2 (07:37→20:06)
[2022-08-05] MEDS: magnesium oxide 400 mg tablet PO ×2 (09:54→17:53)
[2022-08-05] MEDS: pantoprazole DR 40 mg Tablet PO (09:54)
[2022-08-05] MEDS: enoxaparin 100 mg/mL Syringe SUBCUT (09:55)
[2022-08-05] MEDS: sotalol 80 mg Tablet 120 MG PO ×2 (09:55→17:54)
--- NOTE | 2022-08-05 10:53 | P.PN_ITS ---
Subjective Subjective: Patient reports she is short of breath, but much less so than on admission. No chest discomfort. We have not received the records from [facility] regarding her angiogram. Oxygen requirement is still currently at 3 L. Diuresis has been somewhat lackluster. She had an event of SVT last night that resolved with Adenocard. She reports she had palpitations as a symptom. She states she gets this about 4 times a month. It will sometimes resolve with vagal maneuvers. Medications: Reviewed: Yes Vitals/I&O/Wt Last Vital Signs Temp 97.6 F 08/05/22 00:00 Pulse 70 08/05/22 09:05 Resp 15 08/05/22 08:00 BP 171/76 08/05/22 08:00 Pulse Ox 95 08/05/22 09:05 O2 Del Method Nasal Cannula 08/05/22 09:05 O2 Flow Rate 3 08/05/22 09:05 08/04/22 08/05/22 08/05/22 22:59 06:59 14:59 Intake Total 358.617 / 608.617 100 / 708.617 454 / 454 Output Total 100 / 100 350 / 450 1200 / 1200 Balance 258.617 / 508.617 -250 / 258.617 -746 / -746 Weight last 48 hrs Weight 107.955 kg Physical Exam Narrative: General exam is a white female, mild tachypneaon 3 L of oxygen Neck is supple no lymphadenopathy thyromegaly Cardiovascular regular rate and rhythm, no murmur Lungs crackles bibasilar Abdomen is soft with positive bowel sounds. Protuberant. Difficult to estimate organomegaly Extremities show 1+ edema bilaterally. No cyanosis or clubbing Urinary Catheter Management: Montero: Cath Placed During This Visit: yes Reason for Continuing Indwelling Catheter: Accurate Measurement of Urinary Output in Critically Ill Patients Urinary Catheter Date of Insertion: 08/05/22 Urinary Catheter Time of Insertion: 05:49 Data 08/05/22 03:26 08/05/22 03:26 Micro: Microbiology 08/04/22 08:15 Blood Culture - Preliminary Blood NEGATIVE TO DATE 08/04/22 08:30 Blood Culture - Preliminary Blood NEGATIVE TO DATE A&P Assessment and plan (1) Congestive heart failure: Patient presents with acute heart failure, presumed diastolic from recent studies Increase Lasix to 60 mg IV every 12 hours. Fluid restrict to 1200 cc a day BMP daily to monitor for renal toxicity, magnesium level daily to monitor for hypomagnesemia Limited echocardiogram pending I do not think her presentation is consistent with pneumonia. (2) Bacteremia due to Enterococcus: Continue Rocephin, cefazolin. Sedimentation rate and CRP slightly elevated Blood cultures were drawn on admission, negative to date (3) Elevated troponin: Likely secondary to heart failure. Consistent with type II elevation myocardial infarction/demand ischemia. Obtain records from [facility] regarding pre-TAVR angiogram which patient believes was normal. If this is normal full anticoagulation can be discontinued (4) Anemia: Monitor closely. Repeat CBC tomorrow. Hemoglobin slightly lower today. No evidence of active bleeding since admission (5) Type 2 diabetes mellitus without complication: Sliding scale insulin along with patient's home long-acting insulin Qualifiers: Diabetes mellitus group home insulin use: without long term acute care registered nurse use Qualified Code(s): E11.9 - Type 2 diabetes mellitus without complications Plan History of TAVR. Continue Plavix History of SVT. Continue sotalol. Telemetry. Received adenosine last night with resolution Full code Lovenox currently for anticoagulation Attestations Medical Necessity Statement*: Needs continued hospitalization for diuresis secondary to acute systolic heart failure. Diagnoses Congestive heart failure I50.9 Bacteremia due to Enterococcus R78.81; B95.2 Elevated troponin R77.8 Anemia D64.9 Type 2 diabetes mellitus without complication E11.9 Diabetes mellitus group home insulin use: without long term acute care registered nurse use Time Spent (min) 27
[2022-08-05 11:29] LABS: Glucose Point of Care 233 mg/dL (70-110)
[2022-08-05] MEDS: insulin glargine 100 units/1 mL 20 UNIT SUBCUT (14:43)
[2022-08-05 14:49] LABS: Glucose Point of Care 241 mg/dL (70-110)
[2022-08-05 17:23] LABS: Glucose Point of Care 204 mg/dL (70-110)
[2022-08-05] MEDS: lisinopril 10 mg Tablet PO (17:53)
[2022-08-05] MEDS: clopidogrel 75 mg Tablet PO (17:54)
[2022-08-05 21:40] LABS: Glucose Point of Care 172 mg/dL (70-110)
[2022-08-06] VITALS (24 sets, daily range): BP systolic 124–165; BP diastolic 46–98; PULSE 53–80; RESP 14–24; O2SAT 94–100
[2022-08-06] MEDS: ampicillin 2,000 MG in sodium chloride 0.9% (plus) 50 ML 100 MG IV ×2 (03:13→08:09)
[2022-08-06 03:58] LABS: Basophils # 0.1 10^3/uL (0.0-0.1); Basophils % 0.5 %; Eosinophils # 0.2 10^3/uL (0.0-0.8); Eosinophils % 2.1 %; Hematocrit 29.2 % (37.0-47.0); Hemoglobin 8.8 g/dL (11.5-15.3); Lymphocytes % 20.4 %; Mean Corpuscular HGB Conc 30.1 g/dL (30.0-36.0); Mean Corpuscular Hemoglobin 26.4 pg (28.0-34.0); Mean Corpuscular Volume 87.7 fl (81-99); Mean Platelet Volume 9.5 fL (7.4-10.4); Monocytes # 0.9 10^3/uL (0.2-0.9); Monocytes % 9.1 %; Neutrophils # 6.68 10^3/uL (1.8-7.7); Neutrophils % 67.4 %; Nucleated Red Blood Cells % 0 %; Platelet Count 283 10^3/cmm (130-400); Red Blood Count 3.33 10^6/uL (4.1-5.3); Red Cell Distribution Width 16.8 % (12.1-15.1); White Blood Count 9.9 10^3/uL (4.0-10.0)
[2022-08-06 04:23] LABS: Blood Urea Nitrogen 12 mg/dL (8-23); Calcium 8.7 mg/dL (8.5-10.5); Carbon Dioxide 36 mmol/L (22-29); Chloride 95 mmol/L (98-107); Glomerular Filtration Rate 122.3 mL/min (90-130); Glucose 130 mg/dL (65-115); Magnesium 1.9 mg/dL (1.7-2.3); Osmolality Calculated 290 mOsm/kg (285-295); Sodium 139 mmol/L (136-145)
[2022-08-06 04:24] LABS: Anion Gap 11.8 (5-19); Potassium 3.8 mmol/L (3.5-5.1)
[2022-08-06] MEDS: acetaminophen 325 mg Tablet 650 MG PO (05:55)
[2022-08-06] MEDS: FUROsemide 10 mg/mL SDV 10mL 60 MG IVP (06:28)
[2022-08-06 07:06] LABS: Glucose Point of Care 152 mg/dL (70-110)
--- NOTE | 2022-08-06 07:34 | P.DS_ITS ---
Discharge Providers Date of Admission: 08/04/22 11:57 Date of Discharge: August 06, 2022 Attending Provider at Admission: Terry Cadet MD Attending Provider at Discharge: Terry Cadet MD Primary Care Provider: Dangelo Lemon MD Diagnoses at Discharge Discharge Diagnosis (1) Congestive heart failure: Status: Acute (2) Bacteremia due to Enterococcus: Status: Acute (3) Elevated troponin: Status: Acute (4) Anemia: Status: Acute (5) Type 2 diabetes mellitus without complication: Status: Acute Qualifiers: Diabetes mellitus penitentiary insulin use: without penitentiary use Qualified Code(s): E11.9 - Type 2 diabetes mellitus without complications Reason for Visit Reason for Visit: SOB Hospital Course Hospital Course Patient presented the hospital short of breath. She reported since her last hospital stay she had gradual increasing swelling. No fevers. She been taking all medicines as prescribed including her Lasix. On admission to the hospital c hest x-ray was consistent with heart failure. BNP was elevated. She was placed on IV Lasix. Troponin was also elevated but had no significant trend. Her most recent hospital stay she had been treated for bacteremia with Enterococcus with Rocephin and cefazolin and presumed endocarditis. These antibiotics were continued. Echocardiogram was obtained which demonstrated diastolic dysfunction, moderate aortic regurgitation, and no new findings from previous echo. EF was preserved. With the treatment she diuresed significantly. Oxygen requirement went down to 2 L which was her baseline. Edema went down to trace, which she reported was better than even at the end of her last hospital stay. Renal function was normal upon discharge. She was able to ambulate around the room without being short of breath. During her hospital stay she did have an episode of SVT, terminating spontaneously. She reported around 2 episodes per week, for which she takes sotalol. She will occasionally perform vagal maneuvers to have these resolved. Cardiology has been arranging outpatient follow-up with electrophysiology for possible ablation. They are also arranging follow-up with publications editor in [place] regarding her moderate aortic regurgitation following TAVR. I have visited with cardiology briefly to confirm this follow-up. I discussed the plan with the patient, she was eager to go ho me, and agreed with the plan. All questions were answered. Physical Exam Narrative: General exam no distress Neck is supple Cardiovascular regular rate and rhythm Lungs clear no crackles Extremities trace edema Urinary Catheter Management: Montero: Cath Placed During This Visit: yes Reason for Continuing Indwelling Catheter: Accurate Measurement of Urinary Output in Critically Ill Patients Urinary Catheter Date of Insertion: 08/05/22 Urinary Catheter Time of Insertion: 05:49 Discharge Data Studies Completed and Pending Completed Studies During Hospitalization Category Date Time Status XR chest 1V portable [id number] Stat Exams 08/04/22 08:08 Completed CV. echo limited [id number] Routine Ultrasound 08/04/22 11:17 Completed Pending at discharge Category Date Time Status Blood Culture Stat Lab 08/04/22 08:15 Results Radiology Impressions Chest X-Ray 08/04/22 08:08 Impression: 1. Development of bilateral lower lobe opacities more in the right than the left. 2. No change in atherosclerosis and cardiomegaly. Laboratory Results WBC 9.9 10^3/uL (4.0-10.0) 08/06/22 03:22 RBC 3.33 10^6/uL (4.1-5.3) L 08/06/22 03:22 Hgb 8.8 g/dL (11.5-15.3) L 08/06/22 03:22 Hct 29.2 % (37.0-47.0) L 08/06/22 03:22 MCV 87.7 fl (81-99) 08/06/22 03:22 MCH 26.4 pg (28.0-34.0) L 08/06/22 03:22 MCHC 30.1 g/dL (30.0-36.0) 08/06/22 03:22 RDW 16.8 % (12.1-15.1) H 08/06/22 03:22 Plt Count 283 10^3/cmm (130-400) 08/06/22 03:22 MPV 9.5 fL (7.4-10.4) 08/06/22 03:22 Neut % (Auto) 67.4 % 08/06/22 03:22 Lymph % (Auto) 20.4 % 08/06/22 03:22 [place] % (Auto) 9.1 % 08/06/22 03:22 Eos % (Auto) 2.1 % 08/06/22 03:22 Baso % (Auto) 0.5 % 08/06/22 03:22 Neut # (Auto) 6.68 10^3/uL (1.8-7.7) 08/06/22 03:22 Lymph # (Auto) 2.0 10^3/uL (0.8-4.8) 08/06/22 03:22 [place] # (Auto) 0.9 10^3/uL (0.2-0.9) 08/06/22 03:22 Eos # (Auto) 0.2 10^3/uL (0.0-0.8) 08/06/22 03:22 Baso # (Auto) 0.1 10^3/uL (0.0-0.1) 08/06/22 03:22 Nucleated RBC % (auto) 0 % 08/06/22 03:22 Nucleated RBCs # 0.0 /100WBC 08/06/22 03:22 ESR 34 mm/hr (0-15) H 08/04/22 08:15 Sodium 139 mmol/L (136-145) 08/06/22 03:22 Potassium 3.8 mmol/L (3.5-5.1) 08/06/22 03:22 Chloride 95 mmol/L (98-107) L 08/06/22 03:22 Carbon Dioxide 36 mmol/L (22-29) H 08/06/22 03:22 Anion Gap 11.8 (5-19) 08/06/22 03:22 BUN 12 mg/dL (8-23) 08/06/22 03:22 Creatinine 0.5 mg/dL (0.5-0.9) 08/06/22 03:22 GFR Calculation 122.3 mL/min (90-130) 08/06/22 03:22 Glucose 130 mg/dL (65-115) H 08/06/22 03:22 POC Glucose 152 mg/dL (70-110) H 08/06/22 07:03 Calculated Osmolality 290 mOsm/kg (285-295) 08/06/22 03:22 Calcium 8.7 mg/dL (8.5-10.5) 08/06/22 03:22 Magnesium 1.9 mg/dL (1.7-2.3) 08/06/22 03:22 Total Bilirubin 0.3 mg/dL (0.15-1.2) 08/05/22 03:26 AST 10 U/L (0-32) 08/05/22 03:26 ALT 10 U/L (0-33) 08/05/22 03:26 Alkaline Phosphatase 68 U/L (35-105) 08/05/22 03:26 Troponin T Baseline 129 ng/L (0-10) H* 08/04/22 08:15 Troponin T 120 Minute 129.5 ng/L (0-10) H 08/04/22 09:23 Delta Troponin T 0.5 ABS# (0-10) 08/04/22 09:23 Troponin T Hi Sens 6Hr 139.3 ng/L (0-10) H 08/04/22 14:45 Troponin T Hi Sens 6Hr Delta 10.3 ng/L (0-12) 08/04/22 14:45 C-Reactive Protein 32.7 mg/L (0.0-4.9) H 08/04/22 10:12 NT-Pro-B Natriuret Pep 5775 pg/mL (0-125) H 08/04/22 08:15 Total Protein 6.2 g/dL (6.6-8.7) L 08/05/22 03:26 Albumin 3.1 g/dL (3.5-5.2) L 08/05/22 03:26 Globulin 3.1 g/dL (1.3-4.6) 08/05/22 03:26 Procalcitonin 0.09 ng/mL (0-0.5) 08/04/22 10:12 Urine Color Yellow (Yellow) 08/04/22 17:30 Urine Appearance Hazy (CLEAR) A 08/04/22 17:30 Urine pH 5 (5-7) 08/04/22 17:30 Ur Specific [place] 1.020 (1.005-1.030) 08/04/22 17:30 Urine Protein 3+ (Negative) H 08/04/22 17:30 Urine Glucose (UA) Norm (Normal) 08/04/22 17:30 Urine Ketones Negative (Negative) 08/04/22 17:30 Urine Blood 3+ (Negative) H 08/04/22 17:30 Urine Nitrate Negative (Negative) 08/04/22 17:30 Urine Bilirubin Neg (Negative) 08/04/22 17:30 Urine Urobilinogen Norm mg/dL (Negative) 08/04/22 17:30 Ur Leukocyte Esterase Negative (Negative) 08/04/22 17:30 Urine RBC 10-15 /hpf (0-2) H 08/04/22 17:30 Urine WBC 0-4 /hpf (0-5) H 08/04/22 17:30 Ur Squamous Epith Cells 10-15 /hpf (0-5) H 08/04/22 17:30 Ur Transition Epith Cell 0-4 /hpf 08/04/22 17:30 Amorphous Sediment Not Reportable 08/04/22 17:30 Urine Bacteria 1+ /hpf (NONE) H 08/04/22 17:30 Hyaline Casts 0-4 /lpf H 08/04/22 17:30 Coarse Granular Casts 0-4 /lpf H 08/04/22 17:30 Urine Mucus Trace /hpf 08/04/22 17:30 Vitals Last Vital Signs Temp 97.6 F 08/05/22 00:00 Pulse 60 08/06/22 06:00 Resp 19 H 08/06/22 04:00 BP 155/70 08/06/22 04:00 Pulse Ox 99 08/06/22 04:00 O2 Del Method Nasal Cannula 08/05/22 16:00 O2 Flow Rate 2 08/05/22 16:00 FiO2 4 08/05/22 13:00 Discharge Plan Discharge Patient Disposition: Home Condition: Stable Prescriptions: New pantoprazole 40 mg Tablet,Delayed Release (Dr/Ec) 40 mg PO DAILY Qty: 30 0RF lisinopril 10 mg Tablet 10 mg PO DAILY@19 Qty: 30 0RF furosemide [Lasix] 40 mg tablet 40 mg PO BID Qty: 60 0RF Continued clopidogrel 75 mg tablet 75 mg PO DAILY insulin glargine [Lantus U-100 Insulin] 100 unit/mL solution 20 unit SUBCUT DAILY@15 Hold Instructions: Patient No Longer Taking Dose Instruction: INJECT 24 UNITS SUBCUTANEOUSLY ONCE DAILY glipizide 10 mg tablet 10 mg PO BID metformin 1,000 mg tablet 1,000 mg PO BID Hold Instructions: Resume on 01/11/22. Dose Instruction: Take 1 tablet by mouth twice daily magnesium oxide 400 mg magnesium tablet 400 mg PO BID Qty: 60 0RF (DME) insulin syringe-needle U-100 [BD Insulin Syringe Ultra-Fine] 1 mL 31 gauge x 5/16 syringe See Rx Instructions .ROUTE .COMPLEX Qty: 100 3RF Dose Instruction: USE DIRECTED Rx Instructions: USE DIRECTED acetaminophen 500 mg Tablet 1,000 mg PO Q6H PRN (Reason: Pain) exemestane 25 mg tablet 25 mg PO DAILY multivitamin Tablet 1 tab PO DAILY ampicillin sodium 2 gram recon soln 2 g IV Q4H 42 Days Qty: 168 0RF ceftriaxone 2 gram recon soln 2 g IV Q12H 42 Days Qty: 84 0RF sotalol 80 mg Tablet 120 mg PO BID 30 Days Qty: 90 0RF Discontinued furosemide 40 mg Tablet 40 mg PO DAILY@0800 Qty: 30 0RF lisinopril 5 mg tablet 5 mg PO DAILY@19 Qty: 30 0RF Discharge Orders: Discharge Order (Routine); Ordered 08/06/22 Ordered By: Terry Cadet Referrals: Heather Salas FNP [Nurse Practitioner] - 4-7 days (BMP on follow up) Quinn Goncalves M.D [Physician] - 2 weeks Discharge Diet: Cardiac and Diabetic Discharge Activity: Increase activity as tolerated Patient Instructions: Opioid Safety Activity Restrictions/Additional Instructions: Fluid restriction to 1200 cc/day Weigh yourself daily, notify physician if greater than 3 pounds weight gain in 2 days. Monitor for increasing swelling or shortness of breath Limit salt in diet Cardiology will be setting you up with manager oracle database in [place]. Please call if you do not hear from them within the next week continue antibiotics, for entire course and keep your follow-up regarding this that was previously arranged with infectious disease Patient's Health Concerns: Edema, shortness of breath Assessment: Acute diastolic heart failure Plan of Treatment: Increase diuretics, salt restriction, fluid restriction, monitoring weight closely Discharge Attestations Time Spent in Discharge Care*: greater than 30 min Quality Metrics Clinical Quality Measures [ No reported AMI, CVA or VTE this stay] Coding Level of Care Code 94261 Total time (in minutes) for Discharge: 35 Diagnoses Congestive heart failure I50.9 Bacteremia due to Enterococcus R78.81; B95.2 Elevated troponin R77.8 Anemia D64.9 Type 2 diabetes mellitus without complication E11.9 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
[2022-08-06] MEDS: cefTRIAXone 2,000 MG in sodium chloride 0.9% (plus) 50 ML 100 MG IV (08:09)
[2022-08-06] MEDS: pantoprazole DR 40 mg Tablet PO (08:12)
[2022-08-06] MEDS: insulin lispro 100 unit/1 mL SUBCUT (08:12)
[2022-08-06] MEDS: magnesium oxide 400 mg tablet PO (08:12)
[2022-08-06] MEDS: enoxaparin 40 mg/0.4 mL Syringe SUBCUT (08:13)
[2022-08-06] MEDS: sotalol 80 mg Tablet 120 MG PO (08:20)
[2022-08-06 11:07] LABS: Glucose Point of Care 176 mg/dL (70-110)
--- NOTE | 2022-08-06 12:40 | PC.NURSE ---
All D/C instructions educated to patient, meds brought to bedside, no concerns expressed
== END 2022-08-06 12:49 | disposition home or self-care (01) | DRG 291 ==
LOC: ER 11:20 → ICU 11:58
PROVIDERS: Admitting Provider Internal Medicine; Emergency Provider Family Medicine; PCP Internal Medicine Medical Oncology; Visit Provider Internal Medicine
DX: I11.0 Hypertensive heart disease with heart failure (principal); I50.33 Acute on chronic diastolic (congestive) heart failure; C77.3 Secondary and unspecified malignant neoplasm of axilla and upper limb lymph nodes; I47.1 Supraventricular tachycardia; I24.8 Other forms of acute ischemic heart disease; B95.2 Enterococcus as the cause of diseases classified elsewhere; I35.1 Nonrheumatic aortic (valve) insufficiency; Z79.02 Long term (current) use of antithrombotics/antiplatelets; Z79.4 Long term (current) use of insulin; Z79.84 Long term (current) use of oral hypoglycemic drugs; Z79.811 Long term (current) use of aromatase inhibitors; D64.9 Anemia, unspecified; C50.111 Malignant neoplasm of central portion of right female breast; E78.5 Hyperlipidemia, unspecified; Z87.01 Personal history of pneumonia (recurrent); E11.319 Type 2 diabetes mellitus with unspecified diabetic retinopathy without macular edema; Z90.11 Acquired absence of right breast and nipple; Z95.2 Presence of prosthetic heart valve
CPT/HCPCS: 36415; 36416; 36592; 51702; 71045; 80048; 80053; 81001; 82962; 83735; 83880; 84145; 84484; 85025; 85651; 86140; 87040; 93005; 93308; 96365; 96366; 96367; 96372; 96375; 96376; 99285; J0290; J0456; J0696; J1644; J1650; J1815; J1940; J3490; J7050

== ENCOUNTER 2022-08-09 18:22 | Inpatient (IN) | payer MEDICARE, MEDICAID, SELFPAY ==
[2022-08-09] VITALS (10 sets, daily range): BP systolic 137–178; BP diastolic 50–86; PULSE 66–77; RESP 20–27; TEMP 35.9; O2SAT 93–99; BMI 41.5
--- NOTE | 2022-08-09 18:37 | PC.NURSE ---
DAUGHTER STATES PT HAS BEEN LETHARGIC SINCE AROUND 1200 TO 1300 TODAY AND BEGAN SHOWING SIGNS OF CONFUSION WITH HER SPEECH AROUND 1400
--- NOTE | 2022-08-09 18:40 | ECG_ITS ---
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 Measurements Intervals [place] Rate: 67 P: 23 WA: 168 QRS: 4 QRSD: 102 T: 13 QT: 417 QTc: 441 Interpretive Statements SINUS RHYTHM Compared to ECG 08/05/2022 03:40:38 T-wave abnormality no longer present Electronically Signed On 08-10-2022 9:42:54 CDT by Eliu Mcallister M.D. [id number]
--- NOTE | 2022-08-09 18:40 | CTR_ITS ---
PROCEDURE INFORMATION: Exam: CT Head Without Contrast Exam date and time: 08/09/2022 7:20 PM Age: 71 years old Clinical indication: Altered mental status/memory loss; Additional info: AMS HX of endocarditis TECHNIQUE: Imaging protocol: Computed tomography of the head without contrast. Radiation optimization: All CT scans at this facility use at least one of these dose optimization techniques: automated exposure control; mA and/or kV adjustment per patient size (includes targeted exams where dose is matched to clinical indication); or iterative reconstruction. REPORTING DATA: Count of CT and Cardiac NM exams in prior 12 months: This patient has received [address] and 0 known cardiac nuclear medicine studies in the 12 months prior to the current study. COMPARISON: No relevant prior studies available. RADIATION DOSE METRICS: Total DLP (mGy-cm): 1466.58 FINDINGS: Brain: Severe calcified intracranial atherosclerotic vessel disease. Cerebral ventricles: No ventriculomegaly. Paranasal sinuses: Visualized sinuses are unremarkable. No fluid levels. Mastoid air cells: Visualized mastoid air cells are well aerated. Bones/joints: Unremarkable. No acute fracture. Soft tissues: Unremarkable. Other findings: Examination is limited secondary to motion artifact. CT/CT head wo con* [id number] IMPRESSION: No acute intracranial findings.
--- NOTE | 2022-08-09 18:40 | XRR_ITS ---
PROCEDURE INFORMATION: Exam: XR Chest Exam date and time: 08/09/2022 7:09 PM Age: 71 years old Clinical indication: Shortness of breath; Additional info: AMS SOB TECHNIQUE: Imaging protocol: Radiologic exam of the chest. Views: 1 view. COMPARISON: CR XR chest 1V portable [id number] 06/06/2020 1:08 PM FINDINGS: Tubes, catheters and devices: Stable surgical clips over the right axilla. Lungs: Interval appearance of mild bilateral pulmonary opacities in the mid and lower lung garcia consistent with pneumonia versus pulmonary edema. Pleural spaces: Unremarkable. No pleural effusion. No pneumothorax. Heart/Mediastinum: Interval aortic valve replacement, possibly endovascular aortic valve replacement. Increased heart size with mild somewhat globular cardiomegaly. Bones/joints: Moderate thoracic spondylosis. Soft tissues: Examination is limited secondary to body habitus. XR/XR chest 1V portable [id number] IMPRESSION: 1. Interval aortic valve replacement, possibly endovascular aortic valve replacement. 2. Increased heart size with mild somewhat globular cardiomegaly. 3. Interval appearance of mild bilateral pulmonary opacities in the mid and lower lung garcia consistent with pneumonia versus pulmonary edema.
[2022-08-09 18:51] LABS: ABG PH Result 7.46 (7.35-7.45); Arterial Blood Gas Hematocrit 30.1 % (37-47); Blood Gas Allen Test Pos; Blood Gas Sample Type Arterial; HCO3 ABG 37.3 mmol/L (22-26); PO2 ABG 70.2 mmHg (80.0-100.0)
[2022-08-09 18:52] LABS: Blood Gas Operator Identificat MONRO; Blood Gas Sample Site Radial, left; Oxygen Device NC
[2022-08-09 19:19] LABS: Basophils # 0.1 10^3/uL (0.0-0.1); Basophils % 0.5 %; Eosinophils # 0.3 10^3/uL (0.0-0.8); Eosinophils % 2.4 %; Hematocrit 31.2 % (37.0-47.0); Hemoglobin 9.6 g/dL (11.5-15.3); Lymphocytes # 2.1 10^3/uL (0.8-4.8); Lymphocytes % 19.7 %; Mean Corpuscular HGB Conc 30.8 g/dL (30.0-36.0); Mean Corpuscular Hemoglobin 26.7 pg (28.0-34.0); Mean Corpuscular Volume 86.9 fl (81-99); Mean Platelet Volume 9.4 fL (7.4-10.4); Monocytes # 0.7 10^3/uL (0.2-0.9); Monocytes % 6.2 %; Neutrophils # 7.71 10^3/uL (1.8-7.7); Neutrophils % 70.7 %; Nucleated Red Blood Cells % 0 %; Platelet Count 291 10^3/cmm (130-400); Red Blood Count 3.59 10^6/uL (4.1-5.3); Red Cell Distribution Width 16.2 % (12.1-15.1); White Blood Count 10.9 10^3/uL (4.0-10.0)
[2022-08-09 19:29] LABS: Urine Appearance Clear (CLEAR); Urine Color Yellow (Yellow)
[2022-08-09 19:32] LABS: Add Urine Microscopic? YES; Bacteria Urine TRACE /hpf; Bilirubin Urine Neg (Negative); Blood Urine 3+ (Negative); Glucose Urine UA Norm (Normal); Ketones Urine Negative (Negative); Leukocyte Esterase Urine Negative (Negative); Nitrate Urine Negative (Negative); Protein Urine 2+ (Negative); RBC Urine 15-25 /hpf (0-2); Squamous Epithelial Cell Urine 0-4 /hpf (0-5); Urobilinogen Urine Norm (Negative); WBC Urine 0-4 /hpf (0-5); pH Urine 7 (5-7)
[2022-08-09 19:43] LABS: Lactate (Lactic Acid level) 1.6 mmol/L (0.5-2.2)
--- NOTE | 2022-08-09 19:43 | W.ED.WEAKNES ---
HPI - Weakness General: Chief complaint: Weakness Stated complaint: SOB/WEAK Time Seen by Provider: 08/09/22 18:31 Source: patient History of Present Illness: 71-year-old female with a history of valvular disease. She has been under antibiotic treatment with PICC line for presumed endocarditis. She had bacteremia with Enterococcus previously. She presents with some mental status changes, more specifically expressive aphasia. This started around 2. She noted some weakness and chills that were generalized around noon symptoms have persisted. Weakness is not specific to one side. She is not dizzy. She is having mild trouble communicating due to expressive aphasia. Complaint: generalized weakness and difficulty walking Onset (ago): hour(s) Duration: constant Location: generalized Migration: none Severity: moderate Quality: other Relieving factors: none Exacerbating factors: none Associated symptoms: Reports chills, confusion, decreased appetite and short of breath; Denies chest pain, dysuria, fever(s), headache(s), nausea, syncope or vomiting Review of Systems Const: Reports: chills; Denies: fever(s) Card: Denies: chest pain or syncope Resp: Reports: dyspnea; Denies: productive cough or non-productive cough GI: Denies: abdominal pain, nausea or vomiting : Denies: dysuria Neuro: Reports: confusion; Denies: headache(s) PFSH ED PFSH: Medical History Anemia Asymptomatic menopausal state Axillary lump Benign essential HTN Breast cancer, right breast Hyperlipidemia Malignant neoplasm of central portion of right female breast Personal history of malignant neoplasm of breast Pneumonia Secondary and unspecified malignant neoplasm of axilla and upper limb lymph nodes SVT (supraventricular tachycardia) Type 2 diabetes mellitus without complication Type 2 DM mod nonproliferative retinopathy, macular edema, uncontrol Pt. will increase lantus to 24 units at hs Pt. to follow ADA diet closely Pt. agrees with plan of care. Surgical History History of appendectomy History of mastectomy Hx of section Hx of tonsillectomy S/P TAVR (transcatheter aortic valve replacement) Family History Family/Other CAD (coronary artery disease) Cancer Diabetes Hypertension Son Cancer Brother Cancer Father Cancer Mother Diabetes Grandfather Diabetes Denies family history of Dementia Hyperlipidemia Chronic kidney disease (CKD) Lung disease Stroke Social History Smoking and tobacco status: never smoked Second hand smoke exposure: Yes Alcohol intake: never Substance/Drug Use: never Adopted: No Lives independently: Yes Household members: spouse and family Housing: House Marital status: Female Reproductive History: Para: 6 Date of menopause: 05/01/93 Physical Exam Const: GENERAL APPEARANCE: cooperative, ill appearing and frail appearing NUTRITIONAL APPEARANCE: obese ORIENTATION/CONSCIOUSNESS: Yes awake, Yes oriented to person, Yes oriented to place and Yes confused (Very mildly) HENMT: COMMON NORMALS: normocephalic, atraumatic and Normal external nose present HEAD & SCALP: normocephalic and atraumatic FACE & SINUS: normal facial exam and face symmetric NOSE: Normal external nose present THROAT: posterior oropharynx normal Eye: COMMON NORMALS: Equal, round and reactive pupils present and EOMs intact bilaterally VISUAL [place]: Yes other (No visual field cut) PUPIL: Yes Equal, round and reactive pupils present Neck/C-Spine: GENERAL: Yes trachea midline Chest: CHEST: Yes Symmetrical chest wall rise Resp: COMMON NORMALS: normal respiratory effort, No use of accessory muscles and clear to auscultation bilaterally AUSCULTATION: clear to auscultation bilaterally and diminished lung sounds Cardio: COMMON NORMALS: regular rate and regular rhythm RATE: regular rate RHYTHM: regular rhythm GI: COMMON NORMALS: Normal to inspection, nondistended, normoactive bowel sounds present and Soft to palpation PALPATION: Yes Soft to palpation Extremity: GENERAL: Yes edema (1+) Neuro: DEVON COMA SCALE: document GCS findings [place] coma scale eye opening: Spontaneous [place] coma scale verbal response: Orientated [place] coma scale motor response: Obey commands Devon coma scale total score: 15 SENSORIUM/ORIENTATION: Yes oriented to person and Yes oriented to place CRANIAL NERVES: Yes CN normal except as noted COORDINATION/BALANCE: [id number] test normal SPEECH: expressive aphasia MOTOR EXAM: Pronator motor function not present and Normal motor muscle tone present throughout COORDINATION: [id number] test normal Psych: COMMON NORMALS: cooperative Course Vital Signs: Vital signs: Vital Signs Temperature 96.6 F L 08/09/22 18:23 Pulse Rate 66 08/09/22 18:23 Respiratory Rate 25 H 08/09/22 18:23 Blood Pressure 178/83 08/09/22 18:23 Pulse Oximetry 99 08/09/22 18:23 Oxygen Delivery Me thod Nasal Cannula 08/09/22 18:23 Oxygen Flow Rate 2 08/09/22 18:23 MDM - Weakness Medical Decision Making 71-year-old female essentially presenting with generalized weakness and expressive aphasia. There is concern over possible embolic stroke given her history. On reexam, she may be mildly improved although her daughter says she still having problems with language. Weakness is not focal. NIH scale is 1. Given her medical condition and comorbidities, though, feel it appropriate to observe her. Call out to the hospitalist. Spoke with the hospitalist. He wants to see the patient in the emergency department. Lab Data 08/09/22 18:55 08/09/22 18:55 Radiology Impressions Chest X-Ray 08/09/22 18:40 IMPRESSION: 1. Interval aortic valve replacement, possibly endovascular aortic valve replacement. 2. Increased heart size with mild somewhat globular cardiomegaly. 3. Interval appearance of mild bilateral pulmonary opacities in the mid and lower lung [place] consistent with pneumonia versus pulmonary edema. Head CT 08/09/22 18:40 IMPRESSION: No acute intracranial findings. Laboratory Results WBC 10.9 10^3/uL (4.0-10.0) H 08/09/22 18:55 RBC 3.59 10^6/uL (4.1-5.3) L 08/09/22 18:55 Hgb 9.6 g/dL (11.5-15.3) L 08/09/22 18:55 Hct 31.2 % (37.0-47.0) L 08/09/22 18:55 MCV 86.9 fl (81-99) 08/09/22 18:55 MCH 26.7 pg (28.0-34.0) L 08/09/22 18:55 MCHC 30.8 g/dL (30.0-36.0) 08/09/22 18:55 RDW 16.2 % (12.1-15.1) H 08/09/22 18:55 Plt Count 291 10^3/cmm (130-400) 08/09/22 18:55 MPV 9.4 fL (7.4-10.4) 08/09/22 18:55 Neut % (Auto) 70.7 % 08/09/22 18:55 Lymph % (Auto) 19.7 % 08/09/22 18:55 [place] % (Auto) 6.2 % 08/09/22 18:55 Eos % (Auto) 2.4 % 08/09/22 18:55 Baso % (Auto) 0.5 % 08/09/22 18:55 Neut # (Auto) 7.71 10^3/uL (1.8-7.7) H 08/09/22 18:55 Lymph # (Auto) 2.1 10^3/uL (0.8-4.8) 08/09/22 18:55 [place] # (Auto) 0.7 10^3/uL (0.2-0.9) 08/09/22 18:55 Eos # (Auto) 0.3 10^3/uL (0.0-0.8) 08/09/22 18:55 Baso # (Auto) 0.1 10^3/uL (0.0-0.1) 08/09/22 18:55 Nucleated RBC % (auto) 0 % 08/09/22 18:55 Nucleated RBCs # 0.0 /100WBC 08/09/22 18:55 Specimen Type Arterial 08/09/22 18:43 Sample Site Radial, left 08/09/22 18:43 ABG pH 7.46 (7.35-7.45) H 08/09/22 18:43 ABG pCO2 52.0 mmHg (35-45) H 08/09/22 18:43 ABG pO2 70.2 mmHg (80.0-100.0) L 08/09/22 18:43 ABG HCO3 37.3 mmol/L (22-26) H 08/09/22 18:43 ABG Base Excess 12.0 mmol/L (-2.0-2.0) H 08/09/22 18:43 [place] Test Pos 08/09/22 18:43 Hematocrit 30.1 % (37-47) L 08/09/22 18:43 O2 Delivery Device Nc 08/09/22 18:43 O2 Liters/Min 2.0 % 08/09/22 18:43 FiO2 28.0 % 08/09/22 18:43 Cert Occupational Therapy Asst ID Tamela 08/09/22 18:43 Sodium 128 mmol/L (136-145) L 08/09/22 18:55 Potassium 3.2 mmol/L (3.5-5.1) L 08/09/22 18:55 Chloride 88 mmol/L (98-107) L 08/09/22 18:55 Carbon Dioxide 35 mmol/L (22-29) H 08/09/22 18:55 Anion Gap 8.2 (5-19) 08/09/22 18:55 BUN 10 mg/dL (8-23) 08/09/22 18:55 Creatinine 0.5 mg/dL (0.5-0.9) 08/09/22 18:55 GFR Calculation 122.3 mL/min (90-130) 08/09/22 18:55 Glucose 74 mg/dL (65-115) 08/09/22 18:55 Calculated Osmolality 264 mOsm/kg (285-295) L 08/09/22 18:55 Lactate 1.6 mmol/L (0.5-2.2) 08/09/22 18:55 Calcium 8.5 mg/dL (8.5-10.5) 08/09/22 18:55 Magnesium 1.5 mg/dL (1.7-2.3) L 08/09/22 18:55 Total Bilirubin 0.2 mg/dL (0.15-1.2) 08/09/22 18:55 AST 11 U/L (0-32) 08/09/22 18:55 ALT 9 U/L (0-33) 08/09/22 18:55 Alkaline Phosphatase 79 U/L (35-105) 08/09/22 18:55 C-Reactive Protein 15.4 mg/L (0.0-4.9) H 08/09/22 18:55 NT-Pro-B Natriuret Pep 4396 pg/mL (0-125) H 08/09/22 18:55 Total Protein 6.7 g/dL (6.6-8.7) 08/09/22 18:55 Albumin 3.4 g/dL (3.5-5.2) L 08/09/22 18:55 Globulin 3.3 g/dL (1.3-4.6) 08/09/22 18:55 Urine Color Yellow (Yellow) 08/09/22 19:04 Urine Appearance Clear (CLEAR) 08/09/22 19:04 Urine pH 7 (5-7) 08/09/22 19:04 Ur Specific [place] 1.010 (1.005-1.030) 08/09/22 19:04 Urine Protein 2+ (Negative) H 08/09/22 19:04 Urine Glucose (UA) Norm (Normal) 08/09/22 19:04 Urine Ketones Negative (Negative) 08/09/22 19:04 Urine Blood 3+ (Negative) H 08/09/22 19:04 Urine Nitrate Negative (Negative) 08/09/22 19:04 Urine Bilirubin Neg (Negative) 08/09/22 19:04 Urine Urobilinogen Norm mg/dL (Negative) 08/09/22 19:04 Ur Leukocyte Esterase Negative (Negative) 08/09/22 19:04 Urine RBC 15-25 /hpf (0-2) H 08/09/22 19:04 Urine WBC 0-4 /hpf (0-5) H 08/09/22 19:04 Ur Squamous Epith Cells 0-4 /hpf (0-5) H 08/09/22 19:04 Amorphous Sediment Not Reportable 08/09/22 19:04 Urine Bacteria Trace /hpf (NONE) 08/09/22 19:04 Blood Type O Positive 08/09/22 18:55 Rho(D) Type Positive 08/09/22 18:55 Antibody Screen Negative 08/09/22 18:55 Discharge Plan Discharge Patient Disposition: Placed in Observation Admit Provider: Quincy Mcmanus Clinical Impression: Expressive aphasia, Infective endocarditis Coding Level of Care Code ED Unix Architect for Edwing Keri NIH stroke score NIHSS Level Of Consciousness - 1a: 0 Level Of Consciousness Questions - 1b: Both Correct Level Of Consciousness Commands - 1c: Both Correct Best Gaze - 2: Normal Visual [place] - 3: No Visual Loss Facial Palsy - 4: Normal Motor Arm Right - 5: No Drift Motor Arm Left - 5: No Drift Motor Leg Right - 6: No Drift Motor Leg Left - 6: No Drift Limb Ataxia - 7: Absent Sensory - 8: Normal Best Language - 9: Mild/Moderate Aphasia Dysarthia - 10: Normal Extinction And Inattention - 11: 0 Score Total Score: 1
[2022-08-09 19:49] LABS: Alanine Aminotransferase 9 U/L (0-33); Albumin Level 3.4 g/dL (3.5-5.2); Alkaline Phosphatase 79 U/L (35-105); Anion Gap 8.2 (5-19); Aspartate Amino Transferase 11 U/L (0-32); Blood Urea Nitrogen 10 mg/dL (8-23); C Reactive Protein 15.4 mg/L (0.0-4.9); Calcium 8.5 mg/dL (8.5-10.5); Carbon Dioxide 35 mmol/L (22-29); Chloride 88 mmol/L (98-107); Globulin 3.3 g/dL (1.3-4.6); Glomerular Filtration Rate 122.3 mL/min (90-130); Glucose 74 mg/dL (65-115); Magnesium 1.5 mg/dL (1.7-2.3); NT Pro B Type Natriuretic Pept 4396 pg/mL (0-125); Osmolality Calculated 264 mOsm/kg (285-295); Potassium 3.2 mmol/L (3.5-5.1); Sodium 128 mmol/L (136-145); Total Bilirubin 0.2 mg/dL (0.15-1.2); Total Protein 6.7 g/dL (6.6-8.7)
[2022-08-09] MEDS: acetaminophen 500 mg Tablet 1000 MG PO (22:30)
[2022-08-09] MEDS: potassium chloride oral liq 20 mEq/15 mL UDC 40 MEQ PO (22:36)
[2022-08-10] VITALS (72 sets, daily range): BP systolic 118–190; BP diastolic 51–128; PULSE 53–132; RESP 14–28; TEMP 37.1; O2SAT 81–100; BMI 38.7
--- NOTE | 2022-08-10 00:34 | P.HP_ITS ---
Providers/Chief Complaint Admitting Physician: Quincy Mcmanus MD Primary Care Provider: Dangelo Lemon MD Chief Complaint: SOB/WEAK History of Present Illness Roxana Hamilton is a 71 year old female with a past medical history of hypertension, hyperlipidemia, history of SVT, insulin-dependent type 2 diabetes mellitus, aortic stenosis, status post TAVR in 2021, for SVT she is going to follow-up with electrophysiology, recently admitted to [facility], concerns for infective endocarditis, currently on Rocephin 2 g twice daily, ampicillin 2 g every 4 hours, with PICC line in place, who presents to [facility] for concerns for CVA. Patient tells me that roughly at 5 PM, she called her son, to ask about her grandson from outside. She tells me according to her son she was confused over the phone, slurring of her words, so family came and evaluated her, she reports some left hand numbness, and weakness, she also reports productive aphasia, word finding difficulty, no facial droop, no visual deficits, no leg weakness, her symptoms have resolved in the emergency room, I was told she had NIH stroke scale of 1, currently she has a NIH stroke scale of 0, she follows all commands, no facial droop no slurring of words, no visual deficits, no word finding difficulty, she has no complaints, Review of Systems Const: Denies: fever(s) Eyes: Denies: change in vision Card: Denies: chest pain Resp: Denies: dyspnea GI: Denies: abdominal pain Medications/Allergies Home Medications Medication Instructions Recorded Confirmed Last Taken Type magnesium oxide 400 mg PO BID #60 tabs 07/03/20 08/04/22 08/04/22 Rx insulin syringe-needle U-100 1 mL #100 ea 06/10/22 08/04/22 Unknown Rx 31 gauge x 5/16 (BD Insulin Syringe Ultra-Fine) clopidogrel 75 mg tablet 75 mg PO DAILY 06/18/22 08/04/22 08/04/22 History insulin glargine 100 unit/mL 20 unit SUBCUT DAILY@15 07/01/22 08/04/22 08/03/22 History subcutaneous solution (Lantus U-100 Insulin) acetaminophen 500 mg tablet 1,000 mg PO Q6H PRN Pain 07/16/22 08/04/22 Unknown History exemestane 25 mg tablet 25 mg PO DAILY 07/16/22 08/04/22 08/04/22 History multivitamin 1 tab PO DAILY 07/16/22 08/04/22 08/04/22 History ampicillin sodium 2 gram 2 g IV Q4H 6 weeks #168 ea 07/23/22 08/04/22 08/03/22 Rx intravenous solution ceftriaxone 2 gram intravenous 2 g IV Q12H 6 weeks #84 ea 07/23/22 08/04/22 08/03/22 Rx solution sotalol 80 mg tablet 120 mg PO BID 30 days #90 tabs 07/23/22 08/04/22 08/04/22 Rx glipizide 10 mg tablet 10 mg PO BID 07/31/22 08/04/22 08/04/22 History metformin 1,000 mg tablet 1,000 mg PO BID 07/31/22 08/04/22 08/04/22 History furosemide 40 mg tablet (Lasix) 40 mg PO BID #60 tabs 08/06/22 Unknown Rx lisinopril 10 mg tablet 10 mg PO DAILY@19 #30 tabs 08/06/22 Unknown Rx pantoprazole 40 mg tablet,delayed 40 mg PO DAILY #30 tabs 08/06/22 Unknown Rx release Allergies Allergy/AdvReac Type Severity Reaction Status Date / Time levofloxacin [From Levaquin] Allergy EMERITAY-Swell Verified 07/31/22 08:03 Lip/Tongue/Throat PFSH Acute PFSH: Medical History Anemia Asymptomatic menopausal state Axillary lump Benign essential HTN Breast cancer, right breast Hyperlipidemia Malignant neoplasm of central portion of right female breast Personal history of malignant neoplasm of breast Pneumonia Secondary and unspecified malignant neoplasm of axilla and upper limb lymph nodes SVT (supraventricular tachycardia) Type 2 diabetes mellitus without complication Type 2 DM mod nonproliferative retinopathy, macular edema, uncontrol Pt. will increase lantus to 24 units at hs Pt. to follow ADA diet closely Pt. agrees with plan of care. Surgical History History of appendectomy History of mastectomy Hx of section Hx of tonsillectomy S/P TAVR (transcatheter aortic valve replacement) Family History Family/Other CAD (coronary artery disease) Cancer Diabetes Hypertension Son Cancer Brother Cancer Father Cancer Mother Diabetes Grandfather Diabetes Denies family history of Dementia Hyperlipidemia Chronic kidney disease (CKD) Lung disease Stroke Social History Smoking and tobacco status: never smoked Second hand smoke exposure: Yes Alcohol intake: never Substance/Drug Use: never Adopted: No Lives independently: Yes Household members: spouse and family Housing: House Marital status: Female Reproductive History: Para: 6 Date of menopause: 05/01/93 Vitals/I&O/Wt Last Vital Signs Temp 96.6 F L 08/09/22 18:23 Pulse 66 08/09/22 18:23 Resp 25 H 08/09/22 18:23 BP 178/83 08/09/22 18:23 Pulse Ox 99 08/09/22 18:23 O2 Del Method Nasal Cannula 08/09/22 18:23 O2 Flow Rate 2 08/09/22 18:23 Weight last 48 hrs Weight 113.398 kg Physical Exam Const: COMMON NORMALS: no acute distress and patient oriented x3 HENMT: COMMON NORMALS: normocephalic HEAD & SCALP: normocephalic Eye: COMMON NORMALS: Equal, round and reactive pupils present and EOMs intact bilaterally Neck/C-Spine: COMMON NORMALS: no JVD Lymph: LYMPHATIC: no lymphadenopathy noted Resp: COMMON NORMALS: normal respiratory effort, No retractions, No use of accessory muscles and clear to auscultation bilaterally AUSCULTATION: clear to auscultation bilaterally Cardio: COMMON NORMALS: regular rate, regular rhythm, S1 normal heart sound present and S2 normal heart sound present RATE: regular rate RHYTHM: regular rhythm HEART SOUNDS: S1 normal heart sound present and S2 normal heart sound present GI: COMMON NORMALS: Normal to inspection, nondistended, normoactive bowel sounds present, Soft to palpation and non-tender PALPATION: Yes Soft to palpation : COMMON NORMALS: Yes no CVA tenderness Extremity: COMMON NORMALS: no calf tenderness and no pedal edema Neuro: COMMON NORMALS: patient oriented x3, CN's II-XII intact bilaterally, moves all extremities and no focal motor deficits Psych: COMMON NORMALS: mental status grossly normal Urinary Catheter Management: Montero: Cath Placed During This Visit: yes Urinary Catheter Date of Insertion: 08/09/22 Urinary Catheter Time of Insertion: 19:15 Data 08/09/22 18:55 08/09/22 18:55 Micro: Microbiology 08/09/22 19:06 Blood Culture - Preliminary Blood SPECIMEN COLLECTED 08/09/22 18:55 Blood Culture - Preliminary Blood SPECIMEN COLLECTED A&P Assessment and plan (1) TIA (transient ischemic attack): (2) Expressive aphasia: (3) (HFpEF) heart failure with preserved ejection fraction: (4) Infective endocarditis: (5) Acute diastolic heart failure due to valvular disease: (6) SVT (supraventricular tachycardia): (7) Type 2 diabetes mellitus without complication: Qualifiers: Diabetes mellitus intermodal customer service insulin use: without penitentiary use Qualified Code(s): E11.9 - Type 2 diabetes mellitus without complications Plan TIA -With productive aphasia, slurring of words, left hand weakness, currently resolved -Does have history of endocarditis, infected, she had a ABDIRIZAK which showed calcifications on mitral valve leaflets, with an Enterococcus faecalis bacteremia -CT head no acute findings -Concern is could this be an embolic phenomenon from endocarditis versus hypertensive versus A-fib -Plan -Neurochecks, NIH stroke scale, aspiration precautions -Dysphagia eval -PT OT -Speech therapy eval -Aspirin, statin, Plavix -We will order MRI of the brain -Carotid artery ultrasound -We will monitor closely -For type 2 diabetes mellitus, continue Lantus 20 units, subcu sliding scale -For infective endocarditis continue ampicillin, continue Rocephin -Patient is a full code -Lovenox for DVT prophylaxis Attestations Medical Necessity Statement*: Patient requires hospitalization, inpatient, greater than 2 midnights for TIA Coding Level of Care Code Acute Code for [facility] Fwd Diagnoses TIA (transient ischemic attack) G45.9 Expressive aphasia R47.01 (HFpEF) heart failure with preserved ejection fraction I50.30 Infective endocarditis I33.0 Acute diastolic heart failure due to valvular disease I50.31; I38 SVT (supraventricular tachycardia) I47.1 Type 2 diabetes mellitus without complication E11.9 Diabetes mellitus penitentiary insulin use: without penitentiary use
[2022-08-10 01:15] LABS: Lactic Sepsis W/Reflex 0.7 mmol/L (0.5-2.2)
[2022-08-10 01:22] LABS: Procalcitonin 0.09 ng/mL (0-0.5)
--- NOTE | 2022-08-10 03:49 | ECG_ITS ---
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 Measurements Intervals Perkins Rate: 134 P: 0 OK: 0 QRS: 9 QRSD: 117 T: 2 QT: 236 QTc: 353 Interpretive Statements ATRIAL FIBRILLATION WITH RAPID VENTRICULAR RESPONSE MODERATE INTRAVENTRICULAR CONDUCTION DELAY [110+ ms QRS DURATION] NONSPECIFIC ST & T-WAVE ABNORMALITY ABNORMAL RHYTHM ECG Compared to ECG 08/09/2022 19:48:32 Intraventricular conduction delay now present T-wave abnormality now present Sinus rhythm no longer present Electronically Signed On 08-10-2022 9:45:03 CDT by Eliu Mcallister M.D. [email or web address]
[2022-08-10] MEDS: dilTIAZem 5 mg/mL SDV 5 mL 20 MG IVP (03:53)
--- NOTE | 2022-08-10 03:56 | PC.NURSE ---
Pt noted to have rhythm change on monitor. Appears to be in SVT, which pt has a hx of. Dr. Mcmanus notified. Orders recieved. EKG completed. Pt originally denied feeling any symptoms, but after changing positions in bed, reported feeling worse. aware.
[2022-08-10] MEDS: adenosine 3 mg/mL SDV 2mL 12 MG IVP (04:27)
--- NOTE | 2022-08-10 04:43 | PC.NURSE ---
Pt rhythm did not respond to cardizem push. Dr. Edwards at bedside. Ordered 12mg Adenosine x 1. This was given. Pt converted to NSR.
--- NOTE | 2022-08-10 04:57 | USR_ITS ---
PROCEDURE INFORMATION: Exam: US Duplex Bilateral Extracranial Arteries, Carotid Arteries Exam date and time: 08/10/2022 3:52 PM Age: 71 years old Clinical indication: Dizziness; Additional info: CVA TECHNIQUE: Imaging protocol: Real-time Duplex ultrasound scan of the bilateral carotid and vertebral arteries combining contreras scale, color Doppler and spectral waveform analysis. Bilateral exam. Exam focused on the carotid arteries. COMPARISON: CT head wo con* [id number] 08/09/2022 7:20 PM FINDINGS: Right common carotid artery: . 69.0 Cm/s Right internal carotid artery: 88 Cm/s Right ICA/CCA ratio: Within normal limits. Right external carotid artery: No stenosis in the origin. Right vertebral artery: Vertebral arteries: Antegrade Left common carotid artery: 79 Cm/s Left internal carotid artery: 92 Cm/s Left ICA/CCA ratio: Within normal limits. Left external carotid artery: No stenosis in the origin. Left vertebral artery: Unremarkable. Antegrade flow. Other findings: Velocity ratios of approximally 1. US/CV carotid duplex BI* [id number] IMPRESSION: Minimal plaque. No narrowing. REFERENCES: SRU CRITERIA. The degree of internal carotid artery stenosis is based on criteria defined by the Society of Radiologists in Ultrasound (SRU). Normal is no stenosis. Mild is less than 50% stenosis. Moderate is 50-69% stenosis. Severe is greater than 69% stenosis to near occlusion. Near occlusion is a markedly narrowed lumen. Total occlusion is no detectable patent lumen.
--- NOTE | 2022-08-10 04:57 | MRR_ITS ---
PROCEDURE INFORMATION: Exam: MR Head Without Contrast Exam date and time: 08/10/2022 11:44 AM Age: 71 years old Clinical indication: Weakness, facial; Patient HX: Right sided facial droop with slurred speech; Additional info: CVA TECHNIQUE: Imaging protocol: Magnetic resonance imaging of the head without contrast. COMPARISON: CT head wo con* [id number] 08/09/2022 7:20 PM FINDINGS: Limitations: There is extensive motion artifact on exam which limits fine detailed evaluation of the brain parenchyma. Brain: There is a punctate area of hyperintense DWI signal in the posterior aspect of the left frontal lobe as best seen on series 42, image 20. There appears to be corresponding hypointensity on ADC mapping. No hemorrhage. No edema. Mild diffuse cerebral atrophy and T2 hyperintense signal abnormality within the periventricular white matter tracts suggestive of chronic small vessel ischemic disease. Cerebral ventricles: Normal. No ventriculomegaly. Bones/joints: Unremarkable. Paranasal sinuses: Normal as visualized. No acute sinusitis. Mastoid air cells: Normal as visualized. No mastoid effusion. Orbital cavities: Unremarkable. Soft tissues: Unremarkable. MR/MR head wo con* [id number] IMPRESSION: There is a suspected punctate acute/subacute infarct in the posterior aspect of the left frontal lobe within the limitations of the examination described in the body of the report.
[2022-08-10] MEDS: enoxaparin 40 mg/0.4 mL Syringe SUBCUT (05:33)
[2022-08-10 07:35] LABS: Estmated Average Glucose 123; Hemoglobin A1C 5.9 % (4.0-6.0)
[2022-08-10 07:44] LABS: Thyroid Stimulating Hormone 0.36 uIU/mL (0.27-4.20)
[2022-08-10 08:02] LABS: Glucose Point of Care 104 mg/dL (70-110)
[2022-08-10] MEDS: pantoprazole DR 40 mg Tablet PO (09:01)
[2022-08-10] MEDS: clopidogrel 75 mg Tablet PO (09:02)
[2022-08-10] MEDS: aspirin 81 mg EC Tablet PO (09:02)
[2022-08-10] MEDS: sotalol 80 mg Tablet 120 MG PO ×2 (09:02→17:30)
[2022-08-10] MEDS: FUROsemide 40 mg Tablet PO ×2 (09:02→17:29)
[2022-08-10] MEDS: magnesium oxide 400 mg tablet PO ×2 (09:03→17:30)
[2022-08-10] MEDS: cefTRIAXone 2,000 MG in sodium chloride 0.9% (plus) 50 ML 100 MG IV ×2 (09:04→19:56)
--- NOTE | 2022-08-10 09:08 | PC.PHAR ---
pt states she takes care of her own medications-pt brought in her med bottles-pt states her metoprolol er 50mg daily filled 05/01/22 90d/s and diltiazem er 360mg daily filled 06/09/22 90d/s was dced-pt brought in med bottle for metformin 1000mg bid filled 06/03/22 90d/s and 500mg daily filled 06/10/22 90d/s pt states no longer takes the 500mg at noon states only takes 1000mg bid-pt brought in med bottle for lisinopril 10mg daily filled 08/06/22 30d/s and 5mg daily filled 07/04/22 90d/s pt states only takes 10mg daily-pt states she uses lantus 20 units daily ext shows last filled 08/01/22 24 units daily-lasix 40mg bid filled 08/06/22 30d/s and 20mg daily filled 06/18/22 90d/s pt states only takes 40mg bid-pt states she is on ampicillin iv q4h filled 08/09/22 and ceftriaxone iv q12h filled 08/06/22-notes are made in the pharmacy comments
--- NOTE | 2022-08-10 09:11 | PC.NURSE ---
Nursing dysphasia screen performed. Patient had no difficulty.
--- NOTE | 2022-08-10 11:19 | PC.OT ---
Occupational therapy evaluation attempted. Patient is being taken for an MRI. Will attempt again later.
[2022-08-10] MEDS: potassium chloride ER 20 mEq Tablet 40 MEQ PO (12:24)
[2022-08-10] MEDS: ampicillin 2,000 MG in sodium chloride 0.9% (plus) 50 ML 100 MG IV ×4 (12:25→22:29)
[2022-08-10 12:34] LABS: Glucose Point of Care 123 mg/dL (70-110)
[2022-08-10] MEDS: insulin glargine 100 units/1 mL 20 UNIT SUBCUT (14:44)
[2022-08-10 17:02] LABS: Glucose Point of Care 184 mg/dL (70-110)
[2022-08-10] MEDS: insulin lispro 100 unit/1 mL SUBCUT (17:30)
[2022-08-10] MEDS: lisinopril 10 mg Tablet PO (17:30)
--- NOTE | 2022-08-10 18:04 | PM.MISC ---
Miscellaneous Note Purpose of Documentation: Cross coverage note. Note: Admitted earlier today morning. H&P and labs appreciated. Seen in ICU today. Admitted as a CSU overflow. Patient is sitting up in chair. Able to have complete conversation. On examination sitting in chair but wakes up to verbal stimulus. AOx3. States she had a transient episode of confusion yesterday along with weakness of the left side. States now she is feeling fine. She did have an episode of SVT in. the ER at around 3 AM when she required adenosine. Not sure if she had any palpitations during the episode at home. States she has been on new diuretics and swelling in the lower limbs have decreased quite a bit. Also states that she has been taking using her antibiotics regularly without any concerns. States she has no problem using cefazolin as a 24-hour infusion and give ceftriaxone twice daily all by herself without any problems. Plan: Symptoms on admission could be secondary to arrhythmia because of recurrent SVTs in the past versus hypoglycemia as patient is on multiple hypoglycemics with A1c of 5.9. At home she takes glipizide 10 mg twice daily, Lantus 20 units every afternoon. Most likely will need to be off glipizide on discharge to prevent from episodes of hypoglycemia. Replete potassium with 40 mg oral for hypokalemia. Given recurrent episodes of SVT will monitor potassium and magnesium. Keep potassium over 4, magnesium over 2. Did have hyponatremia on admission. Repeat BMP in evening. Will change treatment accordingly. MRI results appreciated. As per radiology there is a concern of possible but cannot be sure because of motion artifact. No concerns for thromboembolic event. Given the patient is on treatment for infective endocarditis of Carotid Doppler still awaited. Hold off on antihypertensive for permissible hypertension. For now continue with sotalol and diuretic given high chances of congestive heart failure and recurrent SVTs. Continue with doses of cefazolin and ceftriaxone. Continue with home dose of aspirin, Plavix, statins. PT/OT/speech evaluation. Advance diet as per speech therapy. Given patient is on treatment of infective endocarditis of aortic valve will need to confirm with cardiology if they suggest that patient should go for aortic valve replacement given recurrent episodes of congestive heart failure, SVT and now a new stroke. Other Coding Information Prolonged care (total time indicated above or notated here) Reviewing of chart, home medications, recurrent admission notes, lab work, treatment plan discussion with case management, patient's outpatient ID physician
[2022-08-10 18:47] LABS: Blood Urea Nitrogen 11 mg/dL (8-23); Calcium 8.4 mg/dL (8.5-10.5); Carbon Dioxide 33 mmol/L (22-29); Chloride 90 mmol/L (98-107); Glomerular Filtration Rate 158.3 mL/min (90-130); Glucose 168 mg/dL (65-115); Osmolality Calculated 271 mOsm/kg (285-295); Sodium 129 mmol/L (136-145)
[2022-08-10 18:48] LABS: Anion Gap 10.4 (5-19); Creatinine Clr Calc Pharmacy 80.1259; Potassium 4.4 mmol/L (3.5-5.1)
[2022-08-10] MEDS: atorvastatin 40 mg Tablet PO (20:08)
[2022-08-10 21:10] LABS: Glucose Point of Care 166 mg/dL (70-110)
[2022-08-10] MEDS: acetaminophen 500 mg Tablet 1000 MG PO (22:54)
[2022-08-11] VITALS (56 sets, daily range): BP systolic 105–175; BP diastolic 53–120; PULSE 54–88; RESP 14–29; TEMP 36.6–36.7; O2SAT 79–100
[2022-08-11] MEDS: ampicillin 2,000 MG in sodium chloride 0.9% (plus) 50 ML 100 MG IV ×6 (03:28→22:36)
[2022-08-11 05:43] LABS: Basophils # 0.1 10^3/uL (0.0-0.1); Basophils % 0.7 %; Eosinophils # 0.2 10^3/uL (0.0-0.8); Eosinophils % 2.9 %; Hematocrit 28.9 % (37.0-47.0); Lymphocytes # 1.8 10^3/uL (0.8-4.8); Lymphocytes % 23.8 %; Mean Corpuscular HGB Conc 31.1 g/dL (30.0-36.0); Mean Corpuscular Hemoglobin 27.5 pg (28.0-34.0); Mean Corpuscular Volume 88.4 fl (81-99); Mean Platelet Volume 9.5 fL (7.4-10.4); Monocytes # 0.6 10^3/uL (0.2-0.9); Monocytes % 7.3 %; Neutrophils % 64.9 %; Nucleated Red Blood Cells % 0 %; Platelet Count 226 10^3/cmm (130-400); Red Blood Count 3.27 10^6/uL (4.1-5.3); Red Cell Distribution Width 16.5 % (12.1-15.1); White Blood Count 7.7 10^3/uL (4.0-10.0)
[2022-08-11] MEDS: enoxaparin 40 mg/0.4 mL Syringe SUBCUT (05:52)
[2022-08-11 06:15] LABS: Alanine Aminotransferase 9 U/L (0-33); Albumin Level 3.1 g/dL (3.5-5.2); Alkaline Phosphatase 58 U/L (35-105); Anion Gap 11.4 (5-19); Aspartate Amino Transferase 9 U/L (0-32); Blood Urea Nitrogen 12 mg/dL (8-23); Calcium 8.5 mg/dL (8.5-10.5); Carbon Dioxide 32 mmol/L (22-29); Chloride 97 mmol/L (98-107); Glomerular Filtration Rate 158.3 mL/min (90-130); Glucose 143 mg/dL (65-115); Osmolality Calculated 284 mOsm/kg (285-295); Potassium 4.4 mmol/L (3.5-5.1); Sodium 136 mmol/L (136-145); Total Bilirubin 0.2 mg/dL (0.15-1.2); Total Protein 6.1 g/dL (6.6-8.7)
[2022-08-11 06:22] LABS: Creatinine Clr Calc Pharmacy 80.1259
[2022-08-11 07:05] LABS: Glucose Point of Care 149 mg/dL (70-110)
[2022-08-11] MEDS: clopidogrel 75 mg Tablet PO (08:43)
[2022-08-11] MEDS: sotalol 80 mg Tablet 120 MG PO ×2 (08:43→17:33)
[2022-08-11] MEDS: cefTRIAXone 2,000 MG in sodium chloride 0.9% (plus) 50 ML 100 MG IV ×2 (08:43→19:49)
[2022-08-11] MEDS: FUROsemide 40 mg Tablet PO ×2 (08:44→17:33)
[2022-08-11] MEDS: pantoprazole DR 40 mg Tablet PO (08:44)
[2022-08-11] MEDS: aspirin 81 mg EC Tablet PO (08:44)
[2022-08-11] MEDS: potassium chloride ER 20 mEq Tablet 40 MEQ PO (08:44)
[2022-08-11] MEDS: magnesium oxide 400 mg tablet PO ×2 (08:44→17:33)
[2022-08-11 12:16] LABS: Glucose Point of Care 180 mg/dL (70-110)
[2022-08-11] MEDS: insulin lispro 100 unit/1 mL SUBCUT (12:23)
[2022-08-11] MEDS: insulin glargine 100 units/1 mL 20 UNIT SUBCUT (16:22)
[2022-08-11 16:46] LABS: Glucose Point of Care 189 mg/dL (70-110)
[2022-08-11] MEDS: lisinopril 10 mg Tablet PO (17:34)
--- NOTE | 2022-08-11 19:18 | PM.PN ---
Subjective Subjective: Feeling much better than she did at admission. Feels much stronger. Speech is clear, no new neurological complaints. Carotid Dopplers showed minimal plaque, no narrowing. MRI showed a suspected punctate acute/subacute infarct in the posterior aspect of the left frontal lobe though exam was limited by excessive motion artifact. Mild diffuse cerebral atrophy and periventricular white matter changes suggesting chronic small vessel ischemic disease. Vitals/I&O/Wt Last Vital Signs Temp 98.1 F 08/11/22 16:00 Pulse 88 08/11/22 16:00 Resp 22 H 08/11/22 11:45 BP 105/55 08/11/22 12:00 Pulse Ox 99 08/11/22 10:40 O2 Del Method Nasal Cannula 08/11/22 10:40 O2 Flow Rate 2.5 08/11/22 10:40 08/11/22 08/11/22 08/11/22 06:59 14:59 22:59 Intake Total 100 / 1572 450 / 450 150 / 600 Output Total 750 / 1600 750 / 750 2300 / 3050 Balance -650 / -28 -300 / -300 -2150 / -2450 Weight last 48 hrs Weight 105.687 kg Physical Exam Narrative: Awake and alert, seen sitting up in chair. Lungs are clear. Regular rhythm. Speech is clear, face symmetric, handgrip is equal bilaterally. Line in place Urinary Catheter Management: Montero: Cath Placed During This Visit: yes Reason for Continuing Indwelling Catheter: Accurate Measurement of Urinary Output in Critically Ill Patients Urinary Catheter Date of Insertion: 08/09/22 Urinary Catheter Time of Insertion: 19:15 Data 08/11/22 05:20 08/11/22 05:20 Micro: Microbiology 08/09/22 19:06 Blood Culture - Preliminary Blood NEGATIVE TO DATE 08/09/22 18:55 Blood Culture - Preliminary Blood NEGATIVE TO DATE Other data: Laboratory Tests 08/09/22 08/10/22 08/10/22 18:55 00:50 00:50 Magnesium 1.5 L C-Reactive Protein 15.4 H NT-Pro-B Natriuret Pep 4396 H Procalcitonin 0.09 TSH 0.36 A&P Assessment and plan (1) TIA (transient ischemic attack): Presenting symptoms included confusion, speech difficulty described as expressive aphasia and word finding difficulty, left hand numbness and generalized weakness. No swallowing difficulties, vision changes, facial droop. Initial NIH score 1. MRI of the head shows suspected though unable to confirm punctate acute/subacute infarct in the posterior aspect of the left frontal lobe (exam was limited by extensive motion artifact) Symptoms have presently resolved Check lipids as not done within 30 days Check INR Permissive hypertension initially PT/OT evaluations Had echo on 08/04 Carotids with minimal plaque Chronically on plavix, aspirin has been added though may need to consider warfarin initiation with arrthymias and TAVR Statin initiated (2) (HFpEF) heart failure with preserved ejection fraction: Chronic, not acute Known severe pulmonary hypertension Normally on lasix and lisinopril (3) Infective endocarditis: Present on admission, on outpatient treatment with cefazolin, rocephin via PICC line Treatment continues here (4) SVT (supraventricular tachycardia): Intermittent, requiring periodic adenosine in medical settings and vagal maneuvers otherwise Plan has been for outpatient electrophysiology follow-up after completion of treatment for infection Chronically on sotalol Concern is potential relation to aortic valve issues, especially now in the setting of possible acute stroke (5) Hypertension: Chronically on lasix, lisinopril and sotatol On home medications at usual doses with acceptable blood pressures (6) Type 2 diabetes mellitus without complication: On insulin, metformin and glipizide at home, A1c 5.9 Here on insulin therapy with oral agents held (7) S/P TAVR (transcatheter aortic valve replacement): 06/2022 (8) HX: breast cancer: On exemestane (9) Anemia: Iron deficiency stable since earlier in the year Add iron supplement Plan Need to discuss with cardiology if plan of care at this time regarding SVT episodes, status post TAVR status and endocarditis change now that she is had what appears to be transient ischemic attack/frontal lobe ischemia in a punctate lesion. Comorbidities, particularly recent but also acute, make scenario more complex than usual presentations with transient [employer] symptoms If continues to improve, does well with therapies and heart rhythm remains stable, may be stable for discharge in the next 24 to 48 hours. Lovenox for DVT prophylaxis PPI for GI prophylaxis CODE STATUS Full Code Anticipate discharge home with continued IV antibiotics for endocarditis, outpatient follow-up to cardiology, primary care, infectious disease, eventual referral to electrophysiology Attestations Medical Necessity Statement*: Requires ongoing stay for continued arrhythmia monitoring and management for TIA/stroke. Patient's recent TAVR, known infective endocarditis on antibiotics, recurrent episodes of SVT and known heart failure with pulmonary hypertension put her at high risk of recurrent acute neurological symptoms without optimization of overall care. Coding Level of Care Code 59313 Moderate Time for a total of 45 minutes, includes reviewing past or interval history, examining/interviewing patient, placing orders, counseling patient/family/other support, discussing plan of care with staff and documenting encounter Diagnoses TIA (transient ischemic attack) G45.9 (HFpEF) heart failure with preserved ejection fraction I50.30 Infective endocarditis I33.0 SVT (supraventricular tachycardia) I47.1 Hypertension I10 Type 2 diabetes mellitus without complication E11.9 S/P TAVR (transcatheter aortic valve replacement) Z95.2 HX: breast cancer Z85.3 Anemia D64.9
[2022-08-11] MEDS: atorvastatin 40 mg Tablet PO (22:37)
[2022-08-11 22:45] LABS: Glucose Point of Care 238 mg/dL (70-110)
[2022-08-12] VITALS (25 sets, daily range): BP systolic 122–177; BP diastolic 47–80; PULSE 60–71; RESP 15–33; TEMP 36.8; O2SAT 88–99
[2022-08-12] MEDS: ampicillin 2,000 MG in sodium chloride 0.9% (plus) 50 ML 100 MG IV ×2 (02:53→10:22)
[2022-08-12] MEDS: enoxaparin 40 mg/0.4 mL Syringe SUBCUT (04:30)
[2022-08-12 06:02] LABS: Basophils # 0.1 10^3/uL (0.0-0.1); Basophils % 0.7 %; Eosinophils # 0.2 10^3/uL (0.0-0.8); Eosinophils % 3.1 %; Hematocrit 29.2 % (37.0-47.0); Hemoglobin 8.9 g/dL (11.5-15.3); Lymphocytes # 1.6 10^3/uL (0.8-4.8); Lymphocytes % 22.3 %; Mean Corpuscular HGB Conc 30.5 g/dL (30.0-36.0); Mean Corpuscular Hemoglobin 26.6 pg (28.0-34.0); Mean Corpuscular Volume 87.2 fl (81-99); Mean Platelet Volume 9.9 fL (7.4-10.4); Monocytes # 0.6 10^3/uL (0.2-0.9); Monocytes % 8.8 %; Neutrophils # 4.65 10^3/uL (1.8-7.7); Neutrophils % 64.8 %; Nucleated Red Blood Cells % 0 %; Platelet Count 238 10^3/cmm (130-400); Red Blood Count 3.35 10^6/uL (4.1-5.3); Red Cell Distribution Width 16.2 % (12.1-15.1); White Blood Count 7.2 10^3/uL (4.0-10.0)
[2022-08-12 06:22] LABS: INR 1.05 (0.8-1.2)
[2022-08-12 06:30] LABS: Anion Gap 12.5 (5-19); Blood Urea Nitrogen 12 mg/dL (8-23); Calcium 8.7 mg/dL (8.5-10.5); Carbon Dioxide 31 mmol/L (22-29); Chloride 97 mmol/L (98-107); Chol HDL Ratio 3.13 mg/dL (0.0-4.40); Cholesterol 125 mg/dL (0-200); Glomerular Filtration Rate 158.3 mL/min (90-130); Glucose 158 mg/dL (65-115); HDL Cholesterol 40 mg/dL (60-100); LDL Cholesterol Calculated 64 mg/dL (50-129); Magnesium 1.8 mg/dL (1.7-2.3); Osmolality Calculated 285 mOsm/kg (285-295); Phosphorus 3.1 mg/dL (2.5-4.5); Potassium 4.5 mmol/L (3.5-5.1); Sodium 136 mmol/L (136-145); Triglycerides 103 mg/dL (0-150)
[2022-08-12 06:36] LABS: Creatinine Clr Calc Pharmacy 80.1259
[2022-08-12 06:39] LABS: Glucose Point of Care 169 mg/dL (70-110)
--- NOTE | 2022-08-12 07:37 | PC.NURSE ---
Pt refused tele. education given, continued to refuse.
[2022-08-12] MEDS: potassium chloride ER 20 mEq Tablet 40 MEQ PO (08:06)
[2022-08-12] MEDS: insulin lispro 100 unit/1 mL SUBCUT (08:06)
[2022-08-12] MEDS: clopidogrel 75 mg Tablet PO (08:06)
[2022-08-12] MEDS: magnesium oxide 400 mg tablet PO (08:06)
[2022-08-12] MEDS: pantoprazole DR 40 mg Tablet PO (08:06)
[2022-08-12] MEDS: aspirin 81 mg EC Tablet PO (08:06)
[2022-08-12] MEDS: sotalol 80 mg Tablet 120 MG PO (08:06)
[2022-08-12] MEDS: FUROsemide 40 mg Tablet PO (08:06)
[2022-08-12] MEDS: ferrous sulfate EC 325 mg Tablet PO (08:06)
[2022-08-12] MEDS: cefTRIAXone 2,000 MG in sodium chloride 0.9% (plus) 50 ML 100 MG IV (10:23)
--- NOTE | 2022-08-12 10:24 | P.DS_ITS ---
Discharge Providers Date of Admission: 08/10/22 04:57 Date of Discharge: August 12, 2022 Attending Provider at Admission: Tyson Welsh MD Attending Provider at Discharge: Carlos Tuttle MD Primary Care Provider: Dangelo Lemon MD Diagnoses at Discharge Discharge Diagnosis (1) TIA (transient ischemic attack): Status: Acute (2) (HFpEF) heart failure with preserved ejection fraction: Status: Acute (3) Infective endocarditis: Status: Acute (4) SVT (supraventricular tachycardia): Status: Acute (5) Hypertension: Status: Acute (6) Type 2 diabetes mellitus without complication: Status: Acute (7) S/P TAVR (transcatheter aortic valve replacement): Status: Acute (8) HX: breast cancer: Status: Acute (9) Anemia: Status: Acute Reason for Visit Reason for Visit: SOB/WEAK Hospital Course Hospital Course Roxana Hamilton is a 71-year-old female with a past medical history significant for aortic stenosis, hypertension, congestive heart failure, infective endocarditis, enterococcus bacteremia, TAVR (2021), recurrent SVT, and breast cancer who presented with shortness of breath and weakness, found to have expressive aphasia secondary to transient ischemic attack. Patient treated with therapy, telemetry monitoring, and supportive care. Symptoms resolved. Patient requested to be discharged home. Given her presentation of TIA in the setting of recurrent SVT, there is concern for occult atrial fibrillation. Discussed with cardiology, recommending she continue her event monitoring and keep follow up as currently scheduled for tomorrow in clinic. Patient discharged to home in stable condition. She is to follow up with primary care physician as well. Physical Exam Narrative: General: Patient is awake and alert. Head: Normocephalic. Atraumatic. EOM intact. Neck: No JVD. Cardiovascular: RRR. No gallops. No murmurs. No peripheral edema. Lungs: Clear to auscultation, no use of accessory muscles, no crackles or wheezes. Skin: No jaundice. No rashes. Abdomen: Normal bowel sounds, abdomen soft and nontender. Genito Urinary: Genital exam not performed since complaints not related. Rectal: Rectal exam not performed since no symptoms indicated blood loss. Extremities: No cyanosis or clubbing. Musculoskeletal: 5/5 strength, normal range of motion, no swollen or erythematous joints. Neurological: Moves all 4 extremities. No myoclonus. Urinary Catheter Management: Montero: Cath Placed During This Visit: yes Reason for Continuing Indwelling Catheter: Other Urinary Catheter Date of Insertion: 08/09/22 Urinary Catheter Time of Insertion: 19:15 Discharge Data Studies Completed and Pending Completed Studies During Hospitalization Category Date Time Status CT head wo con* [id number] Stat Cat Scan 08/09/22 18:40 Completed XR chest 1V portable [id number] Stat Exams 08/09/22 18:40 Completed MR head wo con* [id number] Routine MRI 08/10/22 04:57 Completed CV carotid duplex BI* [id number] Routine Ultrasound 08/10/22 04:57 Completed Pending at discharge Category Date Time Status Blood Culture Stat Lab 08/09/22 19:06 Results Radiology Impressions Chest X-Ray 08/09/22 18:40 IMPRESSION: 1. Interval aortic valve replacement, possibly endovascular aortic valve replacement. 2. Increased heart size with mild somewhat globular cardiomegaly. 3. Interval appearance of mild bilateral pulmonary opacities in the mid and lower lung garcia consistent with pneumonia versus pulmonary edema. Head CT 08/09/22 18:40 IMPRESSION: No acute intracranial findings. Carotid Doppler Study 08/10/22 04:57 IMPRESSION: Minimal plaque. No narrowing. REFERENCES: SRU CRITERIA. The degree of internal carotid artery stenosis is based on criteria defined by the Society of Radiologists in Ultrasound (SRU). Normal is no stenosis. Mild is less than 50% stenosis. Moderate is 50-69% stenosis. Severe is greater than 69% stenosis to near occlusion. Near occlusion is a markedly narrowed lumen. Total occlusion is no detectable patent lumen. Head MRI 08/10/22 04:57 IMPRESSION: There is a suspected punctate acute/subacute infarct in the posterior aspect of the left frontal lobe within the limitations of the examination described in the body of the report. ADDENDUM: 08/10/22 1309 Findings were discussed with Dr. Welsh at 08/10/2022 1:07 PM CDT. Laboratory Results WBC 7.2 10^3/uL (4.0-10.0) 08/12/22 05:45 RBC 3.35 10^6/uL (4.1-5.3) L 08/12/22 05:45 Hgb 8.9 g/dL (11.5-15.3) L 08/12/22 05:45 Hct 29.2 % (37.0-47.0) L 08/12/22 05:45 MCV 87.2 fl (81-99) 08/12/22 05:45 MCH 26.6 pg (28.0-34.0) L 08/12/22 05:45 MCHC 30.5 g/dL (30.0-36.0) 08/12/22 05:45 RDW 16.2 % (12.1-15.1) H 08/12/22 05:45 Plt Count 238 10^3/cmm (130-400) 08/12/22 05:45 MPV 9.9 fL (7.4-10.4) 08/12/22 05:45 Neut % (Auto) 64.8 % 08/12/22 05:45 Lymph % (Auto) 22.3 % 08/12/22 05:45 [place] % (Auto) 8.8 % 08/12/22 05:45 Eos % (Auto) 3.1 % 08/12/22 05:45 Baso % (Auto) 0.7 % 08/12/22 05:45 Neut # (Auto) 4.65 10^3/uL (1.8-7.7) 08/12/22 05:45 Lymph # (Auto) 1.6 10^3/uL (0.8-4.8) 08/12/22 05:45 [place] # (Auto) 0.6 10^3/uL (0.2-0.9) 08/12/22 05:45 Eos # (Auto) 0.2 10^3/uL (0.0-0.8) 08/12/22 05:45 Baso # (Auto) 0.1 10^3/uL (0.0-0.1) 08/12/22 05:45 Nucleated RBC % (auto) 0 % 08/12/22 05:45 Nucleated RBCs # 0.0 /100WBC 08/12/22 05:45 PT 14.00 SECONDS (12.1-14.9) 08/12/22 05:45 INR 1.05 (0.8-1.2) 08/12/22 05:45 Specimen Type Arterial 08/09/22 18:43 Sample Site Radial, left 08/09/22 18:43 ABG pH 7.46 (7.35-7.45) H 08/09/22 18:43 ABG pCO2 52.0 mmHg (35-45) H 08/09/22 18:43 ABG pO2 70.2 mmHg (80.0-100.0) L 08/09/22 18:43 ABG HCO3 37.3 mmol/L (22-26) H 08/09/22 18:43 ABG Base Excess 12.0 mmol/L (-2.0-2.0) H 08/09/22 18:43 [place]hat Test Pos 08/09/22 18:43 Hematocrit 30.1 % (37-47) L 08/09/22 18:43 O2 Delivery Device Nc 08/09/22 18:43 O2 Liters/Min 2.0 % 08/09/22 18:43 FiO2 28.0 % 08/09/22 18:43 [employer] ID K[place]hro 08/09/22 18:43 Sodium 136 mmol/L (136-145) 08/12/22 05:45 Potassium 4.5 mmol/L (3.5-5.1) 08/12/22 05:45 Chloride 97 mmol/L (98-107) L 08/12/22 05:45 Carbon Dioxide 31 mmol/L (22-29) H 08/12/22 05:45 Anion Gap 12.5 (5-19) 08/12/22 05:45 BUN 12 mg/dL (8-23) 08/12/22 05:45 Creatinine 0.4 mg/dL (0.5-0.9) L 08/12/22 05:45 GFR Calculation 158.3 mL/min (90-130) H 08/12/22 05:45 Glucose 158 mg/dL (65-115) H 08/12/22 05:45 POC Glucose 169 mg/dL (70-110) H 08/12/22 06:23 Estimat Average Glucose 123 08/10/22 00:50 Hemoglobin A1c 5.9 % (4.0-6.0) 08/10/22 00:50 Calculated Osmolality 285 mOsm/kg (285-295) 08/12/22 05:45 Lactic Acid 0.7 mmol/L (0.5-2.2) 08/10/22 00:50 Lactate 1.6 mmol/L (0.5-2.2) 08/09/22 18:55 Calcium 8.7 mg/dL (8.5-10.5) 08/12/22 05:45 Phosphorus 3.1 mg/dL (2.5-4.5) 08/12/22 05:45 Magnesium 1.8 mg/dL (1.7-2.3) 08/12/22 05:45 Total Bilirubin 0.2 mg/dL (0.15-1.2) 08/11/22 05:20 AST 9 U/L (0-32) 08/11/22 05:20 ALT 9 U/L (0-33) 08/11/22 05:20 Alkaline Phosphatase 58 U/L (35-105) 08/11/22 05:20 C-Reactive Protein 15.4 mg/L (0.0-4.9) H 08/09/22 18:55 NT-Pro-B Natriuret Pep 4396 pg/mL (0-125) H 08/09/22 18:55 Total Protein 6.1 g/dL (6.6-8.7) L 08/11/22 05:20 Albumin 3.1 g/dL (3.5-5.2) L 08/11/22 05:20 Globulin 3.0 g/dL (1.3-4.6) 08/11/22 05:20 Triglycerides 103 mg/dL (0-150) 08/12/22 05:45 Cholesterol 125 mg/dL (0-200) 08/12/22 05:45 LDL Cholesterol, Calc 64 mg/dL (50-129) 08/12/22 05:45 HDL Cholesterol 40 mg/dL (60-100) L 08/12/22 05:45 LDL/HDL Ratio 1.60 RATIO (0.00-3.22) 08/12/22 05:45 Cholesterol/HDL Ratio 3.13 mg/dL (0.0-4.40) 08/12/22 05:45 Procalcitonin 0.09 ng/mL (0-0.5) 08/10/22 00:50 TSH 0.36 uIU/mL (0.27-4.20) 08/10/22 00:50 Urine Color Yellow (Yellow) 08/09/22 19:04 Urine Appearance Clear (CLEAR) 08/09/22 19:04 Urine pH 7 (5-7) 08/09/22 19:04 Ur Specific [place] 1.010 (1.005-1.030) 08/09/22 19:04 Urine Protein 2+ (Negative) H 08/09/22 19:04 Urine Glucose (UA) Norm (Normal) 08/09/22 19:04 Urine Ketones Negative (Negative) 08/09/22 19:04 Urine Blood 3+ (Negative) H 08/09/22 19:04 Urine Nitrate Negative (Negative) 08/09/22 19:04 Urine Bilirubin Neg (Negative) 08/09/22 19:04 Urine Urobilinogen Norm mg/dL (Negative) 08/09/22 19:04 Ur Leukocyte Esterase Negative (Negative) 08/09/22 19:04 Urine RBC 15-25 /hpf (0-2) H 08/09/22 19:04 Urine WBC 0-4 /hpf (0-5) H 08/09/22 19:04 Ur Squamous Epith Cells 0-4 /hpf (0-5) H 08/09/22 19:04 Amorphous Sediment Not Reportable 08/09/22 19:04 Urine Bacteria Trace /hpf (NONE) 08/09/22 19:04 Blood Type O Positive 08/09/22 18:55 Rho(D) Type Positive 08/09/22 18:55 Antibody Screen Negative 08/09/22 18:55 Procedures Performed None Vitals Last Vital Signs Temp 98.3 F 08/12/22 07:52 Pulse 64 08/12/22 07:52 Resp 15 08/12/22 07:52 BP 144/79 08/12/22 07:52 Pulse Ox 95 08/12/22 07:52 O2 Del Method Nasal Cannula 08/12/22 07:52 O2 Flow Rate 2 08/12/22 07:36 Discharge Plan Discharge Patient Disposition: Home Condition: Stable Prescriptions: New atorvastatin 40 mg Tablet 40 mg PO BEDTIME Qty: 30 1RF Continued clopidogrel 75 mg tablet 75 mg PO DAILY insulin glargine [Lantus U-100 Insulin] 100 unit/mL solution 20 unit SUBCUT DAILY@15 Hold Instructions: Patient No Longer Taking Dose Instruction: INJECT 24 UNITS SUBCUTANEOUSLY ONCE DAILY metformin 1,000 mg tablet 1,000 mg PO BID Hold Instructions: Resume on 01/11/22. Dose Instruction: Take 1 tablet by mouth twice daily (DME) insulin syringe-needle U-100 [BD Insulin Syringe Ultra-Fine] 1 mL 31 gauge x 5/16 syringe See Rx Instructions .ROUTE .COMPLEX Qty: 100 3RF Dose Instruction: USE DIRECTED Rx Instructions: USE DIRECTED pantoprazole 40 mg Tablet,Delayed Release (Dr/Ec) 40 mg PO DAILY Qty: 30 0RF lisinopril 10 mg Tablet 10 mg PO DAILY@19 Qty: 30 0RF furosemide [Lasix] 40 mg tablet 40 mg PO BID Qty: 60 0RF acetaminophen 500 mg Tablet 1,000 mg PO Q6H PRN (Reason: Pain) exemestane 25 mg tablet 25 mg PO DAILY multivitamin Tablet 1 tab PO DAILY ampicillin sodium 2 gram recon soln 2 g IV Q4H 42 Days Qty: 168 0RF ceftriaxone 2 gram recon soln 2 g IV Q12H 42 Days Qty: 84 0RF sotalol 80 mg Tablet 120 mg PO BID 30 Days Qty: 90 0RF magnesium 250 mg Tablet 250 mg PO BID Discontinued glipizide 10 mg tablet 10 mg PO BID Discharge Orders: Discharge Order (Routine); Ordered 08/12/22 Ordered By: Carlos Tuttle Referrals: Heather Salas FNP [Nurse Practitioner] - 08/19/22 10:00 am Discharge Diet: Cardiac and Diabetic Discharge Activity: Resume usual activity and As per PT/OT instructions Patient Instructions: Atorvastatin (By mouth), Transient Ischemic Attack (GEN), Opioid Safety, Stroke Stoplight Discharge Attestations Time Spent in Discharge Care*: greater than 30 min Status at Discharge: Overall status at discharge: patient is back to baseline Quality Metrics Clinical Quality Measures [ No reported AMI, CVA or VTE this stay] Coding Level of Care Code Acute Code for Chg Fwd Diagnoses TIA (transient ischemic attack) G45.9 (HFpEF) heart failure with preserved ejection fraction I50.30 Infective endocarditis I33.0 SVT (supraventricular tachycardia) I47.1 Hypertension I10 Type 2 diabetes mellitus without complication E11.9 S/P TAVR (transcatheter aortic valve replacement) Z95.2 HX: breast cancer Z85.3 Anemia D64.9
== END 2022-08-12 10:45 | disposition home health service (06) | DRG 69 ==
LOC: ER 21:54 → ER IP 08-10 00:06 → ICU 08-10 05:46 → MEDSURG 08-12 06:00
PROVIDERS: Family Medicine; Hospitalist; Admitting Provider Student in an Organized Health Care Education/Training Program; Emergency Provider Emergency Medicine; PCP Internal Medicine Medical Oncology; Visit Provider Internal Medicine
DX: G45.9 Transient cerebral ischemic attack, unspecified (principal); R47.01 Aphasia; I50.32 Chronic diastolic (congestive) heart failure; C77.3 Secondary and unspecified malignant neoplasm of axilla and upper limb lymph nodes; I47.1 Supraventricular tachycardia; I38 Endocarditis, valve unspecified; I35.0 Nonrheumatic aortic (valve) stenosis; I11.0 Hypertensive heart disease with heart failure; Z95.2 Presence of prosthetic heart valve; C50.111 Malignant neoplasm of central portion of right female breast; Z17.0 Estrogen receptor positive status [ER+]; I48.91 Unspecified atrial fibrillation; Z79.4 Long term (current) use of insulin; Z79.84 Long term (current) use of oral hypoglycemic drugs; Z79.811 Long term (current) use of aromatase inhibitors; D50.9 Iron deficiency anemia, unspecified; E78.5 Hyperlipidemia, unspecified; Z78.0 Asymptomatic menopausal state; Z87.01 Personal history of pneumonia (recurrent); E11.319 Type 2 diabetes mellitus with unspecified diabetic retinopathy without macular edema; Z90.11 Acquired absence of right breast and nipple
CPT/HCPCS: 36415; 36416; 36600; 51702; 70450; 70551; 71045; 80048; 80053; 80061; 81001; 82803; 82962; 83036; 83605; 83735; 83880; 84100; 84145; 84443; 85025; 85610; 86140; 86850; 86900; 87040; 92507; 92523; 92526; 92610; 93005; 93880; 94664; 96372; 96374; 96375; 96376; 97116; 97161; 97165; 97530; 99285; J0153; J0290; J0696; J1650; J1815; J3475; J3490

== ENCOUNTER 2022-08-21 10:07 | Oncology outpatient (recurring) (ONCR) | payer MEDICARE, MEDICAID, SELFPAY ==
--- NOTE | 2022-08-21 10:50 | XR_ITS ---
WS: [id number] Thoracic spine, 3 views, 08/21/2022 Clinical Data: Pain in upper back Comparison: None. Findings: No compression fractures are seen. The disc heights are normal. There is a levoscoliosis with moderate osteoarthritis of the thoracic vertebral bodies. There is a ky phosis. There is a left PICC line which enters the left subclavian vein and ends in the superior vena cava. There is an artificial cardiac valve. XR/XR thoracic spine 2V [id number] Impression: 1. Moderate kyphosis and levoscoliosis. 2. Moderate osteoarthritis of the thoracic vertebral bodies.
== END 2022-09-17 23:59 | disposition home or self-care (01) ==
PROVIDERS: PCP Nurse Practitioner Family; Visit Provider Internal Medicine Medical Oncology
DX: C50.111 Malignant neoplasm of central portion of right female breast (principal); Z17.0 Estrogen receptor positive status [ER+]; C77.3 Secondary and unspecified malignant neoplasm of axilla and upper limb lymph nodes; I33.0 Acute and subacute infective endocarditis; B95.2 Enterococcus as the cause of diseases classified elsewhere; B96.89 Other specified bacterial agents as the cause of diseases classified elsewhere; Z79.2 Long term (current) use of antibiotics; Z79.818 Long term (current) use of other agents affecting estrogen receptors and estrogen levels; D64.9 Anemia, unspecified; Z79.899 Other long term (current) drug therapy
CPT/HCPCS: 72070; 99214

== ENCOUNTER → 2022-09-04 15:20 | Outpatient (BNVA) | payer MEDICARE, MEDICAID, SELFPAY | PROVIDERS: PCP Nurse Practitioner Family; Visit Provider Internal Medicine | DX: Z01.810 Encounter for preprocedural cardiovascular examination (principal); I47.1 Supraventricular tachycardia; I35.0 Nonrheumatic aortic (valve) stenosis; E11.9 Type 2 diabetes mellitus without complications; C50.911 Malignant neoplasm of unspecified site of right female breast; Z17.1 Estrogen receptor negative status [ER-]; Z79.4 Long term (current) use of insulin | CPT/HCPCS: 99214 ==

== ENCOUNTER → 2022-09-17 17:20 | Outpatient (BNVA) | payer MEDICARE, MEDICAID, SELFPAY | PROVIDERS: PCP Nurse Practitioner Family; Visit Provider Student in an Organized Health Care Education/Training Program | DX: T82.6XXA Infection and inflammatory reaction due to cardiac valve prosthesis, initial encounter (principal); I38 Endocarditis, valve unspecified; Z95.2 Presence of prosthetic heart valve; X58.XXXA Exposure to other specified factors, initial encounter | CPT/HCPCS: 99204 ==

== ENCOUNTER 2023-02-17 09:30 | Outpatient (CLI) | payer MEDICARE, MEDICAID, SELFPAY ==
--- NOTE | 2023-02-17 09:30 | PETR_ITS ---
PROCEDURE INFORMATION: Exam: PET/CT Skull Base to Mid-thigh Exam date and time: 02/17/2023 10:30 AM Age: 72 years old Clinical indication: Condition or disease; Primary cancer: Breast CA right; Symptoms: Enlarged lymph nodes LABS AND CLINICAL REPORTS: Glucose: 169 mg/dl Treatment strategy for malignancy (PET staging): Initial Staging (PI) TECHNIQUE: Imaging protocol: Following at least four-hour fasting and following the injection of radiopharmaceutical, low dose CT images were obtained. Then, PET images were obtained. Attenuation corrected images were constructed using the CT scan. Fused images of PET and CT were reviewed. The standardized uptake values (SUV) reported below are maximum values within a region of interest, expressed in gm/ml. Exam includes orbital meatal line to mid-thigh. Radiopharmaceutical: 11.57 mCi F-18 FDG (Fluorodeoxyglucose), IV. Time of imaging post radiopharmaceutical administration: 1 hour Injection site: Left antecubital vein COMPARISON: PT PET Scan 09/24/2019, CT abdomen pelvis 07/23/2022 FINDINGS: Catheters, tubes and devices: Loop recorder is in the left anterior chest wall. Brain: Visualized brain has normal physiologic uptake. Pharynx: No abnormal uptake. Larynx: No abnormal uptake. Lungs, pleura and trachea: No abnormal uptake. 0.9 cm subpleural density in the right middle lobe anteriorly on series 3, image 111 stable since 07/23/2022 likely represents a small subsegmental atelectases. No pleural effusion. Heart: Normal physiologic uptake. There is cardiomegaly. There is stable dense calcification in the annulus of the mitral valve. TAVR is in place. Stable prominence of fluid in the superior pericardial recess with no general pericardial effusion. Mediastinal space: No abnormal uptake. There is a small hiatal hernia. Liver: No abnormal uptake. Gallbladder and bile ducts: No abnormal uptake. No calcified gallstones. Pancreas: No abnormal uptake. Spleen: No abnormal uptake. No splenomegaly. Adrenal glands: No abnormal uptake. Mild thickening of the left adrenal up to 1.4 cm stable since 2019 is compatible with benign adrenal cortical adenoma. No right adrenal nodules. Kidneys and ureters: Normal physiologic uptake. No hydronephrosis. 3 x 2 mm nonobstructing stone in the mid leslie of the left kidney stable since 07/23/2022. Stable 3.5 cm simple cyst medially in the lower pole of the left kidney. Stomach and bowel: No increased uptake in the rectosigmoid and in multiple loops of small bowel in the lower abdomen with no corresponding CT abnormality is likely benign. No abnormal dilatation of the bowel. Intraperitoneal and retroperitoneal spaces: No abnormal uptake. No ascites. Bladder: Normal physiologic uptake. Reproductive: No abnormal uptake. Stable 2.8 cm cyst in the right ovary compatible with benign finding. Vasculature: No abnormal uptake. No aortic aneurysm. Lymph nodes: No abnormal uptake. No lymphadenopathy in the head, neck, chest, abdomen, pelvis, and extremities. Bones/joints: Mildly increased synovial uptake in the right shoulder is suggestive of benign inflammatory/degenerative finding. Otherwise no abnormal uptake in the visualized axial and appendicular skeleton. Soft tissues: High uptake in the injection site in the left antecubital fossa. Stable 1.3 cm left paravertebral nodule at T9 level (series 3, image 100) is compatible with benign incidental finding, probably neurogenic tumor. Status post right mastectomy. There are surgical clips in the right axilla. There is stable 2.5 cm fat containing hernia to the right of the midline in the lower anterior abdominal wall (series 3, image 224). [id number] IMPRESSION: No abnormal radiotracer uptake concerning for malignancy. No lymphadenopathy.
== END 2023-02-17 09:31 | disposition home or self-care (01) ==
LOC: RAD 02-18 08:27
PROVIDERS: PCP Nurse Practitioner Family; Visit Provider Internal Medicine Medical Oncology
DX: C50.911 Malignant neoplasm of unspecified site of right female breast (principal); R22.30 Localized swelling, mass and lump, unspecified upper limb; Z17.1 Estrogen receptor negative status [ER-]; Z90.11 Acquired absence of right breast and nipple
CPT/HCPCS: 78815; A9552

== ENCOUNTER 2023-03-18 09:30 | Oncology outpatient (recurring) (ONCR) | payer MEDICARE, MEDICAID, SELFPAY ==
[2023-02-23 12:14] VITALS: BP 146/76; PULSE 56; RESP 18; TEMP 36.1; O2SAT 96
[2023-02-23 12:15] LABS: Basophils # 0.1 10^3/uL (0.0-0.1); Basophils % 0.6 %; Eosinophils # 0.3 10^3/uL (0.0-0.8); Eosinophils % 3.5 %; Hematocrit 32.1 % (36-47); Lymphocytes # 2.2 10^3/uL (0.8-4.8); Lymphocytes % 27.3 %; Mean Corpuscular Hemoglobin 26.7 pg (27-33); Mean Corpuscular Volume 80.9 fl (85-98); Monocytes # 0.6 10^3/uL (0.2-0.9); Monocytes % 6.9 %; Neutrophils # 4.87 10^3/uL (1.8-7.7); Neutrophils % 61.3 %; Nucleated Red Blood Cells % 0 %; Platelet Count 297 10^3/cmm (157-399); Red Blood Count 3.97 10^6/uL (3.85-5.65); Red Cell Distribution Width 14.5 % (12.1-15.1); White Blood Count 7.95 10^3/uL (3.29-11.43)
[2023-02-23 12:40] LABS: Alanine Aminotransferase 12 U/L (0-33); Albumin Level 3.8 g/dL (3.5-5.2); Alkaline Phosphatase 105 U/L (35-105); Anion Gap 13.8 (5-19); Aspartate Amino Transferase 11 U/L (0-32); Blood Urea Nitrogen 24 mg/dL (8-23); Calcium 9.3 mg/dL (8.5-10.5); Carbon Dioxide 28 mmol/L (22-29); Chloride 102 mmol/L (98-107); Globulin 3.2 g/dL (1.3-4.6); Glomerular Filtration Rate 98.8 mL/min (90-130); Glucose 172 mg/dL (65-115); Osmolality Calculated 296 mOsm/kg (285-295); Potassium 4.8 mmol/L (3.5-5.1); Sodium 139 mmol/L (136-145); Total Bilirubin 0.3 mg/dL (0.15-1.2)
[2023-02-23 17:08] LABS: Ferritin 58 ng/mL (15-150); Iron 33 ug/dL (37-145); Percent Saturation 12.3 % (20-50); Total Iron Binding Capacity 268 mcg/dl; Unsaturated Iron Binding 235 ug/dL (112-347)
[2023-03-18 10:00] VITALS: BP 116/47; PULSE 57; RESP 18; TEMP 36.9; O2SAT 98
[2023-03-18] MEDS: ferric carboxy (IVPB) 750 MG in sodium chloride 0.9% (100 ml) 100 ML 345 MG IV (10:19)
[2023-03-18 10:50] VITALS: BP 124/78; PULSE 67; RESP 18; TEMP 36.7; O2SAT 98
== END 2023-03-19 23:59 | disposition home or self-care (01) ==
PROVIDERS: Nurse Practitioner Family; PCP Nurse Practitioner Family; Visit Provider Internal Medicine Medical Oncology
DX: D50.9 Iron deficiency anemia, unspecified
CPT/HCPCS: 36415; 80053; 82728; 83540; 83550; 85025; 96365; 99214; J1439

== ENCOUNTER 2023-03-25 09:31 | Oncology outpatient (recurring) (ONCR) | payer MEDICARE, MEDICAID, SELFPAY | END 2023-04-19 23:59 | disposition home or self-care (01) | PROVIDERS: PCP Nurse Practitioner Family; Visit Provider Internal Medicine Medical Oncology | DX: Z45.2 Encounter for adjustment and management of vascular access device | CPT/HCPCS: 99211 ==

== ENCOUNTER → 2023-07-30 11:16 | Outpatient (BNVA) | payer MEDICARE, MEDICAID, SELFPAY | PROVIDERS: PCP Nurse Practitioner Family; Visit Provider Nurse Practitioner Family | DX: E11.9 Type 2 diabetes mellitus without complications (principal); I10 Essential (primary) hypertension | CPT/HCPCS: 80053; 80061; 83036 ==

== ENCOUNTER → 2023-11-12 09:25 | Outpatient (BNVA) | payer MEDICARE, MEDICAID, SELFPAY | PROVIDERS: PCP Nurse Practitioner Family; Visit Provider Nurse Practitioner Family | DX: E16.2 Hypoglycemia, unspecified (principal); R53.83 Other fatigue; I10 Essential (primary) hypertension; E11.9 Type 2 diabetes mellitus without complications; Z79.4 Long term (current) use of insulin | CPT/HCPCS: 80053; 80061; 83036; 85025 ==

== ENCOUNTER → 2024-05-09 10:18 | Outpatient (BNVA) | payer MEDICARE, MEDICAID, SELFPAY | PROVIDERS: PCP Nurse Practitioner Family; Visit Provider Nurse Practitioner Family | DX: I10 Essential (primary) hypertension (principal); Z79.4 Long term (current) use of insulin; E11.9 Type 2 diabetes mellitus without complications; J18.9 Pneumonia, unspecified organism | CPT/HCPCS: 80053; 80061; 83036 ==